=== PATIENT | female | born 1930 | race Caucasian/White ===

== ENCOUNTER 2016-08-13 12:16 | Emergency (ER) | payer MEDICARE, MEDICAID ==
[2016-08-13 12:39] VITALS: BP 144/77
--- NOTE | 2016-08-13 13:59 | UC ---
General HPI - HPI Summary HPI Summary: YESTERDAY HAD FEVER OF 101F, AND QUESINESS. NO VOMITING. NO SORE THROAT. NO BODY ACHES. NO RASHES. NO ABDOMINAL PAIN. NO CHEST PAIN. NO SHORTNESS OF BREATH OR COUGH. NO CONGESTION. FEVER RESOLVED TODAY. - History of Current Complaint Chief Complaint: UCRespiratory Stated Complaint: CHILLS, NAUSEA, FEVER Time Seen by Provider: 08/13/16 12:51 Hx Obtained From: Patient, Family/Environmental Conservation Professor Onset/Duration: Sudden Onset, Lasting Hours, Resolved Onset Severity: Moderate Current Severity: None Associated Signs & Symptoms: Positive: Fever, Nausea, Weakness. Negative: Agitation, Abdominal Pain, Back Pain, Confusion, Cough, Chest Pain, Decreased Responsiveness, Dizziness, Diarrhea, Dysuria, Decreased Oral Intake, Diaphoresis , Headache, Melena, Palpitations, Syncope, SOB, Trauma, Vomiting, Wheezing - Allergy/Home Medications Allergies/Adverse Reactions: Allergies Allergy/AdvReac Type Severity Reaction Status Date / Time Celecoxib [From Celebrex] AdvReac Nausea And Verified 05/14/16 12:35 Vomiting Morphine AdvReac Nausea And Verified 05/14/16 12:35 Vomiting Rofecoxib [From Vioxx] AdvReac Nausea And Verified 05/14/16 12:35 Vomiting PMH/Surg Hx/FS Hx/Imm Hx Previously Healthy: Yes Endocrine History Of: Reports: Thyroid Disease - Hypo Denies: Diabetes Cardiovascular History Of: Reports: Cardiac Disorders - HEART ATTACK-2002, 2008 , MITRAL VALVE REPLACED, Hypertension, Pacemaker/ICD, Myocardial Infarction, Congestive Heart Failure - 09/2007 GI/ History Of: Reports: Renal Disease - abnormal gfr Denies: Kidney Stones Neurological History Of: Denies: TIA, CVA, Seizures Psychological History Of: Reports: Depression - remote past Cancer History Of: Denies: Breast Cancer Other History Of: Anticoagulant Therapy - Surgical History Surgical History: Yes Surgery Procedure, Year, and Place: hemorrrhoidectomy, hysterectomy,cataracts, spleenectomy,mitral valve,aortic aneurysm, pacer, iliac artery aneurysm,left hip replacement - Family History Known Family History: Positive: Cardiac Disease, Hypertension Negative: Diabetes - Social History Occupation: Retired Lives: With Family Alcohol Use: None Substance Use Type: None Smoking Status (MU): Former Smoker Type: Cigarettes Amount Used/How Often: quit 2009 Length of Time of Smoking/Using Tobacco: 1PPD Have You Smoked in the Last Year: No When Did the Patient Quit Smoking/Using Tobacco: 2000 - Immunization History Most Recent Influenza Vaccination: 04/2015 Most Recent Tetanus Shot: up to date Most Recent Pneumonia Vaccination: up to date, states receives every 5 years Review of Systems Constitutional: Fever, Chills, Fatigue Skin: Negative Eyes: Negative ENT: Negative Respiratory: Negative Cardiovascular: Negative Gastrointestinal: Negative Genitourinary: Negative Motor: Negative Neurovascular: Negative Musculoskeletal: Negative Neurological: Negative Psychological: Negative All Other Systems Reviewed And Are Negative: Yes Physical Exam Triage Information Reviewed: Yes Appearance: Well-Appearing, No Pain Distress, Well-Nourished, Thin Vital Signs: Initial Vital Signs Temp 99.0 F 08/13/16 12:34 Pulse 106 08/13/16 12:34 Resp 18 08/13/16 12:34 BP 144/77 08/13/16 12:34 Pulse Ox 96 08/13/16 12:34 Vital Signs Reviewed: Yes Eye Exam: Normal ENT Exam: Normal ENT: Positive: Normal ENT inspection, Hearing grossly normal, Pharynx normal, TMs normal Dental Exam: Normal Neck exam: Normal Neck: Positive: Supple, Nontender, No Lymphadenopathy Respiratory Exam: Normal Respiratory: Positive: Chest non-tender, Lungs clear, Normal breath sounds, No respiratory distress, No accessory muscle use Cardiovascular Exam: Normal Cardiovascular: Positive: RRR, No Murmur, Pulses Normal Abdominal Exam: Normal Abdomen Description: Positive: Nontender, No Organomegaly Musculoskeletal Exam: Normal Musculoskeletal: Positive: Strength Intact, ROM Intact, No Edema Neurological Exam: Normal Psychological Exam: Normal Psychological: Positive: Normal Response To Family Skin Exam: Normal Course/Dx - Differential Dx - Multi-Symptom Differential Diagnoses: Metabolic Abnormality, Sepsis, Other - INFLUENZA Provider Diagnoses: VIRAL SYNDROME Discharge - Discharge Plan Condition: Stable Disposition: HOME Patient Education Materials: Viral Syndrome (ED) Referrals: Edilberto Ayers MD [Primary Care Provider] -
== END 2016-08-13 13:55 | disposition home or self-care (01) ==
LOC: UCEAST 12:16
DX: B34.9 Viral infection, unspecified (principal); Z95.0 Presence of cardiac pacemaker; Z96.642 Presence of left artificial hip joint; Z98.49 Cataract extraction status, unspecified eye; Z98.890 Other specified postprocedural states; Z87.891 Personal history of nicotine dependence; Z88.5 Allergy status to narcotic agent; Z88.6 Allergy status to analgesic agent
CPT/HCPCS: 87502; 99212; G0463

== ENCOUNTER 2016-08-17 09:21 | Inpatient (IN) | payer MEDICARE, MEDICAID ==
[2016-08-17] MEDS ORDERED: NS 0.9% 1000 ML* 1,600 ML IV ONE (09:45)
[2016-08-17] MEDS ORDERED: Acetaminophen TAB* 325 MG PO ONE (09:45)
[2016-08-17 10:06] LABS: Add Diff/Slide Review? Slide Review Added; Albumin 3.7 g/dL (3.2-5.2); BUN/Creatinine Ratio 29.5 (8-20); Calcium 9.1 mg/dL (8.6-10.3); Comments Flag Yes; EGFR African American 78.4 (>60); EGFR Non-African American 60.9 (>60); Globulin 3.7 g/dL (2-4); Hematocrit 44 % (35-47); Hemoglobin 14.1 g/dl (12.0-16.0); Mean Corpuscular HGB Conc 32 g/dl (31-36); Mean Corpuscular Hemoglobin 30 pg (27-31); Mean Corpuscular Volume 92 fL (80-97); Mean Platelet Volume 11 um3 (7.4-10.4); Potassium 3.5 mmol/L (3.5-5.0); Red Blood Count 4.76 10^6/ul (4.0-5.4); Red Cell Distribution Width 16 % (10.5-15); Total Bilirubin 1.2 mg/dL (0.2-1.0); Total Protein 7.4 g/dL (6.4-8.9); White Blood Count 10.9 10^3/ul (3.5-10.8)
[2016-08-17 10:19] LABS: Troponin I 0.35 ng/mL (<0.04)
[2016-08-17] MEDS ORDERED: NS 0.9% 1000 ML* 1,000 ML IV SCH ×2 (10:30→11:45)
--- NOTE | 2016-08-17 10:55 | ED ---
Napoleon Sanabria Matthew, scribed for Sara Bailey MD on 08/17/16 at 1003 . Influenza-Like Illness - HPI Summary HPI Summary: An 86 y/o female presents to the ED with fever since 4 days ago. Associated symptoms include chills, intermittent productive cough, fever as high as 101+, nausea, evaluated BP, SOB - acute on chronic, fatigue, and weakness - acute on chronic. The patient denies chest pain, vomiting, diarrhea, and hematemesis. The patient takes 6 Tylenol daily, which has not alleviated her fever. She received her flu shot this year. The symptoms improved 3 days ago, but worsened in the last two. - History of Current Complaint Chief Complaint: EDGeneral Time Seen by Provider: 08/17/16 09:43 Hx Obtained From: Patient Onset/Duration: Gradual Onset, Lasting Days, Still Present Severity: Moderate Associated Signs & Symptoms: Fever, Cough - Allergy/Home Medications Allergies/Adverse Reactions: Allergies Allergy/AdvReac Type Severity Reaction Status Date / Time Celecoxib [From Celebrex] AdvReac Nausea And Verified 05/14/16 12:35 Vomiting Morphine AdvReac Nausea And Verified 05/14/16 12:35 Vomiting Rofecoxib [From Vioxx] AdvReac Nausea And Verified 05/14/16 12:35 Vomiting PMH/Surg Hx/FS Hx/Imm Hx Endocrine/Hematology History: Reports: Hx Anticoagulant Therapy, Hx Thyroid Disease - Hypo, Hx Anemia Denies: Hx Blood Disorders, Hx Blood Transfusions, Hx Bone Marrow Disease, Hx Diabetes, Hx Systemic Lupus Erythematosus, Hx Unexplained Bleeding Cardiovascular History: Reports: Hx Aneurysm - AAA REPAIR 03/07/13, Hx Angina, Hx Congestive Heart Failure - 09/2007, Hx Coronary Artery Disease, Hx Hypercholesterolemia, Hx Hypertension, Hx Myocardial Infarction, Hx Pacemaker/ ICD, Hx Peripheral Vascular Disease, 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,AORTIC VALVE DIEASE, Other Cardiovascular Problems/Disorders - AAA, Taketsubo GI History: Denies: Other GI Disorders History: Reports: Hx Renal Disease - abnormal gfr Denies: Hx Dialysis, Hx Kidney Stones, Other Problems/Disorders Musculoskeletal History: Reports: Hx Arthritis - POLYMYALIGIA RHEUMATICA, Hx Orthopedic Injury, Other Musculoskeletal History - POLYMYALGIA RHEUMATICA Denies: Hx Osteoporosis Sensory History: Reports: Hx Contacts or Glasses Denies: Hx Hearing Problem Opthamlomology History: Reports: Hx Contacts or Glasses Neurological History: Reports: Hx Nerve Disease - peripheral neuropathy right leg only Denies: Hx Headaches, Hx Seizures, Hx Transient Ischemic Attacks (TIA) Psychiatric History: Reports: Hx Depression - remote past - Cancer History Hx Chemotherapy: No Hx Radiation Therapy: No - Surgical History Surgery Procedure, Year, and Place: hemorrrhoidectomy, hysterectomy,cataracts, spleenectomy,mitral valve,aortic aneurysm, pacer, iliac artery aneurysm,left hip replacement Hx Anesthesia Reactions: No Infectious Disease History: No Infectious Disease History: Denies: Traveled Outside the [place] in Last 30 Days - Family History Known Family History: Positive: Cardiac Disease, Hypertension Negative: Diabetes - Social History Alcohol Use: None Substance Use Type: Reports: None Smoking Status (MU): Former Smoker Type: Cigarettes Amount Used/How Often: quit 2009 Length of Time of Smoking/Using Tobacco: 1PPD Have You Smoked in the Last Year: No Review of Systems Constitutional: Other - increased BP Positive: Fever, Chills, Fatigue Eyes: Negative ENT: Negative Cardiovascular: Negative Negative: Chest Pain Positive: Shortness Of Breath - acute on chronic , Cough - productive Positive: Nausea. Negative: Abdominal Pain, Vomiting, Diarrhea Genitourinary: Negative Musculoskeletal: Negative Skin: Negative Positive: Weakness - generalized Psychological: Normal All Other Systems Reviewed And Are Negative: Yes Physical Exam Triage Information Reviewed: Yes Vital Signs On Initial Exam: Initial Vitals Temp Pulse Resp BP Pulse Ox 102.5 F 115 44 206/99 93 08/17/16 09:25 08/17/16 09:25 08/17/16 09:25 08/17/16 09:25 08/17/16 09:25 Vital Signs Reviewed: Yes Appearance: Positive: No Pain Distress, Ill-Appearing - moderate Skin: Positive: Warm, Skin Color Reflects Adequate Perfusion, Dry Eyes: Positive: EOMI, COLIN ENT: Positive: Tonsillar swelling - left Neck: Positive: Supple, Nontender Respiratory/Lung Sounds: Positive: Clear to Auscultation, Decreased Breath Sounds - at the base, Other - tachypneic. Negative: Rales, Rhonchi, Wheezes Cardiovascular: Positive: Tachycardia. Negative: Murmur, Rub Abdomen Description: Positive: Nontender, Soft. Negative: Distended, Guarding Bowel Sounds: Positive: Present Musculoskeletal: Positive: Normal, Strength/ROM Intact Neurological: Positive: Normal, Sensory/Motor Intact, Alert, Oriented to Person Place, Time, CN Intact II-III Psychiatric: Positive: Normal, Affect/Mood Appropriate Diagnostics - Vital Signs Vital Signs Temp Pulse Resp BP Pulse Ox 08/17/16 09:46 93 08/17/16 09:25 102.5 F 115 44 206/99 93 - Laboratory Lab Results: Lab Results 08/17/16 08/17/16 08/17/16 Range/Units 09:35 09:35 09:35 WBC 10.9 H (3.5-10.8) 10^3/ul RBC 4.76 (4.0-5.4) 10^6/ul Hgb 14.1 (12.0-16.0) g/dl Hct 44 (35-47) % MCV 92 (80-97) fL MCH 30 (27-31) pg MCHC 32 (31-36) g/dl RDW 16 H (10.5-15) % Plt Count 125 L (150-450) 10^3/ul MPV 11 H (7.4-10.4) um3 Neut % (Auto) 68.8 (38-83) % Lymph % (Auto) 14.6 L (25-47) % Owsley % (Auto) 15.8 H (1-9) % Eos % (Auto) 0.1 (0-6) % Baso % (Auto) 0.7 (0-2) % Absolute Neuts (auto) 7.5 (1.5-7.7) 10^3/ul Absolute Lymphs (auto) 1.6 (1.0-4.8) 10^3/ul Absolute Monos (auto) 1.7 H (0-0.8) 10^3/ul Absolute Eos (auto) 0 (0-0.6) 10^3/ul Absolute Basos (auto) 0.1 (0-0.2) 10^3/ul Absolute Nucleated RBC 0.01 10^3/ul Nucleated RBC % 0.1 INR (Anticoag Therapy) 1.57 H (0.89-1.11) APTT 33.9 (26.0-36.3) seconds Sodium 133 (133-145) mmol/L Potassium 3.5 (3.5-5.0) mmol/L Chloride 99 L (101-111) mmol/L Carbon Dioxide 25 (22-32) mmol/L Anion Gap 9 (2-11) mmol/L BUN 26 H (6-24) mg/dL Creatinine 0.88 (0.51-0.95) mg/dL Est GFR ( Amer) 78.4 (>60) Est GFR (Non-Af Amer) 60.9 (>60) BUN/Creatinine Ratio 29.5 H (8-20) Glucose 86 (70-100) mg/dL Lactic Acid (0.5-2.0) mmol/L Calcium 9.1 (8.6-10.3) mg/dL Total Bilirubin 1.20 H (0.2-1.0) mg/dL AST 18 (13-39) U/L ALT 10 (7-52) U/L Alkaline Phosphatase 45 (34-104) U/L Troponin I 0.35 H* (<0.04) ng/mL Total Protein 7.4 (6.4-8.9) g/dL Albumin 3.7 (3.2-5.2) g/dL Globulin 3.7 (2-4) g/dL Albumin/Globulin Ratio 1.0 (1-3) Influenza A (Rapid) (Negative) Influenza B (Rapid) (Negative) 08/17/16 08/17/16 Range/Units 09:35 09:59 WBC (3.5-10.8) 10^3/ul RBC (4.0-5.4) 10^6/ul Hgb (12.0-16.0) g/dl Hct (35-47) % MCV (80-97) fL MCH (27-31) pg MCHC (31-36) g/dl RDW (10.5-15) % Plt Count (150-450) 10^3/ul MPV (7.4-10.4) um3 Neut % (Auto) (38-83) % Lymph % (Auto) (25-47) % Owsley % (Auto) (1-9) % Eos % (Auto) (0-6) % Baso % (Auto) (0-2) % Absolute Neuts (auto) (1.5-7.7) 10^3/ul Absolute Lymphs (auto) (1.0-4.8) 10^3/ul Absolute Monos (auto) (0-0.8) 10^3/ul Absolute Eos (auto) (0-0.6) 10^3/ul Absolute Basos (auto) (0-0.2) 10^3/ul Absolute Nucleated RBC 10^3/ul Nucleated RBC % INR (Anticoag Therapy) (0.89-1.11) APTT (26.0-36.3) seconds Sodium (133-145) mmol/L Potassium (3.5-5.0) mmol/L Chloride (101-111) mmol/L Carbon Dioxide (22-32) mmol/L Anion Gap (2-11) mmol/L BUN (6-24) mg/dL Creatinine (0.51-0.95) mg/dL Est GFR ( Amer) (>60) Est GFR (Non-Af Amer) (>60) BUN/Creatinine Ratio (8-20) Glucose (70-100) mg/dL Lactic Acid 1.0 (0.5-2.0) mmol/L Calcium (8.6-10.3) mg/dL Total Bilirubin (0.2-1.0) mg/dL AST (13-39) U/L ALT (7-52) U/L Alkaline Phosphatase (34-104) U/L Troponin I (<0.04) ng/mL Total Protein (6.4-8.9) g/dL Albumin (3.2-5.2) g/dL Globulin (2-4) g/dL Albumin/Globulin Ratio (1-3) Influenza A (Rapid) Negative (Negative) Influenza B (Rapid) Negative (Negative) Result Diagrams: 08/17/16 09:35 08/17/16 09:35 Lab Statement: Any lab studies that have been ordered have been reviewed, and results considered in the medical decision making process. - Radiology No standard instances Xray Interpretation: Positive (See Comments) Radiology Interpretation Completed By: ED Physician - rt upper lobe infiltrate - EKG 09:41 Cardiac Rate: Tachycardia - 105 bpm EKG Rhythm: Atrial Fibrillation EKG Interpretation: LVH; Diffuse ST Changes EKG Comparison: No Significant Change - 09/13/15 Flu Symptom Course/Dx - Course Course Of Treatment: 86 yo meeting sepsis criteria by vitals, abx on board, 30 cc/kg of ns being given, hospitalist called for admission. Airway is good - Diagnoses Provider Diagnoses: Pneumonia - Physician Notifications Discussed Care Of Patient With: Dr. Kat (Hospitalist) at 10:23 -- Notified of patient's history and will admit the patient. Discharge - Discharge Plan Condition: Guarded Disposition: ADMITTED TO [facility] documentation as recorded by the Napoleon ledesma Matthew accurately reflects the service I personally performed and the decisions made by me, Sara Bailey MD.
[2016-08-17] MEDS ORDERED: cefTRIAXone VIAL(*) 1,000 MG in NS 0.9% 50 ML* 50 ML IVPB ONE (10:56)
[2016-08-17] MEDS ORDERED: Azithromycin IV(*) 500 MG in NS 0.9% 250 ML* 250 ML IVPB ONE (10:56)
[2016-08-17] MEDS ORDERED: NS 0.9% 50 ML* 50 ML ONE (10:59)
[2016-08-17] MEDS ORDERED: cefTRIAXone(*) 1 GM ADVAN/BAG ONE (11:00)
--- NOTE | 2016-08-17 11:21 | RAD ---
Indication: Flulike symptoms. History of congestive heart failure. Comparison: May 14, 2016 CT abdomen and May 06, 2016 chest radiograph. Technique: Sitting AP and lateral chest views. Report: Elevated lung volumes. Confluent airspace consolidation involving the anterior segment of the RIGHT upper lobe extending to the peripheral pleura and the minor fissure. Negative for volume loss. Small bilateral pleural effusions. Elevated lung volumes with mild prominence of the interstitial markings. Median sternotomy wires, prosthetic mitral valve, RIGHT ventricular level pacemaker lead. Unremarkable central pulmonary vasculature. Abdominal aorta stent noted. IMPRESSION: RIGHT upper lobe pneumonia. Small bilateral pleural effusions. Stigmata of chronic obstructive pulmonary disease.
[2016-08-17 11:32] LABS: Urine Bacteria 2+ (Absent); Urine Bilirubin Negative (Negative); Urine Glucose Negative (Negative); Urine Nitrite Positive (Negative)
[2016-08-17] MEDS ORDERED: Acetaminophen TAB* 325 MG PO PRN (11:40)
[2016-08-17] MEDS ORDERED: Digoxin TAB* 0.125 MG PO SCH (12:00)
[2016-08-17] MEDS: predniSONE TAB* 20 MG PO SCH (12:10)
[2016-08-17] MEDS: Diltiazem TAB* 60 MG PO SCH ×3 (12:10→23:48)
[2016-08-17] MEDS ORDERED: Morphine INJ* 2 MG/ML 1 ML CARPUJECT IV ONE (12:41)
[2016-08-17] MEDS: Ondansetron INJ* 2 MG/ML VIAL IV PRN (13:02)
--- NOTE | 2016-08-17 13:28 | PN ---
Progress Note - Progress Note Note: CRITICAL CARE MEDICINE Date: 08/17/16 Time: 1300 Patient seen and discussed with SKATING RINK ICE MAKER Agree with corporate executive findings and assessment. Presenting with sob Pt tells me she is usualy active with ADLs, ambulates, drives, etc. Started feeling ill on but then worse today. Vital signs: Reviewed. LABS: Reviewed. IMAGING: Reviewed. MEDICATIONS: Reviewed. ASSESSMENT/PLAN: Acute hypoxic resp failure sec to RUL CAP with associated sepsis syndrome sec to this. Early and already dense RUL pna which is likely still to worsen. D/w pt and her family at bedside. Being placed on HFO2 to see if she can catch up to lack of flow but V/Q mismatch may be a bit much for her and may need intubation. She would accept a short course of such but as a DNR. Would be hopefully she can turn around in a couple days with abx and appropriate fluid balance. She's a touch intravascular deplete and would rather avoid interstitial fluid overload with her airspace disease. She is perfusing and if wob can come down she may be able to walk the line with HFO2. Give morphine and see how she can respond in the next hour or so to determine intubation needs. She expressed understanding. Supportive and preventative care as ordered. Disposition: ICU, Level Code Status: Full Critical Care Time: noreen Jimenes DO
[2016-08-17 14:20] LABS: Urine Bacteria 1+ (Absent); Urine Bilirubin Negative (Negative); Urine Glucose Negative (Negative); Urine Nitrite Positive (Negative)
[2016-08-17 14:26] LABS: Troponin I 0.33 ng/mL (<0.04)
[2016-08-17 14:44] LABS: Digoxin 3.1 ng/ml (0.8-2.0)
[2016-08-17] MEDS: Acetaminophen TAB* 325 MG PO SCH ×2 (14:55→20:47)
[2016-08-17] MEDS: Heparin VIAL(*) 5000 UNITS/ML VIAL (FIVE THOUSAND) SUBCUT SCH ×2 (14:55→21:09)
[2016-08-17] MEDS: Atorvastatin* 10 MG TAB PO SCH (16:59)
[2016-08-17] MEDS: Warfarin TAB(*) 3 MG PO SCH (17:01)
--- NOTE | 2016-08-17 19:27 | ECHO ---
Patient: [facility] Rec#: [id number] : 1930 Date: 08/17/2016 Age: 86y Height: 160 cm / 63.0 in Weight: 52 kg / 114.6 lbs Sex: F BSA: 1.53 Room#: [id number] Admit Date#: 08/17/2016 Type: Inpatient Referring: Rohan Bueno NP Reading: Kobe Obando MD Shipwright Helper: Devang Santana RDCS CC: Edilberto Ayers MD Transthoracic Echocardiogram Indication: CARDIOMYOPATHY BP: 155/69 HR: 66 Rhythm: NSR Findings History: MVP,AI,CAD,AZ,apical akinesis,SVT,a,fib,PHTN Technical Comments: The study quality is fair. COMPLETED 1700 Left Ventricle: The left ventricular chamber size is normal. Mild to moderate concentric left ventricular hypertrophy is observed. Global left ventricular wall motion and contractility are within normal limits. There is normal left ventricular systolic function. The estimated ejection fraction is 55-60%. Post surgical hypokinesis of the interventricular septum is observed consistent with valve replacement. Left Atrium: The left atrium is severely dilated. Right Ventricle: The right ventricular cavity size is normal. The right ventricular global systolic function is normal. Right Atrium: The right atrium is mildly dilated. Aortic Valve: The aortic valve is trileaflet. The aortic valve leaflets are moderately thickened. There is aortic annular calcification. There is mild to moderate aortic regurgitation. There is mild aortic stenosis. The mean gradient of the aortic valve is 15 mmHg. The peak instantaneous gradient of the aortic valve is 30 mmHg. The aortic valve area, by peak velocities, is calculated at 1.4 cm2. The aortic valve area, by VTI's, is calculated at 1.2 cm2. The highest aortic valve velocity was obtained with the standard probe from the A5C view. Mitral Valve: There is mitral annular calcification. The mitral valve leaflets are mildly thickened. The mean gradient across the mitral valve is 4.88 mmHg. The peak gradient across the mitral valve is 13.8 mmHg. The bioprosthetic mitral valve appears to be functioning normally. Tricuspid Valve: The tricuspid valve appears normal in structure and function. There is mild to moderate tricuspid regurgitation. The right ventricular systolic pressure is estimated at 30 mmHg. Pulmonic Valve: The pulmonic valve structure is not well visualized. There is mild pulmonic regurgitation. Pericardium: There is no pericardial effusion. Aorta: There is mild dilatation of the ascending aorta.(4.0 cm) There is no dilatation of the aortic arch. There is no dilation of the aortic root. Pulmonary Artery: The main pulmonary artery is not well visualized. Venous: The inferior vena cava appears normal in size. There is a greater than 50% respiratory change in the inferior vena cava dimension. Conclusions Mild to moderate concentric left ventricular hypertrophy is observed. Global left ventricular wall motion and contractility are within normal limits. There is normal left ventricular systolic function. The estimated ejection fraction is 55-60%. Post surgical hypokinesis of the interventricular septum is observed consistent with valve replacement. The left atrium is severely dilated. The aortic valve leaflets are moderately thickened. There is mild to moderate aortic regurgitation. There is mild aortic stenosis. The mean gradient of the aortic valve is 15 mmHg. The bioprosthetic mitral valve appears to be functioning normally. The mitral valve leaflets are mildly thickened. There is mild to moderate tricuspid regurgitation. The right ventricular systolic pressure is estimated at 30 mmHg. There is no pericardial effusion. There is mild dilatation of the ascending aorta.(4.0 cm) Measurements Name Value Normal Range RVIDd (AP) 2D 2.15 cm (0.9 - 2.6) RVDdMajor (2D) 2.4 cm (2.2 - 4.4) RAd ISD 4CH 5.5 cm (3.4 - 4.9) RA (A4C)W 4 cm (2.9 - 4.6) IVSd (2D) 1.6 cm (0.6 - 1) LVPWd (2D) 1.1 cm (0.6 - 1) LVIDd (2D) 4.8 cm (3.6 - 5.4) LVIDs (2D) 3.5 cm - LV FS (2D) 26 % (25 - 45) Aortic Annulus 1.6 cm (1.4 - 2.6) Ao root diameter (2D) 2 cm (2.1 - 3.5) Ascending Ao 4 cm (2.1 - 3.4) Aortic arch 2.6 cm (1.8 - 3.4) LA dimension (AP) 2D 6.8 cm (2.3 - 3.8) LAd ISD 4CH 5.4 cm (2.9 - 5.3) LA ISD 4CH W 3.5 cm (2.5 - 4.5) Name Value Normal Range LA ESV SP 4CH (A/L) 60 ml - LA ESV SP 2CH (A/L) 82 ml - LA ESV BP (A/L) 77 ml - LA ESV BP (A/L) index 50.29 ml/m2 - LA ESV SP 4CH (MOD) 56 ml - LA ESV SP 2CH (MOD) 78 ml - Name Value Normal Range MV E-wave Vmax 1.57 m/sec - MV deceleration time 397 msec - MV A-wave Vmax 0.52 m/sec - MV E:A ratio 3 ratio - LV septal e' Vmax 39.25 m/sec - LV lateral e' Vmax 39.25 m/sec - LV E:e' septal ratio 0.04 ratio - LV E:e' lateral ratio 0.04 ratio - Name Value Normal Range AV Vmax 2.8 m/sec - AV VTI 50.8 cm - AV peak gradient 30 mmHg - AV mean gradient 15 mmHg - LVOT diameter 1.9 cm - LVOT Vmax 1.4 m/sec - SONIA (continuity Vmax) 1.4 cm2 - SOINA (continuity VTI) 1.2 cm2 - AR PHT 567.42 msec - AR peak gradient 69.15 mmHg - Name Value Normal Range MV Vmax 1.86 m/sec - MV VTI 53.5 cm - MV peak gradient 13.8 mmHg - MV mean gradient 4.88 mmHg - MV PHT 136.11 msec - MVA (PHT) 1.62 cm2 - MVA (continuity VTI) 1.09 cm2 - Name Value Normal Range TR Vmax 2.7 m/sec - TR peak gradient 30 mmHg - RVSP 30 mmHg - IVC diameter 1.9 cm - Name Value Normal Range PV Vmax 0.87 m/sec - PV peak gradient 3.06 mmHg -
[2016-08-17] MEDS: BRIMONIDINE RIGHT EYE SCH (20:48)
[2016-08-17] MEDS: Latanoprost 0.005%* 2.5 ml BTL RIGHT EYE SCH (20:48)
[2016-08-18] MEDS: Levothyroxine TAB* 75 MCG TAB PO SCH (05:51)
[2016-08-18] MEDS: Heparin VIAL(*) 5000 UNITS/ML VIAL (FIVE THOUSAND) SUBCUT SCH ×3 (05:51→21:05)
[2016-08-18] MEDS: Diltiazem TAB* 60 MG PO SCH ×4 (05:51→23:15)
[2016-08-18 06:05] LABS: Hematocrit 39 % (35-47); Hemoglobin 12.7 g/dl (12.0-16.0); Mean Corpuscular HGB Conc 33 g/dl (31-36); Mean Corpuscular Hemoglobin 30 pg (27-31); Mean Corpuscular Volume 92 fL (80-97); Mean Platelet Volume 10 um3 (7.4-10.4); Red Blood Count 4.23 10^6/ul (4.0-5.4); Red Cell Distribution Width 17 % (10.5-15); White Blood Count 9.7 10^3/ul (3.5-10.8)
[2016-08-18 06:06] LABS: Add Diff/Slide Review? Slide Review Added; Comments Flag Yes
[2016-08-18 06:19] LABS: BUN/Creatinine Ratio 32.9 (8-20); Calcium 8.1 mg/dL (8.6-10.3); EGFR African American 92.8 (>60); EGFR Non-African American 72.2 (>60); Potassium 4.3 mmol/L (3.5-5.0)
--- NOTE | 2016-08-18 06:47 | HP ---
HISTORY AND PHYSICAL: DATE OF ADMISSION: 08/17/16 PRIMARY CARE PROVIDER: Dr. Ayers. ATTENDING PHYSICIAN WHILE IN THE HOSPITAL: Yusuf Stone MD *(report dictated by Rohan Bueno NP). CHIEF COMPLAINT: 1. Weakness. 2. Cough. 3. Fever. HISTORY OF PRESENT ILLNESS: Mrs. Gilmore is an 86-year-old female patient who has a history of cardiomyopathy Takotsubo. She has a history of vertigo, A-Fib , PMR, hypertension, atherosclerotic disease, hyperlipidemia, history of COPD on no inhaler, hypothyroidism, thrombocytopenia, hemolytic anemia and history of CVA. She comes into the ER today stating that since she has not been feeling well. She actually went to the [facility] on . She says that she was having aches all over, feeling weak, feeling tired. She states she had a sore throat. She said she went to [facility]. She states that flu was ruled out and thought may be there was a viral illness. She was sent home. She was doing well on Wednesday, but then Wednesday and Wednesday she got progressively worse, weak. She was having rigors and chills. Wednesday she started out with a cough, sore throat. She had no recent sick contacts. She has been aching all over. She just has not been feeling well. She vomited once but she vomited with phlegm. She says that she has not had a running nose or any chest pain but she does state that she has been progressively more and more short of breath throughout the weekend particularly with exertion. There was no documented fever at home but when she got here to the ER today she had a fever of 102. She denies any abdominal pain. Denies having any joint discomfort. It is more of a generalized arthralgias and myalgias and no open areas or skin rashes. She was evaluated in the ER. There was concern that it was found that she had pneumonia appeared to be septic. Hospitalist service was asked to evaluate for admission. PAST MEDICAL HISTORY: Significant for: 1. Takotsubo cardiomyopathy, last EF from 2011 is greater than 65%. 2. Vertigo. 3. History of atrial fibrillation. 4. Hypertension. 5. Atherosclerotic disease. 6. Hyperlipidemia. 7. COPD. 8. Hypothyroidism. 9. Thrombocytopenia. 10. Hemolytic anemia. 11. CVA. PAST SURGICAL HISTORY: 1. 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 2. Pacemaker for tachybrady syndrome. 3. AAA repair. 4. Iliac aneurysm repair. 5. Splenectomy. HOME MEDICATIONS: According to the list that she gave to us include: 1. Prednisone 5 mg daily with meal. 2. Warfarin 1 mg daily. 3. Pro [place] 1000 mg one capsule daily. 4. Niacinamide 500 mg p.o. weekly. 5. Mevacor 20 mg daily. 6. Synthroid 75 mcg daily. 7. Latanoprost one drop right eye at bedtime. 8. Multivitamin one tablet p.o. t.i.d. 9. Drenamin one tablet daily. 10. Diltiazem CD 120 at night and 240 in the morning. 11. Digoxin 0.25 mg on Wednesday and Wednesday. 12. Digoxin 0.125 mg on Wednesday, Wednesday, Wednesday, , Wednesday. 13. Clarinex 5 mg daily. 14. Co-enzyme Q10 100 mg daily. 15. Vitamin D 1000 units daily. 16. Calcium and magnesium with zinc one tablet p.o. daily. 17. Brimonidine tartrate one drop to right eye b.i.d. 18. Aspirin 81 mg daily. 19. Tylenol 650 p.o. t.i.d. ALLERGIES TO MEDICATIONS: Includes CELEBREX, MORPHINE, and ROFECOXIB. FAMILY HISTORY: Mother had heart disease from rheumatic fever. She in the 40s. Father had a history of surgical complication. He from that. SOCIAL HISTORY: She is a former smoker. She quit in 2001. She does not drink alcohol. Surrogate decision maker is her daughter, Joesph. She lives alone. REVIEW OF SYSTEMS: There is documented fever here. She denied having any significant weight change. There was no double vision. There is no ear discharge. There is no rhinorrhea. There was sore throat. There is no thyroid enlargement. She denies any chest pain. There is dyspnea on exertion. There is no orthopnea, no nocturnal dyspnea. There is no abdominal pain. There was only one episode with nausea, vomiting. No dysuria, no frequency. No loss of consciousness. No pruritus and no skin ulcerations. Review of 14 systems completed, all others negative. PHYSICAL EXAMINATION GENERAL: At this time, Mrs. Gilmore is an 86-year-old female patient. She is sitting in the ER stretcher. She appears to be in mild respiratory distress. She appears well nourished, well developed. VITAL SIGNS: Last blood pressure was 150/70 with pulse of 93, temperature is 101.3, respirations are 26, O2 sat was 97%. When she came in, respirations were 40 and her blood pressure was 206/99. HEENT: Head: Atraumatic, normocephalic. Eyes: EOMs are intact. Sclerae anicteric and not pale. NECK: Supple. Throat: Oral mucosa appears to be moist. No oropharyngeal erythema. LUNGS: She had rhonchi noted on the upper lobes and crackles in the right middle lobe. No wheezes were noted. HEART: Sounds S1, S2. Irregularly irregular rate. No murmurs, rubs, or gallops. ABDOMEN: Soft, flat, nontender. Bowel sounds were present. EXTREMITIES: Pulses 2+ throughout. Able to move all 4 extremities with 5/5 strength. NEUROLOGIC: She is awake, alert, oriented x3. Tongue is midline. It Portfolio Manager are equal. No gross focal deficits. SKIN: Grossly intact. DIAGNOSTIC STUDIES/LAB DATA: Labs today revealed WBC of 10.9, RBC of 4.76, hemoglobin of 14.1, hematocrit of 44, and platelet count of 125. INR was 1.57. PTT of 32.9. Sodium 133, potassium 3.5, chloride of 99, bicarb 25, BUN 26, creatinine 0.88, glucose 86, lactic 1, calcium 9.1. Total bili 1.2, AST 18, ALT 10. Alk phos 45. Troponin 0.35. Albumin is 3.7. Urine showed trace ketones, positive nitrate, 2+ leukocyte esterase, 3+ wbc, 2+ bacteria. She had a negative flu swab. The chest x-ray was obtained today. When I reviewed, I did appreciate an infiltrate in the right upper lobe. Radiology read it as right upper lobe pneumonia, small bilateral pleural effusion, stigmata of chronic obstructive pulmonary disease. She had an EKG obtained today as well. EKG shows atrial fibrillation with a rate of 105. She has inverted T waves in I and aVL, had some subtle depression in V4, V5, and V6. She has a left anterior fascicular block. Compared to the previous EKG it is similar. No acute changes were noted. Old medical records were reviewed. ASSESSMENT AND PLAN: Mrs. Gilmore is an 86-year-old female patient coming into the ER today with complaints of chills, rigors, in addition to this, cough and shortness of breath, in evaluation found to be septic. In addition to this found to have pneumonia. She will be admitted under inpatient status for: 1. Pneumonia: At this point, the patient will be admitted to our ICU. Her acute Quick SOFA score is 1. The patient was given 1600 cc bolus here in the ER. We will start her on azithromycin and ceftriaxone. I have sent off legionella and Strep pneumoniae antigens. We will get a sputum culture. I will put her on steroid 40 mg p.o. daily because she is on chronic steroids. In addition to this, I have ordered a flutter valve and incentive spirometry. I think she will benefit from Vapotherm. I think she needs that flow because the patient does have slight increased work of breathing. I would like to get ahead of this and try to avoid mechanical ventilation. I do not think she will need that for aggressive in the early stages and we will continue to monitor closely. 2. Indeterminate troponin. It is probably demand ischemia. She has no EKG changes. No chest pain. I am going to trend these and check an echo and monitor her for the time being. I think this is probably demand related to the significant pneumonia that she has. 3. Cardiomyopathy. Last EF was 65%. We are going to get a repeat echo today. 4. Vertigo. Continue current medical regimen. 5. Atrial fibrillation. She is on Cardizem CD. I switched this to Cardizem IR with hold parameters. We will continue digoxin. I am getting a level of INR of 1.57. I am going to increase her Coumadin tonight and will follow the INR closely. 6. PMR. Again she will be on prednisone 40 daily. She takes 5 mg daily. Her blood pressure is stable right now. If she does become hypotensive, we can add hydrocortisone but I think 40 mg a day will be appropriate. 7. Hypertension. Continue meds as prescribed. 8. Atherosclerotic disease. Continue statin therapy. 9. Hyperlipidemia. Again statin therapy. 10. History of chronic obstructive pulmonary disease. She is not on any medication. She is not wheezing. I am going to order p.r.n. albuterol for her as needed. I do not think she needs standing meds at this point as she is not wheezing. 11. Hypothyroidism. Continue her Synthroid. 12. Thrombocytopenia. History of hemolytic anemia. We will follow her H and H and platelet count. 13. History of CVA. Continue with secondary prevention. 14. Deep venous thrombosis prophylaxis. Her INR is subtherapeutic for the time being. I will put her on heparin subcu until the INR raises over 2 and I will stop the heparin and we will put her on SCDs. 15. Fluids, electrolytes, and nutrition. She can have a heart healthy diet. 16. Code status. She is a full code. TIME SPENT: Time spent on the admission was 70 minutes; greater than half the time was spent [id number] with the patient obtaining my history and physical, the other half time spent going over the plan of care with the patient and implementing plan of care. I did discuss the plan of care with my attending, Dr. Stone, he is in agreement. ROHAN BUENO NP CC: Dr. Ayers* [id number]/CPS #: [id number] [place]
[2016-08-18] MEDS: Acetaminophen TAB* 325 MG PO SCH ×3 (09:23→20:31)
[2016-08-18] MEDS: predniSONE TAB* 20 MG PO SCH (09:24)
[2016-08-18] MEDS: Aspirin EC Low Dose* 81 MG TAB.EC PO SCH (09:24)
[2016-08-18] MEDS: BRIMONIDINE RIGHT EYE SCH ×3 (10:06→20:32)
[2016-08-18] MEDS: cefTRIAXone VIAL(*) 1,000 MG in NS 0.9% 50 ML* 50 ML IVPB SCH (11:18)
[2016-08-18] MEDS ORDERED: Dextrose 50% Syringe 50 ML* 25 GM/50 ML SYRINGE IV PUSH PRN (11:38)
--- NOTE | 2016-08-18 11:53 | PN ---
Progress Note - Progress Note Note: CRITICAL CARE MEDICINE Date: 08/18/16 Time: 1055 SUBJECTIVE: Patient seen and examined. Feels better. PHYSICAL EXAM: Vital Signs: Reviewed. Neurologic: stable HEENT: pupils equal. Sclera anicteric. Trachea midline. Cardiovascular: S1 S2 Respiratory: dec BS RUL, mild dryness and squawk Abdomen: Soft, nt. No r/g/r. Extremities: Warm. Access: per LABS: Reviewed. IMAGING: Reviewed. MEDICATIONS: Reviewed. ASSESSMENT: 86 F with Acute hypoxic resp failure sec to RUL CAP with associated sepsis syndrome sec to this. CAF on anticoag Vasculopath PLAN: Neurologic: stable. did well with morphine. prns Cardiovascular: Perfusing. left her a touch on the dry side but maintained. can take adequete Po. troponin up sec to demand. better now. ecg was similar to prior. dig level up, but nothing indicative on ecg. Can resume dig tomorrow at 0.125 daily and forgo the extra dosing. add norvasc today with htn and hopefully when steroids less and breathing better, bp will improve. Respiratory: now that she has rescued self with HFO2, can work on slow wean as she will not have to gain fx with aggressive pulm toliet. Still going to take a bit for lignification and mobilization. Gastrointestinal: po diet. Renal/Metabolic: stable. sun up sec to prednisone Infectious Disease: on azithro and C3. cx neg thusfar. continue Hematology: stable. inr therapeutic. mild plt consumption. Endocrine: dec prednisone and back to home dose in another day or so but can leave at 20mg first to try and avoid associated wheeze potential with her air space disease and pulm toliet needs. Glucose reactive with steroids. blunt with ssi for now. Musculoskeletal: oob. dc marti. ambulate. Psych/Social: pt expresses appreciation and understanding. Supportive and preventative care as ordered. SUP: po VTE prophylaxis: Coumadin Disposition: ICU today and potential floor tomorrow. Code Status: Full Critical Care Time: 35min [place] Jimenes DO
[2016-08-18] MEDS: Azithromycin IV(*) 500 MG in NS 0.9% 250 ML* 250 ML IVPB SCH (12:03)
[2016-08-18] MEDS: amLODIPine TAB* 5 MG PO SCH (12:03)
[2016-08-18] MEDS: Insulin LISPRO* 1 UNITS UNIT SUBCUT SCH ×3 (12:31→20:55)
[2016-08-18] MEDS: Atorvastatin* 10 MG TAB PO SCH (17:30)
[2016-08-18] MEDS: Warfarin TAB(*) 3 MG PO SCH (17:31)
[2016-08-18] MEDS: Latanoprost 0.005%* 2.5 ml BTL RIGHT EYE SCH (20:32)
[2016-08-19] MEDS ORDERED: Metoprolol Tartrate IV* 1 MG/ML 5 ML VIAL ONE (03:45)
[2016-08-19] MEDS ORDERED: hydrALAZINE IV* 20 MG/ML VIAL ONE (04:44)
[2016-08-19] MEDS ORDERED: hydrALAZINE IV* 20 MG/ML VIAL IV SLOW PU ONE (05:00)
[2016-08-19] MEDS: Heparin VIAL(*) 5000 UNITS/ML VIAL (FIVE THOUSAND) SUBCUT SCH ×3 (05:45→21:10)
[2016-08-19] MEDS: Diltiazem TAB* 60 MG PO SCH ×3 (05:45→17:25)
[2016-08-19] MEDS: Levothyroxine TAB* 75 MCG TAB PO SCH (05:45)
[2016-08-19 06:02] LABS: BUN/Creatinine Ratio 33.3 (8-20); Calcium 8.8 mg/dL (8.6-10.3); EGFR African American 94.2 (>60); EGFR Non-African American 73.3 (>60); Magnesium 2.1 mg/dL (1.9-2.7); Phosphorus 2.5 mg/dL (2.5-5.0); Potassium 4.3 mmol/L (3.5-5.0)
[2016-08-19 06:11] LABS: Comments Flag Yes; Hematocrit 40 % (35-47); Hemoglobin 12.7 g/dl (12.0-16.0); Mean Corpuscular HGB Conc 32 g/dl (31-36); Mean Corpuscular Hemoglobin 30 pg (27-31); Mean Corpuscular Volume 92 fL (80-97); Mean Platelet Volume 10 um3 (7.4-10.4); Red Blood Count 4.28 10^6/ul (4.0-5.4); Red Cell Distribution Width 17 % (10.5-15); White Blood Count 11.8 10^3/ul (3.5-10.8)
[2016-08-19] MEDS: Insulin LISPRO* 1 UNITS UNIT SUBCUT SCH ×4 (07:34→21:56)
[2016-08-19] MEDS: Aspirin EC Low Dose* 81 MG TAB.EC PO SCH (08:12)
[2016-08-19] MEDS: predniSONE TAB* 20 MG PO SCH (08:12)
[2016-08-19] MEDS: BRIMONIDINE RIGHT EYE SCH ×2 (08:12→21:56)
[2016-08-19] MEDS: amLODIPine TAB* 5 MG PO SCH (08:12)
[2016-08-19] MEDS: Acetaminophen TAB* 325 MG PO SCH ×3 (08:12→21:09)
[2016-08-19] MEDS: cefTRIAXone VIAL(*) 1,000 MG in NS 0.9% 50 ML* 50 ML IVPB SCH (11:01)
[2016-08-19] MEDS ORDERED: Digoxin TAB* 0.25 MG PO SCH (11:45)
[2016-08-19] MEDS: Azithromycin IV(*) 500 MG in NS 0.9% 250 ML* 250 ML IVPB SCH (11:58)
--- NOTE | 2016-08-19 12:41 | PN ---
Progress Note - Progress Note Note: CRITICAL CARE MEDICINE Date: 08/19/16 Time: 900 SUBJECTIVE: Patient seen and examined. Feels ok. cough. +expectorant PHYSICAL EXAM: Vital Signs: Reviewed. Neurologic: stable HEENT: pupils equal. Sclera anicteric. Trachea midline. Cardiovascular: S1 S2 Respiratory: dec BS RUL with mild wheeze and mild rhonchi but more aeration Abdomen: Soft, nt. No r/g/r. Extremities: Warm. Access: per LABS: Reviewed. IMAGING: Reviewed. MEDICATIONS: Reviewed. ASSESSMENT: 86 F with Acute hypoxic resp failure sec to RUL CAP-H paraflu with associated sepsis syndrome sec to this. CAF on anticoag Vasculopath PLAN: Neurologic: stable. doing well. Cardiovascular: Perfusing. vol status stable. BP still up a bit but better now. keep norvasc for now and can inc to 10mg for now and f/u Respiratory: Improving and can come off hfo2. continued pulm toliet efforts with mobilization and continue to get better; will take time. Gastrointestinal: po diet. Renal/Metabolic: stable. bun up sec to prednisone Infectious Disease: on azithro and C3. H flu makes sense with her infilitrate. UTI concominant. Would complete 7 days C3 and would complete the 5 days of azithro given severity and anti-inflammatory benefit. Hematology: stable. inr therapeutic. mild plt consumption. Endocrine: dec prednisone back to home dose soon but keep as she still has a wheeze for now and help her recovery state. Glucose reactive with steroids, blunted with ssi. Musculoskeletal: oob. ambulate. Psych/Social: pt expresses appreciation and understanding. Supportive and preventative care as ordered. SUP: po VTE prophylaxis: Coumadin Disposition: floor Code Status: Full Critical Care Time: 25min [place] Jimenes DO
[2016-08-19] MEDS: Atorvastatin* 10 MG TAB PO SCH (17:25)
[2016-08-19] MEDS: Warfarin TAB(*) 3 MG PO SCH (17:25)
[2016-08-19] MEDS: Latanoprost 0.005%* 2.5 ml BTL RIGHT EYE SCH (21:10)
[2016-08-20] MEDS: Diltiazem TAB* 60 MG PO SCH ×5 (00:05→23:32)
[2016-08-20] MEDS: Albuterol 2.5 MG/3 ML NEB.SOL* (0.083%) INH PRN ×2 (00:51→05:57)
[2016-08-20] MEDS ORDERED: ALPRAZolam TAB* 0.25 MG PO ONE (02:00)
[2016-08-20] MEDS: Heparin VIAL(*) 5000 UNITS/ML VIAL (FIVE THOUSAND) SUBCUT SCH ×3 (05:06→21:18)
[2016-08-20] MEDS: Levothyroxine TAB* 75 MCG TAB PO SCH (05:06)
[2016-08-20] MEDS: LORazepam TAB(*) 0.5 MG PO PRN (05:06)
[2016-08-20] MEDS ORDERED: Furosemide IV* 10 MG/ML 2 ML VIAL (20 MG) IV SLOW PU ONE (06:45)
[2016-08-20] MEDS ORDERED: Furosemide IV* 10 MG/ML 2 ML VIAL (20 MG) ONE (06:56)
[2016-08-20] MEDS ORDERED: Morphine INJ* 2 MG/ML 1 ML CARPUJECT ONE (07:52)
[2016-08-20] MEDS: Morphine INJ* 2 MG/ML 1 ML CARPUJECT IV PRN ×3 (07:53→21:15)
[2016-08-20] MEDS: Ondansetron INJ* 2 MG/ML VIAL IV PRN (07:54)
[2016-08-20] MEDS: Acetaminophen TAB* 325 MG PO SCH ×3 (07:58→21:03)
--- NOTE | 2016-08-20 08:18 | RAD ---
INDICATION: Sepsis COMPARISON: August 17, 2016 TECHNIQUE: An AP portable view obtained at 0640 hours is submitted. FINDINGS: Bones/Soft Tissues: There are no acute bony findings. There is a left-sided cardiac pacemaker. There is sternotomy with valvular replacement. Cardiomediastinal: The cardiomediastinal silhouette is normal. Lungs: Progressive lateral infiltrates with increased consolidation in the right upper lobe and worsening bibasilar infiltrates Pleura: Small bilateral pleural effusions with worsening. Other: None IMPRESSION: WORSENING BILATERAL INFILTRATES.
--- NOTE | 2016-08-20 08:18 | PN ---
Progress Note - Progress Note Note: Pt was seen after transfer to ICU for respiratory distress. Pt is currently on Vapotherm 100% Fi02, 40 L flow, 02 sats 91% , minimally increased WOB. Exam: [id number] Resp diffuse crackles b/l CV: irreg, no murmur Abd :soft, NT, bS+ Extr: no edema, pulses +2 A/P Recurrent worsening of hypoxemic respiratory failure due to pneumonia Pt received a dose of Lasix 20 mg IV prior to transfer to ICU. Currently appears euvolemic. Respiratory status stable on Vapotherm, but if she worsens she would require intubation. Case will be signed off to the settlement worker this AM
[2016-08-20] MEDS: amLODIPine TAB* 5 MG PO SCH (08:20)
[2016-08-20] MEDS: Insulin LISPRO* 1 UNITS UNIT SUBCUT SCH ×4 (08:59→21:15)
[2016-08-20] MEDS: predniSONE TAB* 20 MG PO SCH (09:37)
[2016-08-20] MEDS: Aspirin EC Low Dose* 81 MG TAB.EC PO SCH (09:37)
[2016-08-20] MEDS: BRIMONIDINE RIGHT EYE SCH ×2 (10:02→21:01)
[2016-08-20] MEDS ORDERED: Furosemide IV* 10 MG/ML VIAL (40 MG) IV SLOW PU ONE (10:30)
[2016-08-20] MEDS: cefTRIAXone VIAL(*) 1,000 MG in NS 0.9% 50 ML* 50 ML IVPB SCH (11:24)
[2016-08-20] MEDS ORDERED: amLODIPine TAB* 5 MG PO ONE (11:27)
--- NOTE | 2016-08-20 11:41 | PN ---
Progress Note - Progress Note Note: CRITICAL CARE MEDICINE Date: 08/20/16 Time: 1045 SUBJECTIVE: Patient seen and examined. Feels better with HFO2. PHYSICAL EXAM: Vital Signs: Reviewed. Neurologic: stable HEENT: pupils equal. Sclera anicteric. Trachea midline. Cardiovascular: S1 S2 Respiratory: increased rhonchi RUL with mild end exp wheeze and mild crackles in bases bl. tachypnic and purse lips and mod foreced exhalation. Abdomen: Soft, nt. Extremities: Warm. Access: per LABS: Reviewed. IMAGING: Reviewed. MEDICATIONS: Reviewed. ASSESSMENT: 86 F with Acute hypoxic resp failure sec to RUL CAP-H paraflu Sepsis syndrome on admission Acute lung injury CAF on anticoag Vasculopath Uncomplicated uti PMR PLAN: Neurologic: stable. morphine prn Cardiovascular: Perfusing. vol status a bit up from interstitial and with component of acute diastolic hf associated with htn and rapid hr with her resp distress this early am. BP better and afterload better post high flow but attempt to mobilize fluid now with further diuretic. Respiratory: HFO2 sec to v/q mistmatch sec to acute lung injury post pna and needing to mobilize fluid and re-recruit. As d/w her, utilize vapotherm and if flow state continues to improve then we'll just need time. If not able to catch up, intermittent cpap to recruit may benefit her and in the form of bipap given her desired inhalation flow needs. Gastrointestinal: po diet ok Renal/Metabolic: stable. lasix Infectious Disease: on azithro and C3 continued. Hematology: stable. inr therapeutic but needs f/u. mild plt consumption. Endocrine: dec prednisone continued at current given her lung process. Musculoskeletal: oob to chair. weak and may not be making it directly home after all this. pt when a bit better Psych/Social: pt expresses understanding. Supportive and preventative care as ordered. SUP: po VTE prophylaxis: Coumadin Disposition: ICU Code Status: Full Critical Care Time: 35min FLeonila Jimenes DO
[2016-08-20] MEDS ORDERED: Morphine INJ* 2 MG/ML 1 ML CARPUJECT IV ONE (11:49)
[2016-08-20] MEDS: Azithromycin IV(*) 500 MG in NS 0.9% 250 ML* 250 ML IVPB SCH (12:09)
[2016-08-20] MEDS ORDERED: Spiriva Inhaler DEVICE* 1 EACH DEVICE INH ONE (15:00)
[2016-08-20] MEDS: Albuterol 2.5 MG/3 ML NEB.SOL* (0.083%) INH SCH ×2 (15:08→21:14)
[2016-08-20] MEDS: Atorvastatin* 10 MG TAB PO SCH (18:06)
[2016-08-20] MEDS: Latanoprost 0.005%* 2.5 ml BTL RIGHT EYE SCH (21:04)
[2016-08-20] MEDS: Mometasone/Formoter 200/5 MDI INH SCH (21:14)
[2016-08-21] MEDS: Albuterol 2.5 MG/3 ML NEB.SOL* (0.083%) INH SCH ×4 (02:04→20:08)
[2016-08-21 04:48] LABS: Hematocrit 36 % (35-47); Hemoglobin 11.8 g/dl (12.0-16.0); Mean Corpuscular HGB Conc 33 g/dl (31-36); Mean Corpuscular Hemoglobin 30 pg (27-31); Mean Corpuscular Volume 92 fL (80-97); Red Blood Count 3.91 10^6/ul (4.0-5.4); Red Cell Distribution Width 17 % (10.5-15); White Blood Count 10.6 10^3/ul (3.5-10.8)
[2016-08-21 04:49] LABS: Comments Flag Yes
[2016-08-21 04:55] LABS: BUN/Creatinine Ratio 37.8 (8-20); Calcium 8.7 mg/dL (8.6-10.3); EGFR African American 95.7 (>60); EGFR Non-African American 74.4 (>60)
[2016-08-21] MEDS: Levothyroxine TAB* 75 MCG TAB PO SCH (05:21)
[2016-08-21] MEDS: Diltiazem TAB* 60 MG PO SCH ×3 (05:21→18:10)
[2016-08-21] MEDS: Heparin VIAL(*) 5000 UNITS/ML VIAL (FIVE THOUSAND) SUBCUT SCH (06:43)
[2016-08-21] MEDS ORDERED: Phytonadione Oral Solution* 5 MG/25 ML UDC PO ONE (07:00)
[2016-08-21] MEDS: Insulin LISPRO* 1 UNITS UNIT SUBCUT SCH ×4 (08:20→21:00)
[2016-08-21] MEDS: Mometasone/Formoter 200/5 MDI INH SCH ×2 (09:31→20:09)
[2016-08-21] MEDS: Tiotropium CAP.INH* CAP.INH/18 MCG (USE ORDER SET !) INH SCH (09:33)
[2016-08-21] MEDS: Aspirin EC Low Dose* 81 MG TAB.EC PO SCH (09:38)
[2016-08-21] MEDS: predniSONE TAB* 20 MG PO SCH (09:38)
[2016-08-21] MEDS: Acetaminophen TAB* 325 MG PO SCH ×3 (09:38→20:52)
[2016-08-21] MEDS: amLODIPine TAB* 5 MG PO SCH (09:39)
[2016-08-21] MEDS: BRIMONIDINE RIGHT EYE SCH ×2 (09:39→21:02)
[2016-08-21] MEDS ORDERED: Furosemide IV* 10 MG/ML VIAL (40 MG) IV SLOW PU ONE (10:18)
[2016-08-21] MEDS: cefTRIAXone VIAL(*) 1,000 MG in NS 0.9% 50 ML* 50 ML IVPB SCH (10:47)
[2016-08-21] MEDS ORDERED: hydrALAZINE IV* 20 MG/ML VIAL IV SLOW PU PRN (11:23)
--- NOTE | 2016-08-21 11:45 | PN ---
Progress Note - Progress Note Note: CRITICAL CARE MEDICINE Date: 08/21/16 Time: 1045 SUBJECTIVE: Patient seen and examined. States she feels a bit better. more rested on bipap overnight. PHYSICAL EXAM: Vital Signs: Reviewed. 40lpm 100% Neurologic: stable HEENT: pupils equal. Sclera anicteric. Trachea midline. Cardiovascular: S1 S2 Respiratory: decreased rhonchi RUL with no wheeze but distant air movement and dec left base. no crackles. tachypnic and purse lips still but a bit improved. conversational dyspnea Abdomen: Soft, nt. Extremities: Warm. Access: per LABS: Reviewed. IMAGING: Reviewed. MEDICATIONS: Reviewed. ASSESSMENT: 86 F with Acute hypoxic resp failure sec to RUL CAP-H paraflu Sepsis syndrome on admission Acute lung injury CAF on anticoag Iatrogenic coagulopathy Vasculopath Uncomplicated uti PMR HTN PLAN: Neurologic: stable. morphine, low dose ativan prn. Cardiovascular: Perfusing. vol status probably optimal but try another round of lasix to move lung water to our advantage all the same. BP up and can contribute to diastolic dysfuction, but hr and bp driven by resp status Respiratory: Utilize intermittent bipap today and nocturnal to allieviate work and maintain away from atelectasis. Problem is time and ability to maintain this pace. She states she is trying and tolerating. She truly does not want to be intubated, nor to I think there is any assured benefit there as she understands as well, especially knowing how that potential demoralizes her every time we discuss. HFO2 still supporting and pulm toliet and expectorate most important. Continue to walk the edge. Gastrointestinal: po diet Renal/Metabolic: stable. lasix today Infectious Disease: on azithro and C3 Hematology: stable. coumadin held. low dose vit k this am ok. Endocrine: prednisone as is Musculoskeletal: oob to chair. weak and cant do much more then that yet. Psych/Social: pt expresses understanding of current plan. did discuss with her daughter further regarding the overall picture and concerns going forward. We both understand pt wants to certainly do all she can to avoid intubation and that she may certainly fail all the same if she were intubated and trying to support best specific course for the pt. At the same time it would be difficult currently to talk her out of intubation option all together as she may misunderstand that as a sentence, eventhough she would accept it I'm sure. Explianed we will walk these fine lines as they come and cross the necessary bridges when needed. She expressed good understanding. Supportive and preventative care as ordered. SUP: po VTE prophylaxis: Coumadin tx Disposition: ICU Code Status: Full Critical Care Time: 35min [place] Jim[place] DO
[2016-08-21] MEDS: Azithromycin IV(*) 500 MG in NS 0.9% 250 ML* 250 ML IVPB SCH (12:36)
[2016-08-21] MEDS: Atorvastatin* 10 MG TAB PO SCH (18:09)
[2016-08-21] MEDS: Latanoprost 0.005%* 2.5 ml BTL RIGHT EYE SCH (21:00)
[2016-08-22] MEDS: Diltiazem TAB* 60 MG PO SCH ×5 (01:00→23:33)
[2016-08-22] MEDS: Albuterol 2.5 MG/3 ML NEB.SOL* (0.083%) INH SCH ×3 (01:33→17:59)
[2016-08-22 05:58] LABS: Hematocrit 38 % (35-47); Hemoglobin 12.2 g/dl (12.0-16.0); Mean Corpuscular HGB Conc 32 g/dl (31-36); Mean Corpuscular Hemoglobin 29 pg (27-31); Mean Corpuscular Volume 91 fL (80-97); Mean Platelet Volume 10 um3 (7.4-10.4); Red Blood Count 4.17 10^6/ul (4.0-5.4); Red Cell Distribution Width 16 % (10.5-15); White Blood Count 13.6 10^3/ul (3.5-10.8)
[2016-08-22 06:02] LABS: Comments Flag Yes
[2016-08-22 06:18] LABS: BUN/Creatinine Ratio 39.7 (8-20); Calcium 8.8 mg/dL (8.6-10.3); EGFR African American 105.5 (>60); Magnesium 1.9 mg/dL (1.9-2.7); Phosphorus 3.1 mg/dL (2.5-5.0); Potassium 4.1 mmol/L (3.5-5.0)
[2016-08-22] MEDS: Levothyroxine TAB* 75 MCG TAB PO SCH (07:26)
[2016-08-22] MEDS: Insulin LISPRO* 1 UNITS UNIT SUBCUT SCH ×4 (08:24→20:43)
[2016-08-22] MEDS: Tiotropium CAP.INH* CAP.INH/18 MCG (USE ORDER SET !) INH SCH (08:33)
[2016-08-22] MEDS: Mometasone/Formoter 200/5 MDI INH SCH ×2 (08:33→22:10)
[2016-08-22] MEDS: predniSONE TAB* 20 MG PO SCH (08:55)
[2016-08-22] MEDS: amLODIPine TAB* 5 MG PO SCH (08:55)
[2016-08-22] MEDS: Acetaminophen TAB* 325 MG PO SCH ×3 (08:55→20:41)
[2016-08-22] MEDS: Aspirin EC Low Dose* 81 MG TAB.EC PO SCH (08:55)
[2016-08-22] MEDS: BRIMONIDINE RIGHT EYE SCH ×2 (08:56→21:47)
[2016-08-22] MEDS: cefTRIAXone VIAL(*) 1,000 MG in NS 0.9% 50 ML* 50 ML IVPB SCH (10:48)
--- NOTE | 2016-08-22 10:51 | PN ---
Progress Note - Progress Note Note: CRITICAL CARE MEDICINE Date: 08/22/16 Time: 1000 SUBJECTIVE: Patient seen and examined. shashank bipap overnight. slept. feels ok. PHYSICAL EXAM: Vital Signs: Reviewed. 40lpm 100% Neurologic: stable HEENT: pupils equal. Sclera anicteric. Trachea midline. Cardiovascular: S1 S2 Respiratory: decreased rhonchi with no wheeze just distant air movement. tachypnic still, less purse lips. conversational dyspnea less Abdomen: Soft, nt. Extremities: Warm. LABS: Reviewed. IMAGING: Reviewed. MEDICATIONS: Reviewed. ASSESSMENT: 86 F with Acute hypoxic resp failure ongoing sec to RUL CAP-H paraflu and Sepsis syndrome on admission Acute lung injury CAF on anticoag Iatrogenic coagulopathy Vasculopath Uncomplicated uti PMR HTN PLAN: Neurologic: stable. morphine, low dose ativan prn. Cardiovascular: Perfusing. vol status dry but optimized. can encourage po water Respiratory: reserve bipap for rescue and use bipap nocturnally. HFO2 without wean yet. Flutter. oob. Remains on the edge but we discussed forgoing MV if it comes to it and she agrees "I'd rather be " Gastrointestinal: po diet Renal/Metabolic: stable. Infectious Disease: jean completed 5 days. keeping C3 for 7-10 days given her severity Hematology: stable. coumadin held today and likely redose tomorow. Endocrine: prednisone as is to foster recovery. Musculoskeletal: oob to chair. stay mobile Psych/Social: pt expresses understanding of current plan. DNI. Supportive and preventative care as ordered. SUP: po VTE prophylaxis: Coumadin tx f/u Disposition: ICU Code Status: Full Critical Care Time: 35min [place] Jimenes DO
[2016-08-22] MEDS: Atorvastatin* 10 MG TAB PO SCH (17:49)
[2016-08-22] MEDS: Latanoprost 0.005%* 2.5 ml BTL RIGHT EYE SCH (20:46)
[2016-08-23] MEDS: Levothyroxine TAB* 75 MCG TAB PO SCH (06:21)
[2016-08-23] MEDS: Diltiazem TAB* 60 MG PO SCH ×4 (06:21→23:57)
[2016-08-23] MEDS: Insulin LISPRO* 1 UNITS UNIT SUBCUT SCH ×4 (08:11→22:52)
[2016-08-23] MEDS: LORazepam TAB(*) 0.5 MG PO PRN ×2 (08:24→14:26)
[2016-08-23] MEDS: Acetaminophen TAB* 325 MG PO SCH ×3 (08:24→21:49)
[2016-08-23] MEDS: amLODIPine TAB* 5 MG PO SCH (08:25)
[2016-08-23] MEDS: Tiotropium CAP.INH* CAP.INH/18 MCG (USE ORDER SET !) INH SCH (08:25)
[2016-08-23] MEDS: Mometasone/Formoter 200/5 MDI INH SCH ×2 (08:25→21:32)
[2016-08-23] MEDS: predniSONE TAB* 20 MG PO SCH (08:25)
[2016-08-23] MEDS: Ondansetron INJ* 2 MG/ML VIAL IV PRN (08:26)
[2016-08-23] MEDS: Aspirin EC Low Dose* 81 MG TAB.EC PO SCH (08:26)
[2016-08-23] MEDS: BRIMONIDINE RIGHT EYE SCH ×2 (08:26→21:50)
[2016-08-23] MEDS: Albuterol 2.5 MG/3 ML NEB.SOL* (0.083%) INH PRN ×2 (08:47→12:54)
--- NOTE | 2016-08-23 10:10 | PN ---
Progress Note - Progress Note Note: CRITICAL CARE MEDICINE Date: 08/23/16 Time: 840 SUBJECTIVE: Patient seen and examined. shashank bipap overnight. no real complaints PHYSICAL EXAM: Vital Signs: Reviewed. 40lpm 100%. HR up. Neurologic: stable HEENT: pupils equal. Sclera anicteric. Trachea midline. Cardiovascular: S1 S2 Respiratory: coarse and distant Abdomen: Soft, nt. Extremities: Warm. LABS: Reviewed. IMAGING: Reviewed. MEDICATIONS: Reviewed. ASSESSMENT: 86 F with Acute hypoxic resp failure ongoing sec to RUL CAP-H paraflu and Sepsis syndrome on admission Acute lung injury CAF on anticoag Iatrogenic coagulopathy Vasculopath Uncomplicated uti PMR HTN PLAN: Neurologic: stable. encouraged morphine, low dose ativan prn. Cardiovascular: Perfusing. vol status dry and needs to remain there. po water Respiratory: reserve bipap for rescue again and utilize nocturnally. HFO2 without wean still. Flutter. oob. Need to finds a push forward but more worrisome for pulm crippling Gastrointestinal: po diet Renal/Metabolic: stable. Infectious Disease: azithro completed 5 days. C3 for 7-10 days given her severity Hematology: stable. coumadin f/u Endocrine: prednisone Musculoskeletal: oob to chair. stay mobile Psych/Social: pt expresses understanding of current plan. Supportive and preventative care as ordered. SUP: po VTE prophylaxis: Coumadin tx f/u Disposition: ICU Code Status: Full Critical Care Time: 30min FLeonila Jimenes DO
[2016-08-23] MEDS: cefTRIAXone VIAL(*) 1,000 MG in NS 0.9% 50 ML* 50 ML IVPB SCH (10:29)
[2016-08-23] MEDS: Morphine INJ* 2 MG/ML 1 ML CARPUJECT IV PRN ×4 (10:36→21:51)
[2016-08-23] MEDS ORDERED: NS 0.9% 50 ML* 50 ML ONE (12:48)
[2016-08-23] MEDS: Atorvastatin* 10 MG TAB PO SCH (18:22)
[2016-08-23] MEDS: Latanoprost 0.005%* 2.5 ml BTL RIGHT EYE SCH (21:50)
[2016-08-24] MEDS: Morphine INJ* 2 MG/ML 1 ML CARPUJECT IV PRN ×2 (02:47→07:40)
[2016-08-24 05:15] LABS: Calcium 8.8 mg/dL (8.6-10.3); EGFR African American 94.2 (>60); EGFR Non-African American 73.3 (>60); Phosphorus 3.1 mg/dL (2.5-5.0); Potassium 4.1 mmol/L (3.5-5.0)
[2016-08-24 05:16] LABS: Hematocrit 37 % (35-47); Mean Corpuscular HGB Conc 32 g/dl (31-36); Mean Corpuscular Hemoglobin 29 pg (27-31); Mean Corpuscular Volume 91 fL (80-97); Red Cell Distribution Width 17 % (10.5-15)
[2016-08-24 05:17] LABS: Comments Flag Yes
[2016-08-24] MEDS: Diltiazem TAB* 60 MG PO SCH ×3 (05:32→17:13)
[2016-08-24] MEDS: Levothyroxine TAB* 75 MCG TAB PO SCH (05:32)
[2016-08-24 05:39] LABS: Mean Platelet Volume 10 um3 (7.4-10.4)
[2016-08-24] MEDS: Insulin LISPRO* 1 UNITS UNIT SUBCUT SCH ×3 (07:13→17:42)
[2016-08-24] MEDS: predniSONE TAB* 20 MG PO SCH (07:34)
[2016-08-24] MEDS: Aspirin EC Low Dose* 81 MG TAB.EC PO SCH (07:34)
[2016-08-24] MEDS: Acetaminophen TAB* 325 MG PO SCH ×3 (07:34→20:38)
[2016-08-24] MEDS: amLODIPine TAB* 5 MG PO SCH (07:34)
[2016-08-24] MEDS: BRIMONIDINE RIGHT EYE SCH ×2 (07:44→20:37)
[2016-08-24] MEDS: Mometasone/Formoter 200/5 MDI INH SCH ×2 (08:52→20:20)
[2016-08-24] MEDS: Tiotropium CAP.INH* CAP.INH/18 MCG (USE ORDER SET !) INH SCH (08:53)
--- NOTE | 2016-08-24 09:19 | RAD ---
Indication: Sepsis. Follow-up pneumonia. Comparison: August 20, 2016 Technique: Upright AP 0830 hours Report: Worsening of alveolar consolidation at the RIGHT upper lobe, RIGHT lung base, and LEFT midlung zone compared with the August 20, 2016 exam. Small bilateral dependent pleural effusions. Negative for pneumothorax. Median sternotomy wires, prosthetic mitral valve, RIGHT ventricular level pacemaker lead. Cardiomegaly. Largely obscured central pulmonary vasculature without compelling suggestion of pulmonary edema. Abdominal aorta stent graft noted. IMPRESSION: Worsening of bilateral alveolar infiltrates.
[2016-08-24] MEDS: LORazepam TAB(*) 0.5 MG PO PRN (09:30)
[2016-08-24] MEDS: cefTRIAXone VIAL(*) 1,000 MG in NS 0.9% 50 ML* 50 ML IVPB SCH (09:57)
[2016-08-24] MEDS ORDERED: Propofol* 10 MG/ML 20 ML BTL IV PUSH ONE (10:48)
[2016-08-24] MEDS ORDERED: fentaNYL* 50 MCG/ML 5 ML VIAL (250 MCG VIAL) ONE (10:48)
[2016-08-24] MEDS ORDERED: Propofol* 100 ML ONE (10:50)
[2016-08-24] MEDS ORDERED: NS 0.9% 1000 ML* 1,000 ML IV ONE (11:20)
--- NOTE | 2016-08-24 11:37 | PN ---
Progress Note - Progress Note Note: CRITICAL CARE MEDICINE Date: 08/24/16 Time: 900 SUBJECTIVE: Patient seen and examined. bipap overnight but not able to come off to hfo2. daughter at bedside. PHYSICAL EXAM: Vital Signs: Reviewed. 80% on bipap. HR up. Neurologic: stable; hold capacitance. HEENT: pupils equal. Sclera anicteric. Trachea midline. Cardiovascular: S1 S2 Respiratory: coarse and distant Abdomen: Soft, nt. Extremities: Warm. LABS: Reviewed. IMAGING: Reviewed. CXR reviewed MEDICATIONS: Reviewed. ASSESSMENT: 86 F with Acute hypoxic resp failure ongoing sec to RUL CAP-H paraflu and Sepsis syndrome on admission Acute lung injury CAF on anticoag Iatrogenic coagulopathy Vasculopath Uncomplicated uti PMR HTN PLAN: d/w pt, and daughter at bedside. Pt still holding capacity, and explained we believed it best to move forward with intubation and MV trial to see if we can foster aveolar recruitment that has been lost during this process as she has good functionality otherwise and end organs are maintaining. If we can utilize ppv as therapy then perhaps we can still beat this. She and her daughter are in agreement to proceed. Neurologic: stable. low pdose propofol gtt with intubation Cardiovascular: Perfusing. vol status dry. May need a touch of fluid but otherwise trying to still leave dry. HR should improve post intubation. keep low dose cardizem Respiratory: intubation. aprv and see if we can recruit and foster more secretion clearance. copd adjunctives. 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 On C3. Check sputum. could consider bronch. Question if dealing with fungal component now and low threshold to add diflucan if it may improve airspace disease. Do not see this as an abx failure otherwise. Hematology: stable. INR stable and coumdin held still Endocrine: give pulse of solumedrol. Musculoskeletal: stay mobile Psych/Social: pt and daughter expressed understanding of current plan. Supportive and preventative care as ordered. SUP: po VTE prophylaxis: Coumadin tx f/u Disposition: ICU Code Status: DNR, trial intubation Critical Care Time: 40min FLeonila Jimenes DO
[2016-08-24] MEDS: Propofol* 100 ML IV SCH ×2 (12:02→17:46)
[2016-08-24] MEDS: methylPREDNISolone SOD 40 MG* 1 ML VIAL IV SCH ×2 (12:06→20:38)
[2016-08-24] MEDS: Chlorhexidine MOUTHWASH 0.12%* 15 ML UDC TOPICAL SCH ×3 (12:06→20:38)
[2016-08-24] MEDS ORDERED: fentaNYL* 50 MCG/ML 2 ML VIAL (100 MCG VIAL) ONE (12:17)
--- NOTE | 2016-08-24 12:34 | RAD ---
INDICATION: Status post intubation COMPARISON: Most recent comparison chest x-rays dated August 24, 2016 acquired at 0828 hours TECHNIQUE: Single AP portable view of the chest was obtained at 1120 hours. FINDINGS: Image quality is compromised due to the relative inferiority of a portable chest x-ray. There has been interval placement of an NG tracheal tube with the tip located proximally 4 cm above the casandra just below the level of the clavicular heads. The gastric tube is seen below the level of the diaphragm overlying the gastric air bubble. Patchy densities are seen obscuring the bilateral lung bases and overlying the bilateral upper lobes. There is blunting of the bilateral costophrenic angles, more severe on the right than the left. IMPRESSION: 1. Interval placement of endotracheal tube in appropriate position. 2. Persistent multifocal densities and likely pleural effusions.
[2016-08-24] MEDS ORDERED: fentaNYL* 50 MCG/ML 2 ML VIAL (100 MCG VIAL) IV SLOW PU PRN (12:35)
--- NOTE | 2016-08-24 12:48 | PN ---
Progress Note - Progress Note Note: CRITICAL CARE MEDICINE PROCEDURE NOTE DATE: 08/24/16 TIME: 1045 SERVICE: Critical Care Medicine LOCATION OF PROCEDURE: ICU PROCEDURE: Endotracheal intubation PROCEDURALIST: Dr. Jimenes Consent obtain: Yes Time out held: Not indicated INDICATION: Acute respiratory failure. PROCEDURE: Oxygenation maintained and vitals monitored. Patient in supine position. Pre-medication with fentanyl 150mcg / propofol 80mg total. Glidescope #3 inserted with Grade 1 view obtained. 7.5 endotracheal tube inserted to 21cm lip. Good chest rise with breath sounds appreciated in bilaterally lung javed. EtCO2 + color change. Portable chest x-ray with ett in position Patient otherwise tolerated well. Daughter present throughout. [place] Jimenes, DO
[2016-08-24] MEDS: Atorvastatin* 10 MG TAB PO SCH (17:13)
[2016-08-24] MEDS: Latanoprost 0.005%* 2.5 ml BTL RIGHT EYE SCH (20:37)
[2016-08-25] MEDS: Chlorhexidine MOUTHWASH 0.12%* 15 ML UDC TOPICAL SCH ×6 (01:09→20:08)
[2016-08-25] MEDS: Insulin LISPRO* 1 UNITS UNIT SUBCUT SCH ×4 (01:09→17:35)
[2016-08-25] MEDS: Diltiazem TAB* 60 MG PO SCH ×4 (01:09→17:21)
[2016-08-25] MEDS: methylPREDNISolone SOD 40 MG* 1 ML VIAL IV SCH ×3 (04:11→20:08)
[2016-08-25] MEDS: Propofol* 100 ML IV SCH ×3 (04:33→18:55)
[2016-08-25] MEDS: Levothyroxine TAB* 75 MCG TAB PO SCH (05:44)
[2016-08-25 06:09] LABS: Hematocrit 40 % (35-47); Hemoglobin 13.2 g/dl (12.0-16.0); Mean Corpuscular HGB Conc 33 g/dl (31-36); Mean Corpuscular Hemoglobin 30 pg (27-31); Mean Corpuscular Volume 91 fL (80-97); Mean Platelet Volume 10 um3 (7.4-10.4); Red Blood Count 4.44 10^6/ul (4.0-5.4); Red Cell Distribution Width 17 % (10.5-15); White Blood Count 13.4 10^3/ul (3.5-10.8)
[2016-08-25 06:11] LABS: Comments Flag Yes
[2016-08-25 06:27] LABS: BUN/Creatinine Ratio 49.1 (8-20); Calcium 8.9 mg/dL (8.6-10.3); EGFR African American 63.2 (>60); EGFR Non-African American 49.2 (>60); Magnesium 2.4 mg/dL (1.9-2.7); Phosphorus 4.4 mg/dL (2.5-5.0); Potassium 4.9 mmol/L (3.5-5.0)
[2016-08-25] MEDS: amLODIPine TAB* 5 MG PO SCH (07:57)
[2016-08-25] MEDS: Aspirin EC Low Dose* 81 MG TAB.EC PO SCH (07:57)
[2016-08-25] MEDS: Acetaminophen TAB* 325 MG PO SCH ×3 (07:58→21:07)
[2016-08-25] MEDS: BRIMONIDINE RIGHT EYE SCH ×2 (08:05→21:13)
[2016-08-25] MEDS: Mometasone/Formoter 200/5 MDI INH SCH ×2 (08:19→20:21)
[2016-08-25] MEDS: Tiotropium CAP.INH* CAP.INH/18 MCG (USE ORDER SET !) INH SCH (08:19)
--- NOTE | 2016-08-25 11:09 | PN ---
Progress Note - Progress Note Note: CRITICAL CARE MEDICINE Date: 08/24/16 Time: 945 SUBJECTIVE: Patient seen and examined. PHYSICAL EXAM: Vital Signs: Reviewed. 35% on vent. HR up. Neurologic: stable; rass -1 HEENT: pupils equal. Sclera anicteric. Trachea midline. Cardiovascular: S1 S2, irr Respiratory: coarse and distant; forced exhalation against aprv Abdomen: Soft, nt. Extremities: Warm. LABS: Reviewed. IMAGING: Reviewed. MEDICATIONS: Reviewed. ASSESSMENT: 86 F with Acute hypoxic resp failure ongoing sec to RUL CAP-H paraflu and Sepsis syndrome on admission Acute lung injury CAF on anticoag Iatrogenic coagulopathy Vasculopath Uncomplicated uti PMR HTN PLAN: Neurologic: stable. propofol gtt Cardiovascular: Perfusing. vol status still dry side and maintain there. rate control. Respiratory: trial cpap today as she seems to have recruited well but needs to move secretions now. Would look towards liberate next 24-48hrs. Gastrointestinal: tf. Renal/Metabolic: stable; bun up with her being dry and post increased steroids. Infectious Disease: C3 can complete after day 10 total tomorrow, as now new infective burden. Hematology: stable. INR stable and coumdin held still Endocrine: pulse of solumedrol. Musculoskeletal: progressive mobility Psych/Social: will update daughter Supportive and preventative care as ordered. SUP: po VTE prophylaxis: Coumadin tx f/u Disposition: ICU Code Status: DNR, trial intubation current Critical Care Time: 35min F. Olvin Jimenes DO
[2016-08-25] MEDS: cefTRIAXone VIAL(*) 1,000 MG in NS 0.9% 50 ML* 50 ML IVPB SCH (11:11)
[2016-08-25] MEDS ORDERED: Insulin GLARGINE(*) 1 UNITS UNIT SUBCUT ONE (12:00)
[2016-08-25] MEDS: Morphine INJ* 2 MG/ML 1 ML CARPUJECT IV PRN ×2 (13:23→21:13)
[2016-08-25] MEDS: Atorvastatin* 10 MG TAB PO SCH (17:21)
[2016-08-25] MEDS: Latanoprost 0.005%* 2.5 ml BTL RIGHT EYE SCH (21:13)
[2016-08-26] MEDS: Chlorhexidine MOUTHWASH 0.12%* 15 ML UDC TOPICAL SCH ×3 (00:07→07:45)
[2016-08-26] MEDS: Diltiazem TAB* 60 MG PO SCH ×4 (00:07→18:05)
[2016-08-26] MEDS: Insulin LISPRO* 1 UNITS UNIT SUBCUT SCH ×5 (00:08→19:31)
[2016-08-26] MEDS: Propofol* 100 ML IV SCH ×2 (02:27→08:44)
[2016-08-26] MEDS: Morphine INJ* 2 MG/ML 1 ML CARPUJECT IV PRN ×2 (03:50→19:32)
[2016-08-26] MEDS: methylPREDNISolone SOD 40 MG* 1 ML VIAL IV SCH ×2 (03:50→11:46)
[2016-08-26] MEDS: Levothyroxine TAB* 75 MCG TAB PO SCH (06:03)
[2016-08-26 06:54] LABS: BUN/Creatinine Ratio 63.3 (8-20); Calcium 8.3 mg/dL (8.6-10.3); EGFR African American 76.3 (>60); EGFR Non-African American 59.4 (>60); Magnesium 2.4 mg/dL (1.9-2.7); Potassium 4.8 mmol/L (3.5-5.0)
[2016-08-26 07:43] LABS: Hematocrit 36 % (35-47); Hemoglobin 11.5 g/dl (12.0-16.0); Mean Corpuscular HGB Conc 32 g/dl (31-36); Mean Corpuscular Hemoglobin 29 pg (27-31); Mean Corpuscular Volume 91 fL (80-97); Red Blood Count 3.94 10^6/ul (4.0-5.4); Red Cell Distribution Width 17 % (10.5-15)
[2016-08-26] MEDS: Aspirin EC Low Dose* 81 MG TAB.EC PO SCH (07:45)
[2016-08-26] MEDS: Acetaminophen TAB* 325 MG PO SCH ×3 (07:45→19:31)
[2016-08-26] MEDS: amLODIPine TAB* 5 MG PO SCH (07:45)
[2016-08-26] MEDS: BRIMONIDINE RIGHT EYE SCH ×2 (07:45→19:34)
[2016-08-26 08:03] LABS: Comments Flag Yes
[2016-08-26 08:36] LABS: Mean Platelet Volume 10 um3 (7.4-10.4)
[2016-08-26] MEDS: Tiotropium CAP.INH* CAP.INH/18 MCG (USE ORDER SET !) INH SCH (08:37)
[2016-08-26] MEDS: Mometasone/Formoter 200/5 MDI INH SCH ×2 (08:37→19:34)
[2016-08-26] MEDS ORDERED: Furosemide IV* 10 MG/ML VIAL (40 MG) IV SLOW PU ONE (09:50)
--- NOTE | 2016-08-26 10:04 | RAD ---
Indication: Shortness of breath, follow-up pneumonia. Single frontal view of the chest performed at 0930 hours was reviewed. Comparison is made with previous exam dated August 24, 2016. No mediastinal shift is noted. Heart is normal size and configuration. Interstitial edema appears to be improved. Right upper lobe infiltrate is also improved. ET tube in appropriate position. Patient status post chest performed. IMPRESSION: RIGHT UPPER LOBE INFILTRATE. INTERSTITIAL EDEMA ALL APPEARS TO BE IMPROVED SINCE AUGUST 24, 2016.
[2016-08-26] MEDS: cefTRIAXone VIAL(*) 1,000 MG in NS 0.9% 50 ML* 50 ML IVPB SCH (10:24)
--- NOTE | 2016-08-26 11:00 | PN ---
Progress Note - Progress Note Note: CRITICAL CARE MEDICINE Date: 08/24/16 Time: 1025 SUBJECTIVE: Patient seen and examined. PHYSICAL EXAM: Vital Signs: Reviewed. 40% on vent. HR down. comfortable. VS good Neurologic: stable; follows commands. HEENT: pupils equal. Sclera anicteric. Trachea midline. Cardiovascular: S1 S2, irr Respiratory: coarse but clear. with cpap / able to achieve volume >1L. Abdomen: Soft, nt. Extremities: Warm. LABS: Reviewed. IMAGING: Reviewed. MEDICATIONS: Reviewed. ASSESSMENT: 86 F with Acute hypoxic resp failure ongoing sec to RUL CAP-H paraflu Intubated 08/24 - extubated 08/26 Sepsis syndrome on admission Acute lung injury CAF on anticoag Afib Iatrogenic coagulopathy Vasculopath Uncomplicated uti PMR HTN PLAN: Neurologic: stable. hold sedation. prn morphine. Cardiovascular: Perfusing. vol status still dry side and one last dose lasix to keep it that way. Respiratory: trial cpap today; doing well. will liberate today as to not debilitate further. CXR much better from micro/macro atelectasis. Gastrointestinal: tf held. resume po post liberation. Renal/Metabolic: stable; bun up with her being dry and steroids. allow po intake and coming off pulse of steroids back to taper. Infectious Disease: C3 completed today Hematology: stable. INR stable Endocrine: prednisone taper. Musculoskeletal: progressive mobility Psych/Social: family updated at bedside. pt agree with liberation today. Supportive and preventative care as ordered. SUP: po VTE prophylaxis: Coumadin tx f/u Disposition: ICU Code Status: DNR, trial intubation concluding today Critical Care Time: 35min FLeonila Jimenes DO
[2016-08-26] MEDS: Atorvastatin* 10 MG TAB PO SCH (18:05)
[2016-08-26] MEDS: Latanoprost 0.005%* 2.5 ml BTL RIGHT EYE SCH (19:34)
[2016-08-27] MEDS: Diltiazem TAB* 60 MG PO SCH ×4 (00:10→17:37)
[2016-08-27] MEDS: Levothyroxine TAB* 75 MCG TAB PO SCH (06:27)
[2016-08-27 06:35] LABS: Hematocrit 37 % (35-47); Hemoglobin 12.2 g/dl (12.0-16.0); Mean Corpuscular HGB Conc 33 g/dl (31-36); Mean Corpuscular Hemoglobin 30 pg (27-31); Mean Corpuscular Volume 90 fL (80-97); Mean Platelet Volume 10 um3 (7.4-10.4); Red Blood Count 4.13 10^6/ul (4.0-5.4); Red Cell Distribution Width 17 % (10.5-15); White Blood Count 22.8 10^3/ul (3.5-10.8)
[2016-08-27 06:54] LABS: BUN/Creatinine Ratio 66.2 (8-20); Calcium 8.3 mg/dL (8.6-10.3); EGFR African American 100.4 (>60); EGFR Non-African American 78.1 (>60); Magnesium 2.3 mg/dL (1.9-2.7); Phosphorus 2.9 mg/dL (2.5-5.0); Potassium 4.3 mmol/L (3.5-5.0)
[2016-08-27] MEDS: Tiotropium CAP.INH* CAP.INH/18 MCG (USE ORDER SET !) INH SCH (08:08)
[2016-08-27] MEDS: Mometasone/Formoter 200/5 MDI INH SCH ×2 (08:08→20:21)
[2016-08-27] MEDS: amLODIPine TAB* 5 MG PO SCH (08:37)
[2016-08-27] MEDS: Acetaminophen TAB* 325 MG PO SCH ×3 (08:37→20:37)
[2016-08-27] MEDS: Insulin LISPRO* 1 UNITS UNIT SUBCUT SCH ×4 (08:37→20:37)
[2016-08-27] MEDS: Aspirin EC Low Dose* 81 MG TAB.EC PO SCH (08:38)
[2016-08-27] MEDS: predniSONE TAB* 20 MG PO SCH (08:38)
[2016-08-27] MEDS: BRIMONIDINE RIGHT EYE SCH ×2 (08:38→20:37)
[2016-08-27] MEDS ORDERED: Insulin GLARGINE(*) 1 UNITS UNIT SUBCUT ONE (10:30)
--- NOTE | 2016-08-27 11:19 | PN ---
Progress Note - Progress Note Note: CRITICAL CARE MEDICINE Date: 08/27/16 Time: 1000 SUBJECTIVE: Patient seen and examined. Feels better. PHYSICAL EXAM: Vital Signs: Reviewed. HFO2 at 25L and 60%. Hr stable. Neurologic: stable; communicating. HEENT: pupils equal. Sclera anicteric. Trachea midline. Cardiovascular: S1 S2, irr Respiratory: coarse but clear. good phases and inspiration depth Abdomen: Soft, nt. Extremities: Warm. LABS: Reviewed. IMAGING: Reviewed. MEDICATIONS: Reviewed. ASSESSMENT: 86 F with Acute hypoxic resp failure ongoing sec to RUL CAP-H paraflu Intubated 08/24 - extubated 08/26 Sepsis syndrome on admission Acute lung injury CAF on anticoag Afib Iatrogenic coagulopathy Vasculopath Uncomplicated uti PMR HTN PLAN: Doing great. Feels good. Can wean off HFO2 today. IS. COPd adjunctives. PO diet. rate control afib. OOB. PT/OT. Dc kidd. f/u INR in am. Supportive and preventative care as ordered. SUP: po VTE prophylaxis: Coumadin tx f/u Disposition: ICU Code Status: DNR/DNI Critical Care Time: 25min FLeonila Jimenes DO
[2016-08-27] MEDS: Albuterol 2.5 MG/3 ML NEB.SOL* (0.083%) INH PRN (17:05)
[2016-08-27] MEDS: Atorvastatin* 10 MG TAB PO SCH (17:37)
[2016-08-27] MEDS: Morphine INJ* 2 MG/ML 1 ML CARPUJECT IV PRN (17:38)
[2016-08-27] MEDS: Latanoprost 0.005%* 2.5 ml BTL RIGHT EYE SCH (20:37)
[2016-08-28] MEDS: Diltiazem TAB* 60 MG PO SCH ×5 (00:05→22:57)
[2016-08-28] MEDS: Morphine INJ* 2 MG/ML 1 ML CARPUJECT IV PRN ×7 (00:07→23:57)
[2016-08-28] MEDS ORDERED: Metoprolol Tartrate IV* 1 MG/ML 5 ML VIAL ONE (03:06)
[2016-08-28] MEDS ORDERED: Metoprolol Tartrate IV* 1 MG/ML 5 ML VIAL IV ONE ×2 (04:00→05:00)
[2016-08-28] MEDS ORDERED: PROCHLORPERAZINE INJ 5 MG/ML 2 ML VIAL ONE (04:29)
[2016-08-28] MEDS ORDERED: PROCHLORPERAZINE INJ 5 MG/ML 2 ML VIAL IV PRN (04:48)
[2016-08-28 06:06] LABS: Hematocrit 37 % (35-47); Hemoglobin 12.1 g/dl (12.0-16.0); Mean Corpuscular HGB Conc 33 g/dl (31-36); Mean Corpuscular Hemoglobin 30 pg (27-31); Mean Corpuscular Volume 90 fL (80-97); Mean Platelet Volume 10 um3 (7.4-10.4); Red Blood Count 4.11 10^6/ul (4.0-5.4); Red Cell Distribution Width 16 % (10.5-15); White Blood Count 23.4 10^3/ul (3.5-10.8)
[2016-08-28 06:07] LABS: Add Diff/Slide Review? Slide Review Added; Comments Flag Yes
[2016-08-28] MEDS: Levothyroxine TAB* 75 MCG TAB PO SCH (06:13)
[2016-08-28 06:26] LABS: Calcium 8.3 mg/dL (8.6-10.3); EGFR African American 103.7 (>60); EGFR Non-African American 80.7 (>60); Magnesium 2.2 mg/dL (1.9-2.7); Phosphorus 2.3 mg/dL (2.5-5.0); Potassium 4.3 mmol/L (3.5-5.0)
[2016-08-28] MEDS: Senna TAB PO SCH ×2 (06:46→22:57)
[2016-08-28] MEDS: Docusate CAP* 100 MG PO SCH ×2 (06:46→22:57)
[2016-08-28 06:47] LABS: Immature Granulocytes 8 % (0-9); Neutrophil % 72 % (38-83)
[2016-08-28 06:48] LABS: RBC Morphology Normal (Normal)
[2016-08-28 06:49] LABS: Toxic Granulation 1+
[2016-08-28] MEDS: Mometasone/Formoter 200/5 MDI INH SCH ×2 (08:11→20:47)
[2016-08-28] MEDS: Tiotropium CAP.INH* CAP.INH/18 MCG (USE ORDER SET !) INH SCH (08:11)
[2016-08-28] MEDS: Insulin LISPRO* 1 UNITS UNIT SUBCUT SCH ×4 (08:17→22:57)
[2016-08-28] MEDS: amLODIPine TAB* 5 MG PO SCH (10:48)
[2016-08-28] MEDS: predniSONE TAB* 20 MG PO SCH (10:48)
[2016-08-28] MEDS: Aspirin EC Low Dose* 81 MG TAB.EC PO SCH (10:48)
[2016-08-28] MEDS: BRIMONIDINE RIGHT EYE SCH ×2 (10:49→22:46)
[2016-08-28] MEDS: Acetaminophen TAB* 325 MG PO SCH ×3 (10:49→22:57)
[2016-08-28] MEDS ORDERED: Levofloxacin 750 MG IVPREMIX(* 750 MG/150 ML BAG IVPB ONE (11:00)
[2016-08-28] MEDS ORDERED: Furosemide IV* 10 MG/ML VIAL (40 MG) IV SLOW PU ONE (11:17)
--- NOTE | 2016-08-28 11:51 | PN ---
Progress Note - Progress Note Note: CRITICAL CARE MEDICINE Date: 08/28/16 Time: 930 SUBJECTIVE: Patient seen and examined. Rough night. More labored this am. PHYSICAL EXAM: Vital Signs: Reviewed. HFO2 at 40L. Hr 110s Neurologic: communicating. HEENT: pupils equal. Sclera anicteric. Trachea midline. Cardiovascular: S1 S2, irr M still Respiratory: increased rales bl and very decreased on Left Abdomen: Soft, nt. Extremities: Warm. Left forearm edema; look post infiltrative. not cellulitic. LABS: Reviewed. IMAGING: Reviewed. MEDICATIONS: Reviewed. ASSESSMENT: 86 F with Acute hypoxic resp failure ongoing sec to RUL CAP-H paraflu Intubated 08/24 - extubated 08/26 Sepsis syndrome on admission Acute lung injury CAF on anticoag Afib Underlying AI/ Iatrogenic coagulopathy Vasculopath Uncomplicated uti PMR HTN PLAN: Was doing well yesterday. I think she falter more with rapid shallow breathing as fluid encroached at her bases and lack of reserve to expectorate from R base leading to further basilar atelectasis. Exacerbating HR and afib with her underlying valvular disease and component then of acute diastolic heart failure. Place on bipap now. Morphine, ativan if needed and see if we can allow her some recruitment time on ppv this am to re-rescue. Give dose lasix to maintain dry as able. wbc has risen with immatures. no new infective signs but certainly at risk for health care pathogens. Would utilize Levaquin empirically now given her severity. Condition worrisome. f/u closely today. Hold lantus today. on prednisone still. Supportive and preventative care as ordered. SUP: po VTE prophylaxis: Coumadin tx resume. Disposition: ICU Code Status: DNR/DNI Critical Care Time: 28min [place] Jimenes DO
[2016-08-28] MEDS ORDERED: LORazepam INJ* 2 MG/ML 1 ML VIAL IV PUSH ONE (11:56)
--- NOTE | 2016-08-28 12:55 | RAD ---
INDICATION: Sepsis COMPARISON: Chest x-ray dated August 26, 2016 TECHNIQUE: Single AP portable view of the chest was obtained. FINDINGS: Image quality is compromised due to the relative inferiority of a portable chest x-ray. Unchanged in the previous chest x-ray there is a left upper chest single lead cardiac pacemaker, sternotomy wires and a prostatic heart valve. The endotracheal tube is been removed since the previous chest x-ray. There is mild cardiomegaly and calcification of the arch of the aorta. There is persistent density overlying the inferior lateral margin of the right upper lobe. There is worsening density overlying the right lung base obscuring the right hemidiaphragm. To a lesser extent similar findings are seen in the left lung base also worse compared to the previous chest x-ray. Visualized bones are normal for the patient's age. IMPRESSION: Worsening densities at the right greater than left lung bases could represent worsening pleural effusions and/or consolidation.
[2016-08-28] MEDS ORDERED: Digoxin IV* 0.5 MG/2 ML AMP (0.25 MG/ML) IV SLOW PU ONE (14:20)
[2016-08-28] MEDS ORDERED: Warfarin TAB(*) 3 MG PO ONE (17:00)
[2016-08-28] MEDS: Atorvastatin* 10 MG TAB PO SCH (17:50)
[2016-08-28] MEDS: Latanoprost 0.005%* 2.5 ml BTL RIGHT EYE SCH (22:46)
[2016-08-29 04:25] LABS: Albumin 2.5 g/dL (3.2-5.2); BUN/Creatinine Ratio 52.2 (8-20); Calcium 8.1 mg/dL (8.6-10.3); EGFR African American 107.3 (>60); EGFR Non-African American 83.5 (>60); Globulin 2.7 g/dL (2-4); Magnesium 2.1 mg/dL (1.9-2.7); Phosphorus 2.2 mg/dL (2.5-5.0); Total Bilirubin 0.8 mg/dL (0.2-1.0); Total Protein 5.2 g/dL (6.4-8.9)
[2016-08-29 04:44] LABS: Hematocrit 37 % (35-47); Hemoglobin 12.2 g/dl (12.0-16.0); Mean Corpuscular HGB Conc 33 g/dl (31-36); Mean Corpuscular Hemoglobin 30 pg (27-31); Mean Corpuscular Volume 91 fL (80-97); Mean Platelet Volume 11 um3 (7.4-10.4); Red Cell Distribution Width 16 % (10.5-15)
[2016-08-29 04:45] LABS: Add Diff/Slide Review? Slide Review Added; Comments Flag Yes
[2016-08-29] MEDS: Levothyroxine TAB* 75 MCG TAB PO SCH (05:44)
[2016-08-29] MEDS: Diltiazem TAB* 60 MG PO SCH ×4 (05:44→23:20)
[2016-08-29] MEDS: Acetaminophen TAB* 325 MG PO SCH ×3 (08:04→20:38)
[2016-08-29] MEDS: Tiotropium CAP.INH* CAP.INH/18 MCG (USE ORDER SET !) INH SCH (08:04)
[2016-08-29] MEDS: amLODIPine TAB* 5 MG PO SCH (08:04)
[2016-08-29] MEDS: Aspirin EC Low Dose* 81 MG TAB.EC PO SCH (08:04)
[2016-08-29] MEDS: predniSONE TAB* 20 MG PO SCH (08:04)
[2016-08-29] MEDS: BRIMONIDINE RIGHT EYE SCH ×2 (08:04→20:38)
[2016-08-29] MEDS: Mometasone/Formoter 200/5 MDI INH SCH ×2 (08:05→20:31)
[2016-08-29] MEDS: Docusate CAP* 100 MG PO SCH ×2 (08:06→20:24)
[2016-08-29] MEDS: Senna TAB PO SCH ×2 (08:06→20:24)
[2016-08-29] MEDS: Insulin LISPRO* 1 UNITS UNIT SUBCUT SCH ×4 (08:06→20:39)
[2016-08-29] MEDS: Morphine INJ* 2 MG/ML 1 ML CARPUJECT IV PRN (08:57)
--- NOTE | 2016-08-29 11:28 | PN ---
Progress Note - Progress Note Note: CRITICAL CARE MEDICINE Date: 08/29/16 Time: 830 SUBJECTIVE: Patient seen and examined. PHYSICAL EXAM: Vital Signs: Reviewed. HFO2 at 30-40L. Hr 100s Neurologic: communicating. hold capacitance HEENT: pupils equal. Sclera anicteric. Trachea midline. Cardiovascular: S1 S2, irr M still Respiratory: bl rales and dec with low volumes Abdomen: Soft, nt. Extremities: Warm. Left forearm edema better LABS: Reviewed. IMAGING: Reviewed. MEDICATIONS: Reviewed. ASSESSMENT: 86 F with Acute hypoxic resp failure ongoing sec to RUL CAP-H paraflu Component of ARDS Intubated 08/24 - extubated 08/26 Sepsis syndrome on admission CAF on anticoag Afib Underlying AI/ Iatrogenic coagulopathy Vasculopath Uncomplicated uti PMR HTN PLAN: Still stuggling. Decline bipap last night. Utilized morphine with some relief. Satish discussion this am. Explained her failing lung state but not overt dying process evident. She is supported but still questionable of ability for meaningful lung recovery versus pulm cripple. Can remain on vapotherm. Can request bipap but we are no longer going to continue routine use. Explained the difficulties in overcoming her pulmonary obstacles and how much of this has to be on her own with our support. Daughter at bedside encouraging but also understands the mortality potential. Allow pt to decide her care. Supportive and preventative care as ordered. More time. SUP: po VTE prophylaxis: Coumadin tx Disposition: ICU Code Status: DNR/DNI Critical Care Time: 27min [place] Jimenes DO
[2016-08-29] MEDS ORDERED: Warfarin TAB(*) 3 MG PO ONE (17:00)
[2016-08-29] MEDS: Atorvastatin* 10 MG TAB PO SCH (17:19)
[2016-08-29] MEDS: Latanoprost 0.005%* 2.5 ml BTL RIGHT EYE SCH (20:38)
[2016-08-30 05:59] LABS: Hematocrit 39 % (35-47); Hemoglobin 12.6 g/dl (12.0-16.0); Mean Corpuscular HGB Conc 32 g/dl (31-36); Mean Corpuscular Hemoglobin 29 pg (27-31); Mean Corpuscular Volume 90 fL (80-97); Red Blood Count 4.33 10^6/ul (4.0-5.4); Red Cell Distribution Width 17 % (10.5-15); White Blood Count 15.2 10^3/ul (3.5-10.8)
[2016-08-30 06:00] LABS: Comments Flag Yes
[2016-08-30] MEDS: Diltiazem TAB* 60 MG PO SCH ×3 (06:01→18:06)
[2016-08-30] MEDS: Levothyroxine TAB* 75 MCG TAB PO SCH (06:01)
[2016-08-30 06:04] LABS: BUN/Creatinine Ratio 49.1 (8-20); Calcium 8.5 mg/dL (8.6-10.3); EGFR African American 134.8 (>60); EGFR Non-African American 104.8 (>60); Magnesium 2.2 mg/dL (1.9-2.7); Phosphorus 1.8 mg/dL (2.5-5.0); Potassium 3.8 mmol/L (3.5-5.0)
[2016-08-30 06:28] LABS: Mean Platelet Volume 10 um3 (7.4-10.4)
[2016-08-30] MEDS: Insulin LISPRO* 1 UNITS UNIT SUBCUT SCH ×4 (07:27→21:33)
[2016-08-30] MEDS: Acetaminophen TAB* 325 MG PO SCH ×3 (08:21→20:19)
[2016-08-30] MEDS: Mometasone/Formoter 200/5 MDI INH SCH (08:22)
[2016-08-30] MEDS: Aspirin EC Low Dose* 81 MG TAB.EC PO SCH (08:22)
[2016-08-30] MEDS: amLODIPine TAB* 5 MG PO SCH (08:22)
[2016-08-30] MEDS: Tiotropium CAP.INH* CAP.INH/18 MCG (USE ORDER SET !) INH SCH (08:22)
[2016-08-30] MEDS: predniSONE TAB* 20 MG PO SCH (08:22)
[2016-08-30] MEDS: BRIMONIDINE RIGHT EYE SCH ×2 (08:22→20:23)
[2016-08-30] MEDS: Docusate CAP* 100 MG PO SCH ×2 (08:23→20:26)
[2016-08-30] MEDS: Senna TAB PO SCH ×2 (08:23→20:26)
[2016-08-30] MEDS ORDERED: Haloperidol LIQ* 10 MG/5 ML UDC PO PRN (10:41)
[2016-08-30] MEDS ORDERED: Potassium Phosphate IV* 15 MMOLE in NS 0.9% 250 ML* 250 ML IVPB ONE (10:42)
[2016-08-30] MEDS: ALPRAZolam TAB* 0.25 MG PO PRN ×2 (11:18→20:18)
[2016-08-30] MEDS: Levofloxacin 750 MG IVPREMIX(* 750 MG/150 ML BAG IVPB SCH (11:18)
--- NOTE | 2016-08-30 11:27 | PN ---
Progress Note - Progress Note Note: CRITICAL CARE MEDICINE Date: 08/30/16 Time: 900 SUBJECTIVE: Patient seen and examined. PHYSICAL EXAM: Vital Signs: Reviewed. HFO2 at 40L. Hr 100s Neurologic: communicating. hold capacitance HEENT: pupils equal. Sclera anicteric. Trachea midline. Cardiovascular: S1 S2, irr M still Respiratory: bl rales and dec with low volumes still Abdomen: Soft, nt. Extremities: Warm. Left forearm edema back up again; no pain, no masses LABS: Reviewed. IMAGING: Reviewed. MEDICATIONS: Reviewed. ASSESSMENT: 86 F with Acute hypoxic resp failure ongoing sec to RUL CAP-H paraflu Component of ARDS Intubated 08/24 - extubated 08/26 Sepsis syndrome on admission CAF on anticoag Afib Underlying AI/ Iatrogenic coagulopathy Vasculopath Uncomplicated uti PMR HTN PLAN: Did ok yesterday but stating she couln't sleep last night. Asking for something other then morphine. Can have other agents available for her comfort. Remains on vapotherm at 40lpm again today. If she is unable to gain any reserve she cannot overcome this. Trying to support her in time to allow her body to choose a direction and she is just lingering. She is against re-intubation as she also understands this will not fix her. She is against SNF as well. Would certainly error on the side of her being comfortable to see if she can thrive at all versus remain peaceful. Declining bipap and would no longer offer. Supportive and preventative care as ordered. More time. SUP: po VTE prophylaxis: Coumadin tx Disposition: ICU Code Status: DNR/DNI Critical Care Time: 25min FLeonila Jimenes DO
[2016-08-30] MEDS: Atorvastatin* 10 MG TAB PO SCH (18:06)
[2016-08-30] MEDS: Morphine INJ* 2 MG/ML 1 ML CARPUJECT IV PRN (18:49)
[2016-08-30] MEDS: Potassium & Sodium Phos 250MG* = 1 PACKET PO SCH (20:19)
[2016-08-30] MEDS: Latanoprost 0.005%* 2.5 ml BTL RIGHT EYE SCH (20:23)
[2016-08-31] MEDS: Mometasone/Formoter 200/5 MDI INH SCH ×3 (00:11→19:51)
[2016-08-31] MEDS: Diltiazem TAB* 60 MG PO SCH ×4 (00:13→17:32)
[2016-08-31] MEDS: Levothyroxine TAB* 75 MCG TAB PO SCH (06:08)
[2016-08-31] MEDS: Insulin LISPRO* 1 UNITS UNIT SUBCUT SCH ×4 (07:48→20:36)
[2016-08-31] MEDS: Docusate CAP* 100 MG PO SCH ×2 (08:31→20:32)
[2016-08-31] MEDS: Senna TAB PO SCH ×2 (08:31→20:32)
[2016-08-31] MEDS: Tiotropium CAP.INH* CAP.INH/18 MCG (USE ORDER SET !) INH SCH (08:35)
[2016-08-31] MEDS: Acetaminophen TAB* 325 MG PO SCH ×3 (08:44→20:31)
[2016-08-31] MEDS: amLODIPine TAB* 5 MG PO SCH (08:44)
[2016-08-31] MEDS: Aspirin EC Low Dose* 81 MG TAB.EC PO SCH (08:44)
[2016-08-31] MEDS: predniSONE TAB* 20 MG PO SCH (08:44)
[2016-08-31] MEDS: BRIMONIDINE RIGHT EYE SCH ×2 (08:44→20:31)
[2016-08-31] MEDS: Potassium & Sodium Phos 250MG* = 1 PACKET PO SCH ×2 (08:44→20:33)
[2016-08-31] MEDS: Cetirizine* 10 MG TAB PO SCH (11:32)
[2016-08-31] MEDS: Levofloxacin 750 MG IVPREMIX(* 750 MG/150 ML BAG IVPB SCH (11:33)
[2016-08-31] MEDS: Lactobacillus Acidophilu (GG)* 1 CAP CAP PO SCH ×2 (13:14→20:33)
[2016-08-31] MEDS: Levofloxacin TAB* 750 MG PO SCH (13:14)
[2016-08-31] MEDS: Atorvastatin* 10 MG TAB PO SCH (17:32)
--- NOTE | 2016-08-31 17:39 | PN ---
Critical Care Services: Up in chair today and tolerating it. No new complaints. Vital Signs: Temp Pulse Resp BP SpO2 FiO2 99.4 F 87 28 166/68 97 100 NOTE: Patient on high-flow nasal O2. Physical Exam: Gen:Alert, oriented Lungs:clear (!) Extremities:No cyanosis. 1+edema Fluid Balance (Past 24 Hours): 08/31/16 06:59 Intake Total 1350 Output Total 810 Balance 540 Weight 128 lb Intake: IV Fluids 80 NS (0.9%) 80 IVPB NS (0.9%) Oral 1270 Output: Urine 810 Other: Estimated Void Medium Date of Last Bowel t Movement # Bowel Movements 1 Estimated Stool Amount Large # Voids 1 Labs: Laboratory Results - last 24 hr 08/30/16 08/31/16 08/31/16 20:35 07:28 11:24 POC Glucose (mg/dL) 181 H 119 H 181 H 08/31/16 16:41 POC Glucose (mg/dL) 210 H Studies: None today Nutrition: oral diet Impression: Improving, but slowly. Plan: Wean high-flow nasal O2 as tolerated. Start physical Rx.
[2016-08-31] MEDS: Latanoprost 0.005%* 2.5 ml BTL RIGHT EYE SCH (20:33)
[2016-08-31] MEDS: Morphine INJ* 2 MG/ML 1 ML CARPUJECT IV PRN (21:04)
[2016-09-01] MEDS: Diltiazem TAB* 60 MG PO SCH ×4 (00:02→17:54)
[2016-09-01] MEDS: Levothyroxine TAB* 75 MCG TAB PO SCH (05:31)
[2016-09-01 05:43] LABS: Hematocrit 36 % (35-47); Hemoglobin 11.8 g/dl (12.0-16.0); Mean Corpuscular HGB Conc 33 g/dl (31-36); Mean Corpuscular Hemoglobin 30 pg (27-31); Mean Corpuscular Volume 90 fL (80-97); Mean Platelet Volume 10 um3 (7.4-10.4); Red Blood Count 3.99 10^6/ul (4.0-5.4); Red Cell Distribution Width 16 % (10.5-15); White Blood Count 8.4 10^3/ul (3.5-10.8)
[2016-09-01 05:47] LABS: Comments Flag Yes
[2016-09-01 06:05] LABS: EGFR African American 109.2 (>60); EGFR Non-African American 84.9 (>60); Potassium 3.9 mmol/L (3.5-5.0)
[2016-09-01] MEDS: Insulin LISPRO* 1 UNITS UNIT SUBCUT SCH ×4 (08:33→20:55)
[2016-09-01] MEDS: BRIMONIDINE RIGHT EYE SCH ×2 (08:35→20:56)
[2016-09-01] MEDS: Mometasone/Formoter 200/5 MDI INH SCH ×2 (08:35→19:40)
[2016-09-01] MEDS: Tiotropium CAP.INH* CAP.INH/18 MCG (USE ORDER SET !) INH SCH (09:30)
[2016-09-01] MEDS: Acetaminophen TAB* 325 MG PO SCH ×3 (09:31→20:56)
[2016-09-01] MEDS: predniSONE TAB* 20 MG PO SCH (09:31)
[2016-09-01] MEDS: amLODIPine TAB* 5 MG PO SCH (09:32)
[2016-09-01] MEDS: Levofloxacin TAB* 750 MG PO SCH (09:32)
[2016-09-01] MEDS: Cetirizine* 10 MG TAB PO SCH (09:32)
[2016-09-01] MEDS: Lactobacillus Acidophilu (GG)* 1 CAP CAP PO SCH ×2 (09:32→20:55)
[2016-09-01] MEDS: Potassium & Sodium Phos 250MG* = 1 PACKET PO SCH ×2 (09:32→20:56)
[2016-09-01] MEDS: Aspirin EC Low Dose* 81 MG TAB.EC PO SCH (09:32)
[2016-09-01] MEDS: Senna TAB PO SCH (09:33)
[2016-09-01] MEDS: Docusate CAP* 100 MG PO SCH (09:33)
--- NOTE | 2016-09-01 14:26 | PN ---
Critical Care Services: Continues to do well, and is now off Vapotherm and on Salter system with nasal O2 at 12 L/min. Is up in bed and breathing comfortably. Vital Signs: Temp Pulse Resp BP SpO2 FiO2 98.1 F 94 24 134/53 99 100 Physical Exam: Gen:Alert, oriented Lungs:no crackles or wheezes Cardiac: Irreg rhythm Abdomen: Not distended Extremities:Warm. No cyanosis or edema. Fluid Balance (Past 24 Hours): 09/01/16 06:59 Intake Total 1440 Output Total 400 Balance +1040 Weight 134 lb Intake: IV Fluids 100 NS (0.9%) 100 Oral 1340 Output: Urine 400 Other: Estimated Void Medium Date of Last Bowel Movement # Bowel Movements 1 Estimated Stool Amount Medium # Voids 2 Labs: 09/01/16 05:30 WBC 8.4 Hgb 11.8 Hct 36 Plt Count 214 Sodium 133 Potassium 3.9 Chloride 100 Carbon Dioxide 27 BUN 31 Creatinine 0.66 Glucose 119 Calcium 8.0 L Studies: None today Nutrition: Oral diet Impression: Continues to improve from a respiratory standpoint. No signs of active infection at present. Plan: If patient tolerates the decrease in inhaled O2, can transfer out of the ICU. Will d/c antibiotics (levofloxacin). Patients family aware of current situation and management plan.
[2016-09-01] MEDS: Atorvastatin* 10 MG TAB PO SCH (17:54)
[2016-09-01] MEDS: Latanoprost 0.005%* 2.5 ml BTL RIGHT EYE SCH (20:57)
[2016-09-01] MEDS: Morphine INJ* 2 MG/ML 1 ML CARPUJECT IV PRN (21:04)
[2016-09-02] MEDS: Diltiazem TAB* 60 MG PO SCH ×4 (00:03→18:09)
[2016-09-02] MEDS: Levothyroxine TAB* 75 MCG TAB PO SCH (06:01)
[2016-09-02] MEDS: Insulin LISPRO* 1 UNITS UNIT SUBCUT SCH ×4 (07:42→21:53)
--- NOTE | 2016-09-02 08:04 | RAD ---
INDICATION: Pneumonia. COMPARISON: Comparison is made with a prior chest x-ray study from August 28, 2016. TECHNIQUE: A portable view of the chest was obtained. FINDINGS: The patient is status post sternotomy and mitral valve repair. The heart is moderately enlarged and unchanged. There is a small right pleural effusion and a small to moderate size left pleural effusion which are unchanged. There is a focal infiltrate present in the right upper lobe and at the left lung base and diffuse prominence of interstitial markings. The infiltrates have progressed slightly from the prior study. IMPRESSION: BILATERAL PLEURAL EFFUSIONS AND INFILTRATES MOST CONSISTENT WITH PNEUMONIA WITH POSSIBLE SUPERIMPOSED PULMONARY EDEMA DEMONSTRATING INTERVAL PROGRESSION.
[2016-09-02] MEDS: BRIMONIDINE RIGHT EYE SCH ×2 (09:02→20:59)
[2016-09-02] MEDS: Cetirizine* 10 MG TAB PO SCH (09:02)
[2016-09-02] MEDS: amLODIPine TAB* 5 MG PO SCH (09:03)
[2016-09-02] MEDS: predniSONE TAB* 20 MG PO SCH (09:03)
[2016-09-02] MEDS: Lactobacillus Acidophilu (GG)* 1 CAP CAP PO SCH ×2 (09:03→20:58)
[2016-09-02] MEDS: Aspirin EC Low Dose* 81 MG TAB.EC PO SCH (09:03)
[2016-09-02] MEDS: Potassium & Sodium Phos 250MG* = 1 PACKET PO SCH ×2 (09:03→20:59)
[2016-09-02] MEDS: Acetaminophen TAB* 325 MG PO SCH ×3 (09:03→21:00)
[2016-09-02] MEDS: Mometasone/Formoter 200/5 MDI INH SCH ×2 (10:37→21:41)
[2016-09-02] MEDS: Tiotropium CAP.INH* CAP.INH/18 MCG (USE ORDER SET !) INH SCH (10:37)
--- NOTE | 2016-09-02 14:20 | PN ---
Critical Care Services: Continues to do well with reduced O2 requirement. Now on nasal O2 at 6 L/min and has SpO2s in low 90s. Vital Signs: Temp Pulse Resp BP SpO2 FiO2 99.2 F 57 29 144/53 94 100 Physical Exam: Gen:Alert, oriented. Lungs:No wheezes or crackles Cardiac: Irreg rhythm Extremities:No cyanosis. 1+ edema UE>LE Fluid Balance (Past 24 Hours): 09/02/16 06:59 Intake Total 1360 Output Total 800 Balance +560 Weight Intake: IV Fluids NS (0.9%) Oral 1360 Output: Urine 800 Other: Estimated Void Date of Last Bowel Movement # Bowel Movements Estimated Stool Amount Small # Voids Labs: 09/02/16 09/02/16 09/02/16 06:04 07:38 11:42 INR (Anticoag Therapy) 3.53 POC Glucose (mg/dL) 93 129 Studies: CXR: Patchy infiltrates both lungs Nutrition: Oral diet Impression: Slow but steady improvement in respiratory status. No longer needs high-flow nasal O2 (Vapotherm). Plan: Transfer out of ICU for continued physical therapy. (Patient will probably need a few weeks in a rehab facility prior to discharge home.) Will continue to hold coumadin because of elevated INR.
[2016-09-02] MEDS: Atorvastatin* 10 MG TAB PO SCH (18:09)
[2016-09-02] MEDS: Latanoprost 0.005%* 2.5 ml BTL RIGHT EYE SCH (20:58)
[2016-09-03] MEDS: Morphine ORAL.SOLN 10 mg* 2 MG/ML UDC 5 ml PO PRN (00:03)
[2016-09-03] MEDS: Diltiazem TAB* 60 MG PO SCH ×4 (00:04→17:53)
[2016-09-03 05:24] LABS: BUN/Creatinine Ratio 53.1 (8-20); Calcium 8.2 mg/dL (8.6-10.3); EGFR African American 113.2 (>60); Potassium 4.1 mmol/L (3.5-5.0)
[2016-09-03] MEDS: Levothyroxine TAB* 75 MCG TAB PO SCH (06:06)
[2016-09-03] MEDS: Mometasone/Formoter 200/5 MDI INH SCH ×2 (09:00→20:11)
[2016-09-03] MEDS: Tiotropium CAP.INH* CAP.INH/18 MCG (USE ORDER SET !) INH SCH (09:00)
[2016-09-03] MEDS: Insulin LISPRO* 1 UNITS UNIT SUBCUT SCH ×4 (09:01→21:45)
[2016-09-03] MEDS: Aspirin EC Low Dose* 81 MG TAB.EC PO SCH (10:01)
[2016-09-03] MEDS: amLODIPine TAB* 5 MG PO SCH (10:01)
[2016-09-03] MEDS: Cetirizine* 10 MG TAB PO SCH (10:01)
[2016-09-03] MEDS: predniSONE TAB* 10 MG PO SCH (10:01)
[2016-09-03] MEDS: Lactobacillus Acidophilu (GG)* 1 CAP CAP PO SCH ×2 (10:01→21:55)
[2016-09-03] MEDS: Potassium & Sodium Phos 250MG* = 1 PACKET PO SCH ×2 (10:01→21:52)
[2016-09-03] MEDS: Acetaminophen TAB* 325 MG PO SCH ×3 (10:01→21:57)
[2016-09-03] MEDS: BRIMONIDINE RIGHT EYE SCH ×2 (10:01→21:55)
--- NOTE | 2016-09-03 12:29 | PN ---
Subjective Date of Service: 09/03/16 Interval History: pt feel better. ambulated to bathroom. Determined to go home at some point Objective Active Medications: Acetaminophen (Tylenol Tab*) 650 mg PO Q4H PRN PRN Reason: FEVER/PAIN Acetaminophen (Tylenol Tab*) 650 mg PO TID [facility] Last Admin: 09/03/16 10:01 Dose: 650 mg Albuterol (Ventolin 2.5 Mg/3 Ml Neb.Edwina*) 2.5 mg INH Q2H PRN PRN Reason: SOB/WHEEZING Last Admin: 08/27/16 17:05 Dose: 2.5 mg Alprazolam (Xanax Tab*) 0.25 mg PO Q8H PRN PRN Reason: ANXIETY Last Admin: 08/30/16 20:18 Dose: 0.25 mg Amlodipine Besylate (Norvasc Tab*) 10 mg PO DAILY [facility] Last Admin: 09/03/16 10:01 Dose: 10 mg Aspirin (Aspirin Ec Low Dose*) 81 mg PO QAM [facility] Last Admin: 09/03/16 10:01 Dose: 81 mg Atorvastatin Calcium (Lipitor*) 5 mg PO QPM [facility] Last Admin: 09/02/16 18:09 Dose: 5 mg Brimonidine Tartrate (Alphagan P 0.15%(Nf)) 1 drop RIGHT EYE BID [facility] Last Admin: 09/03/16 10:01 Dose: 1 drop Cetirizine HCl (Zyrtec*) 10 mg PO DAILY [facility] Last Admin: 09/03/16 10:01 Dose: 10 mg Dextrose (D50w Syringe 50 Ml*) 12.5 gm IV PUSH .FOR FS < 60 - SS PRN PRN Reason: FS < 60 Digoxin (Lanoxin Tab*) 0.125 mg PO 1700 [facility] Diltiazem HCl (Cardizem Tab*) 60 mg PO Q6HR [facility] Stop: 09/03/16 23:59 Last Admin: 09/03/16 06:06 Dose: 60 mg Diltiazem HCl (Cardizem Cd Cap*) 240 mg PO QAM [facility] Haloperidol (Haldol Liq*) 2.5 mg PO Q4H PRN PRN Reason: AGITATION Hydralazine HCl (Apresoline Iv*) 10 mg IV SLOW PU Q6H PRN PRN Reason: SYSTOLIC BP >180 Last Admin: 08/24/16 08:04 Dose: 10 mg Insulin Human Lispro (Humalog*) 0 units SUBCUT ACHS [facility] PRN Reason: Protocol Last Admin: 09/03/16 09:01 Dose: Not Given Lactobacillus Rhamnosus (Culturelle*) 1 cap PO BID [facility] Last Admin: 09/03/16 10:01 Dose: 1 cap Latanoprost (Xalatan 0.005%*) 1 drop RIGHT EYE BEDTIME [facility] Last Admin: 09/02/16 20:58 Dose: 1 drop Levothyroxine Sodium (Synthroid Tab*) 75 mcg PO 0600 [facility] Last Admin: 09/03/16 06:06 Dose: 75 mcg Mometasone Furoate/Formoterol Fumar (Dulera 200/5 Mdi*) 2 puff INH BID [facility] Last Admin: 09/03/16 09:00 Dose: 2 puff Morphine Sulfate (Morphine Inj (Syringe)*) 2 mg IV Q2H PRN PRN Reason: PAIN Last Admin: 09/01/16 21:04 Dose: 2 mg Morphine Sulfate (Morphine Oral.Soln 10 Mg*) 1.25 mg PO Q2H PRN PRN Reason: SHORTNESS OF BREATH Last Admin: 09/03/16 00:03 Dose: 1.25 mg Ondansetron HCl (Zofran Inj*) 4 mg IV Q6H PRN PRN Reason: NAUSEA Last Admin: 08/23/16 08:26 Dose: 4 mg Pharmacy Profile Note (Coumadin Daily Reminder*) 0 note FOLLOW UP 1700 [facility] Last Admin: 09/02/16 16:09 Dose: Not Given Potassium Phos/Sodium Phos (Neutra Phos 250 Mg Gorge*) 250 mg PO BID [facility] Last Admin: 09/03/16 10:01 Dose: 250 mg Prednisone (Deltasone Tab*) 10 mg PO DAILY [facility] Last Admin: 09/03/16 10:01 Dose: 10 mg Prochlorperazine Edisylate (Compazine Inj*) 10 mg IV Q6H PRN PRN Reason: NAUSEA Tiotropium [place] (Spiriva Cap.Inh*) 1 cap INH DAILY [facility] Last Admin: 09/03/16 09:00 Dose: 1 cap Vital Signs 09/02/16 09/02/16 09/02/16 13:00 13:47 14:00 Temperature Pulse Rate 109 106 90 Respiratory 26 30 32 Rate Blood Pressure 150/57 166/74 144/59 (mmHg) O2 Sat by Pulse 95 95 95 Oximetry 09/02/16 09/02/16 09/02/16 15:00 15:51 16:00 Temperature 98.8 F Pulse Rate 86 81 Respiratory 23 31 Rate Blood Pressure 136/48 147/46 (mmHg) O2 Sat by Pulse 93 95 Oximetry 09/02/16 09/02/16 09/02/16 16:20 17:00 18:10 Temperature Pulse Rate 94 Respiratory 24 29 Rate Blood Pressure 147/64 (mmHg) O2 Sat by Pulse 93 92 Oximetry 09/02/16 09/02/16 09/02/16 19:33 20:00 20:09 Temperature 99.4 F 97.8 F Pulse Rate 126 88 110 Respiratory 26 24 20 Rate Blood Pressure 136/80 148/64 (mmHg) O2 Sat by Pulse 100 85 95 Oximetry 09/02/16 09/03/16 09/03/16 23:33 00:00 00:03 Temperature 98.7 F Pulse Rate 104 Respiratory 16 22 Rate Blood Pressure 151/55 (mmHg) O2 Sat by Pulse 90 92 Oximetry 09/03/16 09/03/16 09/03/16 02:03 03:45 07:24 Temperature 98.0 F 97.8 F Pulse Rate 93 94 Respiratory 21 16 24 Rate Blood Pressure 152/60 150/60 (mmHg) O2 Sat by Pulse 89 88 Oximetry 09/03/16 09/03/16 09/03/16 08:00 09:35 11:47 Temperature 97.8 F Pulse Rate 81 138 Respiratory 22 22 22 Rate Blood Pressure 127/47 (mmHg) O2 Sat by Pulse 95 86 Oximetry Oxygen Devices in Use Now: Nasal Cannula - at 8L Appearance: 86 yo F in nAD, aAOx3 Eyes: No Scleral Icterus, PERRLA Ears/Nose/Mouth/Throat: NL Teeth, Lips, Gums, Mucous Membranes Moist Neck: NL Appearance and Movements; NL JVP, Trachea Midline Respiratory: Symmetrical Chest Expansion and Respiratory Effort, - - crackles at b/l bases Cardiovascular: - - irregular Abdominal: NL Sounds; No Tenderness; No Distention, No Hepatosplenomegaly Lymphatic: No Cervical Adenopathy Extremities: No Clubbing, Cyanosis, - - diffuse mild edema in all extremitites, most pronounced in L arm Skin: No Nodules or Sclerosis Neurological: Alert and Oriented x 3, NL Muscle Strength and Tone Result Diagrams: 09/01/16 05:30 09/03/16 04:32 Additional Lab and Data: Lab Results 08/17/16 08/17/16 08/17/16 Range/Units 09:35 09:35 09:35 WBC 10.9 H (3.5-10.8) 10^3/ul RBC 4.76 (4.0-5.4) 10^6/ul Hgb 14.1 (12.0-16.0) g/dl Hct 44 (35-47) % MCV 92 (80-97) fL MCH 30 (27-31) pg MCHC 32 (31-36) g/dl RDW 16 H (10.5-15) % Plt Count 125 L (150-450) 10^3/ul MPV 11 H (7.4-10.4) um3 Neut % (Auto) 68.8 (38-83) % Lymph % (Auto) 14.6 L (25-47) % Frontier % (Auto) 15.8 H (1-9) % Eos % (Auto) 0.1 (0-6) % Baso % (Auto) 0.7 (0-2) % Absolute Neuts (auto) 7.5 (1.5-7.7) 10^3/ul Absolute Lymphs (auto) 1.6 (1.0-4.8) 10^3/ul Absolute Monos (auto) 1.7 H (0-0.8) 10^3/ul Absolute Eos (auto) 0 (0-0.6) 10^3/ul Absolute Basos (auto) 0.1 (0-0.2) 10^3/ul Absolute Nucleated RBC 0.01 10^3/ul Nucleated RBC % 0.1 INR (Anticoag Therapy) 1.57 H (0.89-1.11) APTT 33.9 (26.0-36.3) seconds Sodium 133 (133-145) mmol/L Potassium 3.5 (3.5-5.0) mmol/L Chloride 99 L (101-111) mmol/L Carbon Dioxide 25 (22-32) mmol/L Anion Gap 9 (2-11) mmol/L BUN 26 H (6-24) mg/dL Creatinine 0.88 (0.51-0.95) mg/dL Est GFR ( Amer) 78.4 (>60) Est GFR (Non-Af Amer) 60.9 (>60) BUN/Creatinine Ratio 29.5 H (8-20) Glucose 86 (70-100) mg/dL Lactic Acid (0.5-2.0) mmol/L Calcium 9.1 (8.6-10.3) mg/dL Total Bilirubin 1.20 H (0.2-1.0) mg/dL AST 18 (13-39) U/L ALT 10 (7-52) U/L Alkaline Phosphatase 45 (34-104) U/L Troponin I 0.35 H* (<0.04) ng/mL Total Protein 7.4 (6.4-8.9) g/dL Albumin 3.7 (3.2-5.2) g/dL Globulin 3.7 (2-4) g/dL Albumin/Globulin Ratio 1.0 (1-3) Influenza A (Rapid) (Negative) Influenza B (Rapid) (Negative) 08/17/16 08/17/16 Range/Units 09:35 09:59 WBC (3.5-10.8) 10^3/ul RBC (4.0-5.4) 10^6/ul Hgb (12.0-16.0) g/dl Hct (35-47) % MCV (80-97) fL MCH (27-31) pg MCHC (31-36) g/dl RDW (10.5-15) % Plt Count (150-450) 10^3/ul MPV (7.4-10.4) um3 Neut % (Auto) (38-83) % Lymph % (Auto) (25-47) % Frontier % (Auto) (1-9) % Eos % (Auto) (0-6) % Baso % (Auto) (0-2) % Absolute Neuts (auto) (1.5-7.7) 10^3/ul Absolute Lymphs (auto) (1.0-4.8) 10^3/ul Absolute Monos (auto) (0-0.8) 10^3/ul Absolute Eos (auto) (0-0.6) 10^3/ul Absolute Basos (auto) (0-0.2) 10^3/ul Absolute Nucleated RBC 10^3/ul Nucleated RBC % INR (Anticoag Therapy) (0.89-1.11) APTT (26.0-36.3) seconds Sodium (133-145) mmol/L Potassium (3.5-5.0) mmol/L Chloride (101-111) mmol/L Carbon Dioxide (22-32) mmol/L Anion Gap (2-11) mmol/L BUN (6-24) mg/dL Creatinine (0.51-0.95) mg/dL Est GFR ( Amer) (>60) Est GFR (Non-Af Amer) (>60) BUN/Creatinine Ratio (8-20) Glucose (70-100) mg/dL Lactic Acid 1.0 (0.5-2.0) mmol/L Calcium (8.6-10.3) mg/dL Total Bilirubin (0.2-1.0) mg/dL AST (13-39) U/L ALT (7-52) U/L Alkaline Phosphatase (34-104) U/L Troponin I (<0.04) ng/mL Total Protein (6.4-8.9) g/dL Albumin (3.2-5.2) g/dL Globulin (2-4) g/dL Albumin/Globulin Ratio (1-3) Influenza A (Rapid) Negative (Negative) Influenza B (Rapid) Negative (Negative) Microbiology and Other Data: Microbiology 08/24/16 11:45 Gram Stain - Final Sputum Sputum Culture - Final Normal [place] 08/17/16 11:10 Aerobic Blood Culture - Final Blood Venous No Growth Day 5 Anaerobic Blood Culture - Final No Growth Day 5 Blood Culture - Final 08/17/16 11:10 Urine Culture - Final Urine Escherichia Coli 08/17/16 14:00 Nasal Screen MRSA (PCR)([facility]) - Final Nasal Mrsa Negative 08/17/16 13:45 Legionella Urinary Antigen - Final Urine Negative Legionella Streptococcus pneumoniae Ag Screen - Final Negative S. pneumo Antigen Assess/Plan/Problems-Billing Assessment: 86 yo F with h/o A. fib(on coumadin), bioprosthetic mitral valve, CVA, PMR(on Prednisone), COPD, HTN, pacer(for tachy kayleigh syndrome), AAA and iliac artery aneurysm repair, splenectomy who was admitted to ICU with sepsis syndrome due to CAP (H. parainfluanzae positive cx), component of ARDS, intubated 08/24/16, extubated 08/26/16, transferred out of ICU on 09/02/16. Also had an uncomplicated UTI tx when in ICU. - Patient Problems (1) CAP (community acquired pneumonia) Comment: with severe sepsis at admission. Also in acute hypoxemic resiratory failure due to above. Now on 8 L 02 Nc, doing better. completed antibiotics when in ICU. (2) Atrial fibrillation Comment: Controlled on short acting Cardizem will swithc to at home AM dose of CD tomorrow. She was also on Cardizem CD 120 mg at bedtime that will not be restarted yet. Will also restart Digoxin at a lower dose of 125 mcg. (3) Polymyalgia rheumatica Comment: cont Prednisone at 10 mg daily. Was on 5 mg at home (4) Hypertension Comment: Cont Cardizem, Norvasc, controlled (5) COPD (chronic obstructive pulmonary disease) Comment: currently not in exacerbation, cont inhalers, nebs (6) DVT prophylaxis Comment: coumadin-restarted today Status and Disposition: inpatient. Plan for PT/OT eval to STR or PMRU. High 02 requirement still
[2016-09-03] MEDS ORDERED: Magnesium Sulfate 1 GM IV* 1 GM/100 ML BAG IV ONE (13:49)
[2016-09-03] MEDS: Atorvastatin* 10 MG TAB PO SCH (17:50)
[2016-09-03] MEDS: Digoxin TAB* 0.125 MG PO SCH (17:51)
[2016-09-03] MEDS: Warfarin TAB(*) 1 MG PO SCH (17:53)
[2016-09-03] MEDS: Latanoprost 0.005%* 2.5 ml BTL RIGHT EYE SCH (21:55)
[2016-09-04] MEDS: Levothyroxine TAB* 75 MCG TAB PO SCH (05:33)
[2016-09-04] MEDS: Insulin LISPRO* 1 UNITS UNIT SUBCUT SCH ×4 (07:33→21:44)
[2016-09-04] MEDS: Morphine ORAL.SOLN 10 mg* 2 MG/ML UDC 5 ml PO PRN ×2 (08:33→21:45)
[2016-09-04] MEDS: Mometasone/Formoter 200/5 MDI INH SCH ×2 (08:40→19:59)
[2016-09-04] MEDS: Tiotropium CAP.INH* CAP.INH/18 MCG (USE ORDER SET !) INH SCH (08:40)
[2016-09-04] MEDS: Acetaminophen TAB* 325 MG PO SCH ×3 (09:52→21:43)
[2016-09-04] MEDS: amLODIPine TAB* 5 MG PO SCH (09:52)
[2016-09-04] MEDS: Lactobacillus Acidophilu (GG)* 1 CAP CAP PO SCH ×2 (09:53→21:43)
[2016-09-04] MEDS: Potassium & Sodium Phos 250MG* = 1 PACKET PO SCH ×2 (09:53→21:38)
[2016-09-04] MEDS: Aspirin EC Low Dose* 81 MG TAB.EC PO SCH (09:53)
[2016-09-04] MEDS: BRIMONIDINE RIGHT EYE SCH ×2 (09:53→21:46)
[2016-09-04] MEDS: Diltiazem CD CAP* 240 MG PO SCH (09:53)
[2016-09-04] MEDS: predniSONE TAB* 10 MG PO SCH (09:53)
[2016-09-04] MEDS: Cetirizine* 10 MG TAB PO SCH (09:54)
[2016-09-04] MEDS ORDERED: Digoxin IV* 0.5 MG/2 ML AMP (0.25 MG/ML) IV SLOW PU ONE (11:56)
--- NOTE | 2016-09-04 12:10 | PN ---
Subjective Date of Service: 09/04/16 Interval History: Patient seen this morning. States she felt very SOB this morning and was anxious , but much improved now. Feels she has significant nasal congestion. No fever or chills. Family History: Unchanged from Admission Social History: Unchanged from Admission Past Medical History: Unchanged from Admission Objective Active Medications: Acetaminophen (Tylenol Tab*) 650 mg PO Q4H PRN Acetaminophen (Tylenol Tab*) 650 mg PO TID [facility] Albuterol (Ventolin 2.5 Mg/3 Ml Neb.Edwina*) 2.5 mg INH Q2H PRN Alprazolam (Xanax Tab*) 0.25 mg PO Q8H PRN Amlodipine Besylate (Norvasc Tab*) 10 mg PO DAILY [facility] Aspirin (Aspirin Ec Low Dose*) 81 mg PO QAM [facility] Atorvastatin Calcium (Lipitor*) 5 mg PO QPM [facility] Brimonidine Tartrate (Alphagan P 0.15%(Nf)) 1 drop RIGHT EYE BID [facility] Cetirizine HCl (Zyrtec*) 10 mg PO DAILY [facility] Dextrose (D50w Syringe 50 Ml*) 12.5 gm IV PUSH .FOR FS < 60 - SS PRN Digoxin (Lanoxin Tab*) 0.125 mg PO 1700 [facility] Digoxin (Digoxin Iv*) 0.125 mg IV SLOW PU ONCE ONE Diltiazem HCl (Cardizem Cd Cap*) 240 mg PO QAM [facility] Diltiazem HCl (Cardizem Cd Cap*) 120 mg PO QPM [facility] Haloperidol (Haldol Liq*) 2.5 mg PO Q4H PRN Hydralazine HCl (Apresoline Iv*) 10 mg IV SLOW PU Q6H PRN Insulin Human Lispro (Humalog*) 0 units SUBCUT ACHS [facility] Lactobacillus Rhamnosus (Culturelle*) 1 cap PO BID [facility] Latanoprost (Xalatan 0.005%*) 1 drop RIGHT EYE BEDTIME [facility] Levothyroxine Sodium (Synthroid Tab*) 75 mcg PO 0600 [facility] Mometasone Furoate/Formoterol Fumar (Dulera 200/5 Mdi*) 2 puff INH BID [facility] Morphine Sulfate (Morphine Oral.Soln 10 Mg*) 1.25 mg PO Q2H PRN Ondansetron HCl (Zofran Inj*) 4 mg IV Q6H PRN Pharmacy Profile Note (Coumadin Daily Reminder*) 0 note FOLLOW UP 1700 [facility] Potassium Phos/Sodium Phos (Neutra Phos 250 Mg Gorge*) 250 mg PO BID [facility] Prednisone (Deltasone Tab*) 10 mg PO DAILY [facility] Prochlorperazine Edisylate (Compazine Inj*) 10 mg IV Q6H PRN Tiotropium [place] (Spiriva Cap.Inh*) 1 cap INH DAILY [facility] Warfarin Sodium (Coumadin Tab(*)) 1 mg PO DAILY@1700 [facility] Vital Signs 09/03/16 09/03/16 09/03/16 15:30 17:38 17:51 Temperature 97.5 F Pulse Rate 94 88 96 Respiratory Rate Blood Pressure 136/43 (mmHg) O2 Sat by Pulse 88 91 Oximetry 09/04/16 09/04/16 09/04/16 03:04 07:33 07:38 Temperature 98.6 F 98.2 F Pulse Rate 109 107 Respiratory 19 20 20 Rate Blood Pressure 140/84 142/50 (mmHg) O2 Sat by Pulse 94 96 Oximetry 09/04/16 09/04/16 09/04/16 08:28 08:33 08:43 Temperature 98.1 F Pulse Rate 116 112 Respiratory 32 30 30 Rate Blood Pressure 142/59 (mmHg) O2 Sat by Pulse 89 97 Oximetry Oxygen Devices in Use Now: Nasal Cannula - 5L Appearance: Elderly, F, laying in chair in NAD Eyes: No Scleral Icterus Ears/Nose/Mouth/Throat: Mucous Membranes Moist, - - Dried blood in B/L nares Neck: NL Appearance and Movements; NL JVP Respiratory: Symmetrical Chest Expansion and Respiratory Effort, - - tachypnea, RUL ronchi, decreased sounds in B/L bases Cardiovascular: - - IRIR, tachycardic Abdominal: NL Sounds; No Tenderness; No Distention Lymphatic: No Cervical Adenopathy Extremities: - - LUE edema Skin: No Rash or Ulcers Neurological: Alert and Oriented x 3 Result Diagrams: 09/01/16 05:30 09/03/16 04:32 Assess/Plan/Problems-Billing Assessment: 86 yo F with h/o A. fib(on coumadin), bioprosthetic mitral valve, CVA, PMR(on Prednisone), COPD, HTN, pacer(for tachy kayleigh syndrome), AAA and iliac artery aneurysm repair, splenectomy who was admitted to ICU with sepsis syndrome due to CAP (H. parainfluanzae positive cx), component of ARDS, intubated 08/24/16, extubated 08/26/16, transferred out of ICU on 09/02/16. Also had an uncomplicated UTI tx when in ICU. - Patient Problems (1) CAP (community acquired pneumonia) Current Visit: Yes Comment: with severe sepsis at admission. Also in acute hypoxemic resiratory failure due to above. Slowly weaning oxygen completed antibiotics when in ICU. (2) Atrial fibrillation Current Visit: No Comment: HR uncontrolled this morning. Restart evening dose of Cardizem. Will give additional Digoxin 125 mcg x 1 (missed day of increased dose) and continue oral dose at 125 mcg daily for now. Continue coumadin, dosing as per pharmacy (3) COPD (chronic obstructive pulmonary disease) Current Visit: Yes Comment: currently not in exacerbation, cont inhalers, nebs (4) Polymyalgia rheumatica Current Visit: Yes Comment: cont Prednisone at 10 mg daily. Was on 5 mg at home (5) Hypertension Current Visit: No Comment: Cont Cardizem, Norvasc, controlled (6) DVT prophylaxis Current Visit: No Comment: coumadin Status and Disposition: inpatient. IRMA or PMRU. High 02 requirement still
[2016-09-04] MEDS ORDERED: Loperamide CAP* 2 MG PO PRN (12:38)
[2016-09-04] MEDS: Oxymetazoline 0.05% NASAL SPR* 15 ML BTL BOTH NARES SCH ×2 (13:02→21:40)
[2016-09-04] MEDS: Digoxin TAB* 0.125 MG PO SCH (17:11)
[2016-09-04] MEDS: Warfarin TAB(*) 1 MG PO SCH (17:11)
[2016-09-04] MEDS: Diltiazem CD CAP* 120 MG PO SCH (17:57)
[2016-09-04] MEDS: Atorvastatin* 10 MG TAB PO SCH (17:57)
[2016-09-04] MEDS: Latanoprost 0.005%* 2.5 ml BTL RIGHT EYE SCH (21:42)
[2016-09-05] MEDS: Levothyroxine TAB* 75 MCG TAB PO SCH (05:13)
[2016-09-05 05:31] LABS: BUN/Creatinine Ratio 40.7 (8-20); Calcium 7.8 mg/dL (8.6-10.3); EGFR African American 124.3 (>60); EGFR Non-African American 96.6 (>60)
[2016-09-05] MEDS: Mometasone/Formoter 200/5 MDI INH SCH ×2 (08:06→20:21)
[2016-09-05] MEDS: Tiotropium CAP.INH* CAP.INH/18 MCG (USE ORDER SET !) INH SCH (08:06)
[2016-09-05] MEDS: Insulin LISPRO* 1 UNITS UNIT SUBCUT SCH ×4 (09:46→21:33)
[2016-09-05] MEDS: Morphine ORAL.SOLN 10 mg* 2 MG/ML UDC 5 ml PO PRN ×2 (10:37→21:49)
[2016-09-05] MEDS: ALPRAZolam TAB* 0.25 MG PO PRN (10:45)
[2016-09-05] MEDS: Cetirizine* 10 MG TAB PO SCH (10:46)
[2016-09-05] MEDS: Aspirin EC Low Dose* 81 MG TAB.EC PO SCH (10:46)
[2016-09-05] MEDS: Lactobacillus Acidophilu (GG)* 1 CAP CAP PO SCH ×2 (10:46→21:47)
[2016-09-05] MEDS: predniSONE TAB* 10 MG PO SCH (10:46)
[2016-09-05] MEDS: Diltiazem CD CAP* 240 MG PO SCH (10:46)
[2016-09-05] MEDS: amLODIPine TAB* 5 MG PO SCH (10:46)
[2016-09-05] MEDS: Acetaminophen TAB* 325 MG PO SCH ×3 (10:46→21:47)
[2016-09-05] MEDS: Oxymetazoline 0.05% NASAL SPR* 15 ML BTL BOTH NARES SCH ×2 (10:47→21:47)
[2016-09-05] MEDS: BRIMONIDINE RIGHT EYE SCH ×2 (10:47→21:50)
[2016-09-05] MEDS: Potassium & Sodium Phos 250MG* = 1 PACKET PO SCH ×2 (10:47→21:45)
--- NOTE | 2016-09-05 11:07 | RAD ---
HISTORY: Tachypnea, hypoxia COMPARISONS: September 02, 2016 VIEWS:1: Single frontal portable view of the chest at 10:45 AM FINDINGS: LINES AND TUBES: A left-sided pacemaker is noted CARDIOMEDIASTINAL SILHOUETTE: The cardiomediastinal silhouette is normal for portable technique. A prosthetic heart valve is noted PLEURA: There is blunting of left costophrenic angle LUNG PARENCHYMA: There is persistent patchy alveolar opacification of the right upper lung and left midlung and left lower lung ABDOMEN: The upper abdomen is clear. There is no subphrenic gas. BONES AND SOFT TISSUES: The patient is status post median sternotomy. IMPRESSION: 1. PERSISTENT BILATERAL MULTIFOCAL CONSOLIDATION. 2. SMALL LEFT PLEURAL EFFUSION
[2016-09-05 12:40] LABS: Add Diff/Slide Review? Slide Review Added; Comments Flag Yes; Hematocrit 35 % (35-47); Hemoglobin 11.4 g/dl (12.0-16.0); Mean Corpuscular HGB Conc 33 g/dl (31-36); Mean Corpuscular Hemoglobin 30 pg (27-31); Mean Corpuscular Volume 90 fL (80-97); Mean Platelet Volume 9 um3 (7.4-10.4); Red Blood Count 3.88 10^6/ul (4.0-5.4); Red Cell Distribution Width 17 % (10.5-15); White Blood Count 8.2 10^3/ul (3.5-10.8)
[2016-09-05 12:59] LABS: Eosinophils % 2 % (0-6); Immature Granulocytes 7 % (0-9); Neutrophil % 81 % (38-83); Reactive Lymph % 1 % (0-6)
[2016-09-05 13:02] LABS: Polychromasia 1+
--- NOTE | 2016-09-05 13:03 | PN ---
Subjective Date of Service: 09/05/16 Interval History: Patient seen this morning. Had episode of tachypnea and SOB, also reportedly was very anxious. RR in 30s-40s, O2 sat was stable. Improved with morphine and xanax. Patient reportedly was shivering and was found to have low grade temp of 100.3. On re-evaluation patient felt much improved, thought she was back to her baseline breathing (which as per patient and daughter is purse-lipped and rapid) . She said she was anxious about getting her medications late and was not sure who her nurse was. On discussion with daughter patient is very reluctant to ask for help and instead just gets herself more worked up. Had a very long discussion with patient, her daughter and friend. Patient would like to continue to strive to get better with goal of getting back home after rehab. I made it very clear the patient has had substantial injury to the lungs with this bout of pneumonia and subsequent mechanical ventilation. We reviewed a MOLST during which the patient confirmed DNR/DNI and also that she would not want to be placed back on BiPAP. Family History: Unchanged from Admission Social History: Unchanged from Admission Past Medical History: Unchanged from Admission Objective Active Medications: Acetaminophen (Tylenol Tab*) 650 mg PO Q4H PRN Acetaminophen (Tylenol Tab*) 650 mg PO TID [facility] Albuterol (Ventolin 2.5 Mg/3 Ml Neb.Edwina*) 2.5 mg INH Q2H PRN Alprazolam (Xanax Tab*) 0.25 mg PO Q8H PRN Alprazolam (Xanax Tab*) 0.25 mg PO TID [facility] Amlodipine Besylate (Norvasc Tab*) 10 mg PO DAILY [facility] Aspirin (Aspirin Ec Low Dose*) 81 mg PO QAM [facility] Atorvastatin Calcium (Lipitor*) 5 mg PO QPM [facility] Brimonidine Tartrate (Alphagan P 0.15%(Nf)) 1 drop RIGHT EYE BID [facility] Cetirizine HCl (Zyrtec*) 10 mg PO DAILY [facility] Dextrose (D50w Syringe 50 Ml*) 12.5 gm IV PUSH .FOR FS < 60 - SS PRN Digoxin (Lanoxin Tab*) 0.125 mg PO 1700 [facility] Diltiazem HCl (Cardizem Cd Cap*) 240 mg PO QAM [facility] Diltiazem HCl (Cardizem Cd Cap*) 120 mg PO QPM [facility] Haloperidol (Haldol Liq*) 2.5 mg PO Q4H PRN Hydralazine HCl (Apresoline Iv*) 10 mg IV SLOW PU Q6H PRN Insulin Human Lispro (Humalog*) 0 units SUBCUT ACHS [facility] Lactobacillus Rhamnosus (Culturelle*) 1 cap PO BID [facility] Latanoprost (Xalatan 0.005%*) 1 drop RIGHT EYE BEDTIME [facility] Levothyroxine Sodium (Synthroid Tab*) 75 mcg PO 0600 [facility] Loperamide HCl (Imodium Cap*) 2 mg PO .SEE DIRECTIONS PRN Mometasone Furoate/Formoterol Fumar (Dulera 200/5 Mdi*) 2 puff INH BID [facility] Morphine Sulfate (Morphine Oral.Soln 10 Mg*) 1.25 mg PO Q2H PRN Ondansetron HCl (Zofran Inj*) 4 mg IV Q6H PRN Oxymetazoline HCl (Afrin 0.05% Nasal [place]*) 2 spray BOTH NARES BID [facility] Pharmacy Profile Note (Coumadin Daily Reminder*) 0 note FOLLOW UP 1700 [facility] Potassium Phos/Sodium Phos (Neutra Phos 250 Mg Gorge*) 250 mg PO BID [facility] Prednisone (Deltasone Tab*) 10 mg PO DAILY [facility] Prochlorperazine Edisylate (Compazine Inj*) 10 mg IV Q6H PRN Tiotropium [place] (Spiriva Cap.Inh*) 1 cap INH DAILY [facility] Warfarin Sodium (Coumadin Tab(*)) 1 mg PO DAILY@1700 [facility] Vital Signs 09/04/16 09/04/16 09/04/16 13:00 16:15 17:11 Temperature 98.2 F Pulse Rate 109 79 95 Respiratory 16 Rate Blood Pressure 138/46 (mmHg) O2 Sat by Pulse 89 Oximetry 09/04/16 09/04/16 09/04/16 21:45 23:40 23:42 Temperature 99.3 F Pulse Rate 77 45 Respiratory 24 16 Rate Blood Pressure 132/32 142/46 (mmHg) O2 Sat by Pulse 94 93 Oximetry 09/05/16 09/05/16 10:37 10:45 Temperature Pulse Rate Respiratory 42 30 Rate Blood Pressure (mmHg) O2 Sat by Pulse Oximetry Oxygen Devices in Use Now: Nasal Cannula - 6L Appearance: Elderly, F, laying in bed in mild-moderate respiratory distress Eyes: No Scleral Icterus Ears/Nose/Mouth/Throat: - - Dry MM Neck: NL Appearance and Movements; NL JVP Respiratory: - - Tachypnea, good air movement in upper lung javed, no wheezing , some bronchial BS in RML, some rales in B/L bases Cardiovascular: - - IRIR, mild tachycardia Abdominal: NL Sounds; No Tenderness; No Distention Lymphatic: No Cervical Adenopathy Extremities: - - B/L UE edema, L>R, minimal LE edema Neurological: Alert and Oriented x 3 Result Diagrams: 09/05/16 12:21 09/05/16 05:04 Assess/Plan/Problems-Billing Assessment: 86 yo F with h/o A. fib(on coumadin), bioprosthetic mitral valve, CVA, PMR(on Prednisone), COPD, HTN, pacer(for tachy kayleigh syndrome), AAA and iliac artery aneurysm repair, splenectomy who was admitted to ICU with sepsis syndrome due to CAP (H. parainfluanzae positive cx), component of ARDS, intubated 08/24/16, extubated 08/26/16, transferred out of ICU on 09/02/16. Also had an uncomplicated UTI tx when in ICU. - Patient Problems (1) CAP (community acquired pneumonia) Current Visit: Yes Comment: with severe sepsis at admission. Also in acute hypoxemic resiratory failure due to above. Repeat CXR 09/05 shows no new infiltrates Slowly weaning oxygen completed antibiotics when in ICU (2) Fever Current Visit: Yes Comment: Low grade fever this AM. CBC with no leukocytosis. CXR unchanged. Procalcitonin pending. Hold on further ABx at this time. (3) Atrial fibrillation Current Visit: No Comment: Continue home Cardizem BID and daily Digoxin Continue coumadin, dosing as per pharmacy (4) COPD (chronic obstructive pulmonary disease) Current Visit: Yes Comment: Cont inhalers, nebs (5) Polymyalgia rheumatica Current Visit: Yes Comment: cont Prednisone at 10 mg daily. Was on 5 mg at home (6) Hypertension Current Visit: No Comment: Cont Cardizem, Norvasc, controlled (7) Anxiety Current Visit: Yes Comment: Will change prn xanax to standing to see if we can avoid this episodes. (8) Edema of left forearm Current Visit: Yes Comment: Will get LUE US (9) DVT prophylaxis Current Visit: No Comment: coumadin Status and Disposition: inpatient. IRMA. High 02 requirement still
[2016-09-05] MEDS: ALPRAZolam TAB* 0.25 MG PO SCH ×2 (15:24→21:48)
[2016-09-05] MEDS ORDERED: Furosemide IV* 10 MG/ML VIAL (40 MG) IV ONE (17:02)
[2016-09-05] MEDS: Warfarin TAB(*) 1 MG PO SCH (17:53)
[2016-09-05] MEDS: Digoxin TAB* 0.125 MG PO SCH (17:53)
[2016-09-05] MEDS: Diltiazem CD CAP* 120 MG PO SCH (17:54)
[2016-09-05] MEDS: Atorvastatin* 10 MG TAB PO SCH (17:54)
--- NOTE | 2016-09-05 19:52 | RAD ---
HISTORY: Left upper extremity swelling COMPARISONS: None relevant TECHNIQUE: Multiple transverse and longitudinal ultrasound images were obtained of the left upper extremity from the level of the internal jugular vein inferiorly through to the infra-cubital veins using grayscale, color Doppler, and spectral Doppler imaging with and without compression and with augmentation. Comparison images were obtained of the contralateral internal jugular vein and subclavian vein. FINDINGS: VEINS: The venous system of the left upper extremity is compressible throughout its course, with normal flow on color Doppler imaging and normal response to augmentation on spectral Doppler imaging. SOFT TISSUES: Unremarkable. OTHER FINDINGS: None. IMPRESSION: NO LEFT UPPER EXTREMITY DEEP VEIN THROMBOSIS
[2016-09-05] MEDS: Latanoprost 0.005%* 2.5 ml BTL RIGHT EYE SCH (21:45)
[2016-09-06] MEDS: Levothyroxine TAB* 75 MCG TAB PO SCH (05:38)
[2016-09-06 06:17] LABS: Hematocrit 36 % (35-47); Hemoglobin 11.6 g/dl (12.0-16.0); Mean Corpuscular HGB Conc 33 g/dl (31-36); Mean Corpuscular Hemoglobin 30 pg (27-31); Mean Corpuscular Volume 91 fL (80-97); Mean Platelet Volume 9 um3 (7.4-10.4); Red Blood Count 3.95 10^6/ul (4.0-5.4); Red Cell Distribution Width 17 % (10.5-15); White Blood Count 6.9 10^3/ul (3.5-10.8)
[2016-09-06 06:22] LABS: Add Diff/Slide Review? Slide Review Added; Comments Flag Yes
[2016-09-06 06:34] LABS: BUN/Creatinine Ratio 42.6 (8-20); Calcium 7.9 mg/dL (8.6-10.3); EGFR African American 119.6 (>60); Magnesium 1.9 mg/dL (1.9-2.7)
[2016-09-06] MEDS: Insulin LISPRO* 1 UNITS UNIT SUBCUT SCH ×4 (07:37→22:54)
[2016-09-06] MEDS: Mometasone/Formoter 200/5 MDI INH SCH ×2 (08:23→22:51)
[2016-09-06] MEDS: Tiotropium CAP.INH* CAP.INH/18 MCG (USE ORDER SET !) INH SCH (08:25)
[2016-09-06] MEDS: Oxymetazoline 0.05% NASAL SPR* 15 ML BTL BOTH NARES SCH ×2 (09:27→22:56)
[2016-09-06] MEDS: Potassium & Sodium Phos 250MG* = 1 PACKET PO SCH ×2 (09:27→22:57)
[2016-09-06] MEDS: BRIMONIDINE RIGHT EYE SCH ×2 (09:27→23:00)
[2016-09-06] MEDS: ALPRAZolam TAB* 0.25 MG PO SCH ×3 (09:28→22:58)
[2016-09-06] MEDS: Lactobacillus Acidophilu (GG)* 1 CAP CAP PO SCH ×2 (09:28→22:58)
[2016-09-06] MEDS: Aspirin EC Low Dose* 81 MG TAB.EC PO SCH (09:28)
[2016-09-06] MEDS: Diltiazem CD CAP* 240 MG PO SCH (09:28)
[2016-09-06] MEDS: amLODIPine TAB* 5 MG PO SCH (09:28)
[2016-09-06] MEDS: Acetaminophen TAB* 325 MG PO SCH ×3 (09:28→22:58)
[2016-09-06] MEDS: Cetirizine* 10 MG TAB PO SCH (09:29)
[2016-09-06] MEDS: predniSONE TAB* 10 MG PO SCH (09:29)
[2016-09-06] MEDS ORDERED: Furosemide IV* 10 MG/ML VIAL (40 MG) IV ONE (11:55)
--- NOTE | 2016-09-06 12:22 | PN ---
Subjective Date of Service: 09/06/16 Interval History: Patient seen this morning. Says she is feeling much improved today. Slept well, breathing is easier and ate breakfast this morning. Was up in the chair for a number of hours. Family History: Unchanged from Admission Social History: Unchanged from Admission Past Medical History: Unchanged from Admission Objective Active Medications: Acetaminophen (Tylenol Tab*) 650 mg PO Q4H PRN Acetaminophen (Tylenol Tab*) 650 mg PO TID МАРИЯ Albuterol (Ventolin 2.5 Mg/3 Ml Neb.Edwina*) 2.5 mg INH Q2H PRN Alprazolam (Xanax Tab*) 0.25 mg PO Q8H PRN Alprazolam (Xanax Tab*) 0.25 mg PO TID МАРИЯ Amlodipine Besylate (Norvasc Tab*) 10 mg PO DAILY МАРИЯ Aspirin (Aspirin Ec Low Dose*) 81 mg PO QAM МАРИЯ Atorvastatin Calcium (Lipitor*) 5 mg PO QPM [facility] Brimonidine Tartrate (Alphagan P 0.15%(Nf)) 1 drop RIGHT EYE BID МАРИЯ Cetirizine HCl (Zyrtec*) 10 mg PO DAILY [facility] Dextrose (D50w Syringe 50 Ml*) 12.5 gm IV PUSH .FOR FS < 60 - SS PRN Digoxin (Lanoxin Tab*) 0.125 mg PO 1700 МАРИЯ Diltiazem HCl (Cardizem Cd Cap*) 240 mg PO QAM МАРИЯ Diltiazem HCl (Cardizem Cd Cap*) 120 mg PO QPM МАРИЯ Haloperidol (Haldol Liq*) 2.5 mg PO Q4H PRN Hydralazine HCl (Apresoline Iv*) 10 mg IV SLOW PU Q6H PRN Insulin Human Lispro (Humalog*) 0 units SUBCUT ACHS МАРИЯ Lactobacillus Rhamnosus (Culturelle*) 1 cap PO BID МАРИЯ Latanoprost (Xalatan 0.005%*) 1 drop RIGHT EYE BEDTIME МАРИЯ Levothyroxine Sodium (Synthroid Tab*) 75 mcg PO 0600 МАРЯИ Loperamide HCl (Imodium Cap*) 2 mg PO .SEE DIRECTIONS PRN Mometasone Furoate/Formoterol Fumar (Dulera 200/5 Mdi*) 2 puff INH BID МАРИЯ Morphine Sulfate (Morphine Oral.Soln 10 Mg*) 1.25 mg PO Q2H PRN Ondansetron HCl (Zofran Inj*) 4 mg IV Q6H PRN Oxymetazoline HCl (Afrin 0.05% Nasal [place]*) 2 spray BOTH NARES BID [facility] Pharmacy Profile Note (Coumadin Daily Reminder*) 0 note FOLLOW UP 1700 [facility] Potassium Phos/Sodium Phos (Neutra Phos 250 Mg Gorge*) 250 mg PO BID [facility] Prednisone (Deltasone Tab*) 10 mg PO DAILY [facility] Prochlorperazine Edisylate (Compazine Inj*) 10 mg IV Q6H PRN Tiotropium [place] (Spiriva Cap.Inh*) 1 cap INH DAILY [facility] Warfarin Sodium (Coumadin Tab(*)) 1 mg PO DAILY@1700 [facility] Vital Signs 09/05/16 09/05/16 09/05/16 12:37 15:24 16:19 Temperature 98.2 F Pulse Rate 99 Respiratory 28 32 28 Rate Blood Pressure (mmHg) O2 Sat by Pulse 91 Oximetry 09/05/16 09/05/16 09/05/16 16:20 17:24 17:53 Temperature Pulse Rate 76 Respiratory 36 Rate Blood Pressure 168/62 (mmHg) O2 Sat by Pulse Oximetry 09/05/16 09/05/16 09/05/16 18:05 20:00 20:21 Temperature Pulse Rate 82 Respiratory 36 24 14 Rate Blood Pressure (mmHg) O2 Sat by Pulse 93 Oximetry 09/05/16 09/05/16 09/05/16 20:35 20:39 21:48 Temperature 98.0 F Pulse Rate 98 Respiratory 20 24 Rate Blood Pressure 170/52 (mmHg) O2 Sat by Pulse 96 Oximetry 09/05/16 09/05/16 09/05/16 21:49 23:37 23:48 Temperature 97.6 F Pulse Rate 70 Respiratory 24 16 22 Rate Blood Pressure 126/41 (mmHg) O2 Sat by Pulse 97 Oximetry 09/05/16 09/06/16 09/06/16 23:49 03:52 07:41 Temperature 97.4 F 98.5 F Pulse Rate 69 77 Respiratory 22 16 20 Rate Blood Pressure 145/47 134/44 (mmHg) O2 Sat by Pulse 94 93 Oximetry 09/06/16 09/06/16 09/06/16 08:00 08:27 08:28 Temperature Pulse Rate 64 Respiratory 18 22 Rate Blood Pressure (mmHg) O2 Sat by Pulse 94 94 Oximetry 09/06/16 09/06/16 09/06/16 09:28 11:28 11:30 Temperature 99.2 F Pulse Rate 95 Respiratory 18 16 24 Rate Blood Pressure 133/49 (mmHg) O2 Sat by Pulse 93 Oximetry Oxygen Devices in Use Now: Nasal Cannula - 6L Appearance: Elderly, F, laying in bed in NAD Eyes: No Scleral Icterus Ears/Nose/Mouth/Throat: Mucous Membranes Moist Neck: NL Appearance and Movements; NL JVP Respiratory: Symmetrical Chest Expansion and Respiratory Effort, - - rales in B/ L bases, L>R, otherwise clear Cardiovascular: NL Sounds; No Murmurs; No JVD, RRR Abdominal: NL Sounds; No Tenderness; No Distention Lymphatic: No Cervical Adenopathy Extremities: - - LUE edema improving, no LE edema Skin: No Rash or Ulcers Neurological: Alert and Oriented x 3 Result Diagrams: 09/06/16 05:46 09/06/16 05:46 Additional Lab and Data: Lab Results 08/17/16 08/17/16 08/17/16 Range/Units 09:35 09:35 09:35 WBC 10.9 H (3.5-10.8) 10^3/ul RBC 4.76 (4.0-5.4) 10^6/ul Hgb 14.1 (12.0-16.0) g/dl Hct 44 (35-47) % MCV 92 (80-97) fL MCH 30 (27-31) pg MCHC 32 (31-36) g/dl RDW 16 H (10.5-15) % Plt Count 125 L (150-450) 10^3/ul MPV 11 H (7.4-10.4) um3 Neut % (Auto) 68.8 (38-83) % Lymph % (Auto) 14.6 L (25-47) % Craven % (Auto) 15.8 H (1-9) % Eos % (Auto) 0.1 (0-6) % Baso % (Auto) 0.7 (0-2) % Absolute Neuts (auto) 7.5 (1.5-7.7) 10^3/ul Absolute Lymphs (auto) 1.6 (1.0-4.8) 10^3/ul Absolute Monos (auto) 1.7 H (0-0.8) 10^3/ul Absolute Eos (auto) 0 (0-0.6) 10^3/ul Absolute Basos (auto) 0.1 (0-0.2) 10^3/ul Absolute Nucleated RBC 0.01 10^3/ul Nucleated RBC % 0.1 INR (Anticoag Therapy) 1.57 H (0.89-1.11) APTT 33.9 (26.0-36.3) seconds Sodium 133 (133-145) mmol/L Potassium 3.5 (3.5-5.0) mmol/L Chloride 99 L (101-111) mmol/L Carbon Dioxide 25 (22-32) mmol/L Anion Gap 9 (2-11) mmol/L BUN 26 H (6-24) mg/dL Creatinine 0.88 (0.51-0.95) mg/dL Est GFR ( Amer) 78.4 (>60) Est GFR (Non-Af Amer) 60.9 (>60) BUN/Creatinine Ratio 29.5 H (8-20) Glucose 86 (70-100) mg/dL Lactic Acid (0.5-2.0) mmol/L Calcium 9.1 (8.6-10.3) mg/dL Total Bilirubin 1.20 H (0.2-1.0) mg/dL AST 18 (13-39) U/L ALT 10 (7-52) U/L Alkaline Phosphatase 45 (34-104) U/L Troponin I 0.35 H* (<0.04) ng/mL Total Protein 7.4 (6.4-8.9) g/dL Albumin 3.7 (3.2-5.2) g/dL Globulin 3.7 (2-4) g/dL Albumin/Globulin Ratio 1.0 (1-3) Influenza A (Rapid) (Negative) Influenza B (Rapid) (Negative) 08/17/16 08/17/16 Range/Units 09:35 09:59 WBC (3.5-10.8) 10^3/ul RBC (4.0-5.4) 10^6/ul Hgb (12.0-16.0) g/dl Hct (35-47) % MCV (80-97) fL MCH (27-31) pg MCHC (31-36) g/dl RDW (10.5-15) % Plt Count (150-450) 10^3/ul MPV (7.4-10.4) um3 Neut % (Auto) (38-83) % Lymph % (Auto) (25-47) % Craven % (Auto) (1-9) % Eos % (Auto) (0-6) % Baso % (Auto) (0-2) % Absolute Neuts (auto) (1.5-7.7) 10^3/ul Absolute Lymphs (auto) (1.0-4.8) 10^3/ul Absolute Monos (auto) (0-0.8) 10^3/ul Absolute Eos (auto) (0-0.6) 10^3/ul Absolute Basos (auto) (0-0.2) 10^3/ul Absolute Nucleated RBC 10^3/ul Nucleated RBC % INR (Anticoag Therapy) (0.89-1.11) APTT (26.0-36.3) seconds Sodium (133-145) mmol/L Potassium (3.5-5.0) mmol/L Chloride (101-111) mmol/L Carbon Dioxide (22-32) mmol/L Anion Gap (2-11) mmol/L BUN (6-24) mg/dL Creatinine (0.51-0.95) mg/dL Est GFR ( Amer) (>60) Est GFR (Non-Af Amer) (>60) BUN/Creatinine Ratio (8-20) Glucose (70-100) mg/dL Lactic Acid 1.0 (0.5-2.0) mmol/L Calcium (8.6-10.3) mg/dL Total Bilirubin (0.2-1.0) mg/dL AST (13-39) U/L ALT (7-52) U/L Alkaline Phosphatase (34-104) U/L Troponin I (<0.04) ng/mL Total Protein (6.4-8.9) g/dL Albumin (3.2-5.2) g/dL Globulin (2-4) g/dL Albumin/Globulin Ratio (1-3) Influenza A (Rapid) Negative (Negative) Influenza B (Rapid) Negative (Negative) Microbiology and Other Data: Microbiology 08/24/16 11:45 Gram Stain - Final Sputum Sputum Culture - Final Normal [place] 08/17/16 11:10 Aerobic Blood Culture - Final Blood Venous No Growth Day 5 Anaerobic Blood Culture - Final No Growth Day 5 Blood Culture - Final 08/17/16 11:10 Urine Culture - Final Urine Escherichia Coli 08/17/16 14:00 Nasal Screen MRSA (PCR)([facility]) - Final Nasal Mrsa Negative 08/17/16 13:45 Legionella Urinary Antigen - Final Urine Negative Legionella Streptococcus pneumoniae Ag Screen - Final Negative S. pneumo Antigen Assess/Plan/Problems-Billing Assessment: 86 yo F with h/o A. fib(on coumadin), bioprosthetic mitral valve, CVA, PMR(on Prednisone), COPD, HTN, pacer(for tachy kayleigh syndrome), AAA and iliac artery aneurysm repair, splenectomy who was admitted to ICU with sepsis syndrome due to CAP (H. parainfluanzae positive cx), component of ARDS, intubated 08/24/16, extubated 08/26/16, transferred out of ICU on 09/02/16. Also had an uncomplicated UTI tx when in ICU. - Patient Problems (1) CAP (community acquired pneumonia) Current Visit: Yes Comment: with severe sepsis at admission. Also in acute hypoxemic resiratory failure due to above and possibly some fluid overload Slowly weaning oxygen, repsonded well to Lasix, will redose 40 mg IV again today completed antibiotics when in ICU (2) Fever Current Visit: Yes Comment: No recurrence. Procalcitonin negative, continue to monitor. (3) Atrial fibrillation Current Visit: No Comment: Continue home Cardizem BID and daily Digoxin Continue coumadin, dosing as per pharmacy (4) COPD (chronic obstructive pulmonary disease) Current Visit: Yes Comment: Cont inhalers, nebs (5) Polymyalgia rheumatica Current Visit: Yes Comment: cont Prednisone at 10 mg daily. Was on 5 mg at home (6) Hypertension Current Visit: No Comment: Cont Cardizem, Norvasc, controlled (7) Anxiety Current Visit: Yes Comment: Continue standing and prn xanax (8) Edema of left forearm Current Visit: Yes Comment: US negative for DVT (9) DVT prophylaxis Current Visit: No Comment: coumadin Status and Disposition: inpatient. IRAM. High 02 requirement still
[2016-09-06] MEDS: Warfarin TAB(*) 1 MG PO SCH (17:45)
[2016-09-06] MEDS: Diltiazem CD CAP* 120 MG PO SCH (17:45)
[2016-09-06] MEDS: Atorvastatin* 10 MG TAB PO SCH (17:46)
[2016-09-06] MEDS: Digoxin TAB* 0.125 MG PO SCH (17:46)
[2016-09-06] MEDS: Latanoprost 0.005%* 2.5 ml BTL RIGHT EYE SCH (22:54)
[2016-09-06] MEDS: Morphine ORAL.SOLN 10 mg* 2 MG/ML UDC 5 ml PO PRN (22:59)
[2016-09-07 05:40] LABS: BUN/Creatinine Ratio 40.5 (8-20); Calcium 8.2 mg/dL (8.6-10.3); EGFR African American 95.7 (>60); EGFR Non-African American 74.4 (>60); Potassium 3.8 mmol/L (3.5-5.0)
[2016-09-07] MEDS: Levothyroxine TAB* 75 MCG TAB PO SCH (05:40)
[2016-09-07] MEDS: Insulin LISPRO* 1 UNITS UNIT SUBCUT SCH ×4 (09:27→22:40)
[2016-09-07] MEDS: Tiotropium CAP.INH* CAP.INH/18 MCG (USE ORDER SET !) INH SCH (09:48)
[2016-09-07] MEDS: Cetirizine* 10 MG TAB PO SCH (09:49)
[2016-09-07] MEDS: Furosemide TAB* 20 MG PO SCH (09:49)
[2016-09-07] MEDS: Mometasone/Formoter 200/5 MDI INH SCH ×2 (09:49→21:00)
[2016-09-07] MEDS: Acetaminophen TAB* 325 MG PO SCH ×3 (09:49→22:35)
[2016-09-07] MEDS: predniSONE TAB* 10 MG PO SCH (09:50)
[2016-09-07] MEDS: amLODIPine TAB* 5 MG PO SCH (09:50)
[2016-09-07] MEDS: Potassium & Sodium Phos 250MG* = 1 PACKET PO SCH ×2 (09:50→22:34)
[2016-09-07] MEDS: Aspirin EC Low Dose* 81 MG TAB.EC PO SCH (09:50)
[2016-09-07] MEDS: Lactobacillus Acidophilu (GG)* 1 CAP CAP PO SCH ×2 (09:50→22:35)
[2016-09-07] MEDS: Diltiazem CD CAP* 240 MG PO SCH (09:50)
[2016-09-07] MEDS: ALPRAZolam TAB* 0.25 MG PO SCH ×2 (09:50→22:35)
[2016-09-07] MEDS: Oxymetazoline 0.05% NASAL SPR* 15 ML BTL BOTH NARES SCH (09:53)
[2016-09-07] MEDS: BRIMONIDINE RIGHT EYE SCH ×2 (09:53→22:46)
--- NOTE | 2016-09-07 11:35 | PN ---
Subjective Date of Service: 09/07/16 Interval History: Patient seen this morning with daughter present. Says she is doing well, no chest pain, palpitations. Breathing is at baseline. Daughter pleased with progress she has been making. Worked with PT this morning, fatigued easily. Family History: Unchanged from Admission Social History: Unchanged from Admission Past Medical History: Unchanged from Admission Objective Active Medications: Acetaminophen (Tylenol Tab*) 650 mg PO Q4H PRN Acetaminophen (Tylenol Tab*) 650 mg PO TID МАРИЯ Albuterol (Ventolin 2.5 Mg/3 Ml Neb.Edwina*) 2.5 mg INH Q2H PRN Alprazolam (Xanax Tab*) 0.25 mg PO Q8H PRN Alprazolam (Xanax Tab*) 0.25 mg PO BID МАРИЯ Amlodipine Besylate (Norvasc Tab*) 10 mg PO DAILY МАРИЯ Aspirin (Aspirin Ec Low Dose*) 81 mg PO QAM МАРИЯ Atorvastatin Calcium (Lipitor*) 5 mg PO QPM МАРИЯ Cetirizine HCl (Zyrtec*) 10 mg PO DAILY МАРИЯ Dextrose (D50w Syringe 50 Ml*) 12.5 gm IV PUSH .FOR FS < 60 - SS PRN Digoxin (Lanoxin Tab*) 0.125 mg PO 1700 МАРИЯ Diltiazem HCl (Cardizem Cd Cap*) 240 mg PO QAM МАРИЯ Diltiazem HCl (Cardizem Cd Cap*) 120 mg PO QPM МАРИЯ Furosemide (Lasix Tab*) 20 mg PO DAILY МАРИЯ Haloperidol (Haldol Liq*) 2.5 mg PO Q4H PRN Hydralazine HCl (Apresoline Iv*) 10 mg IV SLOW PU Q6H PRN Insulin Human Lispro (Humalog*) 0 units SUBCUT ACHS МАРИЯ Lactobacillus Rhamnosus (Culturelle*) 1 cap PO BID МАРИЯ Latanoprost (Xalatan 0.005%*) 1 drop RIGHT EYE BEDTIME МАРИЯ Levothyroxine Sodium (Synthroid Tab*) 75 mcg PO 0600 МАРИЯ Loperamide HCl (Imodium Cap*) 2 mg PO .SEE DIRECTIONS PRN Mometasone Furoate/Formoterol Fumar (Dulera 200/5 Mdi*) 2 puff INH BID МАРИЯ Morphine Sulfate (Morphine Oral.Soln 10 Mg*) 1.25 mg PO Q2H PRN Ondansetron HCl (Zofran Inj*) 4 mg IV Q6H PRN Oxymetazoline HCl (Afrin 0.05% Nasal [place]*) 2 spray BOTH NARES BID [facility] Pharmacy Profile Note (Coumadin Daily Reminder*) 0 note FOLLOW UP 1700 [facility] Potassium Phos/Sodium Phos (Neutra Phos 250 Mg Gorge*) 250 mg PO BID [facility] Prednisone (Deltasone Tab*) 10 mg PO DAILY [facility] Prochlorperazine Edisylate (Compazine Inj*) 10 mg IV Q6H PRN Tiotropium [place] (Spiriva Cap.Inh*) 1 cap INH DAILY [facility] Warfarin Sodium (Coumadin Tab(*)) 1 mg PO DAILY@1700 [facility] Vital Signs 09/06/16 09/06/16 09/06/16 14:27 15:56 16:27 Temperature 97.8 F Pulse Rate 102 Respiratory 32 38 28 Rate Blood Pressure 140/41 (mmHg) O2 Sat by Pulse 91 Oximetry 09/06/16 09/06/16 09/06/16 17:46 19:42 20:00 Temperature 97.8 F Pulse Rate 90 88 Respiratory 36 36 Rate Blood Pressure 146/49 (mmHg) O2 Sat by Pulse 92 Oximetry 09/06/16 09/06/16 09/06/16 22:54 22:58 22:59 Temperature Pulse Rate Respiratory 36 36 Rate Blood Pressure (mmHg) O2 Sat by Pulse 88 Oximetry 09/06/16 09/07/16 09/07/16 23:23 00:58 00:59 Temperature 97.7 F Pulse Rate 96 Respiratory 19 28 28 Rate Blood Pressure 148/37 (mmHg) O2 Sat by Pulse 92 Oximetry 09/07/16 09/07/16 09/07/16 03:50 05:26 07:35 Temperature 98.5 F 97.7 F Pulse Rate 81 74 74 Respiratory 18 14 16 Rate Blood Pressure 147/41 160/40 (mmHg) O2 Sat by Pulse 94 88 95 Oximetry 09/07/16 09/07/16 09/07/16 08:00 09:50 09:51 Temperature Pulse Rate 71 Respiratory 32 30 22 Rate Blood Pressure (mmHg) O2 Sat by Pulse 97 Oximetry Oxygen Devices in Use Now: Nasal Cannula - 6L Appearance: Elderly, F, laying in chair in NAD Eyes: No Scleral Icterus Ears/Nose/Mouth/Throat: Mucous Membranes Moist Neck: NL Appearance and Movements; NL JVP Respiratory: Symmetrical Chest Expansion and Respiratory Effort, - - Rales in B/ L bases Cardiovascular: RRR, - - ELIAS Abdominal: NL Sounds; No Tenderness; No Distention Lymphatic: No Cervical Adenopathy Extremities: - - LUE edema, no LE edema Skin: No Rash or Ulcers Neurological: Alert and Oriented x 3 Result Diagrams: 09/06/16 05:46 09/07/16 04:58 Assess/Plan/Problems-Billing Assessment: 86 yo F with h/o A. fib(on coumadin), bioprosthetic mitral valve, CVA, PMR(on Prednisone), COPD, HTN, pacer(for tachy kayleigh syndrome), AAA and iliac artery aneurysm repair, splenectomy who was admitted to ICU with sepsis syndrome due to CAP (H. parainfluanzae positive cx), component of ARDS, intubated 08/24/16, extubated 08/26/16, transferred out of ICU on 09/02/16. Also had an uncomplicated UTI tx when in ICU. - Patient Problems (1) CAP (community acquired pneumonia) Current Visit: Yes Comment: with severe sepsis at admission. Also in acute hypoxemic resiratory failure due to above and possibly some fluid overload Slowly weaning oxygen, repsonded well to Lasix, will start 20 mg PO daily completed antibiotics when in ICU (2) Atrial fibrillation Current Visit: No Comment: Continue home Cardizem BID and daily Digoxin Continue coumadin, dosing as per pharmacy (3) COPD (chronic obstructive pulmonary disease) Current Visit: Yes Comment: Cont inhalers, nebs (4) Polymyalgia rheumatica Current Visit: Yes Comment: cont Prednisone at 10 mg daily. Was on 5 mg at home (5) Hypertension Current Visit: No Comment: Cont Cardizem, Norvasc, controlled (6) Anxiety Current Visit: Yes Comment: Continue standing xanax, will decrease to BID. Continue prn xanax (7) Edema of left forearm Current Visit: Yes Comment: US negative for DVT (8) DVT prophylaxis Current Visit: No Comment: coumadin Status and Disposition: Potential d/c to rehab in next 1-2 days
[2016-09-07] MEDS: Digoxin TAB* 0.125 MG PO SCH (17:32)
[2016-09-07] MEDS: Warfarin TAB(*) 1 MG PO SCH (17:34)
[2016-09-07] MEDS: Diltiazem CD CAP* 120 MG PO SCH (17:34)
[2016-09-07] MEDS: Atorvastatin* 10 MG TAB PO SCH (17:35)
[2016-09-07] MEDS: Latanoprost 0.005%* 2.5 ml BTL RIGHT EYE SCH (22:42)
[2016-09-07] MEDS: Morphine ORAL.SOLN 10 mg* 2 MG/ML UDC 5 ml PO PRN (23:23)
[2016-09-08] MEDS: Levothyroxine TAB* 75 MCG TAB PO SCH (05:11)
[2016-09-08 05:17] LABS: BUN/Creatinine Ratio 41.3 (8-20); Calcium 8.2 mg/dL (8.6-10.3); EGFR African American 94.2 (>60); EGFR Non-African American 73.3 (>60); Potassium 3.8 mmol/L (3.5-5.0)
[2016-09-08] MEDS: Insulin LISPRO* 1 UNITS UNIT SUBCUT SCH ×4 (07:41→23:01)
[2016-09-08] MEDS: Acetaminophen TAB* 325 MG PO SCH ×3 (08:54→22:57)
[2016-09-08] MEDS: Aspirin EC Low Dose* 81 MG TAB.EC PO SCH (08:54)
[2016-09-08] MEDS: predniSONE TAB* 10 MG PO SCH (09:00)
[2016-09-08] MEDS: Diltiazem CD CAP* 240 MG PO SCH (09:00)
[2016-09-08] MEDS: amLODIPine TAB* 5 MG PO SCH (09:01)
[2016-09-08] MEDS: Furosemide TAB* 20 MG PO SCH (09:01)
[2016-09-08] MEDS: ALPRAZolam TAB* 0.25 MG PO SCH (09:02)
[2016-09-08] MEDS: Cetirizine* 10 MG TAB PO SCH (09:02)
[2016-09-08] MEDS: Lactobacillus Acidophilu (GG)* 1 CAP CAP PO SCH ×2 (09:02→23:05)
[2016-09-08] MEDS: Tiotropium CAP.INH* CAP.INH/18 MCG (USE ORDER SET !) INH SCH (09:09)
[2016-09-08] MEDS: Mometasone/Formoter 200/5 MDI INH SCH ×2 (09:10→20:50)
[2016-09-08] MEDS: Potassium & Sodium Phos 250MG* = 1 PACKET PO SCH ×2 (09:12→22:58)
[2016-09-08] MEDS: BRIMONIDINE RIGHT EYE SCH ×2 (09:15→23:06)
--- NOTE | 2016-09-08 10:06 | PN ---
Subjective Date of Service: 09/08/16 Interval History: Patient seen this morning. Just worked with PT so was a little more SOB. Says her mouth has been dry. Breathing prior to PT has been stable. Has felt cold/ shivering this morning. Not fever. Family History: Unchanged from Admission Social History: Unchanged from Admission Past Medical History: Unchanged from Admission Objective Active Medications: Acetaminophen (Tylenol Tab*) 650 mg PO Q4H PRN Acetaminophen (Tylenol Tab*) 650 mg PO TID МАРИЯ Albuterol (Ventolin 2.5 Mg/3 Ml Neb.Edwina*) 2.5 mg INH Q2H PRN Alprazolam (Xanax Tab*) 0.25 mg PO Q8H PRN Amlodipine Besylate (Norvasc Tab*) 10 mg PO DAILY МАРИЯ Aspirin (Aspirin Ec Low Dose*) 81 mg PO QAM МАРИЯ Atorvastatin Calcium (Lipitor*) 5 mg PO QPM МАРИЯ Brimonidine Tartrate (Alphagan P 0.15%(Nf)) 1 drop RIGHT EYE BID МАРИЯ Cetirizine HCl (Zyrtec*) 10 mg PO DAILY МАРИЯ Dextrose (D50w Syringe 50 Ml*) 12.5 gm IV PUSH .FOR FS < 60 - SS PRN Digoxin (Lanoxin Tab*) 0.125 mg PO 1700 МАРИЯ Diltiazem HCl (Cardizem Cd Cap*) 240 mg PO QAM МАРИЯ Diltiazem HCl (Cardizem Cd Cap*) 120 mg PO QPM МАРИЯ Furosemide (Lasix Tab*) 20 mg PO DAILY МАРИЯ Haloperidol (Haldol Liq*) 2.5 mg PO Q4H PRN Hydralazine HCl (Apresoline Iv*) 10 mg IV SLOW PU Q6H PRN Insulin Human Lispro (Humalog*) 0 units SUBCUT ACHS МАРИЯ Lactobacillus Rhamnosus (Culturelle*) 1 cap PO BID МАРИЯ Latanoprost (Xalatan 0.005%*) 1 drop RIGHT EYE BEDTIME МАРИЯ Levothyroxine Sodium (Synthroid Tab*) 75 mcg PO 0600 МАРИЯ Loperamide HCl (Imodium Cap*) 2 mg PO .SEE DIRECTIONS PRN Mometasone Furoate/Formoterol Fumar (Dulera 200/5 Mdi*) 2 puff INH BID МАРИЯ Morphine Sulfate (Morphine Oral.Soln 10 Mg*) 1.25 mg PO Q2H PRN Ondansetron HCl (Zofran Inj*) 4 mg IV Q6H PRN Pharmacy Profile Note (Coumadin Daily Reminder*) 0 note FOLLOW UP 1700 [facility] Potassium Phos/Sodium Phos (Neutra Phos 250 Mg [place]orge*) 250 mg PO BID [facility] Prednisone (Deltasone Tab*) 10 mg PO DAILY [facility] Prochlorperazine Edisylate (Compazine Inj*) 10 mg IV Q6H PRN Tiotropium [place] (Spiriva Cap.Inh*) 1 cap INH DAILY [facility] Warfarin Sodium (Coumadin Tab(*)) 1 mg PO DAILY@1700 [facility] Vital Signs 09/07/16 09/07/16 09/07/16 11:21 11:47 15:25 Temperature 98.6 F 98.2 F Pulse Rate 77 82 Respiratory 22 32 28 Rate Blood Pressure 146/40 148/52 (mmHg) O2 Sat by Pulse 96 90 Oximetry 09/07/16 09/07/16 09/08/16 22:35 23:23 00:00 Temperature 97.5 F Pulse Rate 70 Respiratory 16 25 18 Rate Blood Pressure 153/53 (mmHg) O2 Sat by Pulse 88 Oximetry 09/08/16 09/08/16 09/08/16 07:22 07:43 09:02 Temperature 97.6 F Pulse Rate 78 Respiratory 20 22 22 Rate Blood Pressure 149/46 (mmHg) O2 Sat by Pulse 89 Oximetry Oxygen Devices in Use Now: Nasal Cannula - 4.5L Appearance: Elderly, F, sitting in chair in mild respiratory distress Eyes: No Scleral Icterus Ears/Nose/Mouth/Throat: - - Dry MM Neck: NL Appearance and Movements; NL JVP Respiratory: Symmetrical Chest Expansion and Respiratory Effort, - - Rales in B/ L bases, otherwise clear Cardiovascular: NL Sounds; No Murmurs; No JVD, RRR Abdominal: NL Sounds; No Tenderness; No Distention Lymphatic: No Cervical Adenopathy Extremities: - - LUE edema, no LE edema Skin: No Rash or Ulcers Neurological: Alert and Oriented x 3 Result Diagrams: 09/06/16 05:46 09/08/16 04:30 Assess/Plan/Problems-Billing Assessment: 86 yo F with h/o A. fib(on coumadin), bioprosthetic mitral valve, CVA, PMR(on Prednisone), COPD, HTN, pacer(for tachy kayleigh syndrome), AAA and iliac artery aneurysm repair, splenectomy who was admitted to ICU with sepsis syndrome due to CAP (H. parainfluanzae positive cx), component of ARDS, intubated 08/24/16, extubated 08/26/16, transferred out of ICU on 09/02/16. Also had an uncomplicated UTI tx when in ICU. - Patient Problems (1) CAP (community acquired pneumonia) Current Visit: Yes Comment: with severe sepsis at admission. Also in acute hypoxemic resiratory failure due to above and possibly some fluid overload Continue Lasix 20 mg PO daily Slowly weaning oxygen completed antibiotics when in ICU (2) Atrial fibrillation Current Visit: No Comment: Continue home Cardizem BID and daily Digoxin Continue coumadin, dosing as per pharmacy (3) COPD (chronic obstructive pulmonary disease) Current Visit: Yes Comment: Cont inhalers, nebs (4) Polymyalgia rheumatica Current Visit: Yes Comment: cont Prednisone at 10 mg daily. Was on 5 mg at home (5) Hypertension Current Visit: No Comment: Cont Cardizem, Norvasc, controlled (6) Anxiety Current Visit: Yes Comment: Will stop standing xanax as daughter feels it may be making her a bit more confused, also may be contributing to xerostomia. Continue prn xanax (7) Edema of left forearm Current Visit: Yes Comment: US negative for DVT (8) DVT prophylaxis Current Visit: No Comment: coumadin Status and Disposition: Potential d/c to rehab in next 1-2 days
[2016-09-08] MEDS: Digoxin TAB* 0.125 MG PO SCH (17:46)
[2016-09-08] MEDS: Warfarin TAB(*) 1 MG PO SCH (17:49)
[2016-09-08] MEDS: Diltiazem CD CAP* 120 MG PO SCH (17:49)
[2016-09-08] MEDS: Atorvastatin* 10 MG TAB PO SCH (17:49)
[2016-09-08] MEDS: Morphine ORAL.SOLN 10 mg* 2 MG/ML UDC 5 ml PO PRN (23:00)
[2016-09-08] MEDS: Latanoprost 0.005%* 2.5 ml BTL RIGHT EYE SCH (23:03)
--- NOTE | 2016-09-09 04:10 | DS ---
DISCHARGE SUMMARY: DATE OF ADMISSION: 08/17/16 DATE OF DISCHARGE: 09/09/16 PCP: Dr. Ayers. STUDIES DURING HOSPITALIZATION: Chest x-ray, impression: Right upper lobe pneumonia, small bilateral pleural effusion, stigmata of chronic obstructive pulmonary disease. Transthoracic echocardiogram, conclusion, mild to moderate concentric LVH, global left ventricular wall motion contractility within normal limits, normal left ventricular systolic function, estimated ejection fraction of 55% to 60%. Postsurgical hypokinesis of the interventricular septum is observed consistent with valve replacement. The left atrium is severely dilated. Aortic valve leaflets are moderately thickened. There is mild to moderate aortic regurgitation. There is mild aortic stenosis. The mean gradient of the aortic valve is 15 mmHg. Bioprosthetic mitral valve appears to be functioning normally. The mitral valve leaflets are mildly thickened. There is mild to moderate tricuspid regurgitation. The right ventricular systolic pressure is estimated at 30 mmHg. There is no pericardial effusion. There is mild dilatation of the ascending aorta. Left upper extremity Doppler, impression: No left upper extremity DVT. DISCHARGE MEDICATION REGIMEN: 1. Tylenol 650 mg by mouth 3 times daily. 2. Albuterol 2.5 mg inhaled every 2 hours as needed for shortness of breath or wheezing. 3. Xanax 0.25 mg by mouth every 8 hours as needed for anxiety. 4. Norvasc 10 mg by mouth daily. 5. Aspirin 81 mg by mouth daily. 6. Atorvastatin 5 mg by mouth nightly. 7. Brimonidine tartrate 1 drop in right eye 2 times daily. 8. Cetirizine 10 mg by mouth daily. 9. Digoxin 0.125 mg by mouth nightly. 10. Diltiazem 240 mg by mouth daily. 11. Diltiazem 120 mg by mouth nightly. 12. Lasix 20 mg by mouth daily. 13. Lactobacillus 1 capsule by mouth 2 times daily. 14. Latanoprost 1 drop in the right eye at bedtime. 15. Synthroid 75 mcg by mouth daily. 16. Dulera 200/5 MDI 2 puffs inhaled 2 times daily. 17. Prednisone 10 mg by mouth daily. 18. Neutra Phos 250 mg by mouth 2 times daily. 19. Spiriva 1 capsule inhaled daily. 20. Warfarin 1 mg by mouth daily. 21. Vitamin D 1000 units by mouth nightly. 22. Pro [place] 1000 one capsule by mouth nightly. 23. Enzymatic multivitamin one tablet by mouth 3 times daily. 24. Drenamin 1 tablet by mouth daily. 25. Niacinamide 500 mg by mouth weekly. 26. Coenzyme Q 100 mg by mouth daily. 27. Calcium, magnesium, and zinc 1 tablet by mouth nightly. PRINCIPAL DISCHARGE DIAGNOSES: 1. Acute hypoxic respiratory failure. 2. Acute respiratory distress syndrome, sepsis secondary to community acquired pneumonia with H parainfluenzae, required intubation. 3. Uncomplicated urinary tract infection. SECONDARY DIAGNOSES: 1. History of atrial fibrillation, on Coumadin. 2. Bioprosthetic mitral valve. 3. Cerebrovascular accident. 4. Polymyalgia rheumatica, on prednisone. 5. Chronic obstructive pulmonary disease. 6. Hypertension. 7. Splenectomy. HPI AND HOSPITAL SUMMARY: Please see the full history and physical by Rohan Bueno NP, for full details. Briefly, Mrs. Gilmore is an 86-year-old female with a past medical history as above, who presented to the hospital with rigor, chills, cough, sore throat. The patient was noted to have evidence of pneumonia on imaging. She was admitted to the ICU, was initially on Vapotherm. Breathing progressively worsened and the patient subsequently needed to be placed on BiPAP and then intubated. She was cared for in the ICU by Dr. Jimenes and Dr. Wilkins from 08/17/16 until 09/02/16. The patient was transferred to the regular floor. She was noted to be slightly fluid overloaded when she got to the floor. She was started on IV Lasix with good response. She completed her full course of antibiotics in the ICU, which included coverage for both, respiratory and urinary pathogen. As noted above, she grew Haemophilus parainfluenzae in the sputum culture. She also grew E. coli in the urine. The patient's heart rate was slightly uncontrolled on the floor. She was given an extra dose of digoxin and restarted on her home diltiazem with good response. She still required a significant amount of oxygen after being extubated and by the day of discharge, she was decreased down to 4 to 4.5 L. At baseline, the patient is pursed lip breather and tachypneic. This has been ongoing much longer than this hospitalization alone since her cardiac surgery. She had been receiving intermittent morphine for dyspnea while in the hospital. This was stopped at patient/family request but can be considered again at rehab if needed. The patient's stamina is poor and she is unable to work much with physical therapy before getting quickly short of breath. She will benefit from subacute rehab. She will be transferred to [facility] to continue rehab. TIME SPENT: Total time spent on this discharge 45 minutes. This is the summary of the hospitalization. Please see the full medical records for further details. CC: Dr. Ayers* [id number]/CPS #: [id number] [place]
[2016-09-09] MEDS: Levothyroxine TAB* 75 MCG TAB PO SCH (05:38)
[2016-09-09] MEDS: Insulin LISPRO* 1 UNITS UNIT SUBCUT SCH (07:39)
[2016-09-09] MEDS: amLODIPine TAB* 5 MG PO SCH (08:41)
[2016-09-09] MEDS: Potassium & Sodium Phos 250MG* = 1 PACKET PO SCH (08:41)
[2016-09-09] MEDS: Aspirin EC Low Dose* 81 MG TAB.EC PO SCH (08:41)
[2016-09-09] MEDS: Furosemide TAB* 20 MG PO SCH (08:42)
[2016-09-09] MEDS: Acetaminophen TAB* 325 MG PO SCH (08:42)
[2016-09-09] MEDS: Diltiazem CD CAP* 240 MG PO SCH (08:42)
[2016-09-09] MEDS: predniSONE TAB* 10 MG PO SCH (08:42)
[2016-09-09] MEDS: Cetirizine* 10 MG TAB PO SCH (08:43)
[2016-09-09 08:44] VITALS: BP 145/53
[2016-09-09] MEDS: BRIMONIDINE RIGHT EYE SCH (08:48)
[2016-09-09] MEDS: Lactobacillus Acidophilu (GG)* 1 CAP CAP PO SCH (08:48)
== END 2016-09-09 09:45 | DRG 871 ==
LOC: ED 09:21 → MEDTELE 10:21 → ICU 12:19 → MED 08-19 14:49 → ICU 08-20 07:46 → MEDTELE 09-02 17:48
PROVIDERS: ADMIT Hospitalist; ATTEND Hospitalist
PROC: 5A09557 Assistance with Respiratory Ventilation, Greater than 96 Consecutive Hours, Continuous Positive Airway Pressure (ICD-10-PCS; 2016-08-20)
PROC: 0BH17EZ Insertion of Endotracheal Airway into Trachea, Via Natural or Artificial Opening (ICD-10-PCS; principal; 2016-08-24)
PROC: 5A1945Z Respiratory Ventilation, 24-96 Consecutive Hours (ICD-10-PCS; 2016-08-24)
DX: A41.9 Sepsis, unspecified organism (principal); J18.1 Lobar pneumonia, unspecified organism; J96.01 Acute respiratory failure with hypoxia; J15.6 Pneumonia due to other Gram-negative bacteria; J44.0 Chronic obstructive pulmonary disease with (acute) lower respiratory infection; I11.0 Hypertensive heart disease with heart failure; D68.9 Coagulation defect, unspecified; I50.9 Heart failure, unspecified; E87.70 Fluid overload, unspecified; I51.81 Takotsubo syndrome; N39.0 Urinary tract infection, site not specified; J80 Acute respiratory distress syndrome; D69.6 Thrombocytopenia, unspecified; E03.9 Hypothyroidism, unspecified; I25.10 Atherosclerotic heart disease of native coronary artery without angina pectoris; E78.00 Pure hypercholesterolemia, unspecified; I73.9 Peripheral vascular disease, unspecified; M19.90 Unspecified osteoarthritis, unspecified site; M35.3 Polymyalgia rheumatica; G62.9 Polyneuropathy, unspecified; F32.9 Major depressive disorder, single episode, unspecified; Z96.642 Presence of left artificial hip joint; E78.5 Hyperlipidemia, unspecified; R79.89 Other specified abnormal findings of blood chemistry; R42 Dizziness and giddiness; D64.9 Anemia, unspecified; B96.20 Unspecified Escherichia coli [E. coli] as the cause of diseases classified elsewhere; I48.2 Chronic atrial fibrillation; T45.515A Adverse effect of anticoagulants, initial encounter; Z66 Do not resuscitate; R65.20 Severe sepsis without septic shock; F41.9 Anxiety disorder, unspecified; R60.0 Localized edema; I08.2 Rheumatic disorders of both aortic and tricuspid valves; I77.819 Aortic ectasia, unspecified site; Z88.6 Allergy status to analgesic agent; Z88.5 Allergy status to narcotic agent; I25.2 Old myocardial infarction; Z90.710 Acquired absence of both cervix and uterus; Z98.49 Cataract extraction status, unspecified eye; Z95.0 Presence of cardiac pacemaker; Z82.49 Family history of ischemic heart disease and other diseases of the circulatory system; Z87.891 Personal history of nicotine dependence; Z86.73 Personal history of transient ischemic attack (TIA), and cerebral infarction without residual deficits; Z79.82 Long term (current) use of aspirin; Z79.52 Long term (current) use of systemic steroids; Z79.01 Long term (current) use of anticoagulants; Z95.2 Presence of prosthetic heart valve; Z90.81 Acquired absence of spleen
CPT/HCPCS: 36415; 71010; 71020; 80048; 80053; 80162; 81003; 81015; 82947; 83605; 83735; 83880; 84100; 84145; 84484; 85025; 85027; 85610; 85730; 87040; 87070; 87077; 87086; 87186; 87205; 87502; 87641; 87899; 93005; 93306; 94002; 94003; 94640; 94660; 94760; 99285; A9270-GY; J0360; J0456; J0696; J0780; J1160; J1644; J1940; J2060; J2270; J2405; J2704; J2920; J3010; J3475; J3490; J7512

== ENCOUNTER 2016-09-16 05:54 | Inpatient (IN) | payer MEDICARE, MEDICAID ==
[2016-09-16] MEDS ORDERED: NS 0.9% 1000 ML* 2,000 ML IV ONE (06:17)
[2016-09-16] MEDS ORDERED: Acetaminophen TAB* 325 MG PO ONE (06:17)
[2016-09-16] MEDS ORDERED: Morphine INJ* 4 MG/ML 1 ML CARPUJECT IV ONE (06:26)
[2016-09-16] MEDS ORDERED: Acetaminophen SUPP* 650 MG SUPP PR ONE (06:26)
[2016-09-16] MEDS ORDERED: Ondansetron INJ* 2 MG/ML VIAL IV ONE (06:26)
--- NOTE | 2016-09-16 06:34 | ED ---
Thompson Sanabria Erika, scribed for Trino Snider MD on 09/16/16 at 0619 . GI/ HPI - HPI Summary HPI Summary: Patient is an 86-year-old female presenting to the ED with a CC of constipation. Patient was recently admitted to the hospital for 23 days and was discharged on 09/09/2016. Patient reports that she has only had a very small bowel movement since being discharged, and feels very constipated. She states she has not had a normal BM in at least 7 days, without improvement from medication. Pt also notes nausea but no vomiting. She reports she has had problems with constipation 1x in the past. Per EMS, pt's abdomen was distended with guarding, HR in the 130s, temperature 102, and O2 sat between low 80s-low 90s. Pt lives at [facility]. Pt has a pacemaker. - History of Current Complaint Time Seen by Provider: 09/16/16 06:04 Stated Complaint: SOB//ABD PAIN Hx Obtained From: Patient, EMS Onset/Duration: Started Weeks Ago - about 1 week, Atraumatic, Still Present Timing: Constant Severity: Moderate Associated Signs and Symptoms: Positive: Nausea, Constipation, Fever. Negative : Vomiting Alleviating Factor(s): Nothing - Additional Pertinent History Primary Care Physician: [id number] - Allergy/Home Medications Allergies/Adverse Reactions: Allergies Allergy/AdvReac Type Severity Reaction Status Date / Time Amlodipine Allergy Constipatio Verified 09/16/16 09:59 n Celecoxib [From Celebrex] AdvReac Nausea And Verified 05/14/16 12:35 Vomiting Rofecoxib [From Vioxx] AdvReac Nausea And Verified 05/14/16 12:35 Vomiting Home Medications: Home Medications Atorvastatin* [Lipitor*] 5 mg PO BEDTIME 09/16/16 [History Confirmed 09/16/16] Ciprofloxacin [Cipro] 500 mg PO BID 09/16/16 [History Confirmed 09/16/16] Furosemide TAB* 40 mg PO QAM 09/16/16 [History Confirmed 09/16/16] Furosemide TAB* [Lasix TAB*] 20 mg PO QPM 09/16/16 [History Confirmed 09/16/16] Multivitamin Adults 1 tab PO TID 09/16/16 [History Confirmed 09/16/16] Sennosides-Docusate Sodium [Senokot S] 2 tab PO BID 09/16/16 [History Confirmed 09/16/16] predniSONE TAB* [Deltasone TAB*] 8 mg PO DAILY WITH MEAL 09/16/16 [History Confirmed 09/16/16] PMH/Surg Hx/FS Hx/Imm Hx Endocrine/Hematology History: Reports: Hx Anticoagulant Therapy, Hx Blood Transfusions - multiple, Hx Thyroid Disease - hypothroid, Hx Anemia Denies: Hx Blood Disorders, Hx Bone Marrow Disease, Hx Diabetes, Hx Systemic Lupus Erythematosus, Hx Unexplained Bleeding Cardiovascular History: Reports: Hx Aneurysm - AAA REPAIR 03/07/13, Hx Congestive Heart Failure - 09/2007, Hx Coronary Artery Disease, Hx Hypercholesterolemia, Hx Hypertension, Hx Myocardial Infarction, Hx Pacemaker/ ICD, Hx Peripheral Vascular Disease, 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,AORTIC VALVE DIEASE, Other Cardiovascular Problems/Disorders - AORTIC VALVE DISEASE/AAA/ISCHEMIC [id number] Denies: Hx Angina Respiratory History: Reports: Hx Chronic Obstructive Pulmonary Disease (COPD), Hx Pneumonia - post op, Hx Pulmonary Embolism GI History: Reports: Hx Gall Bladder Disease Denies: Other GI Disorders History: Reports: Hx Renal Disease - abnormal gfr Denies: Hx Dialysis, Hx Kidney Stones, Other Problems/Disorders Musculoskeletal History: Reports: Hx Arthritis - POLYMYALIGIA RHEUMATICA, Hx Orthopedic Injury - left hip replacement, Other Musculoskeletal History - POLYMYALGIA RHEUMATICA, osteopenia Denies: Hx Osteoporosis Sensory History: Reports: Hx Contacts or Glasses, Hx Glaucoma - right eye Denies: Hx Hearing Problem Opthamlomology History: Reports: Hx Contacts or Glasses, Hx Glaucoma - right eye Neurological History: Reports: Hx Nerve Disease - peripheral neuropathy right leg only Denies: Hx Headaches, Hx Seizures, Hx Transient Ischemic Attacks (TIA) Psychiatric History: Reports: Hx Depression - remote past - Cancer History Hx Chemotherapy: No Hx Radiation Therapy: No - Surgical History Surgery Procedure, Year, and Place: hemorrrhoidectomy, hysterectomy,cataracts, spleenectomy,mitral valve,aortic aneurysm, pacer, iliac artery aneurysm,left hip replacement Hx Anesthesia Reactions: No - Family History Known Family History: Positive: Cardiac Disease, Hypertension Negative: Diabetes - Social History Alcohol Use: None Substance Use Type: Reports: None Hx Tobacco Use: Yes Smoking Status (MU): Former Smoker Type: Cigarettes Amount Used/How Often: quit 2009 Length of Time of Smoking/Using Tobacco: 1PPD Have You Smoked in the Last Year: No Review of Systems Positive: Fever Gastrointestinal: Other - constipated Positive: Nausea. Negative: Vomiting All Other Systems Reviewed And Are Negative: Yes Physical Exam Triage Information Reviewed: Yes Vital Signs On Initial Exam: Temp Pulse Resp BP Pulse Ox 102 F 112 24 134/78 95 09/16/16 06:07 09/16/16 06:07 09/16/16 06:07 09/16/16 06:07 09/16/16 06:07 Vital Signs Reviewed: Yes Appearance: Positive: Ill-Appearing, Pain Distress - mild discomfort, Thin Skin: Positive: Warm, Dry Eyes: Positive: COLIN ENT: Positive: Hearing grossly normal Neck: Positive: Supple Respiratory/Lung Sounds: Positive: Decreased Breath Sounds Cardiovascular: Positive: Tachycardia Abdomen Description: Positive: Soft, Distended, Other: - mild diffuse tenderness Bowel Sounds: Positive: Hypoactive Musculoskeletal: Positive: Strength/ROM Intact Neurological: Positive: Sensory/Motor Intact Diagnostics - Vital Signs Vital Signs Temp Pulse Resp BP Pulse Ox 09/16/16 06:07 102 F 112 24 134/78 95 - Laboratory Result Diagrams: 09/16/16 06:15 09/16/16 08:22 Lab Statement: Any lab studies that have been ordered have been reviewed, and results considered in the medical decision making process. Re-Evaluation - Re-Evaluation First Eval Re-Evaluation Time: 06:53 Comment: Pt's daughter now present. Discussed history and likely plan of care with daughter. Daughter states pt has been having BMs. GIGU Course/Dx - Course Assessment/Plan: An 86 y/o F presents to the ED with a CC of constipation. Pt reports no normal BM in 7+ days. Pt was recently discharged from a 23 day admission in the hospital. Dr. Michael aware of patient. Disposition pending labs, CXR, Abd XR at this time. Pt signed out to Dr. Bueno. - Diagnoses Provider Diagnoses: Healthcare-associated pneumonia, Fever, CHF exacerbation - Physician Notifications Instructed by Provider To: Admit As Inpatient Discharge - Discharge Plan Condition: Fair Disposition: ADMITTED TO [facility] Discharge Disposition Comment: Signed out to Dr. Bueno pending labs, imaging The documentation as recorded by the Thompson ledesma Erika accurately reflects the service I personally performed and the decisions made by , Trino Snider MD.
[2016-09-16] MEDS ORDERED: Ciprofloxacin 400MG IVPREMIX(* 400 MG/200 ML BAG IVPB ONE (07:30)
[2016-09-16] MEDS ORDERED: Cefepime(*) 2 GM in NS 0.9% 50 ML* 50 ML IVPB ONE (07:30)
[2016-09-16 07:39] LABS: Hematocrit 40 % (35-47); Hemoglobin 12.7 g/dl (12.0-16.0); Mean Corpuscular HGB Conc 32 g/dl (31-36); Mean Corpuscular Hemoglobin 29 pg (27-31); Mean Corpuscular Volume 91 fL (80-97); Mean Platelet Volume 10 um3 (7.4-10.4); Red Blood Count 4.37 10^6/ul (4.0-5.4); Red Cell Distribution Width 18 % (10.5-15); White Blood Count 12.2 10^3/ul (3.5-10.8)
[2016-09-16 07:41] LABS: Add Diff/Slide Review? Slide Review Added; Comments Flag Yes
[2016-09-16 07:49] LABS: ALT 39 U/L (7-52); Albumin 3.1 g/dL (3.2-5.2); Alkaline Phosphatase 64 U/L (34-104); BUN/Creatinine Ratio 30.6 (8-20); Blood Urea Nitrogen 22 mg/dL (6-24); CO2 Carbon Dioxide 29 mmol/L (22-32); Calcium 8.6 mg/dL (8.6-10.3); Chloride 98 mmol/L (101-111); EGFR African American 98.8 (>60); EGFR Non-African American 76.8 (>60); Glucose 93 mg/dL (70-100); Sodium 135 mmol/L (133-145); Total Protein 6.1 g/dL (6.4-8.9)
[2016-09-16 08:01] LABS: Troponin I 0.05 ng/mL (<0.04)
--- NOTE | 2016-09-16 08:37 | RAD ---
INDICATION: ] Right upper quadrant pain COMPARISON: CT April 26, 2015 TECHNIQUE: Longitudinal and transverse scans of the right upper quadrant were obtained. Doppler interrogation of the hepatic and portal venous system was performed. FINDINGS: Liver: The liver is normal in size and echogenicity. There are left and right hepatic lobe cyst as also documented on earlier CT imaging. The left hepatic cyst measures 1.8 cm and the right 3.5 cm. The liver measures 17 cm in cephalocaudal dimension. Vessels: There is normal hepatic and portal venous flow. Bile ducts: There is no evidence of intrahepatic or extrahepatic ductal dilatation. The common duct measures 0.3 cm. Gallbladder: There are multiple gallstones. This representing known finding. The gallbladder wall shows no significant thickening. There is no pericholecystic fluid.. Pancreas: The visualized pancreas appears normal Right kidney: The right kidney measures 12.0 x 6.1 x 7.0 cm. There is fullness of the central collecting system and there are renal cysts with a dominant mid upper pole cyst measuring 4.7 cm in the lower pole cyst measuring 2.1 cm. IVC and aorta: The aorta and superior vena cava appear normal. Fluid: There is no ascites. Other: None. IMPRESSION: 1. Hepatic and renal cysts. This has been documented on earlier CT imaging. 2. Cholelithiasis. This represents a known finding. 3. Mild fullness right renal collecting system but no donny hydronephrosis.
--- NOTE | 2016-09-16 08:39 | RAD ---
INDICATION: Pain and swelling. COMPARISON: None TECHNIQUE: Duplex interrogation of the Lowerextremity was performed. FINDINGS: Deep veins: The common femoral, great saphenous, profunda femoris, proximal, mid, and distal deep femoral, popliteal, posterior tibial, and peroneal veins are patent. There is normal compressibility, augmentation, and phasic flow. Superficial veins: There are no findings of superficial thrombophlebitis. Popliteal fossa: There is a popliteal cyst measuring 2.9 x 1.3 x 2.0 cm. Soft tissues: Left calf edema. IMPRESSION: LEFT CALF EDEMA AND POPLITEAL CYST. NO EVIDENCE OF DEEP VENOUS THROMBOSIS
--- NOTE | 2016-09-16 08:40 | RAD ---
INDICATION: Fever. COMPARISON: Comparison is made with a prior chest x-ray study from September 05, 2016. TECHNIQUE: Dual-energy PA and lateral views of the chest were obtained. FINDINGS: The patient is status post sternotomy and cardiac valve surgery. There is a transvenous pacemaker present. The heart is mildly enlarged and unchanged. There is diffuse prominence of the interstitial markings. There is a focal infiltrate present in the right upper lobe which is unchanged. There are small bilateral pleural effusions. The left pleural effusion has decreased from the prior exam. IMPRESSION: 1. RIGHT UPPER LOBE INFILTRATE, UNCHANGED, RECOMMEND FOLLOW-UP CHEST X-RAYS TO RESOLUTION. 2. FINDINGS MOST CONSISTENT WITH SUPERIMPOSED CONGESTIVE HEART FAILURE.
--- NOTE | 2016-09-16 08:43 | RAD ---
INDICATION: Abdominal pain COMPARISON: [facility] June 06, 2016 TECHNIQUE: Erect and supine views of the abdomen are submitted. FINDINGS: Bones: There are no acute bony findings. There are degenerative changes. There is left hip arthroplasty. Soft tissues: Soft tissues are unchanged. There is an aortobiiliac endovascular stent graft. Bowel gas pattern: Moderate retained stool. No obstructive findings Calcifications: There are no abnormal calcifications. Other: None IMPRESSION: NO ACUTE DIAGNOSTIC FINDINGS.
[2016-09-16] MEDS ORDERED: Nitroglycerin 0.4 MG/HR PATCH* (10 MG) TRANSDERM ONE (08:45)
[2016-09-16 09:25] LABS: Urine Bacteria 1+ (Absent); Urine Bilirubin Negative (Negative); Urine Glucose Negative (Negative); Urine Nitrite Positive (Negative)
[2016-09-16] MEDS ORDERED: Acetaminophen TAB* 325 MG PO PRN (09:51)
[2016-09-16] MEDS ORDERED: Albuterol 2.5 MG/3 ML NEB.SOL* (0.083%) INH PRN (09:51)
[2016-09-16] MEDS ORDERED: Al Hydrox/Mg Hydrox/Simet LIQ* 30 ML UDC PO PRN (09:51)
[2016-09-16] MEDS ORDERED: Morphine INJ* 2 MG/ML 1 ML CARPUJECT IV PRN (09:51)
[2016-09-16] MEDS ORDERED: Magnesium CITRATE* 300 ML BTL PO ONE (09:56)
[2016-09-16] MEDS ORDERED: ALPRAZolam TAB* 0.25 MG PO PRN (09:59)
[2016-09-16] MEDS ORDERED: NS 0.9% 1000 ML* 1,000 ML IV SCH (10:00)
[2016-09-16] MEDS ORDERED: Vancomycin(*) 1,000 MG in NS 0.9% 250 ML* 250 ML IVPB ONE (10:30)
[2016-09-16] MEDS ORDERED: Vancomycin per Pharmacy* NOTE FOLLOW UP PRN (10:46)
[2016-09-16 10:47] LABS: Digoxin 0.6 ng/ml (0.8-2.0)
[2016-09-16] MEDS: Cefepime(*) 1 GM in NS 0.9% 50 ML* 50 ML IVPB SCH ×2 (10:48→21:30)
[2016-09-16] MEDS ORDERED: Spiriva Inhaler DEVICE* 1 EACH DEVICE INH ONE (11:00)
[2016-09-16] MEDS ORDERED: Polyethylene Glycol 3350* 17 GM PACKET PO PRN (11:50)
[2016-09-16] MEDS: Diltiazem CD CAP* 240 MG PO SCH (12:14)
[2016-09-16] MEDS: Senna TAB PO SCH ×2 (12:14→20:19)
[2016-09-16] MEDS: Hydrocortisone INJ* 100 MG VIAL IV SCH ×2 (12:14→17:25)
[2016-09-16] MEDS ORDERED: Sodium Phosphate ADULT ENEMA* 118 ml bottle PR ONE (13:26)
[2016-09-16] MEDS ORDERED: Potassium Chloride LIQUID* 20 MEQ PACKET PO ONE (14:00)
--- NOTE | 2016-09-16 14:52 | RAD ---
Indication: Left upper extremity edema. Duplex Doppler sonography of the deep venous system of the left upper extremity. Bilaterally the internal jugular veins demonstrates normal phasic flow. Subclavian veins bilaterally demonstrates satisfactory augmentation and normal phasic flow. The left upper axillary vein, brachial vein, basilic vein, cephalic vein, radial vein and ulnar vein are patent and compressible. IMPRESSION: No evidence of venous thrombosis of the left extremity is noted.
[2016-09-16] MEDS: Digoxin TAB* 0.125 MG PO SCH (17:25)
[2016-09-16] MEDS: Cholecalciferol TAB* 1000 UNITS PO SCH (17:25)
[2016-09-16] MEDS: Acetaminophen TAB* 325 MG PO SCH (17:25)
[2016-09-16] MEDS: Warfarin TAB(*) 1 MG PO SCH (17:26)
[2016-09-16] MEDS: Atorvastatin* 10 MG TAB PO SCH (20:17)
[2016-09-16] MEDS: Diltiazem CD CAP* 120 MG PO SCH (20:18)
[2016-09-16] MEDS: Brimonidine P 0.15%(NF) OPH SOL 5 ML BTL RIGHT EYE SCH (20:18)
[2016-09-16] MEDS: Docusate CAP* 100 MG PO SCH (20:19)
[2016-09-16] MEDS: Lactobacillus Acidophilu (GG)* 1 CAP CAP PO SCH (20:20)
--- NOTE | 2016-09-16 20:26 | HP ---
HISTORY AND PHYSICAL: DATE OF ADMISSION: 09/16/16 PRIMARY CARE PROVIDER: Dr. Ayers. CHIEF COMPLAINT: Respiratory distress, fever and constipation as well as abdominal pain. HISTORY OF PRESENT ILLNESS: Rina Gilmore is an 86-year-old female who was discharged from our facility on 09/07/16 after she was treated in the intensive care unit with intubation for acute respiratory failure and sepsis secondary to community acquired pneumonia, positive for haemophilus parainfluenzae. Once again she required intubation, was extubated, weaned down to oxygen at 3 L and transferred to [facility]. The patient also has history of diastolic congestive heart failure. At [facility], the patient was doing well, during rehabilitation. Her oxygen continued to be required at 3 L, although as per patient's daughter, she "did not drop below 90" when ambulating. The patient has history of dyspnea on exertion at her baseline due to chronic diastolic CHF. The patient also had been constipated. Dr. Jeronimo at [facility] was increasing the patient's Lasix but there were times that she would urinate a large amount one day but then not urinate a lot for another couple of days. Acute change occurred on the night of 09/07/16 when the patient got in acute respiratory distress with fever of 102 degrees and complained of abdominal pain. When she presented to the ED, she was severely hypoxemic, and currently her oxygenation is 90% on 8 L oxygen delivered via mask. She also was noted to have urinary retention after she could not urinate, Walker catheter was inserted and yielded at least 700 mL of slightly cloudy straw colored urine. At that point, her abdominal pain resolved. She did have a very tiny bowel movement which was brown with scant hematochezia while in the emergency department. Once again her temperature was 102 degrees. She denied any complaints of chest pain but she was tachypneic and dyspneic. It appears that currently she is in CHF, most likely exacerbated by urinary retention which was most likely a consequence of constipation. At this point, I do not have a source of her fever but she continues to have an infiltrate on her chest x-ray from prior pneumonia and possibility of continuation of this problem has to be considered. At this point, she is going to be treated for healthcare associated pneumonia. PAST MEDICAL HISTORY: Includes: 1. Haemophilus parainfluenza pneumonia with acute respiratory failure requiring intubation. The patient was discharged oxygen dependent to rehabilitation at [facility] on 09/09/16. 2. Takotsubo cardiomyopathy with EF documented on 08/17/16 at 55% to 60%. 3. Vertigo. 4. History of atrial fibrillation with EF documented at 08/17/16 at 50% to 60%. 5. Hypertension. 6. History of COPD. 7. Hyperlipidemia. 8. Hypothyroidism. 9. History of thrombocytopenia. 10. History of hemolytic anemia. 11. History of CVA. 12. History of status post mitral valve replacement, porcine. 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 14. 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 15. Status post splenectomy. 16. History of polymyalgia rheumatica, on chronic prednisone. MEDICATIONS: At [facility] include: 1. Senna 2 tablets b.i.d. 2. Cardizem CD 120 mg b.i.d. 3. Digoxin 0.125 mg daily. 4. Alprazolam 0.25 mg every 8 hours p.r.n. 5. Niacinamide 500 mg weekly. 6. Multivitamin 1 tablet 3 times a day. 7. Albuterol nebulizer every 2 hours p.r.n. 8. Acetaminophen 650 mg t.i.d. p.r.n. 9. Neutra-Phos 250 mg b.i.d. 10. Lactobacillus 1 capsule b.i.d. 11. Ciprofloxacin 500 mg b.i.d. 12. Brimonidine 1 drop to right eye b.i.d. 13. Coumadin 1 mg daily. 14. Vitamin D3 at 1000 units daily. 15. [place]-3 fatty acids 1 capsule daily. 16. Levothyroxine 75 mcg daily. 17. Prednisone 80 mg daily. 18. Amlodipine 10 mg daily. 19. Xalatan 0.005% 1 drop right eye at bedtime. 20. Furosemide 40 mg in a.m. and 20 mg in p.m. 21. Coenzyme Q10 at 100 mg daily. 22. Cetirizine 10 mg daily. 23. Magnesium, zinc and calcium supplement 1 tablet daily. 24. Lipitor 5 mg at bedtime. 25. Aspirin 81 mg daily. ALLERGIES: Include CELEBREX, MORPHINE and ROFECOXIB. The patient's daughter also requested to put MATTHEW on allergy list. The patient was [place] with [place]ASC in [place] [facility] and the patient's daughter states that it causes the patient to have severe constipation. FAMILY HISTORY: Mother had heart disease from rheumatic fever. She in her 40s. Father had history of being from a surgical complication. SOCIAL HISTORY: The patient quit smoking in 2001. She is going to be staying at [facility] after her long hospitalization at [facility] from 08/17/26 to 09/09/16. Her decision maker is her daughter, Joesph. The patient is DNR. REVIEW OF SYSTEMS: Please see history of present illness. All the remaining 14 systems were reviewed with the patient and the patient's daughter, which are otherwise negative. PHYSICAL EXAMINATION GENERAL: The patient is a pleasant 86-year-old female who is tachypneic and with mildly increased respiratory work of breathing. The patient is in no acute distress. She is alert and oriented x3. VITAL SIGNS: Blood pressure 134/78, heart rate of 112 and irregularly regular, respiratory rate 24, oxygen saturation 90% on 8 L of oxygen nasal cannula, temperature of 102. HEENT: Head is atraumatic and normocephalic. Eyes: Pupils are equal and reactive to light and accommodation. Oropharynx clear. Mucosa moist. NECK: Supple. Positive for JVD. No bruits bilaterally. RESPIRATORY: Rales at bilateral bases and bilateral mid lung wheezes. CARDIOVASCULAR: Irregularly irregular rhythm, no murmur. ABDOMEN: Examined when catheter was placed and the patient had her bladder decompressed. It is soft, minimally tender in the right lower quadrant with no rebound, no guarding. Bowel sounds present in all 4 quadrants. EXTREMITIES: There is +1 pitting pedal edema. Pulses are +2 bilaterally. No clubbing or cyanosis. NEUROLOGIC: Speech is clear. Cranial nerves II through XII are grossly intact. Motor strength is 5/5 bilaterally. SKIN: No rashes or abrasions noted. LABORATORY DATA: Showed white blood cell count of 12.2, hemoglobin of 12.7, hematocrit of 40 and platelets of 142. INR therapeutic at 2.89. Sodium 135, potassium 3.4, chloride 98, carbon dioxide 29, BUN 22, creatinine 0.72. Liver function tests were unremarkable. Troponin of 0.05. Lactic acid is 2.1. Beta natriuretic peptide was 649 which is consistent with prior. Urinalysis positive for nitrite and +1 bacteria. Influenza A and B tests were negative. Venous Doppler study obtained due to left calf edema noted left calf edema and popliteal cyst but no evidence of DVT. Ultrasound of the abdomen obtained in the ED. Impression: "Hepatic and renal cysts. This had been documented on earlier CT imaging. Cholelithiasis. This represents a known finding. Mild fullness in the right renal collecting system but no donny hydronephrosis." Chest x-ray. Impression: "Right upper infiltrate, unchanged. Recommend followup chest x-rays to resolution. Findings most consistent with superimposed congestive heart failure." Abdominal x-ray. Impression: "No acute diagnostic findings." EKG is pending at the time of dictation. ASSESSMENT AND PLAN: Acute respiratory distress in the patient who now has fever of 102 degrees, history of recent pneumonia and congestive heart failure on the x- ray as well as continuation of infiltrate on the x-ray. At this point , other differential includes either a combination of congestive heart failure and pneumonia or congestive heart failure only. At this point, I do not have any other source of infection and I am going to treat the patient for healthcare associated pneumonia with cefepime and vancomycin. In regards to the patient's congestive heart failure, that was most likely exacerbated by urinary retention. At this point, her bladder is decompressed. She also has slightly elevated lactic acid . Due to that, I will actually place her on gentle intravenous hydration, follow up her lactic acid and not re start her Lasix until tomorrow. For her acute respiratory failure, she requires Vapotherm. She is going to be placed in the ICU due to that. In regards to her elevated troponin which is 0.05, it is most likely due to demand ischemia. We will follow up with the remaining troponins. From my looking at the rhythm strip, there are no acute ischemic changes. The patient is in atrial fibrillation with frequent PVCs. An EKG is pending at the time of dictation. For atrial fibrillation, currently in mild tachycardia due to respiratory compromise. I will continue the patient's digoxin at 0.125 mg daily. Digoxin level is pending at the time of dictation. Her Cardizem is going to be reinstituted as she used to take at home prior to her recent hospital stay and that is twice a day, 240 mg in the morning and 120 mg at night that is Cardizem CD. In regards to the patient's history of being on chronic steroids due to polymyalgia rheumatica, due to respiratory distress, I will place her on stress dose steroids . Once again, the patient's fever is most likely due to healthcare associated pneumonia. I do not have at this point any other source of infection. The urine does not appear to be conclusive of urinary tract infection, although she does have trace bacteria. Nevertheless, cefepime and vancomycin should cover an infection. Her flu test was negative. In regards to the patient's congestive heart failure, once again it was likely exacerbated by urinary retention. Once again, her furosemide is going to be held till tomorrow due to infection. Due to the patient's constipation, NORVASC is going to be held and placed in allergy list as requested by the patient's daughter. I will also place the patient on multiple laxatives. For urinary retention, for the time being is going to be treated with Walker catheter decompression. Once the patient's constipation resolves, the Walker most likely can be discontinued. The patient is deconditioned. She is somewhat disillusioned about her progress at [facility] with this current setback. We had a long discussion with the patient's daughter and the patient. They would like to consider palliative care management in regards of goal of care. I will ask Dr. Victor to see the patient in consultation. Please also note that the patient had a small amount of hematochezia today when she had a small bowel movement. I suspect that this is most likely due to constipation and maybe internal hemorrhoids. Her hemoglobin and hematocrit had been stable. I will check the levels in the morning. Her code status is do not resuscitate and do not intubate and that was confirmed with her daughter and patient herself. TIME SPENT: Approximately 75 minutes were spent on admission of this ICU patient, more than half that time was spent [id number] with the patient during the interview and physical exam. CC: Dr. Ayers; Dr. Jeronimo* [id number]/[facility] #: [id number] MTDD
[2016-09-16] MEDS: Latanoprost 0.005%* 2.5 ml BTL RIGHT EYE SCH (20:27)
[2016-09-16] MEDS ORDERED: Mometasone/Formoter 200/5 MDI INH SCH (21:00)
--- NOTE | 2016-09-16 21:16 | CONS ---
PALLIATIVE CARE CONSULTATION REPORT: DATE OF CONSULT: 09/16/16 PRIMARY CARE PHYSICIAN: Edilberto Ayers MD REQUESTING PHYSICIAN FOR CONSULTATION: Susan Hernandez MD HOSPITAL COURSE: This is an 86-year-old female with a past medical history of Takotsubo cardiomyopathy, atrial fibrillation, atherosclerotic disease, bioprosthetic mitral valve who presented to the emergency room this morning from [facility] for abdominal discomfort and shortness of breath. The daughter, Joesph, who is the healthcare proxy, is at the bedside who provides most of the history. The patient was admitted from August 17 to September 09 for prolonged hospital course for pneumonia, was intubated at that time. Prior to that admission, she was living alone and independent in most of her ADLs. She did have aides come in to help with shopping and meal planning. At rehab, the daughter states she had been doing really well. She went from barely standing in the hospital to ambulating with a walker and physical therapy. She was not needing her oxygen and they felt that she may have been weaned off to room air continuously, but had not yet been evaluated until today when she developed this abdominal pain. She has been constipated for the past 7 or 8 days which has resulted in some respiratory distress which prompted her admission to the ICU here, placed on Vapotherm. The patient states that she has had a good appetite. She has been improving in her physical activity. She denies any shortness of breath at this time and no pain , otherwise remaining review of systems is negative. PAST MEDICAL HISTORY: Takotsubo cardiomyopathy, ejection fraction of echo from August of 2016 is 55% to 60%, history of vertigo, history of AFib, history of hypertension, history of atherosclerotic disease, hyperlipidemia, COPD, hypothyroidism, history of thrombocytopenia, history of hemolytic anemia, history of stroke. PAST SURGICAL HISTORY: Mitral valve replacement, bioprosthetic pacemaker for tachy- kayleigh syndrome, AAA repair, iliac aneurysm repair, history of splenectomy. INPATIENT MEDICATIONS: Include: 1. Xanax 0.25 mg every 8 hours as needed for anxiety. 2. Tylenol 650 mg every 4 hours as needed for fever or pain. 3. Maalox 30 mL every 6 hours as needed. 4. Albuterol 2.5 mg every 4 hours as needed. 5. Aspiring 81 mg daily. 6. Atorvastatin 5 mg daily at bedtime. 7. Brimonidine 1 drop right eye b.i.d. 8. Cholecalciferol 1000 units p.o. in the evening. 9. Digoxin 0.125 mg daily. 10. Diltiazem 120 mg at bedtime and 240 mg in the morning. 11. Colace 100 mg p.o. b.i.d. 12. Lasix 40 mg daily. 13. Hydrocortisone 50 mg IV q. 8 hours. 14. Lactobacillus acidophilus 1 cap p.o. b.i.d. 15. Cefepime 1 g q.12 hours. 16. Mometasone/formoterol 2 puffs inhaled b.i.d. 17. Morphine 2 mg every 4 hours as needed for pain. 18. Normal saline at 75 cc an hour. 19. Senna 1 tab p.o. b.i.d. 20. Tiotropium inhaled daily. 21. Vancomycin 750 mg q.12. 22. Warfarin 1 tab daily. ALLERGIES: AMLODIPINE, CELEBREX and ROFECOXIB. SOCIAL HISTORY: Former smoker, quit in 2001. No alcohol use. Her surrogate decision maker is her daughter, Jeosph. She has recently been at [facility] since her admission at discharge on 09/09/16. Her MOLST form is a DNR/DNI. FAMILY HISTORY: Mother had heart disease, rheumatic fever, in her 40s. Father had a history of surgical complication, from that. REVIEW OF SYSTEMS: As mentioned in the HPI. PHYSICAL EXAMINATION: Vital Signs: Temp, T-max 102, pulse rate 104, respiratory rate 21, oxygen saturation 92% on 40 L of Vapotherm at 50% of FiO2, blood pressure 141/76. General: Frail elderly female with mild respiratory distress. Pursed lip breathing. Per daughter, this is her baseline. She always does pursed lip breathing. Her daughter is at the bedside. HEENT: Neck is supple. No lymphadenopathy. Oropharynx, mucous membranes is moist. Pupils are equal and reactive, anicteric. Head is normocephalic. Cardiac: Irregularly irregular rapid rhythm. Respiratory: Diminished breath sounds. No wheezes, rhonchi or rales. Abdomen: Soft, mildly distended. No tenderness. Extremities: +1 pretibial edema. +1 DPs. Neurologic: Alert and oriented x3. No focal neurological deficits. LABORATORY DATA: White count 12.2, hemoglobin 12.7, hematocrit 40, platelets 142, INR 2.89. Sodium 135, potassium 3.4, chloride 98, bicarb 29, BUN 22, creatinine 0.72, lactic acid 2.1. Troponin is 0.05, BNP is 649. Urine positive nitrites. Digoxin level 0.6. Flu negative. Chest x-ray shows right upper lobe infiltrates, unchanged. Findings most consistent with superimposed congestive heart failure. ASSESSMENT: This is an 86-year-old female with past medical history of diastolic heart failure, atrial fibrillation, bioprosthetic mitral valve who presents to the emergency room from [facility] with abdominal discomfort and respiratory distress, found to be in rapid atrial fibrillation with question of superimposed congestive heart failure. Based on these findings , the patient is not an eligible candidate for hospice and may be worthwhile repeating an echocardiogram to see if anything has progressed although it does seem that the patient has improved with her mobility and her respiratory status since being at rehab on the . She does have a fever. There is concern for possible infiltrate, although it does not seem evident on her chest x-ray on admission. The daughter really feels that the [facility] was not managing her cardiac medications appropriately and not monitoring her well enough. I did discuss with Dr. Jiménez to do a consultation per the family's request. The family also does not want [facility]. Once the patient's respiratory status improves, she is a candidate for a physical therapy evaluation and likely should go back to rehab at an alternative location. I also discussed the patient is an appropriate candidate for the PATH referral program for outpatient palliative care followup. Thank you for this consultation. TIME SPENT: Greater than 90 minutes were spent doing the consultation, more than half the time was in direct patient contact. CC: Edilberto Ayers MD * [id number]/[facility] #: [id number] [place]
--- NOTE | 2016-09-16 22:48 | CONS ---
CC: Dr. Isidro Cordova; Dr. Edilberto Ayers; Hospitalist Service CONSULTATION REPORT: DATE OF CONSULT: 09/16/16 REASON FOR CONSULT: Atrial fibrillation, rapid ventricular rate, and congestive heart failure. The patient's chief complaint is shortness of breath. HISTORY OF PRESENT ILLNESS: The patient is an 86-year-old woman followed by my partner, Dr. Bladimir Cordova, with a history of valvular heart disease, mitral valve replacement, and aortic stenosis as well as chronic atrial fibrillation and diastolic heart failure. The patient was admitted to [facility] in July of this year with a right upper lobe pn eumonia (rigor, chills, cough, and sore throat), pleural effusions. During the admission, she requi red intubation, recovered, and then was sent to rehab. She was in [facility] and according to her daughter, was showing progressive improvement with physical therapy and doing pretty well until ear lier this week. Several days ago, the patient started to develop some abdominal distention and swelling in the left arm (worsened, was swollen during [facility] admission) and lower extremities bilaterally left greater than right. The daughter reports she was given intravenous Lasix and initially had some response, but o nly for 1 day. She was also constipated and yesterday received several medications for constipation without significant results and this morning, the patient awoke at 4 in the morning, extremely wind ed and febrile and came to the emergency room. In the emergency room, the patient was febrile at 102 degrees. She is in chronic AFib and her rates were fast. Her chest x-ray showed some mild congestive heart failure. She has been given oxygen, and she states that she really is only feeling better because of the oxygen and does not otherwise a ppreciate many changes yet. PAST MEDICAL HISTORY: 1. Mitral valve insufficiency, status post mitral valve replacement, 10/03/08, [facility] (# 25 porcine Romero II). 2. She has chronic atrial fibrillation, chronic difficulty controlling rates. Beta blockers in the past were felt to lead to constipation and most recently, she has been on oral diltiazem. 3. Tachy-kayleigh syndrome with pacemaker implantation, 2013. 4. Coronary artery disease. 5. History of [place] post hip surgery, cardiac catheterization 2005 showed 30% to 40% occlusion in the proximal LAD, circumflex was dominant with luminal irregularities. The right coronary artery was non dominant and free of disease. 6. Diastolic congestive heart failure, recurrent. 7. Aortic valve stenosis, moderate, on recent echo's. 8. History of Takotsubo syndrome, 2009, ejection fraction at that time 25% to 30% with apical ballo oning. 9. Polymyalgia rheumatica, on chronic steroids. 10. Thrombocytopenia. 11. Vertigo. 12. Hypertension. 13. Dyslipidemia. 14. Hypothyroid disease. 15. Peripheral vascular disease, status post abdominal aortic aneurysm repair. 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 17. History of splenectomy. 18. Questionable reactive airway disease. 19. COPD. CURRENT INPATIENT MEDICATIONS: Include: 1. Tylenol p.r.n. 2. Maalox p.r.n. 3. Albuterol inhaler. 4. Xanax p.r.n. 5. Aspirin 81 mg a day. 6. Lipitor 5 mg q.h.s. 7. Alphagan ophthalmic drops. 8. Cefepime. 9. Vitamin D. 10. Digoxin 0.125 mg a day. 11. Diltiazem CD 120 mg q.h.s. and 240 mg p.o. q.a.m. 12. Colace 100 mg b.i.d. 13. Lasix 40 mg a day. 14. Solu-Cortef 50 mg IV q.8 hours. 15. Lactobacillus. 16. Xalatan ophthalmic drops. 17. Dulera inhaler. 18. Morphine p.r.n. pain. 19. Vancomycin. 20. Coumadin. 21. PEG (MiraLAX). 22. Senna. 23. Normal saline drip. 24. Spiriva. ALLERGIES: Include CELECOXIB, ROFECOXIB, and MORPHINE. Intolerant to Norvasc in the past (constipa tion) and beta blockers due to constipation. SOCIAL HISTORY: The patient has a supportive daughter, Bebe, who is present during the exam and live s in the area. 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 She smoked until 1999, a pack a day fo r 40 years. No history of alcohol use or abuse. REVIEW OF SYSTEMS: See history of present illness, but is pertinent for her week- long history of c onstipation. Recent swelling and edema, was negative for any awareness of change in her prednisone dose or salt intake. No recent travel. It was significant that according to the daughter her left upper extremity was first swollen when in the intensive care unit here on her last admission and nev er completely recovered. The patient's appetite has been good. She denies dysuria. PHYSICAL EXAM: The patient is 5 feet 3 inches, weighs 127 pounds with a BMI of 22. She was lying in bed at 90 degrees and appeared very tachypneic, chronically and acutely ill. She was in atrial fib rillation with a ventricular rate in the 115 to 120s. Blood pressure 139/83, respiratory rate is 27 , temperature on arrival 102, and oxygen saturation with a nasal cannula was 92% to 93%. HEENT: Pu pils were equal and round. Mucous membranes somewhat dry. Neck: Using accessory muscles. I do not appreciate lymphadenopathy or thyromegaly. Breath sounds were diminished. She had crackles predomi nantly in the right base, some in the left, but she had good air movement and no wheezing. Coronary : S1, S2. Irregularly irregular. Quite tachycardic with S3 gallop. I did not appreciate murmurs i n the setting of her tachypnea and noise in the room. Pacemaker scars and old incisional scars are well healed. Abdomen: Somewhat full appearing, but soft and nontender. Proper exam not done as sh e was at 90 degrees and lower extremities showed trace edema, left somewhat greater than right. Lef t upper extremity is markedly swollen below the blood pressure cuff and the lateral portion of the a ntecubital area. No erythema and not significantly tender. DIAGNOSTIC STUDIES/LAB DATA: The patient's ECG done today shows atrial fibrillation with a ventricu lar rate of 109 beats a minute with a left anterior fascicular block, poor R-wave progression, and l eft ventricular hypertrophy by voltage criteria with repolarization abnormalities, not significantly changed from multiple baselines. The patient's chest x-ray confirmed that her ventricular lead placement is good. She has mild cephal ization consistent with congestive heart failure. Abdominal x-ray was unremarkable. Abdominal ultrasound showed gallbladder stones seen in the past a nd mild fullness in the right renal collecting system, but no donny hydronephrosis. She had hepatic and renal cysts that have been seen previously. Venous Doppler of the lower extremities was negative for DVTs. Her echocardiogram done 08/17/16 at [facility] showed [id number] left ventricular hypertrophy with an ejection fraction of 55% to 60%, mild aortic valve stenosis with a mean gradient of 15 mmHg, an aortic valve area maida culated at 1.2 sq. cm by VTI. She had severe left atrial enlargement. She had a bioprosthetic mitr al valve with normal function, [id number]-rlcwrtot tricuspid insufficiency, and PA pressure estimated a t 30 mmHg. Labs showed white count of 12.12, hemoglobin 12.7, platelets 142. INR 2.89. Sodium 135, potassium 3 .4, chloride 98, bicarb 29, BUN 22, creatinine 0.72, lactic acid 2.1. ALT of 39. Troponin #1 0.05, troponin #2 0.09. BNP of 649. Total protein 6.1, albumin 3.1. Urinalysis: Nitrite positive, esterase negative, 1+ bacteria, positive squamous epithelial cells. Digoxin level 0.6. Serology for influenza is negative. Chemical nuclear stress test done 05/08/16 at [facility] showed a moderate-sized fixed de fect in the lateral wall. Partially reversible photopenia in the inferior wall with an ejection fra ction of 80%, intermediate risk. SUMMARY: Rina Gilmore is an 86-year-old woman with a bioprosthetic mitral valve, [id number] aortic valve stenosis, chronic atrial fibrillation, a history of diastolic congestive heart failure , and according to Dr. Cordova's notes, she is at risk for dynamic left ventricular outflow tract obs truction. She has tachy-kayleigh syndrome with a pacer. Currently, the patient is admitted with fevers, tachycardic response of her atrial fibrillation, con gestive heart failure, very short of breath and tachypneic, and constipated. There is apparently bl adder obstruction as she had 600 cc out with Walker, possibly related to constipation. She is approx imately 1 month out recovering from a severe pneumonia for which she was intubated and the patient h as mild bump in troponins with known CAD. The patient appears to have SIRS and I would aggressively look for a potential infectious source as it is being done. It is possible that constipation is impacting significantly and contributing to the above findings a s she is chronically ill and fragile and this is being addressed with medications as above. In terms of her congestive heart failure, it very likely remains diastolic secondary to valvular hea rt disease and chronic AFib with rapid ventricular rate. My first inclination was to stop the diltiazem because of the constipation and convert to beta block ers, but on reviewing her old charts, she has had constipation on metoprolol as well. Short term, w emma will continue her on diltiazem, replete her with potassium, but fdc, she may benefit from AV radha ablation in order to get her completely off rate-lowering agents. The trade off for this wou ld be pacemaker dependence. In the interim, options would include a combination of beta rainer and calcium channel blockers. We will try to titrate her medications to optimize rate control and ashwini ting her underlying acute medical issues that should also help stabilize her rate. I agree that she is going to need diuretics even in the setting of possible SIRS, she is on chronic steroids with approximate stress doses. I would try to get her BUN and creatinine to normal and I w ould try to establish what her baseline weight is and get her back to it. The elevated troponin could be from her underlying coronary disease and stress. They could also repr esent a progression in her cantwell coronary disease, but I doubt this presentation is just from larisa moran In terms of medical management, optimize rate control, continue aspirin and statins. Further recomm endations with respect to cardiac catheterization can be made in the future when she is stabilized, Dr. Cordova had discussed the possibility of TAVR in this patient, so it may make sense for her to un dergo cardiac catheterization to establish the status of her underlying known coronary disease and e valuate her valves via cardiac catheterization as well. The patient's nutritional status is likely impacting on her overall health and should be addressed. The patient states she has had an appetite. The left upper extremity swelling, I had the blood pressure cuff moved, this has been going on for a pproximately a month. Consideration even with her chronic anticoagulation looking for DVT in this a rm especially this being the site of her pacer should be considered. [id number]/[facility] #: [id number]
[2016-09-16] MEDS: Vancomycin(*) 750 MG in NS 0.9% 250 ML* 250 ML IVPB SCH (23:17)
[2016-09-17] MEDS: Hydrocortisone INJ* 100 MG VIAL IV SCH ×3 (01:22→17:10)
[2016-09-17 06:24] LABS: Hematocrit 34 % (35-47); Hemoglobin 11.1 g/dl (12.0-16.0); Mean Corpuscular HGB Conc 33 g/dl (31-36); Mean Corpuscular Hemoglobin 29 pg (27-31); Mean Corpuscular Volume 90 fL (80-97); Mean Platelet Volume 10 um3 (7.4-10.4); Red Blood Count 3.79 10^6/ul (4.0-5.4); Red Cell Distribution Width 18 % (10.5-15); White Blood Count 6.9 10^3/ul (3.5-10.8)
[2016-09-17 06:27] LABS: Comments Flag Yes
[2016-09-17 06:33] LABS: BUN/Creatinine Ratio 38.6 (8-20); EGFR African American 129.3 (>60); EGFR Non-African American 100.6 (>60)
[2016-09-17] MEDS ORDERED: Tiotropium CAP.INH* CAP.INH/18 MCG (USE ORDER SET !) INH SCH (09:00)
--- NOTE | 2016-09-17 09:55 | PN ---
Subjective Date of Service: 09/17/16 Interval History: Patient seen this morning. Says she feels "like a million bucks". Says everything is feeling better including her breathing, swelling. Has had minimal cough. Only had small BM. Family History: Unchanged from Admission Social History: Unchanged from Admission Past Medical History: Unchanged from Admission Objective Active Medications: Acetaminophen (Tylenol Tab*) 650 mg PO AC МАРИЯ Al Hydrox/Mg Hydrox/Simethicone (Maalox Plus*) 30 ml PO Q6H PRN Aspirin (Aspirin Ec Low Dose*) 81 mg PO QAM МАРИЯ Atorvastatin Calcium (Lipitor*) 5 mg PO BEDTIME МАРИЯ Brimonidine Tartrate (Alphagan P 0.15%(Nf)) 1 drop RIGHT EYE BID МАРИЯ Cholecalciferol (Vitamin D Tab*) 1,000 units PO QPM МАРИЯ Digoxin (Lanoxin Tab*) 0.125 mg PO 1700 М[facility] Diltiazem HCl (Cardizem Cd Cap*) 120 mg PO BEDTIME МАРИЯ Diltiazem HCl (Cardizem Cd Cap*) 240 mg PO DAILY МАРИЯ Docusate Sodium (Colace Cap*) 100 mg PO BID МАРИЯ Furosemide (Lasix Tab*) 40 mg PO DAILY МАРИЯ Hydrocortisone Sodium Succinate (Solu-Cortef*) 50 mg IV Q8H МАРИЯ Cefepime HCl 1 gm/ Sodium (Chloride) 50 mls @ 100 mls/hr IVPB Q12H МАРИЯ Vancomycin HCl 750 mg/ Sodium (Chloride) 250 mls @ 166.667 mls/hr IVPB Q12H МАРИЯ Lactobacillus Rhamnosus (Culturelle*) 1 cap PO BID МАРИЯ Latanoprost (Xalatan 0.005%*) 1 drop RIGHT EYE BEDTIME [facility] Pharmacy Consult (Vancomycin Per Pharmacy*) 1 note FOLLOW UP . PRN Pharmacy Profile Note (Coumadin Daily Reminder*) 1 note FOLLOW UP 1700 [facility] Pharmacy Profile Note (Vancomycin Trough Check) 1 note FOLLOW UP 1000 ONE Polyethylene Glycol/Electrolytes (Miralax*) 17 gm PO DAILY PRN Senna (Senokot Tab*) 1 tab PO BID МАРИЯ Warfarin Sodium (Coumadin Tab(*)) 1 mg PO DAILY@1700 [facility] Vital Signs 09/16/16 09/16/16 09/16/16 10:00 10:25 10:30 Temperature 99.9 F Pulse Rate 153 99 Respiratory Rate Blood Pressure 118/93 146/51 (mmHg) O2 Sat by Pulse 90 92 Oximetry 09/16/16 09/16/16 09/16/16 11:30 11:45 12:00 Temperature 99.0 F Pulse Rate 98 145 104 Respiratory 29 21 27 Rate Blood Pressure 146/72 127/63 139/83 (mmHg) O2 Sat by Pulse 92 89 94 Oximetry 09/17/16 09/17/16 09/17/16 07:00 07:33 08:00 Temperature 98.4 F Pulse Rate 75 79 Respiratory 24 27 Rate Blood Pressure 153/76 129/75 (mmHg) O2 Sat by Pulse 96 94 Oximetry Oxygen Devices in Use Now: High Flow Nasal Cannula - Vapotherm 40L/50% Appearance: Elderly, F, laying in bed in NAD Eyes: No Scleral Icterus Ears/Nose/Mouth/Throat: Mucous Membranes Moist Neck: NL Appearance and Movements; NL JVP Respiratory: Symmetrical Chest Expansion and Respiratory Effort, - - Trace rales in bases, some mild scattered ronchi, good air movement Cardiovascular: - - IRIR, normal rate Abdominal: NL Sounds; No Tenderness; No Distention Lymphatic: No Cervical Adenopathy Extremities: - - Trace LE edema Skin: No Rash or Ulcers Neurological: Alert and Oriented x 3 Lines/Tubes/Other Access: Clean, Dry and Intact Walker Result Diagrams: 09/17/16 05:40 09/17/16 05:40 Assess/Plan/Problems-Billing Assessment: Fever, acute hypoxic respiratory failure, uncontrolled Aflutter in an 86 yo F with hx of HTN, chronic diastolic CHF, tachy-kayleigh syndrome s/p PPM, bioprosthetic MVR, hypothyroidism, PMR on chronic prednisone - Patient Problems (1) Acute respiratory failure with hypoxia Current Visit: Yes Comment: Underlying etiology unclear. I'm not convinced this is a bacterial infection with minimal leukocytosis and no left shift. CXR looks mostly unchaged. For now will continue coverage with Vanc/Cefepime and follow culture data. Continue stress dose steroids for now. No further fevers. Fever may have triggered rapid HR which led to cardiac decompensation as patient has little reserve. Wean vapotherm as able. (2) Fever Current Visit: No Comment: No recurrence. Check procalcitonin. Minimal leukocytosis resolved. (3) Atrial fibrillation Current Visit: No Comment: Appreciate Cardiology assistance, may benefit from ablation further down the line, however for now will continue home Cardizem BID and daily Digoxin Continue coumadin (4) Constipation Current Visit: Yes Comment: Will start more aggressive bowel regimen until patient has good sized BM (5) Polymyalgia rheumatica Current Visit: No Comment: On stress dose steroids (6) Chronic diastolic (congestive) heart failure Current Visit: Yes Comment: Continue home Lasix in addition to above cardiac medications. Stopped IVF. (7) DVT prophylaxis Current Visit: No Comment: coumadin Status and Disposition: Inpatient for hypoxic respiratory failure
[2016-09-17] MEDS ORDERED: Magnesium Hydroxide LIQ* 30 ML UDC PO ONE (09:59)
[2016-09-17] MEDS: Lactobacillus Acidophilu (GG)* 1 CAP CAP PO SCH ×2 (10:01→20:42)
[2016-09-17] MEDS: Aspirin EC Low Dose* 81 MG TAB.EC PO SCH (10:01)
[2016-09-17] MEDS: Senna TAB PO SCH ×2 (10:01→20:42)
[2016-09-17] MEDS: Furosemide TAB* 40 MG PO SCH (10:01)
[2016-09-17] MEDS: Docusate CAP* 100 MG PO SCH ×2 (10:01→20:42)
[2016-09-17] MEDS: Diltiazem CD CAP* 240 MG PO SCH (10:02)
[2016-09-17] MEDS: Brimonidine P 0.15%(NF) OPH SOL 5 ML BTL RIGHT EYE SCH ×2 (10:05→20:43)
[2016-09-17] MEDS: Cefepime(*) 1 GM in NS 0.9% 50 ML* 50 ML IVPB SCH ×2 (10:06→21:24)
[2016-09-17] MEDS: Acetaminophen TAB* 325 MG PO SCH ×3 (10:18→17:11)
[2016-09-17] MEDS: Levothyroxine TAB* 75 MCG TAB PO SCH (11:10)
[2016-09-17] MEDS: Vancomycin(*) 750 MG in NS 0.9% 250 ML* 250 ML IVPB SCH ×2 (12:43→22:03)
[2016-09-17] MEDS: Digoxin TAB* 0.125 MG PO SCH (17:10)
[2016-09-17] MEDS: Warfarin TAB(*) 1 MG PO SCH (17:11)
[2016-09-17] MEDS: Cholecalciferol TAB* 1000 UNITS PO SCH (17:11)
[2016-09-17] MEDS: Diltiazem CD CAP* 120 MG PO SCH (20:42)
[2016-09-17] MEDS: Atorvastatin* 10 MG TAB PO SCH (20:42)
[2016-09-17] MEDS: Latanoprost 0.005%* 2.5 ml BTL RIGHT EYE SCH (20:43)
[2016-09-17] MEDS ORDERED: Magnesium CITRATE* 300 ML BTL PO ONE (21:00)
[2016-09-18] MEDS: Hydrocortisone INJ* 100 MG VIAL IV SCH (02:41)
[2016-09-18] MEDS: Levothyroxine TAB* 75 MCG TAB PO SCH (05:58)
[2016-09-18] MEDS: Brimonidine P 0.15%(NF) OPH SOL 5 ML BTL RIGHT EYE SCH ×2 (07:24→21:13)
[2016-09-18] MEDS: Docusate CAP* 100 MG PO SCH ×2 (07:25→21:20)
[2016-09-18] MEDS: Furosemide TAB* 40 MG PO SCH (07:25)
[2016-09-18] MEDS: Lactobacillus Acidophilu (GG)* 1 CAP CAP PO SCH ×2 (07:25→21:13)
[2016-09-18] MEDS: Aspirin EC Low Dose* 81 MG TAB.EC PO SCH (07:25)
[2016-09-18] MEDS: Diltiazem CD CAP* 240 MG PO SCH (07:25)
[2016-09-18] MEDS: Senna TAB PO SCH ×2 (07:25→21:20)
[2016-09-18] MEDS: Acetaminophen TAB* 325 MG PO SCH ×3 (07:25→15:49)
--- NOTE | 2016-09-18 09:02 | PN ---
Subjective Date of Service: 09/18/16 Interval History: Patient seen this morning. Still no substantial BM despite enema and Mg Citrate in addition to other medications. Feels bloated. Breathing is OK but impaired a bit by her abdominal discomfort. No cough, fever, chills. Family History: Unchanged from Admission Social History: Unchanged from Admission Past Medical History: Unchanged from Admission Objective Active Medications: Acetaminophen (Tylenol Tab*) 650 mg PO AC МАРИЯ Al Hydrox/Mg Hydrox/Simethicone (Maalox Plus*) 30 ml PO Q6H PRN Aspirin (Aspirin Ec Low Dose*) 81 mg PO QAM МАРИЯ Atorvastatin Calcium (Lipitor*) 5 mg PO BEDTIME МАРИЯ Brimonidine Tartrate (Alphagan P 0.15%(Nf)) 1 drop RIGHT EYE BID МАРИЯ Cholecalciferol (Vitamin D Tab*) 1,000 units PO QPM МАРИЯ Digoxin (Lanoxin Tab*) 0.125 mg PO 1700 [facility] Diltiazem HCl (Cardizem Cd Cap*) 120 mg PO BEDTIME МАРИЯ Diltiazem HCl (Cardizem Cd Cap*) 240 mg PO DAILY МАРИЯ Docusate Sodium (Colace Cap*) 100 mg PO BID МАРИЯ Furosemide (Lasix Tab*) 40 mg PO DAILY МАРИЯ Hydrocortisone Sodium Succinate (Solu-Cortef*) 50 mg IV Q8H МАРИЯ Cefepime HCl 1 gm/ Sodium (Chloride) 50 mls @ 100 mls/hr IVPB Q12H МАРИЯ Vancomycin HCl 750 mg/ Sodium (Chloride) 250 mls @ 166.667 mls/hr IVPB Q12H МАРИЯ Lactobacillus Rhamnosus (Culturelle*) 1 cap PO BID МАРИЯ Lactulose (Lactulose*) 30 ml PO QID МАРИЯ Latanoprost (Xalatan 0.005%*) 1 drop RIGHT EYE BEDTIME МАРИЯ Levothyroxine Sodium (Synthroid Tab*) 75 mcg PO 0600 [facility] Pharmacy Consult (Vancomycin Per Pharmacy*) 1 note FOLLOW UP . PRN Pharmacy Profile Note (Coumadin Daily Reminder*) 1 note FOLLOW UP 1700 [facility] Pharmacy Profile Note (Vancomycin Trough Check) 1 note FOLLOW UP 1000 ONE Polyethylene Glycol/Electrolytes (Miralax*) 17 gm PO DAILY PRN Senna (Senokot Tab*) 1 tab PO BID МАРИЯ Warfarin Sodium (Coumadin Tab(*)) 1 mg PO DAILY@1700 [facility] Vital Signs 09/17/16 09/17/16 09/17/16 09:00 10:00 11:00 Temperature Pulse Rate 82 72 73 Respiratory 18 28 27 Rate Blood Pressure 147/96 145/60 154/76 (mmHg) O2 Sat by Pulse 96 98 98 Oximetry 09/18/16 09/18/16 09/18/16 03:00 04:00 05:00 Temperature 99.2 F Pulse Rate 63 64 63 Respiratory 22 23 26 Rate Blood Pressure 145/43 130/45 142/49 (mmHg) O2 Sat by Pulse 93 92 93 Oximetry 09/18/16 09/18/16 09/18/16 06:00 07:00 07:14 Temperature Pulse Rate 69 83 83 Respiratory 30 28 29 Rate Blood Pressure 140/95 159/139 160/31 (mmHg) O2 Sat by Pulse 90 88 91 Oximetry Oxygen Devices in Use Now: Nasal Cannula - 5-6L Appearance: Elderly, F, laying in bed in NAD Eyes: No Scleral Icterus Ears/Nose/Mouth/Throat: Mucous Membranes Moist Neck: NL Appearance and Movements; NL JVP Respiratory: Symmetrical Chest Expansion and Respiratory Effort, - - mild tachypnea, rales in B/L lower lung javed Cardiovascular: - - IRIR, normal rate Abdominal: NL Sounds; No Tenderness; No Distention Lymphatic: No Cervical Adenopathy Extremities: - - No LE edema Skin: No Rash or Ulcers Neurological: Alert and Oriented x 3 Lines/Tubes/Other Access: Clean, Dry and Intact Walker Result Diagrams: 09/17/16 05:40 09/17/16 05:40 Assess/Plan/Problems-Billing Assessment: Fever, acute hypoxic respiratory failure, uncontrolled Aflutter in an 86 yo F with hx of HTN, chronic diastolic CHF, tachy-kayleigh syndrome s/p PPM, bioprosthetic MVR, hypothyroidism, PMR on chronic prednisone - Patient Problems (1) Acute respiratory failure with hypoxia Current Visit: Yes Comment: CXR looks mostly unchaged. Change from stress dose back to oral steroids at Prednisone 20 mg daily. No further fevers. Fever may have triggered rapid HR which led to cardiac decompensation as patient has little reserve. Weaning O2, now on 5L (2) Fever Current Visit: No Comment: Procalcitonin negative. UCx growing S epidermidis, likely colonization. Will hold on ABx and see if she has any recurrence of her fever. (3) Atrial fibrillation Current Visit: No Comment: Appreciate Cardiology assistance, may benefit from ablation further down the line, however for now will continue home Cardizem BID and daily Digoxin Continue coumadin (4) Constipation Current Visit: Yes Comment: Continue increasing bowel regimen. (5) Polymyalgia rheumatica Current Visit: No Comment: Prednisone 20 mg daily (6) Chronic diastolic (congestive) heart failure Current Visit: Yes Comment: Continue home Lasix in addition to above cardiac medications. Stopped IVF. (7) DVT prophylaxis Current Visit: No Comment: coumadin Status and Disposition: Inpatient for hypoxic respiratory failure
[2016-09-18] MEDS ORDERED: Magnesium CITRATE* 300 ML BTL PO ONE (09:04)
[2016-09-18] MEDS ORDERED: Vancomycin Trough Check NOTE FOLLOW UP ONE (10:00)
[2016-09-18] MEDS: predniSONE TAB* 20 MG PO SCH (10:03)
--- NOTE | 2016-09-18 14:59 | RAD ---
INDICATION: Evaluate for obstruction COMPARISON: Abdomen September 16, 2016 TECHNIQUE: A single view of the abdomen is submitted. FINDINGS: Bones: There are no acute bony findings. Soft tissues: There is an endovascular stent graft. There is left hip arthroplasty.. Bowel gas pattern: There is mild gaseous distention with retained stool predominantly in the left colon and rectum Calcifications: There are no abnormal calcifications. Other: Left basilar abnormalities with left upper lobe infiltrate. Sternotomy with valvular replacement. Cardiac pacemaker IMPRESSION: NONSPECIFIC BOWEL GAS PATTERN. SUGGEST A FOLLOW-UP ABDOMINAL SERIES INDICATED
[2016-09-18] MEDS ORDERED: Bisacodyl SUPP* 10 MG SUPP PR ONE (15:14)
[2016-09-18] MEDS ORDERED: Bisacodyl EC TAB* 5 MG PO ONE (15:14)
[2016-09-18] MEDS ORDERED: PEG 3000 GI LAVAGE* 1 GALLON PO ONE (15:14)
--- NOTE | 2016-09-18 15:16 | PN ---
Hospitalist Progress Note Patient still with no significant BM despite escalating bowel regimen. Attempted manual disimpaction but could not feel any stool in the rectal vault. AXR shows some mild colonic distension with stool in the L colon and rectum. Will give oral and rectal dulcolax and 4L Go-Lytely.
[2016-09-18] MEDS: Digoxin TAB* 0.125 MG PO SCH (17:18)
[2016-09-18] MEDS: Cholecalciferol TAB* 1000 UNITS PO SCH (17:18)
[2016-09-18] MEDS: Warfarin TAB(*) 1 MG PO SCH (17:21)
[2016-09-18] MEDS: Diltiazem CD CAP* 120 MG PO SCH (21:13)
[2016-09-18] MEDS: Latanoprost 0.005%* 2.5 ml BTL RIGHT EYE SCH (21:13)
[2016-09-18] MEDS: Atorvastatin* 10 MG TAB PO SCH (21:13)
[2016-09-19] MEDS: Levothyroxine TAB* 75 MCG TAB PO SCH (05:19)
[2016-09-19] MEDS: predniSONE TAB* 20 MG PO SCH (07:21)
[2016-09-19] MEDS: Aspirin EC Low Dose* 81 MG TAB.EC PO SCH (07:21)
[2016-09-19] MEDS: Acetaminophen TAB* 325 MG PO SCH ×3 (07:21→16:01)
[2016-09-19] MEDS: Lactobacillus Acidophilu (GG)* 1 CAP CAP PO SCH ×2 (07:21→21:58)
[2016-09-19] MEDS: Furosemide TAB* 40 MG PO SCH (08:52)
[2016-09-19] MEDS: Diltiazem CD CAP* 240 MG PO SCH (08:52)
[2016-09-19] MEDS: Brimonidine P 0.15%(NF) OPH SOL 5 ML BTL RIGHT EYE SCH ×2 (08:53→21:58)
[2016-09-19] MEDS: Senna TAB PO SCH ×2 (08:53→22:01)
[2016-09-19] MEDS: Docusate CAP* 100 MG PO SCH ×2 (08:53→22:01)
--- NOTE | 2016-09-19 15:31 | PN ---
Subjective Date of Service: 09/19/16 Interval History: Seen and examined with daughter and daughter's partner present Feels improved today. Feels stronger Denies SOB. Does endorse SOB on presentation which has improved Notes increased swelling of LUE. Feels thirsty Family History: Unchanged from Admission Social History: Unchanged from Admission Past Medical History: Unchanged from Admission Objective Active Medications: Acetaminophen (Tylenol Tab*) 650 mg PO AC [facility] Last Admin: 09/19/16 11:09 Dose: 650 mg Al Hydrox/Mg Hydrox/Simethicone (Maalox Plus*) 30 ml PO Q6H PRN PRN Reason: INDIGESTION Aspirin (Aspirin Ec Low Dose*) 81 mg PO QAM [facility] Last Admin: 09/19/16 07:21 Dose: 81 mg Atorvastatin Calcium (Lipitor*) 5 mg PO BEDTIME [facility] Last Admin: 09/18/16 21:13 Dose: 5 mg Brimonidine Tartrate (Alphagan P 0.15%(Nf)) 1 drop RIGHT EYE BID [facility] Last Admin: 09/19/16 08:53 Dose: 1 drop Cholecalciferol (Vitamin D Tab*) 1,000 units PO QPM [facility] Last Admin: 09/18/16 17:18 Dose: 1,000 units Digoxin (Lanoxin Tab*) 0.125 mg PO 1700 [facility] Last Admin: 09/18/16 17:18 Dose: 0.125 mg Diltiazem HCl (Cardizem Cd Cap*) 120 mg PO BEDTIME [facility] Last Admin: 09/18/16 21:13 Dose: 120 mg Diltiazem HCl (Cardizem Cd Cap*) 240 mg PO DAILY [facility] Last Admin: 09/19/16 08:52 Dose: 240 mg Docusate Sodium (Colace Cap*) 100 mg PO BID [facility] Last Admin: 09/19/16 08:53 Dose: Not Given Furosemide (Lasix Iv*) 40 mg IV Q24H [facility] Lactobacillus Rhamnosus (Culturelle*) 1 cap PO BID [facility] Last Admin: 09/19/16 07:21 Dose: 1 cap Lactulose (Lactulose*) 30 ml PO QID [facility] Last Admin: 09/19/16 11:09 Dose: Not Given Latanoprost (Xalatan 0.005%*) 1 drop RIGHT EYE BEDTIME [facility] Last Admin: 09/18/16 21:13 Dose: 1 drop Levothyroxine Sodium (Synthroid Tab*) 75 mcg PO 0600 [facility] Last Admin: 09/19/16 05:19 Dose: 75 mcg Pharmacy Profile Note (Coumadin Daily Reminder*) 1 note FOLLOW UP 1700 [facility] Last Admin: 09/18/16 17:20 Dose: 1 note Polyethylene Glycol/Electrolytes (Miralax*) 17 gm PO DAILY PRN PRN Reason: CONSTIPATION Last Admin: 09/16/16 12:45 Dose: 17 gm Prednisone (Deltasone Tab*) 20 mg PO DAILY [facility] Last Admin: 09/19/16 07:21 Dose: 20 mg Senna (Senokot Tab*) 1 tab PO BID [facility] Last Admin: 09/19/16 08:53 Dose: Not Given Warfarin Sodium (Coumadin Tab(*)) 1 mg PO DAILY@1700 [facility] PRN Reason: Protocol Last Admin: 09/18/16 17:21 Dose: 1 mg Vital Signs 09/18/16 09/18/16 09/18/16 15:30 17:18 19:52 Temperature 97.5 F 98.5 F Pulse Rate 105 79 84 Respiratory 28 16 Rate Blood Pressure 146/54 149/41 (mmHg) O2 Sat by Pulse 92 91 Oximetry 09/18/16 09/18/16 09/19/16 20:00 23:20 03:20 Temperature 97.7 F 97.7 F Pulse Rate 71 61 Respiratory 20 16 20 Rate Blood Pressure 144/59 143/51 (mmHg) O2 Sat by Pulse 91 93 91 Oximetry 09/19/16 09/19/16 09/19/16 07:24 08:00 11:08 Temperature 98.0 F 97.5 F Pulse Rate 79 71 Respiratory 20 20 24 Rate Blood Pressure 148/51 138/48 (mmHg) O2 Sat by Pulse 92 92 100 Oximetry Oxygen Devices in Use Now: Nasal Cannula - 5L 94% Appearance: sitting in chair, NAD Eyes: No Scleral Icterus, PERRLA Ears/Nose/Mouth/Throat: Clear Oropharnyx, Mucous Membranes Moist Neck: NL Appearance and Movements; NL JVP, Trachea Midline Respiratory: Symmetrical Chest Expansion and Respiratory Effort, - - rales b/l bases up 1/2 to apex Cardiovascular: - - IRIR, 2/6 holosystolic murmur Abdominal: NL Sounds; No Tenderness; No Distention, No Hepatosplenomegaly Extremities: - - no LE edema, LUE 2+ pitting edema Skin: No Rash or Ulcers Neurological: Alert and Oriented x 3 Result Diagrams: 09/17/16 05:40 09/17/16 05:40 Assess/Plan/Problems-Billing Assessment: 86 yo F with hx of HTN, chronic diastolic CHF, tachy-kayleigh syndrome s/p PPM, bioprosthetic MVR, hypothyroidism, PMR on chronic prednisone and recent stay in ICU for H. flu requiring intubation returning with fever, acute hypoxic respiratory failure, uncontrolled Aflutter, urinary retention and constipation - Patient Problems (1) Acute respiratory failure with hypoxia Comment: Suspect decompensated heart failure in setting of afib RVR Potentially PNA contributing Prednisone decreased from stress to 20 mg daily. Weaning O2, now on 5L Lasix 40IV today and trend I/O. Weight is UP since admission (2) Chronic diastolic (congestive) heart failure Comment: Increase lasix from PO to IV 09/19/16 daily weights strict I/O (3) Atrial fibrillation Comment: Appreciate Cardiology assistance - may benefit from ablation further down the line, however for now will continue home Cardizem BID and daily Digoxin Continue coumadin Check dig level in AM. Low on admission. Family reports previously on higher dose (4) Constipation Comment: +BM on 09/19/16 (5) Fever Comment: Procalcitonin negative. UCx growing S epidermidis, likely colonization. Stopped ABx and see if she has any recurrence of her fever. (6) Polymyalgia rheumatica Comment: Prednisone 20 mg daily (7) Urinary retention Comment: Suspect constipation contributed Consider removal tomorrow after eval of UOP (8) DVT prophylaxis Comment: coumadin INR tomorrow Status and Disposition: Inpatient for hypoxic respiratory failure
[2016-09-19] MEDS ORDERED: Furosemide IV* 10 MG/ML VIAL (40 MG) IV SCH (16:00)
[2016-09-19] MEDS: Digoxin TAB* 0.125 MG PO SCH (16:01)
[2016-09-19] MEDS: Cholecalciferol TAB* 1000 UNITS PO SCH (17:06)
[2016-09-19] MEDS: Warfarin TAB(*) 1 MG PO SCH (17:06)
[2016-09-19] MEDS: Diltiazem CD CAP* 120 MG PO SCH (21:58)
[2016-09-19] MEDS: Atorvastatin* 10 MG TAB PO SCH (21:58)
[2016-09-19] MEDS: Latanoprost 0.005%* 2.5 ml BTL RIGHT EYE SCH (21:58)
[2016-09-20] MEDS: Levothyroxine TAB* 75 MCG TAB PO SCH (05:49)
[2016-09-20 06:31] LABS: Hematocrit 34 % (35-47); Hemoglobin 10.9 g/dl (12.0-16.0); Mean Corpuscular HGB Conc 33 g/dl (31-36); Mean Corpuscular Hemoglobin 29 pg (27-31); Mean Corpuscular Volume 90 fL (80-97); Mean Platelet Volume 9 um3 (7.4-10.4); Red Blood Count 3.72 10^6/ul (4.0-5.4); Red Cell Distribution Width 18 % (10.5-15); White Blood Count 6.5 10^3/ul (3.5-10.8)
[2016-09-20 06:39] LABS: Comments Flag Yes
[2016-09-20 06:40] LABS: Add Diff/Slide Review? Slide Review Added
[2016-09-20 06:45] LABS: BUN/Creatinine Ratio 28.8 (8-20); Calcium 7.9 mg/dL (8.6-10.3); EGFR African American 124.3 (>60); EGFR Non-African American 96.6 (>60); Potassium 3.5 mmol/L (3.5-5.0)
[2016-09-20 06:47] LABS: Digoxin 0.8 ng/ml (0.8-2.0)
[2016-09-20] MEDS ORDERED: Furosemide IV* 10 MG/ML VIAL (40 MG) IV ONE (08:11)
[2016-09-20] MEDS ORDERED: Potassium Chlor TAB* 20 MEQ TAB.ER PO ONE (08:12)
[2016-09-20] MEDS: Senna TAB PO SCH ×2 (08:30→20:05)
[2016-09-20] MEDS: predniSONE TAB* 20 MG PO SCH (08:38)
[2016-09-20] MEDS: Acetaminophen TAB* 325 MG PO SCH ×3 (08:38→16:38)
[2016-09-20] MEDS: Docusate CAP* 100 MG PO SCH ×2 (08:38→20:04)
[2016-09-20] MEDS: Lactobacillus Acidophilu (GG)* 1 CAP CAP PO SCH ×2 (08:38→20:04)
[2016-09-20] MEDS: Brimonidine P 0.15%(NF) OPH SOL 5 ML BTL RIGHT EYE SCH ×2 (08:39→20:05)
[2016-09-20] MEDS: Diltiazem CD CAP* 240 MG PO SCH (08:39)
[2016-09-20] MEDS: Aspirin EC Low Dose* 81 MG TAB.EC PO SCH (09:12)
--- NOTE | 2016-09-20 15:48 | PN ---
Subjective Date of Service: 09/20/16 Interval History: Feels stronger Denies SOB Anxious to be discharged Family History: Unchanged from Admission Social History: Unchanged from Admission Past Medical History: Unchanged from Admission Objective Active Medications: Acetaminophen (Tylenol Tab*) 650 mg PO AC [facility] Last Admin: 09/20/16 11:51 Dose: 650 mg Al Hydrox/Mg Hydrox/Simethicone (Maalox Plus*) 30 ml PO Q6H PRN PRN Reason: INDIGESTION Aspirin (Aspirin Ec Low Dose*) 81 mg PO QAM [facility] Last Admin: 09/20/16 09:12 Dose: 81 mg Atorvastatin Calcium (Lipitor*) 5 mg PO BEDTIME [facility] Last Admin: 09/19/16 21:58 Dose: 5 mg Brimonidine Tartrate (Alphagan P 0.15%(Nf)) 1 drop RIGHT EYE BID [facility] Last Admin: 09/20/16 08:39 Dose: 1 drop Cholecalciferol (Vitamin D Tab*) 1,000 units PO QPM [facility] Last Admin: 09/19/16 17:06 Dose: 1,000 units Digoxin (Lanoxin Tab*) 0.125 mg PO 1700 [facility] Last Admin: 09/19/16 16:01 Dose: 0.125 mg Diltiazem HCl (Cardizem Cd Cap*) 120 mg PO BEDTIME [facility] Last Admin: 09/19/16 21:58 Dose: 120 mg Diltiazem HCl (Cardizem Cd Cap*) 240 mg PO DAILY [facility] Last Admin: 09/20/16 08:39 Dose: 240 mg Docusate Sodium (Colace Cap*) 100 mg PO BID [facility] Last Admin: 09/20/16 08:38 Dose: 100 mg Lactobacillus Rhamnosus (Culturelle*) 1 cap PO BID [facility] Last Admin: 09/20/16 08:38 Dose: 1 cap Lactulose (Lactulose*) 30 ml PO QID [facility] Last Admin: 09/20/16 11:29 Dose: Not Given Latanoprost (Xalatan 0.005%*) 1 drop RIGHT EYE BEDTIME [facility] Last Admin: 09/19/16 21:58 Dose: 1 drop Levothyroxine Sodium (Synthroid Tab*) 75 mcg PO 0600 [facility] Last Admin: 09/20/16 05:49 Dose: 75 mcg Pharmacy Profile Note (Coumadin Daily Reminder*) 1 note FOLLOW UP 1700 [facility] Last Admin: 09/19/16 16:08 Dose: 1 note Polyethylene Glycol/Electrolytes (Miralax*) 17 gm PO DAILY PRN PRN Reason: CONSTIPATION Last Admin: 09/16/16 12:45 Dose: 17 gm Prednisone (Deltasone Tab*) 20 mg PO DAILY [facility] Last Admin: 09/20/16 08:38 Dose: 20 mg Senna (Senokot Tab*) 1 tab PO BID [facility] Last Admin: 09/20/16 08:30 Dose: Not Given Vital Signs 09/19/16 09/19/16 09/19/16 15:55 16:01 19:36 Temperature 97.3 F 98.7 F Pulse Rate 76 80 82 Respiratory 16 20 Rate Blood Pressure 149/58 152/37 (mmHg) O2 Sat by Pulse 98 98 Oximetry 09/19/16 09/20/16 09/20/16 20:00 00:14 04:08 Temperature 99.0 F 98.8 F Pulse Rate 67 66 Respiratory 18 19 16 Rate Blood Pressure 145/45 149/40 (mmHg) O2 Sat by Pulse 98 95 93 Oximetry 09/20/16 09/20/16 09/20/16 04:42 06:45 08:06 Temperature 97.7 F Pulse Rate 82 Respiratory 24 24 Rate Blood Pressure 152/61 (mmHg) O2 Sat by Pulse 97 98 Oximetry 09/20/16 11:28 Temperature 98.3 F Pulse Rate 75 Respiratory 20 Rate Blood Pressure 129/49 (mmHg) O2 Sat by Pulse 98 Oximetry Oxygen Devices in Use Now: Nasal Cannula - titrated to 2L - 97% Appearance: sitting in chair, NAD Eyes: No Scleral Icterus, PERRLA Ears/Nose/Mouth/Throat: Clear Oropharnyx, Mucous Membranes Moist Neck: NL Appearance and Movements; NL JVP, Trachea Midline Respiratory: Symmetrical Chest Expansion and Respiratory Effort, - - rales right base Cardiovascular: RRR Abdominal: NL Sounds; No Tenderness; No Distention, No Hepatosplenomegaly Lymphatic: No Cervical Adenopathy Extremities: - - 1+ le edema Skin: No Rash or Ulcers Neurological: Alert and Oriented x 3 Lines/Tubes/Other Access: Clean, Dry and Intact Kidd Result Diagrams: 09/20/16 06:05 09/20/16 06:05 Assess/Plan/Problems-Billing Assessment: 86 yo F with hx of HTN, chronic diastolic CHF, tachy-kayleigh syndrome s/p PPM, bioprosthetic MVR, hypothyroidism, PMR on chronic prednisone and recent stay in ICU for H. flu requiring intubation returning with fever, acute hypoxic respiratory failure, uncontrolled Aflutter, urinary retention and constipation - Patient Problems (1) Acute respiratory failure with hypoxia Comment: Suspect decompensated heart failure in setting of afib RVR Potentially PNA contributing Prednisone decreased from stress to 20 mg daily. Weaning O2, now on 2L Lasix 60IV today trend I/O. (2) Chronic diastolic (congestive) heart failure Comment: Increase lasix from PO to IV 09/19/16 daily weights strict I/O (3) Atrial fibrillation Comment: Appreciate Cardiology assistance - may benefit from ablation further down the line, however for now will continue home Cardizem BID and daily Digoxin hold coumadin with supratherapeutic INR Digoxin lvl wnl (4) Constipation Comment: +BM on 09/19/16 (5) Fever Comment: Procalcitonin negative. UCx growing S epidermidis, likely colonization. Stopped ABx and see if she has any recurrence of her fever. (6) Polymyalgia rheumatica Comment: Prednisone 20 mg daily (7) Urinary retention Comment: Suspect constipation contributed continue kidd for UOP monitoring (8) DVT prophylaxis Comment: coumadin INR tomorrow Status and Disposition: Inpatient for hypoxic respiratory failure
[2016-09-20] MEDS: Digoxin TAB* 0.125 MG PO SCH (16:38)
[2016-09-20] MEDS: Cholecalciferol TAB* 1000 UNITS PO SCH (16:39)
[2016-09-20] MEDS: Diltiazem CD CAP* 120 MG PO SCH (20:04)
[2016-09-20] MEDS: Atorvastatin* 10 MG TAB PO SCH (20:04)
[2016-09-20] MEDS: Latanoprost 0.005%* 2.5 ml BTL RIGHT EYE SCH (20:05)
[2016-09-21 06:11] LABS: Hematocrit 35 % (35-47); Hemoglobin 11.3 g/dl (12.0-16.0); Mean Corpuscular HGB Conc 32 g/dl (31-36); Mean Corpuscular Hemoglobin 29 pg (27-31); Mean Corpuscular Volume 90 fL (80-97); Mean Platelet Volume 10 um3 (7.4-10.4); Red Blood Count 3.89 10^6/ul (4.0-5.4); Red Cell Distribution Width 18 % (10.5-15)
[2016-09-21 06:13] LABS: Comments Flag Yes
[2016-09-21] MEDS: Levothyroxine TAB* 75 MCG TAB PO SCH (06:16)
[2016-09-21 06:17] LABS: Add Diff/Slide Review? Slide Review Added
[2016-09-21 06:30] LABS: BUN/Creatinine Ratio 39.3 (8-20); Calcium 8.3 mg/dL (8.6-10.3); EGFR African American 119.6 (>60); Potassium 3.8 mmol/L (3.5-5.0)
[2016-09-21 06:47] LABS: Burr Cells 1+; Macrocytosis 1+; Microcytosis 1+; Spherocytes 1+; Target Cells 1+
[2016-09-21 06:48] LABS: Platelet Morphology Large; Toxic Granulation 1+
[2016-09-21] MEDS: Acetaminophen TAB* 325 MG PO SCH ×3 (08:44→16:59)
[2016-09-21] MEDS: Brimonidine P 0.15%(NF) OPH SOL 5 ML BTL RIGHT EYE SCH ×2 (08:44→21:03)
[2016-09-21] MEDS: Aspirin EC Low Dose* 81 MG TAB.EC PO SCH (08:45)
[2016-09-21] MEDS: Lactobacillus Acidophilu (GG)* 1 CAP CAP PO SCH ×2 (08:45→21:02)
[2016-09-21] MEDS: Diltiazem CD CAP* 240 MG PO SCH (08:45)
[2016-09-21] MEDS: predniSONE TAB* 20 MG PO SCH (08:45)
[2016-09-21] MEDS: Docusate CAP* 100 MG PO SCH ×2 (08:52→21:02)
[2016-09-21] MEDS: Senna TAB PO SCH ×2 (08:52→21:02)
[2016-09-21] MEDS: Nitrofurantoin Macrocrystals* 100 MG CAP PO SCH ×2 (09:35→21:03)
[2016-09-21] MEDS ORDERED: Furosemide IV* 10 MG/ML 2 ML VIAL (20 MG) IV SLOW PU ONE (12:24)
--- NOTE | 2016-09-21 16:12 | PN ---
Subjective Date of Service: 09/21/16 Interval History: Seen with daughter at bedside Breathing and energy improved Walking improved Kidd out Titrated off of oxygen Family History: Unchanged from Admission Social History: Unchanged from Admission Past Medical History: Unchanged from Admission Objective Active Medications: Acetaminophen (Tylenol Tab*) 650 mg PO AC [facility] Last Admin: 09/21/16 13:04 Dose: 650 mg Al Hydrox/Mg Hydrox/Simethicone (Maalox Plus*) 30 ml PO Q6H PRN PRN Reason: INDIGESTION Aspirin (Aspirin Ec Low Dose*) 81 mg PO QAM [facility] Last Admin: 09/21/16 08:45 Dose: 81 mg Atorvastatin Calcium (Lipitor*) 5 mg PO BEDTIME [facility] Last Admin: 09/20/16 20:04 Dose: 5 mg Brimonidine Tartrate (Alphagan P 0.15%(Nf)) 1 drop RIGHT EYE BID [facility] Last Admin: 09/21/16 08:44 Dose: 1 drop Cholecalciferol (Vitamin D Tab*) 1,000 units PO QPM [facility] Last Admin: 09/20/16 16:39 Dose: 1,000 units Digoxin (Lanoxin Tab*) 0.125 mg PO 1700 [facility] Last Admin: 09/20/16 16:38 Dose: 0.125 mg Diltiazem HCl (Cardizem Cd Cap*) 120 mg PO BEDTIME [facility] Last Admin: 09/20/16 20:04 Dose: 120 mg Diltiazem HCl (Cardizem Cd Cap*) 240 mg PO DAILY [facility] Last Admin: 09/21/16 08:45 Dose: 240 mg Docusate Sodium (Colace Cap*) 100 mg PO BID [facility] Last Admin: 09/21/16 08:52 Dose: 100 mg Lactobacillus Rhamnosus (Culturelle*) 1 cap PO BID [facility] Last Admin: 09/21/16 08:45 Dose: 1 cap Lactulose (Lactulose*) 30 ml PO QID [facility] Last Admin: 09/21/16 13:04 Dose: 30 ml Latanoprost (Xalatan 0.005%*) 1 drop RIGHT EYE BEDTIME [facility] Last Admin: 09/20/16 20:05 Dose: 1 drop Levothyroxine Sodium (Synthroid Tab*) 75 mcg PO 0600 [facility] Last Admin: 09/21/16 06:16 Dose: 75 mcg Nitrofurantoin Macrocrystals (Macrodantin*) 100 mg PO BID [facility] Last Admin: 09/21/16 09:35 Dose: 100 mg Pharmacy Profile Note (Coumadin Daily Reminder*) 1 note FOLLOW UP 1700 [facility] Last Admin: 09/20/16 16:39 Dose: 1 note Polyethylene Glycol/Electrolytes (Miralax*) 17 gm PO DAILY PRN PRN Reason: CONSTIPATION Last Admin: 09/16/16 12:45 Dose: 17 gm Prednisone (Deltasone Tab*) 20 mg PO DAILY [facility] Last Admin: 09/21/16 08:45 Dose: 20 mg Senna (Senokot Tab*) 1 tab PO BID [facility] Last Admin: 09/21/16 08:52 Dose: 1 tab Vital Signs 09/20/16 09/20/16 09/20/16 16:29 16:38 19:51 Temperature 97.8 F 97.8 F Pulse Rate 69 64 74 Respiratory 28 26 Rate Blood Pressure 145/55 147/61 (mmHg) O2 Sat by Pulse 97 97 Oximetry 09/20/16 09/20/16 09/21/16 20:00 23:32 03:28 Temperature 97.8 F 97.7 F Pulse Rate 71 73 Respiratory 28 16 16 Rate Blood Pressure 150/51 142/94 (mmHg) O2 Sat by Pulse 97 94 90 Oximetry 09/21/16 09/21/16 08:00 11:26 Temperature 99.1 F Pulse Rate 62 Respiratory 38 16 Rate Blood Pressure 148/52 (mmHg) O2 Sat by Pulse 96 Oximetry Oxygen Devices in Use Now: None - 97% Appearance: sitting in chair, NAD Eyes: No Scleral Icterus, PERRLA Ears/Nose/Mouth/Throat: Clear Oropharnyx, Mucous Membranes Moist Neck: NL Appearance and Movements; NL JVP, Trachea Midline Respiratory: Symmetrical Chest Expansion and Respiratory Effort, Clear to Auscultation Cardiovascular: RRR Abdominal: NL Sounds; No Tenderness; No Distention, No Hepatosplenomegaly Lymphatic: No Cervical Adenopathy Extremities: - - 1+ LE edema Skin: No Rash or Ulcers Neurological: Alert and Oriented x 3 Result Diagrams: 09/21/16 05:28 09/21/16 05:28 Assess/Plan/Problems-Billing Assessment: 86 yo F with hx of HTN, chronic diastolic CHF, tachy-kayleigh syndrome s/p PPM, bioprosthetic MVR, hypothyroidism, PMR on chronic prednisone and recent stay in ICU for H. flu requiring intubation returning with fever, acute hypoxic respiratory failure, uncontrolled Aflutter, urinary retention and constipation - Patient Problems (1) Acute respiratory failure with hypoxia Comment: Suspect decompensated heart failure in setting of afib RVR Prednisone to 10 mg tomorrow (home 8mg) On room air Lasix 20IV today trend I/O. (2) Chronic diastolic (congestive) heart failure Comment: Increase lasix from PO to IV 09/19/16 daily weights strict I/O (3) Atrial fibrillation Comment: Appreciate Cardiology assistance - may benefit from ablation further down the line, however for now will continue home Cardizem BID and daily Digoxin hold coumadin with supratherapeutic INR Digoxin lvl wnl (4) Constipation Comment: +BM on 09/19/16 anupam miralax today (5) Fever Comment: Procalcitonin negative. UCx growing S epidermidis, likely colonization. Stopped ABx and see if she has any recurrence of her fever. (6) Polymyalgia rheumatica Comment: Prednisone 10 mg daily (7) Urinary retention Comment: Suspect constipation contributed kidd out 09/21 - trial void OK (8) DVT prophylaxis Comment: coumadin on hold INR tomorrow Status and Disposition: Inpatient for hypoxic respiratory failure
[2016-09-21] MEDS: Cholecalciferol TAB* 1000 UNITS PO SCH (16:57)
[2016-09-21] MEDS: Digoxin TAB* 0.125 MG PO SCH (16:57)
[2016-09-21] MEDS: Latanoprost 0.005%* 2.5 ml BTL RIGHT EYE SCH (21:00)
[2016-09-21] MEDS: Diltiazem CD CAP* 120 MG PO SCH (21:01)
[2016-09-21] MEDS: Atorvastatin* 10 MG TAB PO SCH (21:02)
[2016-09-22 05:45] LABS: BUN/Creatinine Ratio 36.1 (8-20); Calcium 8.7 mg/dL (8.6-10.3); EGFR African American 119.6 (>60); Potassium 3.7 mmol/L (3.5-5.0)
[2016-09-22] MEDS: Levothyroxine TAB* 75 MCG TAB PO SCH ×2 (06:16→06:29)
[2016-09-22] MEDS: Acetaminophen TAB* 325 MG PO SCH ×3 (06:29→16:48)
[2016-09-22] MEDS: Lactobacillus Acidophilu (GG)* 1 CAP CAP PO SCH ×2 (08:23→20:44)
[2016-09-22] MEDS: Aspirin EC Low Dose* 81 MG TAB.EC PO SCH (08:23)
[2016-09-22] MEDS: Diltiazem CD CAP* 240 MG PO SCH (08:23)
[2016-09-22] MEDS: Nitrofurantoin Macrocrystals* 100 MG CAP PO SCH (08:23)
[2016-09-22] MEDS: predniSONE TAB* 10 MG PO SCH (08:23)
[2016-09-22] MEDS: Docusate CAP* 100 MG PO SCH ×2 (08:24→20:44)
[2016-09-22] MEDS: Polyethylene Glycol 3350* 17 GM PACKET PO SCH (08:24)
[2016-09-22] MEDS: Brimonidine P 0.15%(NF) OPH SOL 5 ML BTL RIGHT EYE SCH ×2 (08:24→20:45)
[2016-09-22] MEDS: Senna TAB PO SCH ×2 (08:24→20:44)
--- NOTE | 2016-09-22 11:38 | RAD ---
HISTORY: New infiltrate COMPARISONS: September 16, 2016 VIEWS:1: Single frontal portable view of the chest at 10:10 AM FINDINGS: LINES AND TUBES: A left-sided pacemaker is noted CARDIOMEDIASTINAL SILHOUETTE: The cardiomediastinal silhouette is normal for portable technique. A prosthetic heart valve is noted PLEURA: There is blunting of left costophrenic angle LUNG PARENCHYMA: There is persistent confluent alveolar opacification of the right upper lung. There is developing confluent alveolar opacification of the left lower lung ABDOMEN: The upper abdomen is clear. There is no subphrenic gas. BONES AND SOFT TISSUES: The patient is status post median sternotomy. IMPRESSION: 1. PERSISTENT RIGHT UPPER LUNG CONSOLIDATION. 2. DEVELOPING LEFT LOWER LUNG CONSOLIDATION. 3. RECOMMEND FOLLOW-UP UNTIL RESOLUTION TO EXCLUDE UNDERLYING PULMONARY PARENCHYMAL PATHOLOGY.
[2016-09-22] MEDS ORDERED: ALPRAZolam TAB* 0.25 MG PO ONE ×2 (12:10→12:15)
[2016-09-22] MEDS ORDERED: ALPRAZolam TAB* 0.25 MG ONE (12:19)
--- NOTE | 2016-09-22 15:17 | PN ---
Subjective Date of Service: 09/22/16 Interval History: Episode of SOB, desaturation to 80s, choking early in the morning Above associated with fever to 100.6 This AM feels anxious, more fatigued, SOB No N/V or evidence of aspiration event Family History: Unchanged from Admission Social History: Unchanged from Admission Past Medical History: Unchanged from Admission Objective Active Medications: Acetaminophen (Tylenol Tab*) 650 mg PO AC [facility] Last Admin: 09/22/16 12:23 Dose: 650 mg Al Hydrox/Mg Hydrox/Simethicone (Maalox Plus*) 30 ml PO Q6H PRN PRN Reason: INDIGESTION Aspirin (Aspirin Ec Low Dose*) 81 mg PO QAM [facility] Last Admin: 09/22/16 08:23 Dose: 81 mg Atorvastatin Calcium (Lipitor*) 5 mg PO BEDTIME [facility] Last Admin: 09/21/16 21:02 Dose: 5 mg Brimonidine Tartrate (Alphagan P 0.15%(Nf)) 1 drop RIGHT EYE BID [facility] Last Admin: 09/22/16 08:24 Dose: 1 drop Cholecalciferol (Vitamin D Tab*) 1,000 units PO QPM [facility] Last Admin: 09/21/16 16:57 Dose: 1,000 units Digoxin (Lanoxin Tab*) 0.125 mg PO 1700 [facility] Last Admin: 09/21/16 16:57 Dose: 0.125 mg Diltiazem HCl (Cardizem Cd Cap*) 120 mg PO BEDTIME [facility] Last Admin: 09/21/16 21:01 Dose: 120 mg Diltiazem HCl (Cardizem Cd Cap*) 240 mg PO DAILY [facility] Last Admin: 09/22/16 08:23 Dose: 240 mg Docusate Sodium (Colace Cap*) 100 mg PO BID [facility] Last Admin: 09/22/16 08:24 Dose: Not Given Lactobacillus Rhamnosus (Culturelle*) 1 cap PO BID [facility] Last Admin: 09/22/16 08:23 Dose: 1 cap Lactulose (Lactulose*) 30 ml PO QID [facility] Last Admin: 09/22/16 12:31 Dose: Not Given Latanoprost (Xalatan 0.005%*) 1 drop RIGHT EYE BEDTIME [facility] Last Admin: 09/21/16 21:00 Dose: 1 drop Levofloxacin (Levaquin Tab*) 750 mg PO Q24H [facility] Levothyroxine Sodium (Synthroid Tab*) 75 mcg PO 0600 [facility] Last Admin: 09/22/16 06:29 Dose: 75 mcg Pharmacy Profile Note (Coumadin Daily Reminder*) 1 note FOLLOW UP 1700 [facility] Last Admin: 09/21/16 16:59 Dose: 1 note Polyethylene Glycol/Electrolytes (Miralax*) 17 gm PO DAILY [facility] Last Admin: 09/22/16 08:24 Dose: Not Given Prednisone (Deltasone Tab*) 10 mg PO DAILY WITH MEAL [facility] Last Admin: 09/22/16 08:23 Dose: 10 mg Senna (Senokot Tab*) 1 tab PO BID [facility] Last Admin: 09/22/16 08:24 Dose: Not Given Warfarin Sodium (Coumadin Tab(*)) 0.5 mg PO DAILY@1700 [facility] PRN Reason: Protocol Vital Signs 09/21/16 09/21/16 09/21/16 16:57 19:30 20:00 Temperature 98.1 F Pulse Rate 72 68 Respiratory 22 22 Rate Blood Pressure 148/46 (mmHg) O2 Sat by Pulse 96 Oximetry 09/21/16 09/22/16 09/22/16 23:54 04:15 05:28 Temperature 97.5 F 99.8 F Pulse Rate 67 69 Respiratory 16 16 Rate Blood Pressure 149/54 147/56 (mmHg) O2 Sat by Pulse 92 95 91 Oximetry 09/22/16 09/22/16 09/22/16 06:15 07:24 08:00 Temperature 100.6 F 99.2 F Pulse Rate 114 103 Respiratory 40 32 39 Rate Blood Pressure 159/94 148/45 (mmHg) O2 Sat by Pulse 92 94 92 Oximetry 09/22/16 09/22/16 08:08 11:30 Temperature 99.0 F 97.9 F Pulse Rate 96 108 Respiratory 39 20 Rate Blood Pressure 147/51 (mmHg) O2 Sat by Pulse 91 93 Oximetry Oxygen Devices in Use Now: None - titrated of O2, 92% on RA Eyes: No Scleral Icterus, PERRLA Ears/Nose/Mouth/Throat: Clear Oropharnyx, Mucous Membranes Moist Neck: NL Appearance and Movements; NL JVP, Trachea Midline Respiratory: Symmetrical Chest Expansion and Respiratory Effort, - - rales left base up 1/2 Cardiovascular: - - IRIR Abdominal: NL Sounds; No Tenderness; No Distention, No Hepatosplenomegaly Lymphatic: No Cervical Adenopathy Extremities: - - 1+ le edema Neurological: Alert and Oriented x 3 Result Diagrams: 09/21/16 05:28 09/22/16 04:57 Assess/Plan/Problems-Billing Assessment: 86 yo F with hx of HTN, chronic diastolic CHF, tachy-kayleigh syndrome s/p PPM, bioprosthetic MVR, hypothyroidism, PMR on chronic prednisone and recent stay in ICU for H. paraflu requiring intubation returning with fever, acute hypoxic respiratory failure, uncontrolled Aflutter, urinary retention and constipation - Patient Problems (1) Acute respiratory failure with hypoxia Comment: Improved with treatment of decompensated heart failure in setting of afib RVR However, today with low grade fever and CXR c/w persistent left and rightsided PNA I am questioning if she had complete resolution of previous PNA. The infiltrates on CXR can clearly be seen on prior CXRs but seemed to improve ( actual vs image acquisistion?) I am starting her on levaquin 750mg PO to continue treatment for a PNA with hopes that she can complete course at [facility] and receive PT concurrently Prednisone to 10 mg (home 8mg) On room air lasix 20mg PO trend I/O. (2) Chronic diastolic (congestive) heart failure Comment: Increase lasix from PO to IV 09/19/16 daily weights strict I/O lasix 20mg PO 09/22/16 (3) Atrial fibrillation Comment: Appreciate Cardiology assistance - may benefit from ablation further down the line, however for now will continue home Cardizem BID and daily Digoxin restart coumadin at lower dose (0.5mg) while on fluorquinolone and with prior supratherapeutic values Digoxin lvl wnl (4) Constipation Comment: +BM on 09/19/16 anupam miralax (5) Fever Comment: Procalcitonin negative. UCx growing S epidermidis, likely colonization. Treatment as above (6) Polymyalgia rheumatica Comment: Prednisone 10 mg daily (7) Urinary retention Comment: Suspect constipation contributed kidd out 09/21 - trial void OK (8) DVT prophylaxis Comment: coumadin 0.5 09/22/16 INR tomorrow Status and Disposition: Has bed at [facility]. If stable can be discharged on levaquin if deemed necessary
[2016-09-22] MEDS ORDERED: Levofloxacin TAB* 750 MG PO SCH (16:00)
[2016-09-22] MEDS: Cholecalciferol TAB* 1000 UNITS PO SCH (16:48)
[2016-09-22] MEDS: Furosemide TAB* 20 MG PO SCH (16:49)
[2016-09-22] MEDS: Digoxin TAB* 0.125 MG PO SCH (16:49)
[2016-09-22] MEDS ORDERED: Warfarin TAB(*) 1 MG PO SCH (17:00)
[2016-09-22] MEDS: Atorvastatin* 10 MG TAB PO SCH (20:43)
[2016-09-22] MEDS: Latanoprost 0.005%* 2.5 ml BTL RIGHT EYE SCH (20:45)
[2016-09-22] MEDS: Diltiazem CD CAP* 120 MG PO SCH (20:45)
[2016-09-23] MEDS: Levothyroxine TAB* 75 MCG TAB PO SCH (05:38)
[2016-09-23 06:01] LABS: Hematocrit 35 % (35-47); Hemoglobin 11.5 g/dl (12.0-16.0); Mean Corpuscular HGB Conc 33 g/dl (31-36); Mean Corpuscular Hemoglobin 29 pg (27-31); Mean Corpuscular Volume 90 fL (80-97); Mean Platelet Volume 9 um3 (7.4-10.4); Red Blood Count 3.91 10^6/ul (4.0-5.4); Red Cell Distribution Width 18 % (10.5-15); White Blood Count 9.4 10^3/ul (3.5-10.8)
[2016-09-23 06:18] LABS: BUN/Creatinine Ratio 33.3 (8-20); Calcium 8.6 mg/dL (8.6-10.3); EGFR Non-African American 114.3 (>60); Potassium 3.4 mmol/L (3.5-5.0)
[2016-09-23 07:57] VITALS: BP 158/50
[2016-09-23] MEDS: Acetaminophen TAB* 325 MG PO SCH ×2 (09:43→11:08)
[2016-09-23] MEDS: Aspirin EC Low Dose* 81 MG TAB.EC PO SCH (09:44)
[2016-09-23] MEDS: Furosemide TAB* 20 MG PO SCH (09:44)
[2016-09-23] MEDS: Lactobacillus Acidophilu (GG)* 1 CAP CAP PO SCH (09:45)
[2016-09-23] MEDS: predniSONE TAB* 10 MG PO SCH (09:45)
[2016-09-23] MEDS: Diltiazem CD CAP* 240 MG PO SCH (09:46)
[2016-09-23] MEDS: Brimonidine P 0.15%(NF) OPH SOL 5 ML BTL RIGHT EYE SCH (09:47)
[2016-09-23] MEDS: Docusate CAP* 100 MG PO SCH (09:49)
[2016-09-23] MEDS: Polyethylene Glycol 3350* 17 GM PACKET PO SCH (09:50)
[2016-09-23] MEDS: Senna TAB PO SCH (09:50)
--- NOTE | 2016-09-23 10:24 | DCNOTE ---
Patient seen this morning. Says she feels good. No complaints this morning. Says she had a "terrible" day yesterday but now does not feel SOB, fever/ chills. Ready for discharge. On exam, IRIR, ELIAS, normal rate, mild rales in L base, otherwise clear, no LE edema Will discharge to [facility] with PO ABx to complete course and continue PO Lasix.
--- NOTE | 2016-09-23 11:12 | DS ---
CC: Dr. Ayers DATE OF ADMISSION: 09/16/2016. DATE OF DISCHARGE: 09/23/2016. PRIMARY CARE PHYSICIAN: Dr. Ayers. PRINCIPAL DISCHARGE DIAGNOSES: Acute hypoxic respiratory failure, atrial fibrillation with RVR, acu te on chronic diastolic CHF exacerbation, pneumonia, constipation. SECONDARY DIAGNOSES: Recent H-flu pneumonia, vertigo, hypertension, COPD, hyperlipidemia, hypothyro idism, history of CVA, pacemaker placement for tachybrady syndrome. STUDIES DONE DURING HOSPITALIZATION: 1. Chest x-ray: Impression: Right upper lobe infiltrate, unchanged. Recommend follow-up chest x- rays to resolution. Findings most consistent with superimposed congestive heart failure. 2. Abdominal x-ray: Impression: No acute diagnostic findings. 3. Ultrasound of the abdomen: Impression: Hepatic and renal cyst. This has been documented on [facility] CT imaging. Cholelithiasis. Mild fullness of the right renal collecting system, but no donny hydronephrosis. 4. Left lower extremity Doppler: Impression: Left calf edema. Popliteal cyst. No evidence of DVT . 5. Left upper extremity Doppler: Impression: No evidence of venous thrombosis of the left extremi ty. 6. Abdomen/KUB: Impression: Nonspecific bowel gas pattern. Suggest a follow-up abdominal exam. 7. Chest x-ray: Impression: Persistent right upper lung consolidation developing left lower lung consolidation. Recommend follow-up until resolution. DISCHARGE MEDICATION REGIMEN: 1. Diltiazem 240 mg by mouth in the morning, 120 mg by mouth at bedtime. 2. Levaquin 750 mg by mouth daily. 3. MiraLax 17 gm by mouth daily as needed for constipation. 4. Warfarin 0.5 mg by mouth daily. 5. Prednisone 10 mg by mouth daily. 6. Aspirin 81 mg by mouth daily. 7. Atorvastatin 5 mg by mouth at bedtime. 8. Calcium, magnesium and zinc one tablet by mouth nightly. 9. Cetirizine 10 mg by mouth daily. 10. Co-Enzyme Q 100 mg by mouth nightly. 11. Lasix 40 mg by mouth daily. 12. Latanoprost one drop in right eye at bedtime. 13. Levothyroxine 75 mcg by mouth daily. 14. Pro [place] one capsule by mouth nightly. 15. Vitamin D3 1000 units by mouth nightly. 16. Brimonidine Tartrate one drop in the right eye two times daily. 17. Lactobacillus one capsule by mouth two times daily. 18. Potassium and Sodium Phos 250 mg by mouth 2 times daily. 19. Tylenol 650 mg by mouth 3 times daily as needed for pain. 20. Multivitamin one tablet by mouth 3 times daily. 21. Niacinamide 500 mg by mouth weekly. 22. Digoxin 0.125 mg by mouth nightly. 23. Sennosides Docusate two tablets by mouth 2 times daily. HISTORY OF PRESENT ILLNESS AND HOSPITAL SUMMARY: Please see the full history and physical by Dr. Henry Hernandez for full details. Briefly, Ms. Gilmore is an 86-year- old female with a past medical hi story as above who presented to the hospital with fever, tachycardia and hypoxemia. She was initial ly started on broad spectrum antibiotics due to concern for possible infection; however, her chest x -ray looked mostly unchanged. The patient did have some urinary retention on admission which was fe lt to be due to her significant constipation she had in the days leading up to this hospitalization. A Walker was placed and her urine subsequently grew some staph epidermitis, but this was felt to be contaminate. Antibiotics were continued for two days and then held. The patient continued to have improvement in her respiratory status with rate control and subsequent diuresis. She was evaluated by Cardiology and it was felt that she should continue her medications at this time. Discussions with her daughter and Cardiology show that the family feels that she is having significa nt adverse effects to a number of medications, including Amlodipine which she was on and which was d iscontinued here in the hospital. In the future, she could be considered for possible ablation of h er A-fib so she could be off of medications; however, this can be decided further down the line. Over the following days, the patient had continued constipation and subsequently required GoLYTELY i n order to have a bowel movement. After this, the patient's abdominal symptoms improved. The Walker catheter was also able to be removed and she was able to urinate on her own. She continued to be d iuresed over the following days and her oxygen was weaned off. The day prior to discharge, she had a low grade fever and some chills. A chest x-ray showed possible progression of her previous consol idation, so the patient was started on oral Levaquin. She will continue this as an outpatient for a five day course. Her INR was supratherapeutic in the hospital as the patient's Coumadin was held f or a few days and then restarted a smaller of 0.5 mg by mouth nightly. This will need to be followe d as an outpatient. Total time spent on this discharge was 45 minutes. This is a summary of the hospitalization, please see the full medical record for further details. [id number]/[facility] #: [id number]
--- NOTE | 2016-12-04 10:31 | ED ---
tomas Sanabria Timothy, scribed for Rodolfo Bueno MD on 09/16/16 at 0731 . Progress - Progress Note Progress Note: Rina Gilmore is an 86 yo female presenting to [facility] with constant 10/10 abd pain and abd distension. She states she has not had a BM in a week. Evaluated Pt and spoke with daughter at 0709, Pt was tachycardic. She is much more comfortable sitting up. Physical Exam: Constitutional: Well-developed, Well-nourished, Alert. (-) Distressed Skin: Warm, Dry HENT: Normocephalic; Atraumatic Eyes: Conjunctiva normal Neck: Musculoskeletal ROM normal neck. (-) JVD, (-) Stridor, (-) Tracheal deviation Cardio: Rhythm regular, rate normal, Heart sounds normal; Intact distal pulses; The pedal pulses are 2+ and symmetric. Radial pulses are 2+ and symmetric. (-) Murmur Pulmonary/Chest wall: Effort normal. (-) Respiratory distress, (-) Wheezes, (-) Rales Abd: Soft, Tenderness in RLQ, (-) Distension, (-) Guarding, (-) Rebound Musculoskeletal: Edematous LLE Lymph: (-) Cervical adenopathy Neuro: Alert, Oriented x3 Psych: Mood and affect Normal Abd XR: There is a large amount of stool in the descending colon. Abd ultrasound: IMPRESSION: 1. Hepatic and renal cysts. This has been documented on earlier CT imaging. 2. Cholelithiasis. This represents a known finding. 3. Mild fullness right renal collecting system but no donny hydronephrosis. Venous Doppler LLE: IMPRESSION: LEFT CALF EDEMA AND POPLITEAL CYST. NO EVIDENCE OF DEEP VENOUS THROMBOSIS - EKG/XRAY/CT XRAY: chest - Right upper lobe pneumonia Xray Comments: ABD and Chest X-Rays read by emergency physician Re-Evaluation - Re-Evaluation First Eval Re-Evaluation Time: 06:53 Comment: Pt's daughter now present. Discussed history and likely plan of care with daughter. Daughter states pt has been having BMs. Course/Dx - Course Course Of Treatment: Rina Gilmore is an 86 yo female presenting to [facility] with abd pain and no BM in the past week. After clinical examination, an US of her gall bladder was ordered, as well as LLE venous doppler to rule out DVT. Her abd XR showed large amounts of stool in the descending colon. Her CXR indicated right upper lobe pneumonia. Her - Diagnoses Provider Diagnoses: Healthcare-associated pneumonia, Fever, CHF exacerbation - Provider Notifications Discussed Care Of Patient With: 0847 - Dr. Hernandez (hospitalist) - discussed Pt condition, agrees to admit Pt. Instructed by Provider To: Admit As Inpatient The documentation as recorded by the tomas ledesma Timothy accurately reflects the service I personally performed and the decisions made by me, Rodolfo Bueno MD.
== END 2016-09-23 11:18 | DRG 189 ==
LOC: ED 05:54 → ICU 09:14 → MEDTELE 09-18 11:18
PROVIDERS: ADMIT Internal Medicine; ATTEND Hospitalist
PROC: 0T9B70Z Drainage of Bladder with Drainage Device, Via Natural or Artificial Opening (ICD-10-PCS; principal; 2016-09-16)
DX: J96.01 Acute respiratory failure with hypoxia (principal); J18.9 Pneumonia, unspecified organism; I50.33 Acute on chronic diastolic (congestive) heart failure; I11.0 Hypertensive heart disease with heart failure; I48.92 Unspecified atrial flutter; J44.0 Chronic obstructive pulmonary disease with (acute) lower respiratory infection; K76.89 Other specified diseases of liver; I51.81 Takotsubo syndrome; I48.2 Chronic atrial fibrillation; Z99.81 Dependence on supplemental oxygen; E78.5 Hyperlipidemia, unspecified; E03.9 Hypothyroidism, unspecified; M35.3 Polymyalgia rheumatica; Z66 Do not resuscitate; K59.00 Constipation, unspecified; R33.9 Retention of urine, unspecified; I25.10 Atherosclerotic heart disease of native coronary artery without angina pectoris; E78.00 Pure hypercholesterolemia, unspecified; M85.80 Other specified disorders of bone density and structure, unspecified site; Z96.642 Presence of left artificial hip joint; H40.9 Unspecified glaucoma; F32.9 Major depressive disorder, single episode, unspecified; G62.9 Polyneuropathy, unspecified; M19.90 Unspecified osteoarthritis, unspecified site; I73.9 Peripheral vascular disease, unspecified; I35.0 Nonrheumatic aortic (valve) stenosis; N28.1 Cyst of kidney, acquired; K80.20 Calculus of gallbladder without cholecystitis without obstruction; M71.22 Synovial cyst of popliteal space [Baker], left knee; R79.1 Abnormal coagulation profile; T45.515A Adverse effect of anticoagulants, initial encounter; Z86.73 Personal history of transient ischemic attack (TIA), and cerebral infarction without residual deficits; Z95.0 Presence of cardiac pacemaker; Z90.81 Acquired absence of spleen; Z88.5 Allergy status to narcotic agent; Z88.8 Allergy status to other drugs, medicaments and biological substances; Z82.49 Family history of ischemic heart disease and other diseases of the circulatory system; Z87.891 Personal history of nicotine dependence; I25.2 Old myocardial infarction; Z87.01 Personal history of pneumonia (recurrent); Z98.49 Cataract extraction status, unspecified eye; Z90.710 Acquired absence of both cervix and uterus; Z79.01 Long term (current) use of anticoagulants; Z79.52 Long term (current) use of systemic steroids; Z79.82 Long term (current) use of aspirin; Z95.2 Presence of prosthetic heart valve
CPT/HCPCS: 36415; 71010; 71020; 74000; 74020; 76705; 80048; 80053; 80162; 80202; 81003; 81015; 83605; 83880; 84145; 84484; 85025; 85027; 85610; 85730; 87040; 87077; 87086; 87186; 87502; 93005; 94760; A9270-GY; J0692; J0744; J1720; J1940; J2270; J2405; J3370; J7512

== ENCOUNTER 2017-01-31 10:04 | Emergency (ER) | payer MEDICARE, MEDICAID ==
[2017-01-31] MEDS ORDERED: NS 0.9% 1000 ML* 1,000 ML IV ONE (10:24)
--- NOTE | 2017-01-31 11:03 | RAD ---
Indication: Fever. Comparison is made with previous exam dated September 22, 2016. 2 views of the chest including dual energy PA views are reviewed. No mediastinal shift is noted. Heart is of normal size and configuration. 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 Pacemaker leads are in place. Right lung field appears hyperinflated. IMPRESSION: Left suprahilar mass which was not present on prior exam. CT is suggested for further evaluation.
[2017-01-31 12:11] LABS: Add Diff/Slide Review? Slide Review Added; Comments Flag Yes; Hematocrit 43 % (35-47); Hemoglobin 13.6 g/dl (12.0-16.0); Mean Corpuscular HGB Conc 32 g/dl (31-36); Mean Corpuscular Hemoglobin 26 pg (27-31); Mean Corpuscular Volume 83 fL (80-97); Red Blood Count 5.16 10^6/ul (4.0-5.4); Red Cell Distribution Width 18 % (10.5-15); White Blood Count 10.5 10^3/ul (3.5-10.8)
[2017-01-31 12:23] LABS: Albumin 3.6 g/dL (3.2-5.2); BUN/Creatinine Ratio 23.6 (8-20); C Reactive Protein 102.47 mg/L (< 5.00); Calcium 9.7 mg/dL (8.6-10.3); EGFR African American 77.3 (>60); EGFR Non-African American 60.1 (>60); Globulin 3.7 g/dL (2-4); Potassium 4.2 mmol/L (3.5-5.0); Total Bilirubin 0.8 mg/dL (0.2-1.0); Total Protein 7.3 g/dL (6.4-8.9)
[2017-01-31 12:29] LABS: Troponin I 0.19 ng/mL (<0.04)
[2017-01-31 12:46] LABS: Urine Bacteria Absent (Absent); Urine Bilirubin Negative (Negative); Urine Glucose Negative (Negative); Urine Nitrite Negative (Negative)
[2017-01-31 13:46] LABS: Erythrocyte Sed Rate 39 mm/Hr (0-40)
[2017-01-31 16:11] VITALS: BP 138/73
[2017-01-31] MEDS ORDERED: Acetaminophen TAB* 325 MG PO PRN (16:46)
[2017-01-31] MEDS ORDERED: Warfarin TAB(*) 1 MG PO SCH (17:00)
--- NOTE | 2017-01-31 17:39 | ED ---
Katy Sanabria Thomas, scribed for Nash Castellanos MD on 01/31/17 at 1027 . HPI Febrile Illness - HPI Summary HPI Summary: The pt is an 86 y/o F presenting to the ED accompanied by her daughter c/o fever (Tmax 101.9) that began two days ago. Pt additionally c/o feelings of hotness, weakness, diaphoresis, night sweats, and decreased appetite secondary to illness. Pt denies any pain, dysuria, hematuria, cough, N/V, and abd pain. PMHx: many UTIs, RI, A-Fib, CVA. She was put on a muscle relaxer two weeks ago but ceased taking it 4 days ago. - History of Current Complaint Chief Complaint: EDGeneral Time Seen by Provider: 01/31/17 10:21 Hx Obtained From: Patient Onset/Duration: Started Days Ago - 2 days, Still Present Timing: Constant Pain Intensity: 0 Pain Scale Used: 0-10 Numeric Associated Signs and Symptoms: Diaphoresis, Night Sweats, Other: - POS: decreased appetite, feelings of hotness. Patient denies any pain, dysuria, hematuria, cough, N/V, and abd pain - Additional Pertinent History Primary Care Physician: [id number] - Allergy/Home Medications Allergies/Adverse Reactions: Allergies Allergy/AdvReac Type Severity Reaction Status Date / Time Amlodipine AdvReac Constipatio Verified 01/31/17 14:16 n Celecoxib [From Celebrex] AdvReac Nausea And Verified 01/31/17 14:16 Vomiting Rofecoxib [From Vioxx] AdvReac Nausea And Verified 01/31/17 14:16 Vomiting PMH/Surg Hx/FS Hx/Imm Hx Previously Healthy: No Endocrine/Hematology History: Reports: Hx Anticoagulant Therapy, Hx Blood Transfusions - multiple, Hx Thyroid Disease - hypothroid, Hx Anemia Denies: Hx Blood Disorders, Hx Bone Marrow Disease, Hx Diabetes, Hx Systemic Lupus Erythematosus, Hx Unexplained Bleeding Cardiovascular History: Reports: Hx Aneurysm - AAA REPAIR 03/07/13, Hx Congestive Heart Failure - 09/2007, Hx Coronary Artery Disease, Hx Hypercholesterolemia, Hx Hypertension, Hx Myocardial Infarction, Hx Pacemaker/ ICD, Hx Peripheral Vascular Disease, 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,AORTIC VALVE DIEASE, Other Cardiovascular Problems/Disorders - AORTIC VALVE DISEASE/AAA/ISCHEMIC [id number] Denies: Hx Angina Respiratory History: Reports: Hx Chronic Obstructive Pulmonary Disease (COPD), Hx Pneumonia - post op, Hx Pulmonary Embolism GI History: Reports: Hx Gall Bladder Disease Denies: Other GI Disorders History: Reports: Hx Renal Disease - abnormal gfr Denies: Hx Dialysis, Hx Kidney Stones, Other Problems/Disorders Musculoskeletal History: Reports: Hx Arthritis - POLYMYALIGIA RHEUMATICA, Hx Orthopedic Injury - left hip replacement, Other Musculoskeletal History - POLYMYALGIA RHEUMATICA, osteopenia Denies: Hx Back Problems, Hx Osteoporosis Sensory History: Reports: Hx Contacts or Glasses, Hx Glaucoma - right eye Denies: Hx Hearing Problem Opthamlomology History: Reports: Hx Contacts or Glasses, Hx Glaucoma - right eye Neurological History: Reports: Hx Nerve Disease - peripheral neuropathy right leg only Denies: Hx Dementia, Hx Headaches, Hx Seizures, Hx Transient Ischemic Attacks (TIA), Other Neuro Impairments/Disorders Psychiatric History: Reports: Hx Depression - remote past - Cancer History Hx Chemotherapy: No Hx Radiation Therapy: No - Surgical History Surgery Procedure, Year, and Place: hemorrrhoidectomy, hysterectomy,cataracts, spleenectomy,mitral valve,aortic aneurysm, pacer, iliac artery aneurysm,left hip replacement Hx Anesthesia Reactions: No Infectious Disease History: No Infectious Disease History: Denies: Traveled Outside the [place] in Last 30 Days - Family History Known Family History: Positive: Cardiac Disease, Hypertension Negative: Diabetes - Social History Alcohol Use: None Substance Use Type: Reports: None Hx Tobacco Use: Yes Smoking Status (MU): Former Smoker Type: Cigarettes Amount Used/How Often: quit 2009 Length of Time of Smoking/Using Tobacco: 1PPD Have You Smoked in the Last Year: No Review of Systems Positive: Fever, Skin Diaphoresis, Other - POS: feelings of hotness, night sweats, decreased appetite secondary to illness Eyes: Negative ENT: Negative Cardiovascular: Negative Respiratory: Negative Negative: Cough Gastrointestinal: Negative Negative: Abdominal Pain, Vomiting Genitourinary: Negative Negative: dysuria, hematuria Musculoskeletal: Negative Negative: Other - NEG: any pain Skin: Negative Positive: Weakness Psychological: Normal All Other Systems Reviewed And Are Negative: Yes Physical Exam - Summary Physical Exam Summary: VITAL SIGNS: Reviewed. GENERAL: Patient is a well-developed and nourished female who is lying comfortable in the stretcher. Patient is febrile. Patient is not in any acute respiratory distress. HEAD AND FACE: No signs of trauma. ~No ecchymosis, hematomas or skull depressions. No sinus tenderness. EYES: PERRLA, EOMI x 2, No injected conjunctiva, no nystagmus. EARS: Hearing grossly intact. Ear canals and tympanic membranes are within normal limits. MOUTH: Oropharynx within normal limits. NECK: Supple, trachea is midline, no adenopathy, no JVD, no carotid bruit, no c- spine tenderness, neck with full ROM. CHEST: Symmetric, no tenderness at palpation LUNGS: Clear to auscultation bilaterally. No wheezing or crackles. CVS: Patient is tachycardic. Regular rhythm. S1 and S2 present, no murmurs or gallops appreciated. ABDOMEN: Soft, non-tender. No signs of distention. No rebound no guarding, and no masses palpated. Bowel sounds are normal. EXTREMITIES: FROM in all major joints, no edema, no cyanosis or clubbing. NEURO: Alert and oriented x 3. No acute neurological deficits. Speech is normal and follows commands. SKIN: Dry and warm Triage Information Reviewed: Yes Vital Signs On Initial Exam: Initial Vitals Temp Pulse Resp BP Pulse Ox 99.1 F 99 19 158/81 94 01/31/17 10:05 01/31/17 10:05 01/31/17 10:05 01/31/17 10:05 01/31/17 10:05 Vital Signs Reviewed: Yes Diagnostics - Vital Signs Vital Signs Temp Pulse Resp BP Pulse Ox 01/31/17 10:05 99.1 F 99 19 158/81 94 - Laboratory Lab Results: Lab Results 01/31/17 01/31/17 01/31/17 Range/Units 12:00 12:00 12:00 WBC 10.5 (3.5-10.8) 10^3/ul RBC 5.16 (4.0-5.4) 10^6/ul Hgb 13.6 (12.0-16.0) g/dl Hct 43 (35-47) % MCV 83 (80-97) fL MCH 26 L (27-31) pg MCHC 32 (31-36) g/dl RDW 18 H (10.5-15) % Plt Count 164 (150-450) 10^3/ul Neut % (Auto) 66.2 (38-83) % Lymph % (Auto) 17.1 L (25-47) % [place] % (Auto) 15.0 H (1-9) % Eos % (Auto) 0.8 (0-6) % Baso % (Auto) 0.9 (0-2) % Absolute Neuts (auto) 6.9 (1.5-7.7) 10^3/ul Absolute Lymphs (auto) 1.8 (1.0-4.8) 10^3/ul Absolute Monos (auto) 1.6 H (0-0.8) 10^3/ul Absolute Eos (auto) 0.1 (0-0.6) 10^3/ul Absolute Basos (auto) 0.1 (0-0.2) 10^3/ul Absolute Nucleated RBC 0.06 10^3/ul Nucleated RBC % 0.6 ESR 39 (0-40) mm/Hr INR (Anticoag Therapy) 1.74 H (0.89-1.11) APTT 34.0 (26.0-36.3) seconds Fibrinogen 555 H (110.8-404.3) mg/dL Sodium (133-145) mmol/L Potassium (3.5-5.0) mmol/L Chloride (101-111) mmol/L Carbon Dioxide (22-32) mmol/L Anion Gap (2-11) mmol/L BUN (6-24) mg/dL Creatinine (0.51-0.95) mg/dL Est GFR ( Amer) (>60) Est GFR (Non-Af Amer) (>60) BUN/Creatinine Ratio (8-20) Glucose (70-100) mg/dL Lactic Acid (0.5-2.0) mmol/L Calcium (8.6-10.3) mg/dL Total Bilirubin (0.2-1.0) mg/dL AST (13-39) U/L ALT (7-52) U/L Alkaline Phosphatase (34-104) U/L Total Creatine Kinase (10-223) U/L Troponin I (<0.04) ng/mL C-Reactive Protein (< 5.00) mg/L B-Natriuretic Peptide ( - 100) pg/mL Total Protein (6.4-8.9) g/dL Albumin (3.2-5.2) g/dL Globulin (2-4) g/dL Albumin/Globulin Ratio (1-3) Urine Color Julia Urine Appearance Cloudy Urine pH 6.0 (5-9) Ur Specific [place] 1.013 (1.010-1.030) Urine Protein 1+(30 mg/dl) H (Negative) Urine Ketones Negative (Negative) Urine Blood Negative (Negative) Urine Nitrate Negative (Negative) Urine Bilirubin Negative (Negative) Urine Urobilinogen Negative (Negative) Ur Leukocyte Esterase 3+ H (Negative) Urine WBC (Auto) 3+(>20/hpf) H (Absent) Urine RBC (Auto) Absent (Absent) Ur Squamous Epith Cells Present H (Absent) Urine Bacteria Absent (Absent) Hyaline Casts Present H (Absent) Urine Glucose Negative (Negative) Influenza A (Rapid) (Negative) Influenza B (Rapid) (Negative) 01/31/17 01/31/17 01/31/17 Range/Units 12:00 12:00 12:00 WBC (3.5-10.8) 10^3/ul RBC (4.0-5.4) 10^6/ul Hgb (12.0-16.0) g/dl Hct (35-47) % MCV (80-97) fL MCH (27-31) pg MCHC (31-36) g/dl RDW (10.5-15) % Plt Count (150-450) 10^3/ul Neut % (Auto) (38-83) % Lymph % (Auto) (25-47) % [place] % (Auto) (1-9) % Eos % (Auto) (0-6) % Baso % (Auto) (0-2) % Absolute Neuts (auto) (1.5-7.7) 10^3/ul Absolute Lymphs (auto) (1.0-4.8) 10^3/ul Absolute Monos (auto) (0-0.8) 10^3/ul Absolute Eos (auto) (0-0.6) 10^3/ul Absolute Basos (auto) (0-0.2) 10^3/ul Absolute Nucleated RBC 10^3/ul Nucleated RBC % ESR (0-40) mm/Hr INR (Anticoag Therapy) (0.89-1.11) APTT (26.0-36.3) seconds Fibrinogen (110.8-404.3) mg/dL Sodium 133 (133-145) mmol/L Potassium 4.2 (3.5-5.0) mmol/L Chloride 100 L (101-111) mmol/L Carbon Dioxide 25 (22-32) mmol/L Anion Gap 8 (2-11) mmol/L BUN 21 (6-24) mg/dL Creatinine 0.89 (0.51-0.95) mg/dL Est GFR ( Amer) 77.3 (>60) Est GFR (Non-Af Amer) 60.1 (>60) BUN/Creatinine Ratio 23.6 H (8-20) Glucose 96 (70-100) mg/dL Lactic Acid 0.8 (0.5-2.0) mmol/L Calcium 9.7 (8.6-10.3) mg/dL Total Bilirubin 0.80 (0.2-1.0) mg/dL AST 18 (13-39) U/L ALT 14 (7-52) U/L Alkaline Phosphatase 51 (34-104) U/L Total Creatine Kinase 14 (10-223) U/L Troponin I 0.19 H* (<0.04) ng/mL C-Reactive Protein 102.47 H (< 5.00) mg/L B-Natriuretic Peptide 960 H ( - 100) pg/mL Total Protein 7.3 (6.4-8.9) g/dL Albumin 3.6 (3.2-5.2) g/dL Globulin 3.7 (2-4) g/dL Albumin/Globulin Ratio 1.0 (1-3) Urine Color Urine Appearance Urine pH (5-9) Ur Specific [place] (1.010-1.030) Urine Protein (Negative) Urine Ketones (Negative) Urine Blood (Negative) Urine Nitrate (Negative) Urine Bilirubin (Negative) Urine Urobilinogen (Negative) Ur Leukocyte Esterase (Negative) Urine WBC (Auto) (Absent) Urine RBC (Auto) (Absent) Ur Squamous Epith Cells (Absent) Urine Bacteria (Absent) Hyaline Casts (Absent) Urine Glucose (Negative) Influenza A (Rapid) (Negative) Influenza B (Rapid) (Negative) 01/31/17 01/31/17 Range/Units 12:37 15:08 WBC (3.5-10.8) 10^3/ul RBC (4.0-5.4) 10^6/ul Hgb (12.0-16.0) g/dl Hct (35-47) % MCV (80-97) fL MCH (27-31) pg MCHC (31-36) g/dl RDW (10.5-15) % Plt Count (150-450) 10^3/ul Neut % (Auto) (38-83) % Lymph % (Auto) (25-47) % [place] % (Auto) (1-9) % Eos % (Auto) (0-6) % Baso % (Auto) (0-2) % Absolute Neuts (auto) (1.5-7.7) 10^3/ul Absolute Lymphs (auto) (1.0-4.8) 10^3/ul Absolute Monos (auto) (0-0.8) 10^3/ul Absolute Eos (auto) (0-0.6) 10^3/ul Absolute Basos (auto) (0-0.2) 10^3/ul Absolute Nucleated RBC 10^3/ul Nucleated RBC % ESR (0-40) mm/Hr INR (Anticoag Therapy) (0.89-1.11) APTT (26.0-36.3) seconds Fibrinogen (110.8-404.3) mg/dL Sodium (133-145) mmol/L Potassium (3.5-5.0) mmol/L Chloride (101-111) mmol/L Carbon Dioxide (22-32) mmol/L Anion Gap (2-11) mmol/L BUN (6-24) mg/dL Creatinine (0.51-0.95) mg/dL Est GFR ( Amer) (>60) Est GFR (Non-Af Amer) (>60) BUN/Creatinine Ratio (8-20) Glucose (70-100) mg/dL Lactic Acid (0.5-2.0) mmol/L Calcium (8.6-10.3) mg/dL Total Bilirubin (0.2-1.0) mg/dL AST (13-39) U/L ALT (7-52) U/L Alkaline Phosphatase (34-104) U/L Total Creatine Kinase (10-223) U/L Troponin I 0.25 H* (<0.04) ng/mL C-Reactive Protein (< 5.00) mg/L B-Natriuretic Peptide ( - 100) pg/mL Total Protein (6.4-8.9) g/dL Albumin (3.2-5.2) g/dL Globulin (2-4) g/dL Albumin/Globulin Ratio (1-3) Urine Color Urine Appearance Urine pH (5-9) Ur Specific [place] (1.010-1.030) Urine Protein (Negative) Urine Ketones (Negative) Urine Blood (Negative) Urine Nitrate (Negative) Urine Bilirubin (Negative) Urine Urobilinogen (Negative) Ur Leukocyte Esterase (Negative) Urine WBC (Auto) (Absent) Urine RBC (Auto) (Absent) Ur Squamous Epith Cells (Absent) Urine Bacteria (Absent) Hyaline Casts (Absent) Urine Glucose (Negative) Influenza A (Rapid) Negative (Negative) Influenza B (Rapid) Negative (Negative) Result Diagrams: 01/31/17 12:00 01/31/17 12:00 Lab Statement: Any lab studies that have been ordered have been reviewed, and results considered in the medical decision making process. - Radiology CXR Xray Interpretation: Positive (See Comments) - Left suprahilar mass which was not present on prior exam. CT is suggested for further evaluation. Radiology Interpretation Completed By: Radiologist - EKG 15:04 Cardiac Rate: NL - 61 BPM EKG Rhythm: Atrial Fibrillation EKG Interpretation: St depressions and T-wave inverisons on V2 and V3, different from 09/16/16 Course/Dx - Course Assessment/Plan: The pt is an 86 y/o F presenting to the ED accompanied by her daughter c/o fever (Tmax 101.9) that began two days ago. She is accompanied by her daughter. Pt additionally c/o feelings of hotness, weakness, diaphoresis, night sweats, and decreased appetite secondary to illness. Pt denies any pain, dysuria, hematuria, cough, N/V, and abd pain. PMHx: many UTIs, RI, A-Fib, CVA. Test results are: Troponin 0.19, MCH 26, RDW 18, Lymph% 17.1, Cochran% 15.0, Absolute monos 1.6, INR 1.74, fibrinogen 555, Chloride 100, BUN/creatinine 23.6 , CRP 102.47, BNP 960, Urine protein 1+, Ur leukocyte esterase 3+, urine WBC 3+ , urine squamous cells present. I believe we are dealing with CHF exacerbation and also an increased troponin, for which the patient was given aspirin. The CXR is negative for acute pathology. Therefore, we need to rule out ACS and treat a CHF exacerbation. I discussed the case with Dr. Oliva, who will [place] the [place] [facility] [place] The patient is hemodynamically stable and alert and oriented x3. Hospitalist Karen Duran SVP saw and examined the patient. After her assessment and discussion with the patient and her daughter they agreed not admit the patient and get a second troponin and then they will decide if patient will stay for admission. Second troponin is 0.25 which is elevated. Ms. Washington discussed the findings with the patient and her daughter and decide to leave AMA. She was informed about the the lung mass. However she decided to leave AMA. I extensively discussed with the patient the benefits and risk of leaving AMA. I also discussed the alternatives to leaving AMA, however, the patient still insist to leave the hospital AMA.. The primary nurse and the charge nurse also strongly recommended that the patient should not leave AMA. Patient understands the risk of leaving AMA, which includes but is not restricted to . Patient is Alert and oriented times three and patient verbalizes understanding. Patient has full capacity and is cognitively intact. Patient signed the AMA form. Patient was also advised to return to ED if he changes his mind or if the symptoms worsen or other symptoms appear. Patient understands and agrees. - Febrile Illness Differential Diagnoses: Other: - CHF, Pneumonia, Bronchitis, ACS, - Diagnoses Provider Diagnoses: Elevated troponin, CHF exacerbation - Provider Notifications Discussed Care Of Patient With: Karson Oliva Time Discussed With Above Provider: 14:20 Instructed by Provider To: Other - Discussed patient care. Dr. Oliva, hospitalist, will admit the patient. Discharge - Discharge Plan Condition: Fair Disposition: ADMITTED TO [facility] Referrals: Edilberto Ayers MD [Primary Care Provider] - The documentation as recorded by the Katy ledesma Thomas accurately reflects the service I personally performed and the decisions made by me, Nash Castellanos MD.
[2017-01-31] MEDS ORDERED: Digoxin TAB* 0.125 MG PO SCH (18:00)
[2017-01-31] MEDS ORDERED: Coenzyme Q10 (NF) ** ENTER STREGNTH IN LABEL DIRECTIONS PO SCH (18:00)
[2017-01-31] MEDS ORDERED: Atorvastatin* 10 MG TAB PO SCH (21:00)
[2017-01-31] MEDS ORDERED: Senna TAB PO SCH (21:00)
[2017-01-31] MEDS ORDERED: Brimonidine P 0.15%(NF) OPH SOL 5 ML BTL RIGHT EYE SCH (21:00)
[2017-01-31] MEDS ORDERED: Diltiazem CD CAP* 120 MG PO SCH (21:00)
[2017-01-31] MEDS ORDERED: Docusate CAP* 100 MG PO SCH (21:00)
[2017-01-31] MEDS ORDERED: Latanoprost 0.005%* 2.5 ml BTL RIGHT EYE SCH (21:00)
--- NOTE | 2017-02-01 01:51 | CONS ---
CC: Dr. Ayers; Dr. Cordova * CONSULTATION REPORT: DATE OF CONSULT: 01/31/17 PROVIDER: Kaitlin Brito NP ATTENDING PHYSICIAN: Dr. Stone (report dictated by Kaitlin Brito NP) REFERRING PHYSICIAN: Dr. Castellanos, Emergency Department. PRIMARY CARE PROVIDER: Dr. Ayers. SURG NURSE: Dr. Cordova. CONSULTATION REASON: Elevated troponin. HISTORY OF PRESENT ILLNESS: Ms. Gilmore is an 86-year-old female with a past medical history of atrial fibrillation, chronic diastolic congestive heart failure, history of constipation, vertigo, hypertension, COPD, hyperlipidemia, hypothyroidism, history of CVA status post pacemaker, who presents to the emergency department today with complaint of fever and weakness found to have an elevated troponin. Ms. Gilmore is accompanied to the emergency department by her daughter. It is reported approximately one month ago, she injured her back and has been treated by her primary for back spasms. She reports she has had pretty significant back pain for approximately a month. She underwent a chest x -ray, which she was told was negative for any acute illness or injury. She was started on tramadol and then more recently started on Flexeril. The patient reports that she started the Flexeril last week and this resolved her back pain , which she reports is currently resolved; however, per the daughter she was very fatigued and almost lethargic and this was discontinued approximately four days ago. However, over the course of the past several weeks, the patient has had decreased oral intake, reporting a decrease in appetite. She has not had any fevers, chills, or other illnesses up until two nights ago when she reported to her daughter that she felt feverish and woke up with "the sweats." Then today, it was noted that the patient had a temperature of 102, and then she was brought to the emergency department for further evaluation. In the emergency department, the patient was noted to have no leukocytosis. Troponin of 0.19, CRP of 102.47, and possible abnormal urinalysis; however, it is negative for nitrites and bacteria. Per the daughter, she has a frequent history of urinary tract infections. 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 CT was suggested for further evaluation." Per the patient, she does not want followup of this lung mass. I was asked to evaluate the patient for admission for elevated troponin. Per the primary emergency room nurse, the patient reported she wants "no treatment" and would be admitted for IV fluids only. The patient received a liter of normal saline in the emergency department and on my evaluation she was found to be alert, oriented x3, sitting up eating food in which she reports for the first time she feels much better. She states that she would prefer not to be hospitalized at all and we discussed if her wishes were for comfort care, and the patient states that actually she does not want aggressive management; however, she would want treatment if she were having a heart attack or had a severe illness. I discussed my concern with the patient and the daughter of her elevated troponins and the plan was to recheck her troponin and an EKG and if it was elevated, the patient would be admitted for rule out acute coronary syndrome. The patient's troponin was rechecked and it was elevated now to 0.25. The patient is now refusing admission, stating she will "take her chances going home." The patient has no cardiac symptoms. She denies shortness of breath or chest pain; however, she is known to be slightly dyspneic, but per the daughter and the patient, this is her baseline. She is insisting to leave against medical advice. I then reviewed the patient's EKG. There were no acute changes in comparing to prior EKGs; however, she is noted to be mostly ventricular paced. At this time, it was reviewed with the patient and the daughter the risks of leaving against medical advice, which were severe illness, , severe disability, and the patient and daughter state understanding and have signed themselves out against medical advice. It was strongly suggested to follow up with Dr. Cordova and Dr. Ayers. It is possible the patient has a urinary tract infection even though no leukocytosis is noted. Looking back at her prior trend, she typically does not mount a white count during some of her acute illnesses. Her urinalysis is abnormal, but she has no noted urinary symptoms; however, she does have a CRP of 102.47. It is possible this is a UTI. It was discussed with the patient and the daughter who will follow up with her primary care. The urine was sent for culture. The patient's vital signs have been stable throughout her evaluation in the emergency department. Temperature was 98.2 and 99.1. No noted signs of sepsis. PAST MEDICAL HISTORY: As stated above. CURRENT MEDICATIONS: 1. Diltiazem 240 mg p.o. daily in the morning, 120 mg p.o. at bedtime. 2. MiraLAX 17 g p.o. daily, p.r.n. 3. Coumadin 0.5 mg p.o. daily. 4. Prednisone 10 mg p.o. daily. 5. Aspirin 81 mg p.o. daily. 6. Atorvastatin 5 mg p.o. daily. 7. Calcium with magnesium and zinc one tablet by mouth nightly. 8. Cetirizine 10 mg p.o. daily. 9. Co-Enzyme Q 100 mg p.o. daily. 10. Lasix 20 mg p.o. Wednesday through Wednesday. 11. Latanoprost one drop in right eye at bedtime. 12. Synthroid 75 mcg p.o. daily. 14. Pro [place] one capsule p.o. daily. 15. Vitamin D3 1000 units p.o. daily. 16. Lactobacillus one capsule p.o. daily. 17. Brimonidine tartrate one drop in the right eye two times daily. 18. Potassium. 19. Tylenol 650 mg p.o. t.i.d. as needed for pain. 20. Digoxin 0.125 mg p.o. nightly. 21. Senna two tablets p.o. daily. 22. Multivitamin one tab p.o. daily. ALLERGIES: AMLODIPINE, ROFECOXIB, CELECOXIB. CODE STATUS: DNR. REVIEW OF SYSTEMS: A 14-point review of systems was performed. All the pertinent positives and negatives are mentioned in the history of present illness. Otherwise are negative. PHYSICAL EXAMINATION: General Appearance: Elderly female, alert and oriented x3 in no acute distress, sitting up in the emergency department. Fair to good historian. HEENT: Head is normocephalic, atraumatic. Pupils are equal, reactive to light. Oropharynx is clear. Moist mucous membranes. Neck: Supple. No JVD noted. Cardiac: S1, S2. Regular rate and rhythm. A 2/6 murmur noted, heard best at the left upper sternal border, irregularly irregular. No lower extremity edema noted. Lungs: Clear to auscultation bilaterally. Good aeration throughout. Abdomen: Soft, nontender, and nondistended. Normal bowel sounds x4. No CVA tenderness. Extremities: Without clubbing, cyanosis or edema. Skin: Warm, pink, dry. No rash or lesions were noted. Neuro: Cranial nerves II through XII were intact. No noted motor or sensory deficits noted. RECOMMENDATION: Recommendation was for admission for concern for her troponin trending up. As stated above, the patient is currently signing out against medical advice. TIME SPENT: Approximately 60 minutes was spent on this consult. KAITLIN BRITO, JENNIFER [id number]/[facility] #: [id number] [place]
[2017-02-01] MEDS ORDERED: predniSONE TAB* 10 MG PO SCH (08:30)
[2017-02-01] MEDS ORDERED: Levothyroxine TAB* 75 MCG TAB PO SCH (09:00)
[2017-02-01] MEDS ORDERED: Aspirin EC Low Dose* 81 MG TAB.EC PO SCH (09:00)
[2017-02-01] MEDS ORDERED: Diltiazem CD CAP* 240 MG PO SCH (09:00)
--- NOTE | 2017-02-02 09:22 | ED ---
Progress - Progress Note Progress Note: Pt's urine cx reveals >100,000 e. coli. No meds at d/c as pt left AMA. Will wait for sens and contact pt w/ results as well as med recommendations. Discussed w/ Dr. Castellanos who saw pt - she has chronic illness of heart and lung and decided day of appt not to stay for aggressive intervention as she follows with outpt specialists. Okay to rx anbx for UTI and will have her f/u w/ PCP but return to ED if sx are same or worse. Course/Dx - Diagnoses Provider Diagnoses: Elevated troponin, CHF exacerbation - Provider Notifications Time Discussed With Above Provider: 14:20 Instructed by Provider To: Other - Discussed patient care. Dr. Oliav, hospitalist, will admit the patient.
== END 2017-01-31 18:30 | disposition left against medical advice (07) ==
LOC: ED 10:04
DX: I50.9 Heart failure, unspecified (principal); R79.89 Other specified abnormal findings of blood chemistry; R50.9 Fever, unspecified; Z87.891 Personal history of nicotine dependence; R53.1 Weakness; Z53.21 Procedure and treatment not carried out due to patient leaving prior to being seen by health care provider
CPT/HCPCS: 36415; 71020; 80053; 81003; 81015; 82550; 83605; 83880; 84484; 85025; 85384; 85610; 85652; 85730; 86140; 87040; 87077; 87086; 87186; 87502; 93005; 99283

== ENCOUNTER 2017-04-14 08:40 | Inpatient (IN) | payer MEDICARE, MEDICAID ==
[2017-04-14 09:22] LABS: Hematocrit 35 % (35-47); Hemoglobin 11.1 g/dl (12.0-16.0); Mean Corpuscular HGB Conc 32 g/dl (31-36); Mean Corpuscular Hemoglobin 26 pg (27-31); Mean Corpuscular Volume 82 fL (80-97); Red Blood Count 4.23 10^6/ul (4.0-5.4); Red Cell Distribution Width 23 % (10.5-15); White Blood Count 8.7 10^3/ul (3.5-10.8)
[2017-04-14 09:23] LABS: Add Diff/Slide Review? Slide Review Added; Comments Flag Yes
[2017-04-14 09:38] LABS: Albumin 3.5 g/dL (3.2-5.2); BUN/Creatinine Ratio 25.8 (8-20); Calcium 9.4 mg/dL (8.6-10.3); EGFR African American 77.2 (>60); Potassium 3.9 mmol/L (3.5-5.0); Total Bilirubin 0.5 mg/dL (0.2-1.0); Total Protein 7.5 g/dL (6.4-8.9)
--- NOTE | 2017-04-14 09:41 | RAD ---
HISTORY: Fall, head trauma COMPARISONS: September 12, 2015 TECHNIQUE: Multiple contiguous axial CT scans were obtained of the head without intravenous contrast. FINDINGS: HEMORRHAGE/INFARCT: There is no hemorrhage or acute infarct. MASSES/SHIFT: There is no mass or shift. EXTRA-AXIAL SPACES: There are no extra-axial fluid collections. SULCI AND VENTRICLES: There is diffuse and proportional enlargement of the sulci and ventricles. CEREBRUM: There is hypoattenuation of the periventricular and subcortical white matter. BRAINSTEM: There are no focal parenchymal abnormalities. CEREBELLUM: There are no focal parenchymal abnormalities. VESSELS: There is calcification of the cavernous segments of the internal carotid arteries bilaterally and of the distal vertebral arteries bilaterally. PARANASAL SINUSES: The paranasal sinuses are clear. ORBITS: Senile calcifications are noted. BONES AND SOFT TISSUE: There is soft tissue swelling of the right parieto-occipital scalp. There is no depressed or displaced skull fracture OTHER: None IMPRESSION: NO ACUTE INTRACRANIAL PATHOLOGY. DIFFUSE INVOLUTIONAL CHANGE WITH CHRONIC SMALL VESSEL ISCHEMIC CHANGES.
--- NOTE | 2017-04-14 09:45 | RAD ---
HISTORY: Fall, head trauma COMPARISONS: None TECHNIQUE: Multiple contiguous axial CT scans were obtained of the cervical spine without intravenous contrast, with coronal and sagittal multiplanar reformations. FINDINGS: BRAIN: The visualized brain is unremarkable CENTRAL CANAL: Evaluation of the central canal is limited on CT technique; however, there is no obvious canalicular mass or epidural hemorrhage. ALIGNMENT: The alignment is normal, without subluxation or dislocation. VERTEBRAL BODIES: There is diffuse osteopenia. Is multilevel anterolateral marginal osteophyte formation. There is no displaced fracture. JOINTS: There is osteoarthritis of the atlantoaxial articulation and of the uncovertebral and facet joints. MUSCULATURE: Unremarkable INTERVERTEBRAL DISCS: There is diffuse loss of intervertebral disc height. AXIAL IMAGES: C2-C3: There is bilateral facet hypertrophy. There is no significant osseous neural foraminal area or central canal stenosis. C3-C4: There is bilateral uncovertebral and facet hypertrophy. There is moderate bilateral neural foraminal narrowing. There is no osseous central canal stenosis. C4-C5: There is bilateral uncovertebral and facet hypertrophy. There is moderate bilateral neural foraminal narrowing. There is no osseous central canal stenosis. C5-C6: There is bilateral uncovertebral and facet hypertrophy. There is moderate to severe bilateral neural foraminal narrowing. There is mild narrowing of the central canal. C6-C7: There is bilateral uncovertebral and facet hypertrophy. There is moderate bilateral neural foraminal narrowing. There is no significant osseous central canal stenosis. C7-T1: There is bilateral facet hypertrophy. There is no osseous neural foraminal narrowing or central canal stenosis. SOFT TISSUES: There are prevertebral fat surface preserved. There is atherosclerosis of the thoracic aorta, with a small, 0.5 cm in depth with saccular aneurysm of the aortic arch best seen on coronal image 37. The aorta is tortuous. There is a small left pleural effusion. There is atherosclerotic calcification of the carotid arteries and vertebral arteries. OTHER: None. IMPRESSION: 1. OSTEOPENIA. 2. DEGENERATIVE DISC DISEASE AND OSTEOARTHRITIS. 3. NO ACUTE OSSEOUS INJURY TO THE CERVICAL SPINE. 4. 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 5. SMALL LEFT PLEURAL EFFUSION.
--- NOTE | 2017-04-14 09:48 | RAD ---
HISTORY: Fall, back pain COMPARISONS: May 14, 2016 TECHNIQUE: Multiple contiguous axial CT scans were obtained of the lumbar spine without intravenous contrast, with coronal and sagittal multiplanar reformations. FINDINGS: SPINAL CANAL: Evaluation of the central canal is limited on CT technique; however, there is no obvious canalicular mass or epidural hemorrhage. ALIGNMENT: The alignment is normal. VERTEBRAL BODIES: There is diffuse osteopenia. There is mild anterolateral marginal osteophyte formation. Vertebral bodies are preserved in height. There is no displaced fracture. JOINTS: There is facet hypertrophy change most pronounced along the lower lumbar spine MUSCULATURE: Unremarkable INTERVERTEBRAL DISCS: There is diffuse loss of intervertebral disc height throughout the spine. AXIAL IMAGES: T12-L1: There is no osseous neural foraminal narrowing or central canal stenosis. L1-L2: There is no osseous neural foraminal narrowing or central canal stenosis. L2-L3: There is mild disc bulge at bilateral facet hypertrophy. There is no significant osseous neural foraminal area or central canal stenosis. L3-L4: There is broad-based disc bulge at bilateral facet hypertrophy. There is mild bilateral neural foraminal narrowing. There is mild narrowing of the central canal. L4-L5: There is broad-based disc bulge with ligamentous and facet hypertrophy. There is mild bilateral neural foraminal narrowing. There is moderate narrowing of the central canal. L5-S1: There is a broad-based disc bulge at bilateral facet hypertrophy. There is marginal osteophyte formation at the neural foramina bilaterally. There is moderate to severe bilateral neural foraminal narrowing. There is no significant central canal stenosis. SOFT TISSUES: Renal cysts are noted. The patient is status post aortic stent graft. There is cholelithiasis. OTHER: None IMPRESSION: 1. OSTEOPENIA. 2. DEGENERATIVE DISC DISEASE AND OSTEOARTHRITIS. 3. NO ACUTE OSSEOUS INJURY LUMBAR SPINE
[2017-04-14 10:24] LABS: Hypochromasia 1+; Schistocytes 1+
[2017-04-14 10:26] LABS: Mean Platelet Volume 10 um3 (7.4-10.4)
[2017-04-14] MEDS ORDERED: HYDROcodone/ACETAMIN 5-325 MG* 1 TAB PO ONE (10:30)
[2017-04-14] MEDS ORDERED: Morphine INJ* 2 MG/ML 1 ML CARPUJECT IV ONE (12:27)
[2017-04-14] MEDS ORDERED: Ondansetron INJ* 2 MG/ML VIAL IV ONE (12:39)
[2017-04-14] MEDS ORDERED: Ondansetron INJ* 2 MG/ML VIAL IV PRN (12:40)
[2017-04-14] MEDS ORDERED: oxyCODONE TAB* 5 MG TAB PO PRN (12:41)
[2017-04-14 14:24] LABS: Add Path Review? YES
[2017-04-14] MEDS: Acetaminophen TAB* 325 MG PO SCH ×2 (16:53→21:28)
[2017-04-14] MEDS ORDERED: Diltiazem TAB* 60 MG PO ONE (17:31)
[2017-04-14] MEDS ORDERED: Furosemide TAB* 20 MG PO ONE (17:31)
[2017-04-14] MEDS: Furosemide TAB* 40 MG PO SCH (17:57)
[2017-04-14] MEDS: Atorvastatin* 10 MG TAB PO SCH (18:09)
[2017-04-14] MEDS: Cholecalciferol TAB* 1000 UNITS PO SCH (18:09)
--- NOTE | 2017-04-14 18:20 | ED ---
Katy Sanabria Thomas, scribed for Nash Castellanos MD on 04/14/17 at 0941 . Head Injury - HPI Summary HPI Summary: The pt is an 87 y/o F presenting to the ED s/p a fall backwards in which her posterior head struck the ground this morning. She woke up with dizziness and urinary urgency, and she fell on her way walking to the bathroom. There is a bump on the back of her head. Pt additionally c/o an abrasion to her right arm. She is unable to verify her last tetanus vaccine. Pt denies LOC, syncope, near- syncope, or any pain. She is on Coumadin for her A-Fib. - History Of Current Complaint Chief Complaint: EDHeadInjury Stated Complaint: WEAKNESS, DIZZINESS Time Seen by Provider: 04/14/17 08:55 Hx Obtained From: Patient Mechanism Of Injury: Fall From A Standing Position - backwards Onset/Duration: Still Present Pain Intensity: 0 Pain Scale Used: 0-10 Numeric Location of Head Injury: Occipital Aggravating Factor(s): Other: - Nothing Alleviating Factor(s): Other: - Nothing Associated Signs And Symptoms: Other: - Abrasion to her right arm; NEGATIVE: LOC , syncope, near-syncope, or any pain Anticoagulant Therapy: Coumadin - for her A-Fib - Allergies/Home Medications Allergies/Adverse Reactions: Allergies Allergy/AdvReac Type Severity Reaction Status Date / Time Amlodipine AdvReac Constipatio Verified 01/31/17 14:16 n Celecoxib [From Celebrex] AdvReac Nausea And Verified 01/31/17 14:16 Vomiting Rofecoxib [From Vioxx] AdvReac Nausea And Verified 01/31/17 14:16 Vomiting Home Medications: Home Medications Desloratidine (NF) [Clarinex (NF)] 5 mg PO DAILY 04/14/17 [History Confirmed ] Diltiazem CD CAP* [Cardizem CD CAP*] 240 mg PO QAM 04/14/17 [History Confirmed 04/14/17] Diltiazem HCl Coated Beads [Cartia Xt] 120 mg PO BEDTIME 04/14/17 [History Confirmed 04/14/17] Docusate CAP* [Colace Cap*] 100 mg PO BID 04/14/17 [History Confirmed 04/14/17] Drenamin 1 cap PO DAILY 04/14/17 [History Confirmed 04/14/17] Multivitamins/Minerals TAB* [Theragran/minerals TAB*] 1 tab PO QAM 04/14/17 [ History Confirmed 04/14/17] Potassium Chlor TAB* [Klor Con ER TAB*] 20 meq PO DAILY 04/14/17 [History Confirmed 04/14/17] Warfarin TAB(*) [Coumadin TAB(*)] 1 mg PO BEDTIME 04/14/17 [History Confirmed ] predniSONE TAB* [Deltasone TAB*] 5 mg PO QAM 04/14/17 [History Confirmed ] PMH/Surg Hx/FS Hx/Imm Hx Previously Healthy: No Endocrine/Hematology History: Reports: Hx Anticoagulant Therapy, Hx Blood Transfusions - multiple, Hx Thyroid Disease - hypothroid, Hx Anemia Denies: Hx Blood Disorders, Hx Bone Marrow Disease, Hx Diabetes, Hx Systemic Lupus Erythematosus, Hx Unexplained Bleeding Cardiovascular History: Reports: Hx Aneurysm - AAA REPAIR 03/07/13, Hx Congestive Heart Failure - 09/2007, Hx Coronary Artery Disease, Hx Hypercholesterolemia, Hx Hypertension, Hx Myocardial Infarction, Hx Pacemaker/ ICD, Hx Peripheral Vascular Disease, 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,AORTIC VALVE DIEASE, Other Cardiovascular Problems/Disorders - AORTIC VALVE DISEASE/AAA/ISCHEMIC [id number] Denies: Hx Angina Respiratory History: Reports: Hx Chronic Obstructive Pulmonary Disease (COPD), Hx Pneumonia - post op, Hx Pulmonary Embolism, Other Respiratory Problems/ Disorders - HX OF PNEUMONIA, MOST RECENT CASE PUT HER IN ICU ON A VENT. GI History: Reports: Hx Gall Bladder Disease Denies: Other GI Disorders History: Reports: Hx Renal Disease - abnormal gfr Denies: Hx Dialysis, Hx Kidney Stones, Other Problems/Disorders Musculoskeletal History: Reports: Hx Arthritis - POLYMYALIGIA RHEUMATICA, Hx Orthopedic Injury - left hip replacement, Other Musculoskeletal History - POLYMYALGIA RHEUMATICA, osteopenia Denies: Hx Back Problems, Hx Osteoporosis Sensory History: Reports: Hx Contacts or Glasses, Hx Glaucoma - right eye Denies: Hx Hearing Problem Opthamlomology History: Reports: Hx Contacts or Glasses, Hx Glaucoma - right eye Neurological History: Reports: Hx Nerve Disease - peripheral neuropathy right leg only Denies: Hx Dementia, Hx Headaches, Hx Seizures, Hx Transient Ischemic Attacks (TIA), Other Neuro Impairments/Disorders Psychiatric History: Reports: Hx Depression - remote past - Cancer History Hx Chemotherapy: No Hx Radiation Therapy: No - Surgical History Surgery Procedure, Year, and Place: hemorrrhoidectomy, hysterectomy,cataracts, spleenectomy,mitral valve,aortic aneurysm, pacer, iliac artery aneurysm,left hip replacement Hx Anesthesia Reactions: No Infectious Disease History: No Infectious Disease History: Denies: Traveled Outside the [place] in Last 30 Days - Family History Known Family History: Positive: Cardiac Disease, Hypertension Negative: Diabetes - Social History Alcohol Use: None Substance Use Type: Reports: None Hx Tobacco Use: Yes Smoking Status (MU): Former Smoker Type: Cigarettes Amount Used/How Often: quit 2009 Length of Time of Smoking/Using Tobacco: 1PPD Have You Smoked in the Last Year: No Review of Systems Positive: urgency Positive: Other - Head injuy s/p fall backwards Positive: Other - Abrasion to her right arm Neurological: Other - DizzinessNEGATIVE: LOC, syncope, near-syncope All Other Systems Reviewed And Are Negative: Yes Physical Exam - Summary Physical Exam Summary: GENERAL NORMAL EXAM: VITAL SIGNS: Reviewed. GENERAL: Patient is a well-developed and nourished female who is lying comfortable in the stretcher. ~Patient is not in any acute respiratory distress. HEAD AND FACE: No ecchymosis, hematomas or skull depressions. No sinus tenderness. There is slight swelling on her occipital head EYES: PERRLA, EOMI x 2, No injected conjunctiva, no nystagmus. EARS: Hearing grossly intact. Ear canals and tympanic membranes are within normal limits. MOUTH: Oropharynx within normal limits. NECK: Supple, trachea is midline, no adenopathy, no JVD, no carotid bruit, no c- spine tenderness, neck with full ROM. CHEST: Symmetric, no tenderness at palpation LUNGS: Clear to auscultation bilaterally. No wheezing or crackles. CVS: Regular rate and rhythm, S1 and S2 present, no murmurs or gallops appreciated. ABDOMEN: Soft, non-tender. No signs of distention. No rebound no guarding, and no masses palpated. Bowel sounds are normal. EXTREMITIES: FROM in all major joints, no edema, no cyanosis or clubbing. NEURO: Alert and oriented x 3. No acute neurological deficits. Speech is normal and follows commands. SKIN: Dry and warm. There is an abrasion on her right forearm. Triage Information Reviewed: Yes Vital Signs On Initial Exam: Initial Vitals Temp Pulse Resp BP Pulse Ox 99.3 F 92 16 179/89 98 04/14/17 08:44 04/14/17 08:44 04/14/17 08:44 04/14/17 08:44 04/14/17 08:44 Vital Signs Reviewed: Yes - Cato Coma Scale Coma Scale Total: 15 Diagnostics - Vital Signs Vital Signs Temp Pulse Resp BP Pulse Ox 04/14/17 08:44 99.3 F 92 16 179/89 98 - Laboratory Lab Results: Lab Results 04/14/17 04/14/17 Range/Units 09:05 09:05 WBC 8.7 (3.5-10.8) 10^3/ul RBC 4.23 (4.0-5.4) 10^6/ul Hgb 11.1 L (12.0-16.0) g/dl Hct 35 (35-47) % MCV 82 (80-97) fL MCH 26 L (27-31) pg MCHC 32 (31-36) g/dl RDW 23 H (10.5-15) % Plt Count Pending Neut % (Auto) 51.9 (38-83) % Lymph % (Auto) 35.6 (25-47) % Rolette % (Auto) 10.6 H (1-9) % Eos % (Auto) 0.8 (0-6) % Baso % (Auto) 1.1 (0-2) % Absolute Neuts (auto) 4.5 (1.5-7.7) 10^3/ul Absolute Lymphs (auto) 3.1 (1.0-4.8) 10^3/ul Absolute Monos (auto) 0.9 H (0-0.8) 10^3/ul Absolute Eos (auto) 0.1 (0-0.6) 10^3/ul Absolute Basos (auto) 0.1 (0-0.2) 10^3/ul Absolute Nucleated RBC 0.04 10^3/ul Nucleated RBC % 0.5 INR (Anticoag Therapy) 2.08 H (0.89-1.11) Result Diagrams: 04/14/17 09:05 04/14/17 09:05 Lab Statement: Any lab studies that have been ordered have been reviewed, and results considered in the medical decision making process. - CT CT Brain CT Interpretation: No Acute Changes - NO ACUTE INTRACRANIAL PATHOLOGY. DIFFUSE INVOLUTIONAL CHANGE WITH CHRONIC SMALL VESSEL ISCHEMIC CHANGES. ED Physician has read this report and agrees. CT Interpretation Completed By: Radiologist CT C-Spine CT Interpretation: No Acute Changes - 1. OSTEOPENIA. 2. DEGENERATIVE DISC DISEASE AND OSTEOARTHRITIS. 3. NO ACUTE OSSEOUS INJURY TO THE CERVICAL SPINE. 4. 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 5. SMALL LEFT PLEURAL EFFUSION. ED Physician has read this report and agrees. CT Interpretation Completed By: Radiologist CT L-Spine CT Interpretation: No Acute Changes - 1. OSTEOPENIA. 2. DEGENERATIVE DISC DISEASE AND OSTEOARTHRITIS. 3. NO ACUTE OSSEOUS INJURY LUMBAR SPINE. ED Physician has read this report and agrees. CT Interpretation Completed By: Radiologist Head Injury Course/Dx Assessment/Plan: The pt is an 87 y/o F presenting to the ED s/p a fall backwards in which her posterior head struck the ground this morning. She woke up with dizziness and urinary urgency, and she fell on her way walking to the bathroom. There is a bump on the back of her head. Pt additionally c/o an abrasion to her right arm. She is unable to verify her last tetanus vaccine. Pt denies LOC, syncope, near-syncope, or any pain. She is on Coumadin for her A- Fib. Test results without significant abnormalities. CT Brain shows NO ACUTE INTRACRANIAL PATHOLOGY. DIFFUSE INVOLUTIONAL CHANGE WITH CHRONIC SMALL VESSEL ISCHEMIC CHANGES. CT C-Spine 1. OSTEOPENIA. 2. DEGENERATIVE DISC DISEASE AND OSTEOARTHRITIS. 3. NO ACUTE OSSEOUS INJURY TO THE CERVICAL SPINE. 4. 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 5. SMALL LEFT PLEURAL EFFUSION. CT L-Spine 1. OSTEOPENIA. 2. DEGENERATIVE DISC DISEASE AND OSTEOARTHRITIS. 3. NO ACUTE OSSEOUS INJURY LUMBAR SPINE. ED Physician has read this report and agrees. In the ED course, the patient was given Percocet and morphine for the pain. The patient was having still having back pain. She is unable to ambulate and lives alone. Therefore, I discussed the case with Dr. Braswell, who accepts the patient for admission. - Diagnoses Differential Diagnosis/HQI/PQRI: Cervical Sprain, Contusion, Hematoma, Intracranial Bleed, Skull Fracture Provider Diagnoses: Low back pain, Unable to ambulate - Physician Notifications Discussed Care Of Patient With: Chavo Braswell Time Discussed With Above Provider: 12:32 Instructed by Provider To: Other - I consulted with Dr. Braswell, hospitalist, who admits the patient to [facility] [place]. Discharge - Discharge Plan Condition: Fair Disposition: ADMITTED TO [facility] Discharge Disposition Comment: By Dr. Braswell The documentation as recorded by the Katy ledesma Thomas accurately reflects the service I personally performed and the decisions made by , Nash Castellanos MD.
[2017-04-14] MEDS ORDERED: Docusate CAP* 100 MG PO SCH (21:00)
[2017-04-14] MEDS ORDERED: Senna/Docusate (NF) TAB PO SCH (21:00)
--- NOTE | 2017-04-14 21:09 | HP ---
HISTORY AND PHYSICAL: ADDENDUM: Rina Gilmore is an 87-year-old female with history of chronic atrial fibrillation, on a nticoagulation with Coumadin, as well as vertigo, who today felt dizzy and fell. She could not get up. She is going to be placed on overnight observation with neuro checks and physical therapy evalu ation in the morning. For further details of the patient's presentation, please see history and phy sical dictated by SERGIO Hamilton, on 04/14/17, with which I agree. [id number]/[facility] #: [id number]
[2017-04-14] MEDS: Latanoprost 0.005%* 2.5 ml BTL RIGHT EYE SCH (21:28)
[2017-04-14] MEDS: Diltiazem CD CAP* 120 MG PO SCH (21:29)
[2017-04-14] MEDS: Senna TAB PO SCH (21:29)
[2017-04-14] MEDS: Docusate CAP* 100 MG PO SCH (21:29)
[2017-04-14] MEDS: Brimonidine P 0.15%(NF) OPH SOL 5 ML BTL RIGHT EYE SCH (21:30)
[2017-04-14] MEDS: Warfarin TAB(*) 1 MG PO SCH (21:30)
[2017-04-14 21:56] LABS: Urine Bacteria Absent (Absent); Urine Bilirubin Negative (Negative); Urine Glucose Negative (Negative); Urine Nitrite Negative (Negative)
--- NOTE | 2017-04-15 00:17 | HP ---
CC: Dr. Edilberto Ayers; Dr. Susan Hernandez* ADMISSION HISTORY AND PHYSICAL: DATE OF ADMISSION: 04/14/2017. PRIMARY CARE PHYSICIAN: Dr. Edilberto Ayers. MY ATTENDING WHILE IN THE HOSPITAL: Dr. Susan Hernandez* (dictated by SERGIO Wright). CHIEF COMPLAINT: Dizziness x1 week and a fall. HISTORY OF PRESENT ILLNESS: The patient is an 87-year-old male with past medical history that is complicated including Takotsubo cardiomyopathy with ejection fraction preserved; AFib; COPD; hypothyroidism; CVA; tachy-kayleigh syndrome, with pacer placement; AAA repair; polymyalgia rheumatica, who presents today with a fall in which she states her legs gave up from underneath her when she stood up this morning to go to the bathroom. The patient states she has been feeling dizzy when lying down but unaffected by standing. The patient describes the dizziness as lightheadedness, but denies vertigo. The patient has a history of vertigo, unknown etiology, and she states it is unlike that. The patient states she is somewhat nauseous with dizziness. The patient denies any progression in the dizziness over the past week. The patient denies any change in vision, palpitations, chest pain or shortness of breath, constipation, diarrhea, changes in fluid intake or recent changes in medication. The patient denies any fevers or chills, vomiting, sick contacts, or feeling ill herself. The patient claims to have been on antibiotics for the past 2 months for urinary tract infection and back pain. The patient denies ever having fallen in the past. The patient denies ever having any dizziness like this in the past. The patient lives alone, independent with ADLs. The patient denies any other weakness except in her legs. The patient denies any musculoskeletal pain from her fall. PAST MEDICAL HISTORY: Takotsubo cardiomyopathy with ejection fraction of 55% to 60% from an echocardiogram in July; AFib, rate controlled; hypertension; COPD; hyperlipidemia; hypothyroidism; thrombocytopenia; history of hemolytic anemia; CVA; mitral valve replacement; tachy-kayleigh syndrome, with pacer implantation; AAA repair; iliac aneurysm repair; splenectomy; polymyalgia rheumatica with chronic steroid use. The patient was admitted earlier this year for a month with atypical pneumonia with respiratory failure. MEDICATIONS: 1. Levothyroxine 75 mcg p.o. q.a.m. 2. Latanoprost 0.005% one drop right eye bedtime. 3. Brimonidine tartrate 0.15% right eye b.i.d. 4. Tylenol 650 mg p.o. t.i.d. 5. Calcium, magnesium, zinc 1 tab p.o. q.p.m. 6. Vitamin D3 1000 units p.o. q.p.m. 7. Digoxin 0.125 mg p.o. q.a.m. 8. ProOmega 1000 mg p.o. q.p.m. 9. Coenzyme Q10 100 mg p.o. daily. 10. Aspirin 81 mg p.o. daily. 11. Furosemide 40 mg p.o. Wednesday, Wednesday, , and Wednesday. 12. Lipitor 5 mg p.o. q.p.m. 13. Senokot/docusate 8.6/50 one tab p.o. b.i.d. 14. Multivitamin and mineral, Theragran, 1 tab p.o. q.a.m. 15. Clarinex 5 mg p.o. daily. 16. Potassium chloride 20 mEq p.o. daily. 17. Colace 100 mg p.o. b.i.d. 18. Prednisone 5 mg p.o. daily. 19. Warfarin 1 mg p.o. at bedtime. 20. Diltiazem 120 mg p.o. at bedtime. 21. Diltiazem continuous dosing 240 mg p.o. q.a.m. ALLERGIES: The patient is allergic to AMLODIPINE, CELEBREX, and VIOXX. FAMILY HISTORY: Family history from previous history and physical. Father of rheumatic fever, mother of complications of surgery. SOCIAL HISTORY: The patient stopped smoking tobacco in 2001. She denies any recent alcohol or drug use. The patient lives at home alone. REVIEW OF SYSTEMS: A 14-point review of systems was conducted and is negative except as stated in the HPI. PHYSICAL EXAMINATION GENERAL: The patient is an 87-year-old female, who appears stated age and sitting in the hospital bed. The patient appears visibly anxious. VITAL SIGNS: On admission to the floor, temperature 98.7, pulse rate 90, respiratory rate 18, oxygen saturation 95% on room air, blood pressure 150/65. Vital signs upon arriving to the emergency room, temperature 99.3, heart rate 92 , respiratory rate 16, oxygen saturation 98%, blood pressure 179/89. HEENT: Head: Normocephalic. There is a red warm bump on the left side of the scalp that is nontender to palpation. Eyes: Anicteric. No conjunctival injection. Mouth: Mucous membranes are moist. Pharynx: Nonerythematous. NECK: Supple, nontender. No carotid bruit auscultated. No lymphadenopathy. RESPIRATORY: Crackles heard in the bilateral lower lungs, otherwise clear to auscultation. Good air exchange bilaterally. CARDIAC: Irregularly irregular rhythm. There is a grade 4/6 systolic murmur heard best at the apex and radiating to the axilla. Pulses 2+ in the bilateral radial, dorsalis pedis, and posterior tibialis areas. No edema. ABDOMEN: Soft, nontender, nondistended. Bowel sounds hypoactive in all 4 quadrants. There is a bruit that is able to be auscultated throughout the whole of the abdomen corresponding to the patient's heartbeat. MUSCULOSKELETAL: No cranial tenderness. No cervical, thoracic, or lumbar spinous process tenderness. No obvious deformity or bruising. Range of motion intact. NEURO: Cranial nerves II through XII intact. No visual field losses. Extraocular movements intact. No nystagmus. 4/5 strength in the distal and proximal muscle groups of the upper and lower extremity, equal bilaterally with no focality. [id number] test performed without difficulty. Rapidly alternating movements normal. Finger taps normal. Straight leg raise negative bilaterally. PSYCH: The patient appears anxious, but denies being anxious when asked. SKIN: Clean, dry, and intact. No ecchymosis or erythema except as stated above. DIAGNOSTIC STUDIES/LAB DATA: White blood cell count 8.7, hemoglobin 11.1, hematocrit 35, MCH 26, RDW 23, monocytes 10.6. There is presence of hypochromasia, acanthocytes and schistocytes. INR 2.08. Sodium 137, potassium 3.9, chloride 105, carbon dioxide 23, anion gap 9, BUN 23, creatinine 0.89, glucose 86, calcium 9.4. Total bilirubin 0.5, AST 18, ALT 13. CT of the brain shows no acute intracranial pathology, diffuse involutional change with chronic small vessel ischemic changes. CT scan of the cervical spine shows osteopenia, degenerative disk disease, and osteoarthritis. No acute osseous injury. Atherosclerosis with small saccular aneurysm of the aortic arch measuring up to 0.5 cm, small left pleural effusion. CT of the lumbar spine shows osteopenia, degenerative disk disease, and osteoarthritis. No acute osseous injury from lumbar spine. ASSESSMENT AND PLAN: Impression: The patient is an 87-year-old female with a past history that is extensive including Takotsubo cardiomyopathy; vertigo; atrial fibrillation; hypertension; cerebrovascular accident; mitral valve replacement; tachy-kayleigh syndrome, with pacer implantation, who presents with dizziness for a week and a fall this morning. The patient remains persistently weak in her legs and was unable to be discharged from the emergency department due to this. We will admit to attempt to establish etiology for her dizziness and for PT/OT evaluation for a possible rehab or residential placement. 1. Dizziness, fall. There are no changes in the patient's history to explain the patient's dizziness. The patient drinks adequately, has had no recent changes and we will order orthostatic vital signs and MRI of the patient's brain. The patient was hypertensive, possibly due to stress or due to missing morning doses of antihypertensive medications. We will give 20 of Lasix at this time and 90 of Cardizem in addition to her nightly Cardizem as she missed her morning dose and we will see if this affects her dizziness. We will avoid giving fluids at this time due to hypertension and pulmonary edema. We will consult PT/OT for a possible deconditioning leading to leg weakness and/or additional insight into her functional status. 2. Hypertension. Continue the patient's diltiazem and furosemide at home doses. 3. Atrial fibrillation. Continue the patient's digoxin and Cardizem at home doses for rate control. The patient is currently rate controlled at the high end of normal. 4. Hemolytic anemia, thrombocytopenia. We will monitor CBC daily pending pathologist review of the patient's red blood cell morphology. 5. Tachy-kayleigh syndrome, with pacer implantation. We will have patient's pacemaker interrogated to assess for possible cardiac causes of the dizziness and we will order an EKG to be done at this time. 6. Polymyalgia rheumatica. Continue prednisone at home dose. 7. DVT prophylaxis. The patient is currently anticoagulated on warfarin and her INR is therapeutic. 8. Code status. The patient wants to be a DNR and her healthcare proxy is her daughter, Joesph. 9. Disposition. The patient is admitted for observation. TIME SPENT: Approximately 60 minutes was spent on this admission, half of which was spent [id number] with the patient obtaining history and physical. This plan was discussed with my attending, Dr. Susan Hernandez, and she is in agreement. SERGIO WRIGHT ADDENDUM TO HISTORY AND PHYSICAL: Rina Gilmore is an 87-year-old female with history of chronic atrial fibrillation, on anticoagulation with Coumadin, as well as vertigo, who today felt dizzy and fell. She could not get up. She is going to be placed on overnight observation with neuro checks and physical therapy evaluation in the morning. For further details of the patient's presentation, please see history and physical dictated by SERGIO Wright, on 04/14/17, with which I agree. Susan Hernandez MD [id number]/[facility] #: [id number] #: [id number] [place]
[2017-04-15 06:54] LABS: Hematocrit 36 % (35-47); Hemoglobin 11.5 g/dl (12.0-16.0); Mean Corpuscular HGB Conc 32 g/dl (31-36); Mean Corpuscular Hemoglobin 26 pg (27-31); Mean Corpuscular Volume 82 fL (80-97); Red Blood Count 4.34 10^6/ul (4.0-5.4)
[2017-04-15 07:07] LABS: Comments Flag Yes
[2017-04-15 07:09] LABS: Add Diff/Slide Review? Slide Review Added; Red Cell Distribution Width 23 % (10.5-15)
[2017-04-15 07:10] LABS: Calcium 8.9 mg/dL (8.6-10.3); EGFR African American 82.5 (>60); EGFR Non-African American 64.1 (>60); Potassium 4.3 mmol/L (3.5-5.0)
[2017-04-15 08:26] LABS: Mean Platelet Volume 11 um3 (7.4-10.4)
[2017-04-15] MEDS: Levothyroxine TAB* 75 MCG TAB PO SCH (08:34)
[2017-04-15] MEDS: predniSONE TAB* 5 MG PO SCH (08:34)
[2017-04-15] MEDS: Digoxin TAB* 0.125 MG PO SCH (08:34)
[2017-04-15] MEDS: Polyethylene Glycol 3350* 17 GM PACKET PO SCH (08:34)
[2017-04-15] MEDS: Diltiazem CD CAP* 240 MG PO SCH (08:34)
[2017-04-15] MEDS: Multivitamins/Minerals TAB PO SCH (08:34)
[2017-04-15] MEDS: Docusate CAP* 100 MG PO SCH ×2 (08:34→22:25)
[2017-04-15] MEDS: Acetaminophen TAB* 325 MG PO SCH ×3 (08:35→22:22)
[2017-04-15] MEDS: Aspirin EC Low Dose* 81 MG TAB.EC PO SCH (08:35)
[2017-04-15] MEDS: Potassium Chlor TAB* 20 MEQ TAB.ER PO SCH (08:35)
[2017-04-15] MEDS: Brimonidine P 0.15%(NF) OPH SOL 5 ML BTL RIGHT EYE SCH (08:43)
[2017-04-15] MEDS: COENZYME Q10 100 MG PO SCH (09:00)
[2017-04-15] MEDS ORDERED: COENZYME Q10 100 MG PO SCH (09:00)
--- NOTE | 2017-04-15 15:10 | PN ---
Subjective Date of Service: 04/15/17 Interval History: Patient seen and examined at bedside. Patient states that she was unable to really work with PT because of dizziness. She states laying still in bed she is not dizzy but sitting up sets it off. She states she was having dizziness prior to her fall but it would resolve. Episodes are fairly recent. She denies fevers. She has shortness o fbreath but that is not new. She was unable to have the MRI because of her pacemaker. Family History: Unchanged from Admission Social History: Unchanged from Admission Past Medical History: Unchanged from Admission Objective Active Medications: Acetaminophen (Tylenol Tab*) 975 mg PO TID МАРИЯ Aspirin (Aspirin Ec Low Dose*) 81 mg PO QAM МАРИЯ Atorvastatin Calcium (Lipitor*) 5 mg PO QPM МАРИЯ Brimonidine Tartrate (Alphagan P 0.15%(Nf)) 1 drop RIGHT EYE BID МАРИЯ Cholecalciferol (Vitamin D Tab*) 1,000 units PO QPM МАРИЯ Coenzyme Q10 (Coenzyme Q10 (Nf)) 1 cap PO DAILY МАРИЯ Digoxin (Lanoxin Tab*) 0.125 mg PO QAM МАРИЯ Diltiazem HCl (Cardizem Cd Cap*) 120 mg PO BEDTIME МАРИЯ Diltiazem HCl (Cardizem Cd Cap*) 240 mg PO QAM МАРИЯ Docusate Sodium (Colace Cap*) 100 mg PO BID МАРИЯ Furosemide (Lasix Tab*) 40 mg PO MoTuWeThFr@1600 МАРИЯ Latanoprost (Xalatan 0.005%*) 1 drop RIGHT EYE BEDTIME МАРИЯ Levothyroxine Sodium (Synthroid Tab*) 75 mcg PO QAM МАРИЯ Multivitamins/Minerals (Theragran/Minerals Tab*) 1 tab PO QAM МАРИЯ Ondansetron HCl (Zofran Inj*) 4 mg IV Q6H PRN Oxycodone HCl (Roxycodone Tab*) 5 mg PO Q6H PRN Polyethylene Glycol/Electrolytes (Miralax*) 17 gm PO DAILY МАРИЯ Potassium Chloride (Klor Con Er Tab*) 20 meq PO DAILY МАРИЯ Prednisone (Deltasone Tab*) 5 mg PO QAM МАРИЯ Senna (Senokot Tab*) 2 tab PO BEDTIME МАРИЯ Warfarin Sodium (Coumadin Tab(*)) 1 mg PO BEDTIME МАРИЯ 04/15/17 04/15/17 04/15/17 07:44 08:34 14:45 Temperature 98.3 F 98.2 F Pulse Rate 91 91 64 Respiratory 18 22 Rate Blood Pressure 143/58 149/47 (mmHg) O2 Sat by Pulse 96 99 Oximetry Oxygen Devices in Use Now: None Appearance: laying in bed, NAD Eyes: No Scleral Icterus, PERRLA Ears/Nose/Mouth/Throat: NL Teeth, Lips, Gums Neck: NL Appearance and Movements; NL JVP Respiratory: Symmetrical Chest Expansion and Respiratory Effort, Clear to Auscultation Cardiovascular: NL Sounds; No Murmurs; No JVD, RRR Abdominal: NL Sounds; No Tenderness; No Distention Extremities: No Edema Skin: No Rash or Ulcers Neurological: Alert and Oriented x 3, NL Muscle Strength and Tone Lines/Tubes/Other Access: Clean, Dry and Intact Peripheral IV Nutrition: Taking PO's Result Diagrams: 04/15/17 06:00 04/15/17 06:00 Assess/Plan/Problems-Billing Patient is an 87 y/o F w/ PMH significant for tachy-kayleigh syndrome (s/p PPM), HLD, HTN, CVA, polymyalgia rheumatica, who presented to the ER after a fall precipitated by dizziness. - Patient Problems (1) Dizziness Comment: The cause is unclear. She is not orthostatic and per patient it does not feel like veritog as she has had this before. Blood pressure is stable on her regimen. She cannot have an MRI because of her pacer. Neurological exam unchanged. Seems less likely posterior circulation stroke b/c it is positional. Will ask neurology to evaluate. She was unable to really work with PT d/t dizziness. (2) Atrial fibrillation Comment: Rate controlled. Continue Digoxin and Cardizem. Will interrogate pacer to see if high rate afib is at all related to her dizziness. (3) Hypothyroidism Comment: Continue Synthroid (4) COPD (chronic obstructive pulmonary disease) Comment: Not in excaerbation. Continue home medications. (5) Hypertension Comment: Was elevated yesterday but now better controlled. Continue Norvasc, cardizem and Lasix. (6) Polymyalgia rheumatica Comment: Continue Prednisone 5mg PO daily. (7) DVT prophylaxis Comment: INR 2.0 (8) Full code status Status and Disposition: Change to Inpatient for dizziness. May need STR at discharge as lives alone. CM aware.
[2017-04-15] MEDS ORDERED: Furosemide TAB* 20 MG PO SCH (16:09)
[2017-04-15 16:41] LABS: Troponin I 0.07 ng/mL (<0.04)
[2017-04-15] MEDS: Furosemide TAB* 40 MG PO SCH (17:22)
[2017-04-15] MEDS: Atorvastatin* 10 MG TAB PO SCH (17:36)
[2017-04-15] MEDS: Cholecalciferol TAB* 1000 UNITS PO SCH (17:36)
[2017-04-15 17:39] LABS: Troponin I 0.04 ng/mL (<0.04)
--- NOTE | 2017-04-15 21:54 | CONS ---
NEUROLOGY CONSULTATION: DATE OF CONSULTATION: 04/15/17 REFERRING PHYSICIAN: Alayna Wade NP PRIMARY CARE PROVIDER: Edilberto Ayers MD LOCATION: She is an inpatient in room 420. CHIEF COMPLAINT: Dizziness. HISTORY OF PRESENT ILLNESS: Rina Gilmore is an 87-year-old woman admitted yesterday when she woke up, felt dizzy, and fell. Said she felt fine the night before, but she woke up and when she sat up in bed, she felt like her head was spinning. She had to go to the bathroom and so she tried to get there and made it to the bathroom, but then fell. She pressed her call button for help. She has had dizziness since, but it has improved today. If she holds still, she feels pretty good. When she tried to sit up and move around, it seemed to get worse. Physical Therapy tried to evaluate her today and she felt too dizzy apparently when they tried to get her up. She does not feel faint or lightheaded and she has not loss consciousness. When she fell yesterday, she did hit the back of her head on the toilet, but no loss of consciousness. She has had episodic vertigo before going back at least 9 years or so. There is no episodic hearing loss or change in hearing currently. She has a history of significant cerebrovascular disease based on prior CT angiograms and was hospitalized about a year ago with dizziness. She also has chronic atrial fibrillation, pacemaker, and is anticoagulated. PAST MEDICAL HISTORY: Notable for chronic AFib, Takotsubo cardiomyopathy, hypertension, hemolytic anemia, mitral valve replacement, abdominal aortic aneurysm repair, iliac aneurysm repair, splenectomy, polymyalgia rheumatica, on chronic steroids. MEDICATIONS: At the time of this admission include: 1. Digoxin 0.125 mg p.o. q.a.m. 2. Coenzyme Q10 100 mg p.o. daily. 3. Aspirin 81 mg p.o. daily. 4. Furosemide 40 mg p.o. every other day. 5. Lipitor 5 mg p.o. daily. 6. Warfarin. 7. Prednisone 5 mg p.o. daily. 8. Diltiazem. ALLERGIES: She is allergic to AMLODIPINE and CELEBREX. REVIEW OF SYSTEMS: Notable for being an ex-smoker, having quit in 2001. Does not drink alcohol. Lives alone. She denies nausea or new shortness of breath. No headaches. No double vision. Her scalp is tender where she fell. No numbness in the face or limbs. PHYSICAL EXAMINATION: She is an elderly woman, lying in her hospital bed. Temperature 98.2 orally, blood pressure 149/47, heart rate in the 70's and they are irregularly irregular. Respiratory rate is 22 and oxygen saturation is 99% on room air. Orthostatic vital signs done yesterday at lying, sitting, and standing did not show appreciable change. Lungs reveal few wheezes bilaterally. Heart is in an irregular rhythm with a grade 2/6 systolic murmur, upper right sternal border. Carotid pulses are weakly felt and I cannot hear any bruits, but just transmitted murmurs. She has some tenderness in the right parieto-occipital scalp, but head is otherwise atraumatic. Neck is supple. Neurological exam, pupils are small at about 2.5 mm, reacting to light at 2 mm. Eye movements are full with nystagmus and left gaze, which is precipitated by movement. Visual javed are full to confrontation and fundi reveal hypertensive changes without hemorrhages. There is no ptosis. Facial musculature is intact and symmetric. Facial sensation is intact to light touch and temperature symmetrically. Palate and tongue appear normal. Tongue protrudes in the midline. There is no dysarthria. Hearing is intact bilaterally to tuning fork. Neck strength is normal for age. On motor exam, she has atrophy and mild weakness of the right quadriceps and hip flexor. She has pretty good strength proximally and distally in upper extremities and lower extremities for age. There is a mild sustention tremor in both outstretched hands, but no rest tremor. [id number] maneuver is normal bilaterally. Wsdw-[id number] maneuver is normal bilaterally. Reflexes are hypoactive. Plantar responses are flexor. I sat her up and had her stand up and she felt reasonably good. When we laid her back down, she felt somewhat dizzy and there is a new bout of left beating nystagmus, which lasted about 10 seconds. She is alert and oriented and a good historian. Memory seems intact and language is fluent. Attention, concentration, and fund of knowledge were all adequate. DIAGNOSTIC DATA/LAB DATA: Laboratory data includes a CT of the brain, which I reviewed and which looks normal for age. She had a CT angiogram of the neck and brain last year, which reveals multiple areas of stenosis and I refer to that report. Other laboratory studies this admission notable for unremarkable CBC, platelet count of 165,000, chemistry is unremarkable. Digoxin level is 1.1 yesterday. IMPRESSION: My impression is that of probable paroxysmal positional vertigo. She has numerous other medical problems including recurrent vertigo and significant cerebrovascular disease. However, she is already both on an antiplatelet agent and anticoagulated with her INR at 2.08. I would recommend symptomatic treatment with meclizine and gradual mobilization with physical therapy. I do not think we need to repeat her cerebrovascular studies as there is likely no intervention other than medical therapy that would be helpful. [id number]/[facility] #: [id number] [place]
[2017-04-15] MEDS: Diltiazem CD CAP* 120 MG PO SCH (22:23)
[2017-04-15] MEDS: Senna TAB PO SCH (22:23)
[2017-04-15] MEDS: Warfarin TAB(*) 1 MG PO SCH (22:24)
[2017-04-16] MEDS: Latanoprost 0.005%* 2.5 ml BTL RIGHT EYE SCH ×2 (00:57→21:13)
[2017-04-16] MEDS: Brimonidine P 0.15%(NF) OPH SOL 5 ML BTL RIGHT EYE SCH ×3 (00:59→21:13)
[2017-04-16] MEDS: Meclizine TAB* 12.5 MG PO SCH ×3 (05:16→21:13)
[2017-04-16] MEDS: Acetaminophen TAB* 325 MG PO SCH ×3 (08:52→21:15)
[2017-04-16] MEDS: Digoxin TAB* 0.125 MG PO SCH (08:53)
[2017-04-16] MEDS: Diltiazem CD CAP* 240 MG PO SCH (08:53)
[2017-04-16] MEDS: Levothyroxine TAB* 75 MCG TAB PO SCH (08:54)
[2017-04-16] MEDS: predniSONE TAB* 5 MG PO SCH (08:54)
[2017-04-16] MEDS: Docusate CAP* 100 MG PO SCH ×2 (08:55→21:13)
[2017-04-16] MEDS: Potassium Chlor TAB* 20 MEQ TAB.ER PO SCH (08:55)
[2017-04-16] MEDS: Multivitamins/Minerals TAB PO SCH (08:55)
[2017-04-16] MEDS: Aspirin EC Low Dose* 81 MG TAB.EC PO SCH (08:55)
[2017-04-16] MEDS: Polyethylene Glycol 3350* 17 GM PACKET PO SCH (08:56)
--- NOTE | 2017-04-16 12:18 | PN ---
Subjective Date of Service: 04/16/17 Interval History: Patient seen and examined at bedside. Patient states dizziness much improved. She was able to get out of bed to the chair without significant dizziness. She states that if her daughter is here she would not have to go up stairs - can use an elevator. Her daughter will be here tomorrow. Highest rate of afib overnight 110 this AM. Family History: Unchanged from Admission Social History: Unchanged from Admission Past Medical History: Unchanged from Admission Objective Active Medications: Acetaminophen (Tylenol Tab*) 975 mg PO TID МАРИЯ Aspirin (Aspirin Ec Low Dose*) 81 mg PO QAM МАРИЯ Atorvastatin Calcium (Lipitor*) 5 mg PO QPM МАРИЯ Brimonidine Tartrate (Alphagan P 0.15%(Nf)) 1 drop RIGHT EYE BID МАРИЯ Cholecalciferol (Vitamin D Tab*) 1,000 units PO QPM МАРИЯ Coenzyme Q10 (Coenzyme Q10 (Nf)) 1 cap PO DAILY МАРИЯ Digoxin (Lanoxin Tab*) 0.125 mg PO QAM МАРИЯ Diltiazem HCl (Cardizem Cd Cap*) 120 mg PO BEDTIME МАРИЯ Diltiazem HCl (Cardizem Cd Cap*) 240 mg PO QAM МАРИЯ Docusate Sodium (Colace Cap*) 100 mg PO BID МАРИЯ Furosemide (Lasix Tab*) 40 mg PO MoTuWeThFr@1600 МАРИЯ Latanoprost (Xalatan 0.005%*) 1 drop RIGHT EYE BEDTIME МАРИЯ Levothyroxine Sodium (Synthroid Tab*) 75 mcg PO QAM МАРИЯ Meclizine HCl (Antivert Tab*) 12.5 mg PO Q8HR МАРИЯ Multivitamins/Minerals (Theragran/Minerals Tab*) 1 tab PO QAM МАРИЯ Ondansetron HCl (Zofran Inj*) 4 mg IV Q6H PRN Oxycodone HCl (Roxycodone Tab*) 5 mg PO Q6H PRN Polyethylene Glycol/Electrolytes (Miralax*) 17 gm PO DAILY МАРИЯ Potassium Chloride (Klor Con Er Tab*) 20 meq PO DAILY МАРИЯ Prednisone (Deltasone Tab*) 5 mg PO QAM МАРИЯ Senna (Senokot Tab*) 2 tab PO BEDTIME МАРИЯ Warfarin Sodium (Coumadin Tab(*)) 1 mg PO BEDTIME МАРИЯ Vital Signs 09/28/17 09/28/17 09/28/17 15:56 16:26 19:47 Temperature 98.1 F 97.4 F 98.3 F Pulse Rate 73 70 61 Respiratory 20 16 16 Rate Blood Pressure 150/60 137/58 149/47 (mmHg) O2 Sat by Pulse 100 100 98 Oximetry 04/15/17 04/15/17 04/16/17 20:00 22:22 08:24 Temperature 97.7 F Pulse Rate 64 65 Respiratory 16 18 Rate Blood Pressure 180/56 176/53 (mmHg) O2 Sat by Pulse 99 Oximetry Oxygen Devices in Use Now: None Appearance: sitting up in bed, NAD Eyes: No Scleral Icterus, PERRLA Ears/Nose/Mouth/Throat: NL Teeth, Lips, Gums Neck: NL Appearance and Movements; NL JVP Respiratory: Symmetrical Chest Expansion and Respiratory Effort, Clear to Auscultation Cardiovascular: NL Sounds; No Murmurs; No JVD, - - irregularly irregular Abdominal: NL Sounds; No Tenderness; No Distention Extremities: No Edema Skin: No Rash or Ulcers Neurological: Alert and Oriented x 3, NL Muscle Strength and Tone Lines/Tubes/Other Access: Clean, Dry and Intact Peripheral IV Nutrition: Taking PO's Result Diagrams: 04/15/17 06:00 04/15/17 06:00 Assess/Plan/Problems-Billing Patient is an 87 y/o F w/ PMH significant for tachy-kayleigh syndrome (s/p PPM), HLD, HTN, CVA, polymyalgia rheumatica, who presented to the ER after a fall precipitated by dizziness. - Patient Problems (1) Dizziness Comment: Appreciate Neurology input. Started standing low dose meclizine and dizziness has improved significantly. Pacer shower short isolated episodes back in January (all less that 10 sec). D/W cardiology who does not recommend any changes in medications. Will d/c tele. Continue PT. Daughter will be here tomorrow and can stay with her. (2) Atrial fibrillation Comment: Rate controlled. Continue Digoxin and Cardizem. High rate afib (< 10sec x 6 episodes) back in January. Troponin mildly elevated but lower than back in September when in RVR. Continue with current medications. (3) Hypothyroidism Comment: Continue Synthroid (4) COPD (chronic obstructive pulmonary disease) Comment: Not in exacerbation. Continue home medications. (5) Hypertension Comment: Was elevated yesterday but now better controlled. Continue Norvasc, cardizem and Lasix. (6) Polymyalgia rheumatica Comment: Continue Prednisone 5mg PO daily. (7) DVT prophylaxis Comment: INR 2.0 (8) Full code status Status and Disposition: Change to Inpatient for dizziness. Plan to discharge with daughter in the AM.
[2017-04-16] MEDS: COENZYME Q10 100 MG PO SCH (13:57)
[2017-04-16] MEDS: Atorvastatin* 10 MG TAB PO SCH (17:32)
[2017-04-16] MEDS: Cholecalciferol TAB* 1000 UNITS PO SCH (17:33)
[2017-04-16] MEDS: Diltiazem CD CAP* 120 MG PO SCH (19:08)
[2017-04-16] MEDS: Senna TAB PO SCH (21:13)
[2017-04-16] MEDS: Warfarin TAB(*) 1 MG PO SCH (21:13)
[2017-04-17] MEDS ORDERED: hydrALAZINE IV* 20 MG/ML VIAL IV PRN (04:40)
[2017-04-17] MEDS: Meclizine TAB* 12.5 MG PO SCH (05:00)
[2017-04-17] MEDS: Potassium Chlor TAB* 20 MEQ TAB.ER PO SCH (07:56)
[2017-04-17] MEDS: Digoxin TAB* 0.125 MG PO SCH (07:56)
[2017-04-17] MEDS: predniSONE TAB* 5 MG PO SCH (07:57)
[2017-04-17] MEDS: Diltiazem CD CAP* 240 MG PO SCH (07:57)
[2017-04-17] MEDS: Aspirin EC Low Dose* 81 MG TAB.EC PO SCH (07:57)
[2017-04-17] MEDS: Levothyroxine TAB* 75 MCG TAB PO SCH (07:57)
[2017-04-17] MEDS: Multivitamins/Minerals TAB PO SCH (07:58)
[2017-04-17] MEDS: Acetaminophen TAB* 325 MG PO SCH (07:58)
[2017-04-17] MEDS: Docusate CAP* 100 MG PO SCH (07:58)
[2017-04-17] MEDS: Brimonidine P 0.15%(NF) OPH SOL 5 ML BTL RIGHT EYE SCH (07:59)
[2017-04-17 08:18] VITALS: BP 160/59
[2017-04-17] MEDS: Polyethylene Glycol 3350* 17 GM PACKET PO SCH (08:18)
[2017-04-17] MEDS: COENZYME Q10 100 MG PO SCH (08:18)
--- NOTE | 2017-04-17 13:41 | DS ---
CC: Edilberto Ayers MD DISCHARGE SUMMARY: DATE OF ADMISSION: 04/14/17 DATE OF DISCHARGE: 04/17/17 DICTATING PHYSICIAN: Maria Ines Chen DO. PRIMARY DISCHARGE DIAGNOSIS: Benign positional paroxysmal vertigo. SECONDARY DIAGNOSES: 1. Fall. 2. Atrial fibrillation. 3. Tachy-kayleigh syndrome. 4. Polymyalgia rheumatica. 5. Chronic steroid dependence. 6. Takotsubo cardiomyopathy with resolved ejection fraction. REVIEW OF SYSTEMS: On the day of discharge, General: Dizziness resolved. HEENT: No blurry vision, no double vision, no headache, no lightheadedness. Chest: Palpitations. No chest pain, no shortne ss of breath. No dyspnea on exertion. Abdomen: No constipation or diarrhea. Extremities: No maddie a, no numbness or tingling. Remaining 14-point review of systems was negative. PHYSICAL EXAMINATION AT DISCHARGE: Vital Signs: Temperature 97.4 degrees, heart rate 65, respirato ry rate 18, blood pressure 160/59. General: Alert, well appearing, no distress. HEENT: Right goi ng nystagmus that fatigues after 3 seconds. Pupils are equal, round, reactive to light. Extraocula r movements are intact. Moist mucosa. Neck: No JVP. No cervical lymphadenopathy. Thyroid nonpal pable. Chest: Sternotomy incision well healed. Left chest wall pacer. Systolic murmur over the ap ex without radiation. Regular rate and rhythm. PMI nondisplaced. Lungs: Clear bilaterally. Abdo men: Soft, nontender, nondistended. Extremities: No edema. Distal pulses 2+ bilaterally. Sensati on intact. Strength 5+ throughout. HOSPITAL COURSE BY PROBLEM: 1. Benign paroxysmal positional vertigo. The etiology of her dizziness was decided to be benign pa roxysmal positional vertigo after cardiac and metabolic etiologies were excluded. She was monitored on telemetry and had no events. Her pacemaker was interrogated and had no recent rapid ventricular response or bradycardia and her EKG was paced. Her orthostatic vital signs were negative and she w as evaluated by Neurology who felt that her symptoms were suggestive of benign paroxysmal positional vertigo and they suggested starting meclizine. She had improvement in symptoms after initiation of meclizine. A brain CT at the time of admission showed no acute intracranial pathology but diffuse involutional change with chronic small vessel ischemic changes. She worked with physical therapy wh o recommended discharge to home and her daughter is here at the bedside who agrees to stay with her, so she will have assistance at home at all times. She was instructed to change positions slowly an d understands that she should not take meclizine for an extended period of time. I instructed that she not take it for more than 3 days in a row should another episode of vertigo resume. It is also possible that polypharmacy is playing a role in her dizziness. The digoxin level was within normal limits; however, she is on an extensive list of medications that are on the [employer]ers Criteria and may b e contributing to dizziness in an elderly person. 2. Polymyalgia rheumatica, on chronic prednisone. She did not require stress dose steroids and had no evidence of adrenal insufficiency. This has not changed since admission. 3. Fall. She did have one fall prior to admission where she hit the back of her head on the toilet . She did not lose consciousness and recognizes that she needs to maneuver more slowly at home. Arnulfo carter was evaluated by Physical Therapy and she has assistive devices at home including a walker. 4. Atrial fibrillation. She was well rate controlled on her home medications of Cardizem and digox in. She is therapeutically anticoagulated with warfarin. 5. Tachy-kayleigh syndrome with pacemaker. Again, her pacer was interrogated and showed no evidence o f cardiac etiology of her fall or dizziness. 6. Takotsubo cardiomyopathy. Her most recent echocardiogram showed a preserved ejection fraction. She showed no evidence of volume overload on this admission. 7. Hypertension. Her blood pressure was poorly controlled and she had some mild pulmonary edema. She was given IV furosemide at admission; however, was able to be titrated back to her home doses of antihypertensives. This was likely due to missed doses prior to admission. DISPOSITION: The patient is being discharged to home with her daughter. She has followup with her PCP. TIME SPENT: Approximately 60 minutes was spent on this discharge, half of which was spent face-to-f margarita with the patient and her family. [id number]/[facility] #: [id number]
== END 2017-04-17 12:50 | disposition home health service (06) | DRG 149 ==
LOC: ED 08:40 → MED 12:38 → OBSVTOIN 04-15 15:01 → MEDTELE 04-15 16:24
PROVIDERS: ADMIT Internal Medicine; ATTEND Internal Medicine
PROC: 4B02XSZ Measurement of Cardiac Pacemaker, External Approach (ICD-10-PCS; principal; 2017-04-15)
DX: H81.10 Benign paroxysmal vertigo, unspecified ear (principal); I11.0 Hypertensive heart disease with heart failure; G62.9 Polyneuropathy, unspecified; J44.9 Chronic obstructive pulmonary disease, unspecified; I48.2 Chronic atrial fibrillation; I50.9 Heart failure, unspecified; E03.9 Hypothyroidism, unspecified; F32.9 Major depressive disorder, single episode, unspecified; I51.81 Takotsubo syndrome; E78.5 Hyperlipidemia, unspecified; I25.10 Atherosclerotic heart disease of native coronary artery without angina pectoris; M35.3 Polymyalgia rheumatica; M85.88 Other specified disorders of bone density and structure, other site; M47.9 Spondylosis, unspecified; R40.2412 Glasgow coma scale score 13-15, at arrival to emergency department; M54.5 Low back pain; I73.9 Peripheral vascular disease, unspecified; Z96.642 Presence of left artificial hip joint; H40.9 Unspecified glaucoma; Z98.42 Cataract extraction status, left eye; Z87.891 Personal history of nicotine dependence; Z98.41 Cataract extraction status, right eye; Z88.8 Allergy status to other drugs, medicaments and biological substances; Z86.73 Personal history of transient ischemic attack (TIA), and cerebral infarction without residual deficits; Z95.2 Presence of prosthetic heart valve; Z90.81 Acquired absence of spleen; I25.2 Old myocardial infarction; Z95.0 Presence of cardiac pacemaker; Z86.711 Personal history of pulmonary embolism; Z90.710 Acquired absence of both cervix and uterus
CPT/HCPCS: 36415; 70450; 72125; 72131; 80048; 80053; 80162; 81003; 81015; 83735; 84484; 85025; 85060; 85610; 93005; A9270-GY; G0378; G8978-GP-CJ; G8979-GP-CH; G8980-GP-CH; G8987-GO-CK; G8988-GO-CI; J0360; J2270; J2405; J7512

== ENCOUNTER 2017-04-28 07:45 | Inpatient (IN) | payer MEDICARE, MEDICAID ==
[2017-04-28 08:28] LABS: Hematocrit 35 % (35-47); Hemoglobin 11.3 g/dl (12.0-16.0); Mean Corpuscular HGB Conc 33 g/dl (31-36); Mean Corpuscular Hemoglobin 27 pg (27-31); Mean Corpuscular Volume 82 fL (80-97); Red Blood Count 4.27 10^6/ul (4.0-5.4); Red Cell Distribution Width 23 % (10.5-15); White Blood Count 10.1 10^3/ul (3.5-10.8)
[2017-04-28 08:36] LABS: Add Diff/Slide Review? Slide Review Added; Comments Flag Yes
--- NOTE | 2017-04-28 08:38 | RAD ---
HISTORY: Dizziness, chest pain COMPARISONS: April 14, 2017 TECHNIQUE: Multiple contiguous axial CT scans were obtained of the head without intravenous contrast. FINDINGS: The study is limited by patient motion artifact. HEMORRHAGE/INFARCT: There is no hemorrhage or acute infarct. MASSES/SHIFT: There is no mass or shift. EXTRA-AXIAL SPACES: There are no extra-axial fluid collections. SULCI AND VENTRICLES: There is diffuse and proportional enlargement of the sulci and ventricles. CEREBRUM: There is hypoattenuation of the periventricular and subcortical white matter. BRAINSTEM: There are no focal parenchymal abnormalities. CEREBELLUM: There are no focal parenchymal abnormalities. VESSELS: There is calcification of the cavernous segments of the internal carotid arteries bilaterally and of the distal vertebral arteries bilaterally. PARANASAL SINUSES: The paranasal sinuses are clear. ORBITS: The orbits are unremarkable. BONES AND SOFT TISSUE: No bone or soft tissue abnormalities are noted. OTHER: None IMPRESSION: 1. LIMITED STUDY. 2. NO ACUTE INTRACRANIAL PATHOLOGY. 3. DIFFUSE INVOLUTIONAL CHANGE WITH CHRONIC SMALL VESSEL ISCHEMIC CHANGES.
[2017-04-28 08:49] LABS: Albumin 3.6 g/dL (3.2-5.2); BUN/Creatinine Ratio 23.6 (8-20); C Reactive Protein 98.77 mg/L (< 5.00); Calcium 9.2 mg/dL (8.6-10.3); EGFR African American 63.1 (>60); Globulin 3.8 g/dL (2-4); Magnesium 1.7 mg/dL (1.9-2.7); Total Bilirubin 0.8 mg/dL (0.2-1.0); Total Protein 7.4 g/dL (6.4-8.9)
[2017-04-28 08:54] LABS: Troponin I 0.33 ng/mL (<0.04)
--- NOTE | 2017-04-28 08:55 | RAD ---
INDICATION: Dizziness and chest pain. COMPARISON: Comparison is made with a prior chest x-ray study from January 31, 2017. TECHNIQUE: Dual-energy PA and lateral views of the chest were obtained. FINDINGS: The patient is status post sternotomy and cardiac valve surgery. The heart is within normal limits in size. There is a transvenous cardiac pacemaker present. The lungs are underinflated. There is mild prominence of the interstitial markings. No pleural effusion is seen. IMPRESSION: MILD PROMINENCE OF THE INTERSTITIAL MARKINGS SUGGESTING THE POSSIBILITY OF CONGESTIVE HEART FAILURE.
[2017-04-28] MEDS ORDERED: Diltiazem IV* 5 MG/ML 5 ML VIAL (for loading dose/IV Push) (25 MG) IV SLOW PU ONE (09:10)
[2017-04-28 09:23] LABS: TSH (Thyroid Stimulating Horm) 3.23 mcIU/mL (0.34-5.60)
[2017-04-28] MEDS ORDERED: Magnesium Sulfate 2 GM IV* 2 GM/50 ML BAG IVPB ONE (09:32)
[2017-04-28 09:34] LABS: Mean Platelet Volume 11 um3 (7.4-10.4)
[2017-04-28 09:35] LABS: Schistocytes 1+
[2017-04-28 09:36] LABS: Platelet Morphology Large
[2017-04-28 09:37] LABS: Add Path Review? YES
[2017-04-28] MEDS ORDERED: Morphine INJ* 2 MG/ML 1 ML CARPUJECT IV PRN (10:21)
[2017-04-28] MEDS ORDERED: Al Hydrox/Mg Hydrox/Simet LIQ* 30 ML UDC PO PRN (10:21)
[2017-04-28] MEDS ORDERED: Ondansetron INJ* 2 MG/ML VIAL IV PRN (10:23)
[2017-04-28] MEDS ORDERED: Meclizine TAB* 12.5 MG PO PRN (10:28)
[2017-04-28] MEDS ORDERED: NS 0.9% 1000 ML* 1,000 ML IV SCH ×2 (10:30→18:34)
[2017-04-28] MEDS ORDERED: Diltiazem CD CAP* 240 MG PO ONE (10:34)
[2017-04-28] MEDS ORDERED: Piperacillin/Tazobac (*) 3.375 GM ADDV.VIAL ONE (10:43)
[2017-04-28 10:46] LABS: Urine Bacteria Absent (Absent); Urine Bilirubin Negative (Negative); Urine Glucose Negative (Negative); Urine Nitrite Negative (Negative)
[2017-04-28] MEDS ORDERED: Zosyn per Pharmacy* NOTE FOLLOW UP SCH (11:00)
--- NOTE | 2017-04-28 12:33 | RAD ---
INDICATION: Hydronephrosis. COMPARISON: Comparison is made with a prior abdominal ultrasound from September 16, 2016. TECHNIQUE: Multiple real-time images of the kidneys were obtained. FINDINGS: The right kidney is increased in echogenicity suggestive of medical renal disease. The left kidney is small in size. The right kidney measured 13.1 x 6.8 x 5.9 cm and the left kidney measured 9.1 x 5.5 x 4.7 cm. There are several right renal cysts measuring 4.2 x 4.9 x 3.8, 2.0 x 2.0 x 1.9 and 1.4 x 1.3 x 1.4. No hydronephrosis is seen. IMPRESSION: 1. NO EVIDENCE FOR HYDRONEPHROSIS. 2. MULTIPLE RIGHT RENAL CYSTS. 3. SMALL LEFT KIDNEY.
[2017-04-28] MEDS ORDERED: Morphine INJ* 2 MG/ML 1 ML SYRINGE (TWO MG - NEW SYRINGE VERSION) IV PRN (12:36)
[2017-04-28] MEDS: Hydrocortisone INJ* 100 MG VIAL IV SCH ×2 (13:28→17:57)
[2017-04-28] MEDS: ZOSYN 3.375 GM Q8H per EXTENDED INFUSION IVPB SCH ×4 (14:12→22:29)
--- NOTE | 2017-04-28 14:30 | HP ---
CC: Dr. Ayers; Dr. Cordova * HISTORY AND PHYSICAL: DATE OF ADMISSION: 04/28/17 PRIMARY CARE PROVIDER: Dr. Ayers. GENERAL OPHTHALMOLOGIST: Dr. Cordova. CHIEF COMPLAINT: Nausea, dizziness, chest pain. HISTORY OF PRESENT ILLNESS: Rina Gilmore is an 87-year-old female with history of chronic atrial fibrillation, on Coumadin, who was just recently discharged from our facility approximately 10 days ago for benign positional vertigo, on meclizine. The patient stated that she had been doing fairly well for approximately a week or so. She stated that although occasionally when she would change position, she would still have vertigo. She was able to ambulate with the help of a walker without any problems. The patient also is being treated for problems with ESBL E. coli UTI infection ever since January of 2017 and had been off and on antibiotics. Currently, she is on Bactrim. Approximately 3 days ago, she had an onset of vertigo and was not feeling well. Visiting nurse at that point obtained a urinalysis to be sent to Dr. Ayers's office, which showed +2 esterase and white blood cells as well as bacteria present. The urine cultures are still pending at the time of this dictation. The patient stated that after that episode of vertigo, not feeling well. Yesterday, she actually felt pretty well and was able to ambulate until today in the morning when she started developing chest pain when she was lying in bed. She sat up in bed and developed sudden onset of vertigo as well as nausea. She presented to the hospital with atrial fibrillation with rapid ventricular response, retching. She also had a temperature of 99.4 degrees. She received 20 mg of IV Cardizem in the emergency department and heart rate currently is controlled in the one teens range. She no longer complains of chest pain. The patient stated that the chest pain occurred when she was lying down in bed, localized in left side of her chest, lasted several minutes, not associated with shortness of breath. She described it as "an ache." The patient is going to be admitted to the hospital with the diagnosis of non- ST elevation VT. I suspect that the patient is developing another urinary tract infection and she is meeting sepsis criteria at admission. PAST MEDICAL HISTORY: 1. History of Haemophilus parainfluenzae pneumonia and acute respiratory failure, requiring intubation in July 2016. 2. History of Takotsubo cardiomyopathy with EF of 55%. 3. History of benign positional vertigo. 4. History of chronic atrial fibrillation, on Coumadin. 5. Hypertension. 6. COPD. 7. Hyperlipidemia. 8. Hypothyroidism. 9. Thrombocytopenia. 10. History of hemolytic anemia. 11. History of CVA. 12. 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 14. 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 15. History of splenectomy. 16. History of polymyalgia rheumatica, on chronic prednisone. CURRENT MEDICATIONS: Include: 1. Levothyroxine 75 mcg daily. 2. Cardizem CD 240 mg in the morning and Cartia XT 120 mg at night. 3. Prednisone 5 mg daily. 4. Coumadin 1 mg daily. 5. Digoxin 0.125 mg daily. 6. Lipitor 5 mg daily. 7. Aspirin 81 mg daily. 8. Latanoprost eye drops 0.005% one drop at bedtime to the right eye. 9. Brimonidine tartrate 0.15% solution one drop b.i.d. to the right eye. 10. Lasix 20 mg 5 days a week only. 11. Senna b.i.d. 12. Docusate 100 mg b.i.d. 13. Potassium chloride 20 mEq daily. 14. Clarinex 5 mg daily. 15. Bactrim DS 1 tablet daily. 16. Multivitamin 1 tablet daily. ALLERGIES: Include CELEBREX, MORPHINE, ROFECOXIB, as well as NORVASC. NORVASC caused the patient to be constipated. FAMILY HISTORY: Mother with history of heart disease and rheumatic fever. The patient's mother in her 40s. Father with a history of dying of surgical complications. SOCIAL HISTORY: The patient quit smoking in 2001. She does not use oxygen at home. She ambulates with a rolling walker and has her own apartment. For the past several days, one of her daughters was staying with her. Her daughter, Joesph, is her healthcare proxy. The patient is DNR. REVIEW OF SYSTEMS: Please see history of present illness. In addition to the above mentioned, the patient stated that she has not had any urinary symptoms. Although her appetite had been poor, she has had no problems with bowel movement and no abdominal pain. She denies shortness of breath. She has no chest pain anymore. Her ambulation was very limited today in the morning due to vertigo and she stated that whenever she turns or tries to stand up, her vertigo is severe. The patient complains of nausea, but she has not been vomiting. She has dry heaves. All the remaining 14 systems were reviewed with the patient and were otherwise negative. PHYSICAL EXAMINATION GENERAL: The patient is a very pleasant 87-year-old female, who is in no acute distress. Alert, awake, and oriented x3. VITAL SIGNS: Temperature of 99.3, heart rate of 107 and irregular, respiratory rate 22, oxygen saturation 95% on 2 L of oxygen nasal cannula, and blood pressure 165/98. HEENT: Head is atraumatic, normocephalic. Eyes: Pupils are equal and reactive to light and accommodation. Oropharynx clear. Mucosa moist. NECK: Supple. No JVD. No bruits bilaterally. RESPIRATORY: Faint crackles heard at bilateral bases, otherwise clear. CARDIOVASCULAR: Irregularly irregular rhythm, tachycardia with 2/6 systolic ejection murmur noted on auscultation of the apex. ABDOMEN: Soft, nontender. Bowel sounds are present in all 4 quadrants. EXTREMITIES: There is no edema. Pulses are +2 bilaterally. No clubbing or cyanosis. NEURO: Speech clear. Cranial nerves II through XII grossly intact. Motor strength is 5/5 bilaterally. The patient has no nystagmus on evaluation. She complains of dizziness whenever she is repositioned or attempts to sit up. PSYCHIATRIC: The patient is not very comfortable right now, dry heaving occasionally. SKIN: Evaluation of the skin, no ecchymotic areas or rashes noted. DIAGNOSTIC STUDIES/LAB DATA: Studies performed today included: Urinalysis from today is pending at the time of dictation. CBC: White blood cell count of 10.1, hematocrit of 11.3, hematocrit of 35, and platelets of 144. Sodium was 132, potassium 4.0, chloride 102, carbon dioxide 23, BUN 25, creatinine 1.06. Liver function tests were unremarkable. Troponin of 0.33. Brain natriuretic peptide was . C-reactive protein was 98. TSH of 3.2. Blood cultures were obtained in the ED. The patient's EKG initial one showed intraventricular conduction delay, atrial fibrillation with heart rate [address] elevation most likely due to LVH and that is comparable from prior EKG. Repeat EKG when the patient was with a slower rate is basically unchanged. Portable chest x-ray, impression: "Mild prominence of interstitial markings suggested possibility of congestive heart failure." Brain CT, impression: "Limited study. No acute intracranial pathology. Diffuse involutional change with chronic small vessel ischemic changes." Lactic acid is pending at the time of dictation. ASSESSMENT AND PLAN: 1. Non-ST elevation myocardial infarction. The patient had an episode of chest pain. No marked EKG changes though. She does have a troponin of 0.3. She has a history of troponin of 0.3 when she was intubated in acute respiratory failure in July of 2016. At this point, the patient is being diagnosed with non-ST elevation myocardial infarction. She is going to be continued on Coumadin and her INR is therapeutic today at 2.2. She is currently chest pain free. I will continue her Cardizem as well as aspirin and statin. 2. In regards to the patient's sepsis, the patient is septic at admission. I suspect the source is urinary tract infection. A Walker catheter was placed since the patient was not able to urinate due to discomfort with dry heaving. According to the patient's microbiology results from January, the patient at that point had positive ESBL Escherichia coli and was sensitive to Zosyn, meropenem, and Bactrim. I will place the patient on Zosyn. I also place the patient on intravenous hydration, which is going to be gentle at 125 mL/hour due to that the patient has a history of using Lasix at home and has vascular congestion on her chest x-ray. 3. In regards to the patient's vertigo, I believe it is an exacerbation of benign positional vertigo due to ongoing sepsis and overall distress and non-ST elevation myocardial infarction. We will continue to follow and treat the patient with meclizine on a p.r.n. basis. 4. In regards to the patient's atrial fibrillation currently with heart rate in the 115, which is . If the patient becomes uncontrolled, we will place the patient on Cardizem drip. For the time being, we will attempt to keep p.o. Cardizem on board. I will also continue daily Coumadin. 5. 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 6. For hypothyroidism, her Synthroid is going to be continued. 7. For DVT prophylaxis, the patient will be continued on Coumadin with daily INRs. 8. Code status. The patient is do not resuscitate and MOLST was confirmed. The patient's healthcare proxy is her daughter, Joesph. TIME SPENT: Approximately 70 minutes was spent on admission of this patient, more than half that time was spent [id number] with the patient during the interview and physical exam and counseling. [id number] #: [id number] MTDD
--- NOTE | 2017-04-28 14:32 | ECHO ---
Patient: [facility] Rec#: [id number] : 1930 Date: 04/28/2017 Age: 87y Height: 160.02 cm / 63.0 in Weight: 47.63 kg / 105.0 lbs Sex: F BSA: 1.47 Room#: [facility] Admit Date#: 04/28/2017 Type: Inpatient Referring: Susan Hernandez MD Reading: Jt Hollingsworth MD Agricultural [employer] Teacher: Sarah Ng RDCS CC: Edilberto Ayers MD Transthoracic Echocardiogram Indication: NSTEMI BP: 165/98 HR: 107 Rhythm: Paced Findings History: Takotsubo, a-fib, COPD, CVA, AAA, tachy-kayleigh syndrome s/p pacer, MVR 2008, and CHF. Technical Comments: The study quality is fair. The study is technically limited due to the patient's history of COPD. Completed at 1340. Left Ventricle: The left ventricular chamber size is normal. Moderate concentric left ventricular hypertrophy is observed. Mild global hypokinesis of the left ventricle is observed. There is mildly decreased left ventricular systolic function. Unable to estimate left ventricular ejection fraction. Given mild rapid a fib, LBBB but probably around 45% Post surgical hypokinesis of the interventricular septum is observed consistent with valve replacement. The assessment of diastolic function is non-diagnostic. Left Atrium: The left atrium is severely dilated. Right Ventricle: Moderator Band present. The right ventricular cavity size is normal. The right ventricular global systolic function is mildly reduced. A pacemaker wire is visualized in the right ventricle. Right Atrium: The right atrium is moderately dilated. A pacemaker wire is visualized in the right atrium. Aortic Valve: The aortic valve is trileaflet. Moderate aortic leaflet calcification is visualized. There is mild to moderate aortic regurgitation. There is moderate aortic stenosis. The mean gradient of the aortic valve is 24.9 mmHg. The peak instantaneous gradient of the aortic valve is 39.89 mmHg. The aortic valve area, by peak velocities, is calculated at 1.85 cm2. The aortic valve area, by VTI's, is calculated at 1.59 cm2. Mitral Valve: The mitral valve leaflets are mildly thickened. The bioprosthetic mitral valve appears to be functioning normally. Tricuspid Valve: The tricuspid valve leaflets are normal. There is mild to moderate tricuspid regurgitation. The right ventricular systolic pressure is estimated at 39 mmHg. There is evidence of mild pulmonary hypertension. There is no tricuspid stenosis. Pulmonic Valve: The pulmonic valve appears normal. There is mild pulmonic regurgitation. There is no pulmonic stenosis. Pericardium: There is no significant pericardial effusion. Aorta: There is no dilatation of the ascending aorta. There is no dilatation of the aortic arch. The aortic root is normal in size. Pulmonary Artery: The main pulmonary artery is not well visualized. Venous: The inferior vena cava appears normal in size. There is a greater than 50% respiratory change in the inferior vena cava dimension. Summary: There are changes noted when compared to the previous study done on 08/17/2016, LV EF is now mildly reduced instead of 55-60% then. Now there is increase in from mild then. PHTN is new. Conclusions The left ventricular chamber size is normal. Moderate concentric left ventricular hypertrophy is observed. There is mildly decreased left ventricular systolic function. Post surgical hypokinesis of the interventricular septum is observed consistent with valve replacement. Unable to estimate left ventricular ejection fraction. Given mild rapid a fib, LBBB but probably around 45% The assessment of diastolic function is non-diagnostic. The left atrium is severely dilated. A pacemaker wire is visualized in the right ventricle. A pacemaker wire is visualized in the right atrium. There is mild to moderate aortic regurgitation. There is moderate aortic stenosis. The bioprosthetic mitral valve appears to be functioning normally. There is mild to moderate tricuspid regurgitation. The right ventricular systolic pressure is estimated at 39 mmHg. There is evidence of mild pulmonary hypertension. There is mild pulmonic regurgitation. There are changes noted when compared to the previous study done on 08/17/2016, LV EF is now mildly reduced instead of 55-60% then. Now there is increase in from mild then. PHTN is new. Measurements Name Value Normal Range RVIDd (AP) 2D 2.9 cm (0.9 - 2.6) RVDdMajor (2D) 2.9 cm (2.2 - 4.4) RAd ISD 4CH 5.7 cm (3.4 - 4.9) RA (A4C)W 4.3 cm (2.9 - 4.6) IVSd (2D) 1.6 cm (0.6 - 1) LVPWd (2D) 1.6 cm (0.6 - 1) LVIDd (2D) 4.1 cm (3.6 - 5.4) LVIDs (2D) 2.6 cm - LV FS (2D) 38 % (25 - 45) Aortic Annulus 1.9 cm (1.4 - 2.6) Ao root diameter (2D) 3.5 cm (2.1 - 3.5) Ascending Ao 3.4 cm (2.1 - 3.4) Aortic arch 3.2 cm (1.8 - 3.4) LA dimension (AP) 2D 4.8 cm (2.3 - 3.8) LAd ISD 4CH 6.5 cm (2.9 - 5.3) LA ISD 4CH W 5.2 cm (2.5 - 4.5) Name Value Normal Range LA ESV SP 4CH (A/L) 140 ml - LA ESV SP 2CH (A/L) 166 ml - LA ESV BP (A/L) 153 ml - LA ESV BP (A/L) index 104 ml/m2 - LA ESV SP 4CH (MOD) 133 ml - LA ESV SP 2CH (MOD) 154 ml - Name Value Normal Range MV E-wave Vmax 1.7 m/sec - MV deceleration time 341.68 msec - LV septal e' Vmax 0.04 m/sec - LV lateral e' Vmax 0.09 m/sec - LV E:e' septal ratio 42.5 ratio - LV E:e' lateral ratio 18.89 ratio - Name Value Normal Range AV Vmax 3.13 m/sec - AV VTI 46.4 cm - AV peak gradient 39.89 mmHg - AV mean gradient 24.9 mmHg - LVOT diameter 2 cm - LVOT Vmax 1.84 m/sec - LVOT VTI 23.48 cm - LVOT peak gradient 13.78 mmHg - LVOT mean gradient 7.65 mmHg - DOI (VTI) 0.53 ratio - SONIA (continuity Vmax) 1.85 cm2 - SONIA (continuity VTI) 1.59 cm2 - AR PHT 312.4 msec - AR peak gradient 79.95 mmHg - CLARY Vmax 0.26 m/sec - Name Value Normal Range MV Vmax 2.17 m/sec - MV VTI 43.94 cm - MV peak gradient 18.97 mmHg - MV mean gradient 5.6 mmHg - MVA (continuity VTI) 1.63 cm2 - Name Value Normal Range TR Vmax 3 m/sec - TR peak gradient 36 mmHg - RAP 3 mmHg - RVSP 39 mmHg - IVC diameter 1.9 cm - Name Value Normal Range PV Vmax 1.19 m/sec - PV peak gradient 5.77 mmHg - UT end-diastolic Vmax 1.6 m/sec -
[2017-04-28] MEDS: Atorvastatin* 10 MG TAB PO SCH (17:56)
[2017-04-28] MEDS: Warfarin TAB(*) 1 MG PO SCH (17:56)
[2017-04-28] MEDS: Digoxin TAB* 0.125 MG PO SCH (17:56)
[2017-04-28] MEDS: Acetaminophen TAB* 325 MG PO PRN (18:06)
--- NOTE | 2017-04-28 18:56 | ED ---
Charlie Sanabria Angela, scribed for Nash Castellanos MD on 04/28/17 at 0805 . HPI Chest Pain - HPI Summary HPI Summary: This pt is a 87 y/o female presenting to [facility] c/o chest pain, dizziness and nausea since this morning. Pt reports that her chest pain has currently resolved. She states that while at rest sitting down, her dizziness and nausea is resolved. Pt feels dizzy and nauseous when sitting up. Pt describes dizziness as room spinning. She notes she is always SOB. PMHx: COPD, pneumonia, PE. - History of Current Complaint Chief Complaint: EDDizziness Time Seen by Provider: 04/28/17 07:57 Hx Obtained From: Patient Onset/Duration: Started Hours Ago Timing: Lasting Hours Pain Intensity: 0 Chest Pain Radiates: No Aggravating Factor(s): Other: - sitting up causes dizziness and nausea Alleviating Factor(s): Spontaneous Resolution Associated Signs and Symptoms: Positive: Chest Pain, Dizziness, Shortness of Breath - chronic, Nausea - Additional Pertinent History Primary Care Physician: AMAURI - Allergy/Home Medications Allergies/Adverse Reactions: Allergies Allergy/AdvReac Type Severity Reaction Status Date / Time Amlodipine AdvReac Constipatio Verified 04/28/17 08:04 n Celecoxib [From Celebrex] AdvReac Nausea And Verified 04/28/17 08:04 Vomiting Rofecoxib [From Vioxx] AdvReac Nausea And Verified 04/28/17 08:04 Vomiting Home Medications: Home Medications Sulfamethox/Trimethoprim DS* [Bactrim DS 800/160 TAB*] 1 tab PO DAILY 04/28/17 [ History Confirmed 04/28/17] PMH/Surg Hx/FS Hx/Imm Hx Endocrine/Hematology History: Reports: Hx Anticoagulant Therapy, Hx Blood Transfusions - multiple, Hx Thyroid Disease - hypothroid, Hx Anemia Denies: Hx Blood Disorders, Hx Bone Marrow Disease, Hx Diabetes, Hx Systemic Lupus Erythematosus, Hx Unexplained Bleeding Cardiovascular History: Reports: Hx Aneurysm - AAA REPAIR 03/07/13, Hx Congestive Heart Failure - 09/2007, Hx Coronary Artery Disease, Hx Hypercholesterolemia, Hx Hypertension, Hx Myocardial Infarction, Hx Pacemaker/ ICD, Hx Peripheral Vascular Disease, 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,AORTIC VALVE DIEASE, Other Cardiovascular Problems/Disorders - AORTIC VALVE DISEASE/AAA/ISCHEMIC [id number] Denies: Hx Angina Respiratory History: Reports: Hx Chronic Obstructive Pulmonary Disease (COPD), Hx Pneumonia - post op, Hx Pulmonary Embolism, Other Respiratory Problems/ Disorders - HX OF PNEUMONIA, MOST RECENT CASE PUT HER IN ICU ON A VENT. GI History: Reports: Hx Gall Bladder Disease Denies: Other GI Disorders History: Reports: Hx Renal Disease - abnormal gfr Denies: Hx Dialysis, Hx Kidney Stones, Other Problems/Disorders Musculoskeletal History: Reports: Hx Arthritis - POLYMYALIGIA RHEUMATICA, Hx Orthopedic Injury - left hip replacement, Other Musculoskeletal History - POLYMYALGIA RHEUMATICA, osteopenia Denies: Hx Back Problems, Hx Osteoporosis Sensory History: Reports: Hx Contacts or Glasses, Hx Glaucoma - right eye Denies: Hx Hearing Aid, Hx Hearing Problem Opthamlomology History: Reports: Hx Contacts or Glasses, Hx Glaucoma - right eye Neurological History: Reports: Hx Nerve Disease - peripheral neuropathy right leg only Denies: Hx Dementia, Hx Headaches, Hx Seizures, Hx Transient Ischemic Attacks (TIA), Other Neuro Impairments/Disorders Psychiatric History: Reports: Hx Depression - remote past - Cancer History Hx Chemotherapy: No Hx Radiation Therapy: No - Surgical History Surgery Procedure, Year, and Place: hemorrrhoidectomy, hysterectomy,cataracts, spleenectomy,mitral valve,aortic aneurysm, pacer, iliac artery aneurysm,left hip replacement Hx Anesthesia Reactions: No Infectious Disease History: No Infectious Disease History: Denies: Traveled Outside the [place] in Last 30 Days - Family History Known Family History: Positive: Cardiac Disease, Hypertension Negative: Diabetes - Social History Alcohol Use: None Substance Use Type: Reports: None Hx Tobacco Use: Yes Smoking Status (MU): Former Smoker Type: Cigarettes Amount Used/How Often: quit 2009 Length of Time of Smoking/Using Tobacco: 1PPD Have You Smoked in the Last Year: No Review of Systems Negative: Fever, Chills Eyes: Negative ENT: Negative Positive: Chest Pain - resolved now Positive: Shortness Of Breath - chronic Positive: Nausea. Negative: Vomiting Genitourinary: Negative Musculoskeletal: Negative Skin: Negative Neurological: Other - dizziness All Other Systems Reviewed And Are Negative: Yes Physical Exam - Summary Physical Exam Summary: VITAL SIGNS: Reviewed. GENERAL: Patient is a well-developed and nourished female who is lying comfortable in the stretcher. Patient is not in any acute respiratory distress. HEAD AND FACE: No signs of trauma. No ecchymosis, hematomas or skull depressions. No sinus tenderness. EYES: PERRLA, EOMI x 2, No injected conjunctiva, no nystagmus. EARS: Hearing grossly intact. Ear canals and tympanic membranes are within normal limits. MOUTH: Oropharynx within normal limits. NECK: Supple, trachea is midline, no adenopathy, no JVD, no carotid bruit, no c- spine tenderness, neck with full ROM. CHEST: Symmetric, no tenderness at palpation LUNGS: Clear to auscultation bilaterally. No wheezing or crackles. CVS: Regular rate and rhythm, S1 and S2 present, no murmurs or gallops appreciated. ABDOMEN: Soft, non-tender. No signs of distention. No rebound no guarding, and no masses palpated. Bowel sounds are normal. EXTREMITIES: FROM in all major joints, no edema, no cyanosis or clubbing. NEURO: Alert and oriented x 3. No acute neurological deficits. Speech is normal and follows commands. SKIN: Dry and warm GCS: 15 Triage Information Reviewed: Yes Vital Signs On Initial Exam: Initial Vitals Temp Pulse Resp BP Pulse Ox 99.3 F 111 24 164/128 99 04/28/17 07:56 04/28/17 07:56 04/28/17 07:56 04/28/17 07:56 04/28/17 07:56 Vital Signs Reviewed: Yes Diagnostics - Vital Signs Vital Signs Temp Pulse Resp BP Pulse Ox 04/28/17 07:56 99.3 F 111 24 164/128 99 - Laboratory Lab Results: Lab Results 04/28/17 04/28/17 04/28/17 Range/Units 08:19 08:19 08:19 WBC 10.1 (3.5-10.8) 10^3/ul RBC 4.27 (4.0-5.4) 10^6/ul Hgb 11.3 L (12.0-16.0) g/dl Hct 35 (35-47) % MCV 82 (80-97) fL MCH 27 (27-31) pg MCHC 33 (31-36) g/dl RDW 23 H (10.5-15) % Plt Count 144 L (150-450) 10^3/ul MPV 11 H (7.4-10.4) um3 Neut % (Auto) 70.6 (38-83) % Lymph % (Auto) 20.7 L (25-47) % Villalba % (Auto) 7.4 (1-9) % Eos % (Auto) 0.4 (0-6) % Baso % (Auto) 0.9 (0-2) % Absolute Neuts (auto) 7.1 (1.5-7.7) 10^3/ul Absolute Lymphs (auto) 2.1 (1.0-4.8) 10^3/ul Absolute Monos (auto) 0.8 (0-0.8) 10^3/ul Absolute Eos (auto) 0 (0-0.6) 10^3/ul Absolute Basos (auto) 0.1 (0-0.2) 10^3/ul Absolute Nucleated RBC 0.04 10^3/ul Nucleated RBC % 0.4 Platelet Morphology Large Normal RBC Morphology Not Reportable Elliptocytes 1+ Acanthocytes (Spur) 2+ Schistocytes 1+ Hem Pathologist Commnt Pending INR (Anticoag Therapy) (0.89-1.11) Sodium 132 L (133-145) mmol/L Potassium 4.0 (3.5-5.0) mmol/L Chloride 102 (101-111) mmol/L Carbon Dioxide 23 (22-32) mmol/L Anion Gap 7 (2-11) mmol/L BUN 25 H (6-24) mg/dL Creatinine 1.06 H (0.51-0.95) mg/dL Est GFR ( Amer) 63.1 (>60) Est GFR (Non-Af Amer) 49.0 (>60) BUN/Creatinine Ratio 23.6 H (8-20) Glucose 90 (70-100) mg/dL Calcium 9.2 (8.6-10.3) mg/dL Magnesium 1.7 L (1.9-2.7) mg/dL Total Bilirubin 0.80 (0.2-1.0) mg/dL AST 20 (13-39) U/L ALT 14 (7-52) U/L Alkaline Phosphatase 64 (34-104) U/L Total Creatine Kinase 20 (10-223) U/L Troponin I 0.33 H* (<0.04) ng/mL C-Reactive Protein 98.77 H (< 5.00) mg/L B-Natriuretic Peptide 959 H ( - 100) pg/mL Total Protein 7.4 (6.4-8.9) g/dL Albumin 3.6 (3.2-5.2) g/dL Globulin 3.8 (2-4) g/dL Albumin/Globulin Ratio 0.9 L (1-3) TSH 3.23 (0.34-5.60) mcIU/mL 04/28/17 Range/Units 08:19 WBC (3.5-10.8) 10^3/ul RBC (4.0-5.4) 10^6/ul Hgb (12.0-16.0) g/dl Hct (35-47) % MCV (80-97) fL MCH (27-31) pg MCHC (31-36) g/dl RDW (10.5-15) % Plt Count (150-450) 10^3/ul MPV (7.4-10.4) um3 Neut % (Auto) (38-83) % Lymph % (Auto) (25-47) % Villalba % (Auto) (1-9) % Eos % (Auto) (0-6) % Baso % (Auto) (0-2) % Absolute Neuts (auto) (1.5-7.7) 10^3/ul Absolute Lymphs (auto) (1.0-4.8) 10^3/ul Absolute Monos (auto) (0-0.8) 10^3/ul Absolute Eos (auto) (0-0.6) 10^3/ul Absolute Basos (auto) (0-0.2) 10^3/ul Absolute Nucleated RBC 10^3/ul Nucleated RBC % Platelet Morphology Normal RBC Morphology Elliptocytes Acanthocytes (Spur) Schistocytes Hem Pathologist Commnt INR (Anticoag Therapy) 2.28 H (0.89-1.11) Sodium (133-145) mmol/L Potassium (3.5-5.0) mmol/L Chloride (101-111) mmol/L Carbon Dioxide (22-32) mmol/L Anion Gap (2-11) mmol/L BUN (6-24) mg/dL Creatinine (0.51-0.95) mg/dL Est GFR ( Amer) (>60) Est GFR (Non-Af Amer) (>60) BUN/Creatinine Ratio (8-20) Glucose (70-100) mg/dL Calcium (8.6-10.3) mg/dL Magnesium (1.9-2.7) mg/dL Total Bilirubin (0.2-1.0) mg/dL AST (13-39) U/L ALT (7-52) U/L Alkaline Phosphatase (34-104) U/L Total Creatine Kinase (10-223) U/L Troponin I (<0.04) ng/mL C-Reactive Protein (< 5.00) mg/L B-Natriuretic Peptide ( - 100) pg/mL Total Protein (6.4-8.9) g/dL Albumin (3.2-5.2) g/dL Globulin (2-4) g/dL Albumin/Globulin Ratio (1-3) TSH (0.34-5.60) mcIU/mL Result Diagrams: 04/28/17 08:19 04/28/17 08:19 Lab Statement: Any lab studies that have been ordered have been reviewed, and results considered in the medical decision making process. - Radiology Chest XR Xray Interpretation: Positive (See Comments) - IMPRESSION: Mild prominence of the interstitial markings suggesting the possibility of congestive heart failure. ED physician has reviewed this radiology report and agrees. Radiology Interpretation Completed By: Radiologist - CT Brain CT CT Interpretation: Positive (See Comments) - IMPRESSION: 1. Limited study. 2. No acute intracranial pathology. 3. Diffuse involutional change with chronic small vessel ischemic changes. ED physician has reviewed this radiology report and agrees. CT Interpretation Completed By: Radiologist - EKG 0817 EKG Rhythm: Atrial Fibrillation - at 111 bpm EKG Interpretation: LVH Chest Pain Course/Dx - Course Assessment/Plan: This pt is a 87 y/o female presenting to [facility] c/o chest pain, dizziness and nausea since this morning. Pt reports that her chest pain has currently resolved. She states that while at rest sitting down, her dizziness and nausea is resolved. Pt feels dizzy and nauseous when sitting up. Pt describes dizziness as room spinning. She notes she is always SOB. PMHx: COPD, pneumonia, PE. Test results are without any significant abnormalities except for INR of 2.28, sodium of 132, increase BUN and creatinine significant for renal insufficiency. Troponin is 0.33, CRP of 98.7, BNP of 959. Urinalysis is negative for UTI. Initial EKG showed ST elevation in V1-V3, avf, with ST depressions and T wave inversions in V4-V6. I contacted Dr. Gruber who reviewed and compared todays EKG to an old EKG. He reports the pt does not have an ST elevation, he thinks the pt has an LVH. Therefore, he recommended for the pt to be treated medically. In the ED course, the pt does not complain of chest pain any longer but she is dizzy. The pt was given Diltiazem and IV fluids. I discussed the case with Dr. Hernandez, who accepted the pt for admission. Pt is hemodynamically stable, alert and oriented x3. - Chest Pain Differential Diagnosis/HQI/PQRI: Acute VA, ACS, Angina, CHF, Chest Wall, GI Disease, Lower Respiratory Infection - Diagnoses Provider Diagnoses: Non-STEMI (non-ST elevated myocardial infarction), Vertigo, Renal insufficiency - Provider Notifications Discussed Care Of Patient With: Sean Gruber Time Discussed With Above Provider: 08:25 Instructed by Provider To: Other - I discussed the pt's EKG with Dr. Gruber. He believes it is LVH but no ST elevation. At 0925: I discussed the pt's case with Dr. Hernandez, who has agreed to admit the pt. Discharge - Discharge Plan Condition: Stable Disposition: ADMITTED TO [facility] The documentation as recorded by the Charlie ledesma Angela accurately reflects the service I personally performed and the decisions made by me, Nash Castellanos MD.
[2017-04-28] MEDS: Latanoprost 0.005%* 2.5 ml BTL RIGHT EYE SCH (20:32)
[2017-04-28] MEDS: Diltiazem CD CAP* 120 MG PO SCH (20:33)
[2017-04-28] MEDS: Docusate CAP* 100 MG PO SCH (20:33)
[2017-04-28] MEDS: Senna TAB PO SCH (20:36)
[2017-04-28] MEDS: Brimonidine P 0.15%(NF) OPH SOL 5 ML BTL RIGHT EYE SCH (21:12)
--- NOTE | 2017-04-28 21:33 | CONS ---
CC: Dr. Cordova; Dr. Ayers; Dr. Hernandez, Hospitalist Service; Dr. Hollingsworth * CARDIOLOGY CONSULTATION NOTE: DATE OF CONSULT: 04/28/17 HISTORY OF PRESENT ILLNESS: I was asked by Dr. 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 She presented to the hospital with vertigo. She was hospitalized recently, then discharged. Then she came back to the hospital with vertigo and she was found to have urosepsis. Cardiology consult was further requested because of blood work of troponin that came in at 2.01. She is chest pain free at the present time. Her initial troponin today at 8:19 was 0.33, did go up to 2.01 at 12:04 today. She is chest pain free. She gives no chest pain, no orthopnea. No PND's. No nausea. No vomiting. No hematochezia. No skin rash is appreciated. EKG without any definite ST elevation. The patient is DNR. She gives no swelling in the lower extremities and no hematochezia is appreciated. PAST MEDICAL HISTORY: Her past medical history is extensive and including history of Takotsubo cardiomyopathy in the past, history of benign positional vertigo, chronic AFib on Coumadin treatment, history of pneumonia, history of thrombocytopenia, hypothyroidism, hyperlipidemia, COPD, hypertension, pacemaker implantation. PAST SURGICAL HISTORY: Includes splenectomy, history of abdominal aortic aneurysm repair, and iliac aneurysm repair. MEDICATIONS: Include: 1. Levothyroxine 75 mcg daily. 2. Prednisone 5 mg daily. 3. Cardizem CD 240 mg in the morning and 120 at night. 4. Coumadin adjusted to her PT and INR. 5. Digoxin 0.125 mg daily. 6. Lipitor 5 mg daily. 7. Aspirin 81 mg daily. 8. She is on Lasix 20 mg 5 days a week. 9. Potassium 20 mEq daily. 10. Multivitamin. ALLERGIES: She is allergic to MORPHINE, NORVASC makes her constipated, and CELEBREX. FAMILY HISTORY: There was no premature coronary artery disease in her family history. SOCIAL HISTORY: She quit smoking in 2001. No history of drug abuse or drinking. She is DNR. REVIEW OF SYSTEMS: Review of all other systems essentially is negative. PHYSICAL EXAM: On exam, she is awake, alert, and oriented. She is not in acute distress. She is chest pain free. Vital Signs: Blood pressure is 139/50 ; pulse 82, she is in AFib; temperature 100.3. Head and Neck Exam: Normocephalic, atraumatic. Head, Ear, Nose, and Throat: Essentially benign. Neck: Supple. JVP is not elevated. No carotid bruit. Chest: Diminished air entry bilaterally. No rales, no wheeze. Heart: Normal. Irregularly irregular. S1 and S2. No added sounds, no gallops, no rubs. There is a grade 2-3/6 systolic murmur at the left sternal border. Abdomen: Benign. Positive bowel sounds. Extremities: No edema. No cyanosis. No clubbing. Skin exam is normal. Psych: Normal affect and mood. BRAIDER TENDER: No focal deficits appreciated. DIAGNOSTIC STUDIES/LAB DATA: White blood cell 10.1, hemoglobin 11.3, hematocrit 35, and platelets 144,000. Her INR 2.28. Chemistry: Sodium 132, potassium 4, BUN 25, creatinine 1.06, magnesium 1.7. LFTs are normal. CRP is high at 98.7. BMP 9059. Her urine was abnormal and showing +2 protein, +1 RBC , and trace white blood cells. The echo which was done actually today showed EF 45%. There is moderate aortic stenosis, bioprosthetic mitral valve functioning normally. There is a mild-to- moderate aortic insufficiency as well. There is [id number] tricuspid insufficiency, mild pulmonary hypertension. IMPRESSION: The patient is an 87-year-old with: 1. Presentation with urosepsis and fever. 2. Abnormal troponin. She is chest pain free. 3. Chronic atrial fibrillation. 4. 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 5. History of mitral valve bioprosthesis in the past, functioning normally. 6. Reduced EF 45%. 7. Chronic left bundle branch block. 8. Systemic arterial hypertension. 9. Hypothyroidism. 10. History of thrombocytopenia. 11. Moderate aortic stenosis. 12. [id number] aortic insufficiency. 13. [id number] tricuspid insufficiency and moderate pulmonary hypertension. PLAN: The patient is currently chest pain free. She is DNR. I had a very lengthy talk and discussion about her comorbidities and clinical condition. She made it clear to me that she does not wish to proceed with any invasive procedures and she wants only to continue medical treatment at the present time. At the present time, I agree with your management, continuing her Lipitor , digoxin, Cardizem treatment, treatment with antibiotic treatment for her presumptive urosepsis as well. Keep a good close eye on her I's and O's, daily weight, not to push her into congestive heart failure. Continue Coumadin with therapeutic INR between 2.0 and 3.0. I answered all her concerns and questions up to her satisfaction. Thank you very much for asking us to participate in the care of this patient. TIME SPENT: More than half of at least 60 plus minutes was in the education and counseling mode [id number], explaining all of the above to the patient and answering her concerns and questions. [id number]/[facility] #: [id number] [place]
[2017-04-29] MEDS: Hydrocortisone INJ* 100 MG VIAL IV SCH (03:15)
[2017-04-29 05:28] LABS: Hematocrit 33 % (35-47); Hemoglobin 10.7 g/dl (12.0-16.0); Mean Corpuscular HGB Conc 33 g/dl (31-36); Mean Corpuscular Hemoglobin 27 pg (27-31); Mean Corpuscular Volume 82 fL (80-97); Red Blood Count 3.99 10^6/ul (4.0-5.4); Red Cell Distribution Width 22 % (10.5-15); White Blood Count 10.3 10^3/ul (3.5-10.8)
[2017-04-29 05:47] LABS: EGFR African American 84.8 (>60); EGFR Non-African American 65.9 (>60); Potassium 3.9 mmol/L (3.5-5.0)
[2017-04-29 05:52] LABS: Add Diff/Slide Review? Slide Review Added; Comments Flag Yes
[2017-04-29] MEDS: ZOSYN 3.375 GM Q8H per EXTENDED INFUSION IVPB SCH ×6 (06:08→21:53)
[2017-04-29] MEDS: Levothyroxine TAB* 75 MCG TAB PO SCH (06:09)
[2017-04-29 06:24] LABS: Mean Platelet Volume 11 um3 (7.4-10.4)
[2017-04-29 08:42] LABS: Troponin I 2.5 ng/mL (<0.04)
[2017-04-29] MEDS ORDERED: Furosemide TAB* 20 MG PO ONE (08:45)
--- NOTE | 2017-04-29 08:49 | PN ---
Subjective Date of Service: 04/29/17 Interval History: Pt feels much better today. hungry. Nausea and vertigo resolved. no CP. Telem shows controlled A. fib Objective Active Medications: Acetaminophen (Tylenol Tab*) 650 mg PO Q4H PRN PRN Reason: FEVER/PAIN Last Admin: 04/28/17 18:06 Dose: 650 mg Al Hydrox/Mg Hydrox/Simethicone (Maalox Plus*) 30 ml PO Q6H PRN PRN Reason: INDIGESTION Aspirin (Aspirin Ec Low Dose*) 81 mg PO QAM [facility] Atorvastatin Calcium (Lipitor*) 5 mg PO QPM [facility] Last Admin: 04/28/17 17:56 Dose: 5 mg Brimonidine Tartrate (Alphagan P 0.15%(Nf)) 1 drop RIGHT EYE BID [facility] Last Admin: 04/28/17 21:12 Dose: Not Given Digoxin (Lanoxin Tab*) 0.125 mg PO DAILY@1700 [facility] Last Admin: 04/28/17 17:56 Dose: 0.125 mg Diltiazem HCl (Cardizem Cd Cap*) 120 mg PO BEDTIME [facility] Last Admin: 04/28/17 20:33 Dose: 120 mg Diltiazem HCl (Cardizem Cd Cap*) 240 mg PO QAM [facility] Docusate Sodium (Colace Cap*) 100 mg PO BID [facility] Last Admin: 04/28/17 20:33 Dose: 100 mg Hydrocortisone Sodium Succinate (Solu-Cortef*) 50 mg IV Q8H [facility] Last Admin: 04/29/17 03:15 Dose: 50 mg Latanoprost (Xalatan 0.005%*) 1 drop RIGHT EYE BEDTIME [facility] Last Admin: 04/28/17 20:32 Dose: 1 drop Levothyroxine Sodium (Synthroid Tab*) 75 mcg PO QAM@0600 [facility] Last Admin: 04/29/17 06:09 Dose: 75 mcg Meclizine HCl (Antivert Tab*) 12.5 mg PO Q8HR PRN PRN Reason: DIZZINESS Morphine Sulfate (Morphine Inj (Syringe)*) 1 mg IV Q4H PRN PRN Reason: PAIN Ondansetron HCl (Zofran Inj*) 4 mg IV Q4H PRN PRN Reason: NAUSEA Pantoprazole Sodium (Protonix Iv*) 40 mg IV DAILY [facility] Pharmacy Consult (Zosyn Per Pharmacy*) 1 note FOLLOW UP .ZOSYN PER PHARMACY [facility] Senna (Senokot Tab*) 1 tab PO BID [facility] Last Admin: 04/28/17 20:36 Dose: 1 tab Warfarin Sodium (Coumadin Tab(*)) 1 mg PO DAILY@1700 [facility] PRN Reason: Protocol Last Admin: 04/28/17 17:56 Dose: 1 mg Vital Signs 04/28/17 04/28/17 04/28/17 09:30 10:00 10:30 Temperature Pulse Rate 102 110 109 Respiratory Rate Blood Pressure 176/61 152/67 165/98 (mmHg) O2 Sat by Pulse 97 98 95 Oximetry 04/28/17 04/28/17 04/28/17 11:00 11:27 11:30 Temperature Pulse Rate 71 100 Respiratory 24 Rate Blood Pressure 161/73 161/73 152/68 (mmHg) O2 Sat by Pulse 96 99 Oximetry 04/28/17 04/28/17 04/28/17 11:53 15:21 19:00 Temperature 99.0 F 100.3 F Pulse Rate 96 82 Respiratory 22 24 18 Rate Blood Pressure 139/90 139/50 (mmHg) O2 Sat by Pulse 96 90 Oximetry 04/28/17 04/28/17 04/29/17 19:51 23:29 03:20 Temperature 98.3 F 97.7 F 97.4 F Pulse Rate 62 69 78 Respiratory 16 16 18 Rate Blood Pressure 121/42 133/50 135/55 (mmHg) O2 Sat by Pulse 90 96 96 Oximetry Oxygen Devices in Use Now: None Appearance: 87 yo F in nAD, aAOx3 Eyes: No Scleral Icterus, PERRLA Ears/Nose/Mouth/Throat: NL Teeth, Lips, Gums, Mucous Membranes Moist Neck: NL Appearance and Movements; NL JVP, Trachea Midline Respiratory: Symmetrical Chest Expansion and Respiratory Effort, - - crackles at b/l bases Cardiovascular: NL Sounds; No Murmurs; No JVD, - - irregular Abdominal: NL Sounds; No Tenderness; No Distention Lymphatic: No Cervical Adenopathy Extremities: No Edema, No Clubbing, Cyanosis Skin: No Rash or Ulcers, No Nodules or Sclerosis Neurological: Alert and Oriented x 3, NL Muscle Strength and Tone Result Diagrams: 04/29/17 04:51 04/29/17 04:35 Additional Lab and Data: Lab Results 04/28/17 04/28/17 04/28/17 Range/Units 08:19 08:19 08:19 WBC 10.1 (3.5-10.8) 10^3/ul RBC 4.27 (4.0-5.4) 10^6/ul Hgb 11.3 L (12.0-16.0) g/dl Hct 35 (35-47) % MCV 82 (80-97) fL MCH 27 (27-31) pg MCHC 33 (31-36) g/dl RDW 23 H (10.5-15) % Plt Count 144 L (150-450) 10^3/ul MPV 11 H (7.4-10.4) um3 Neut % (Auto) 70.6 (38-83) % Lymph % (Auto) 20.7 L (25-47) % Citrus % (Auto) 7.4 (1-9) % Eos % (Auto) 0.4 (0-6) % Baso % (Auto) 0.9 (0-2) % Absolute Neuts (auto) 7.1 (1.5-7.7) 10^3/ul Absolute Lymphs (auto) 2.1 (1.0-4.8) 10^3/ul Absolute Monos (auto) 0.8 (0-0.8) 10^3/ul Absolute Eos (auto) 0 (0-0.6) 10^3/ul Absolute Basos (auto) 0.1 (0-0.2) 10^3/ul Absolute Nucleated RBC 0.04 10^3/ul Nucleated RBC % 0.4 Platelet Morphology Large Normal RBC Morphology Not Reportable Elliptocytes 1+ Acanthocytes (Spur) 2+ Schistocytes 1+ Hem Pathologist Commnt Pending INR (Anticoag Therapy) (0.89-1.11) Sodium 132 L (133-145) mmol/L Potassium 4.0 (3.5-5.0) mmol/L Chloride 102 (101-111) mmol/L Carbon Dioxide 23 (22-32) mmol/L Anion Gap 7 (2-11) mmol/L BUN 25 H (6-24) mg/dL Creatinine 1.06 H (0.51-0.95) mg/dL Est GFR ( Amer) 63.1 (>60) Est GFR (Non-Af Amer) 49.0 (>60) BUN/Creatinine Ratio 23.6 H (8-20) Glucose 90 (70-100) mg/dL Calcium 9.2 (8.6-10.3) mg/dL Magnesium 1.7 L (1.9-2.7) mg/dL Total Bilirubin 0.80 (0.2-1.0) mg/dL AST 20 (13-39) U/L ALT 14 (7-52) U/L Alkaline Phosphatase 64 (34-104) U/L Total Creatine Kinase 20 (10-223) U/L Troponin I 0.33 H* (<0.04) ng/mL C-Reactive Protein 98.77 H (< 5.00) mg/L B-Natriuretic Peptide 959 H ( - 100) pg/mL Total Protein 7.4 (6.4-8.9) g/dL Albumin 3.6 (3.2-5.2) g/dL Globulin 3.8 (2-4) g/dL Albumin/Globulin Ratio 0.9 L (1-3) TSH 3.23 (0.34-5.60) mcIU/mL 04/28/17 Range/Units 08:19 WBC (3.5-10.8) 10^3/ul RBC (4.0-5.4) 10^6/ul Hgb (12.0-16.0) g/dl Hct (35-47) % MCV (80-97) fL MCH (27-31) pg MCHC (31-36) g/dl RDW (10.5-15) % Plt Count (150-450) 10^3/ul MPV (7.4-10.4) um3 Neut % (Auto) (38-83) % Lymph % (Auto) (25-47) % Citrus % (Auto) (1-9) % Eos % (Auto) (0-6) % Baso % (Auto) (0-2) % Absolute Neuts (auto) (1.5-7.7) 10^3/ul Absolute Lymphs (auto) (1.0-4.8) 10^3/ul Absolute Monos (auto) (0-0.8) 10^3/ul Absolute Eos (auto) (0-0.6) 10^3/ul Absolute Basos (auto) (0-0.2) 10^3/ul Absolute Nucleated RBC 10^3/ul Nucleated RBC % Platelet Morphology Normal RBC Morphology Elliptocytes Acanthocytes (Spur) Schistocytes Hem Pathologist Commnt INR (Anticoag Therapy) 2.28 H (0.89-1.11) Sodium (133-145) mmol/L Potassium (3.5-5.0) mmol/L Chloride (101-111) mmol/L Carbon Dioxide (22-32) mmol/L Anion Gap (2-11) mmol/L BUN (6-24) mg/dL Creatinine (0.51-0.95) mg/dL Est GFR ( Amer) (>60) Est GFR (Non-Af Amer) (>60) BUN/Creatinine Ratio (8-20) Glucose (70-100) mg/dL Calcium (8.6-10.3) mg/dL Magnesium (1.9-2.7) mg/dL Total Bilirubin (0.2-1.0) mg/dL AST (13-39) U/L ALT (7-52) U/L Alkaline Phosphatase (34-104) U/L Total Creatine Kinase (10-223) U/L Troponin I (<0.04) ng/mL C-Reactive Protein (< 5.00) mg/L B-Natriuretic Peptide ( - 100) pg/mL Total Protein (6.4-8.9) g/dL Albumin (3.2-5.2) g/dL Globulin (2-4) g/dL Albumin/Globulin Ratio (1-3) TSH (0.34-5.60) mcIU/mL Assess/Plan/Problems-Billing Assessment: 87 yo F with h/o chronic A. fib, pacer, PMR on prednisone, ESBL E. coli ( on Bactrim suppression), MVR presented with N/V, vertigo, CP and elevated CRP - Patient Problems (1) NSTEMI (non-ST elevated myocardial infarction) Comment: suspect that most of pt's symptoms could have been angina equvalent. Nauses, verigo and cP resolved Troponin peaked at 2.[address] Hollingsworth consult Echo shows EF that is 45%-lower than in 07/2016, also mod AR/ cont ASA/coumadin (2) Polymyalgia rheumatica Comment: Was placed on stress dose steroids yesterday, so far apart for CRP at 94 no evidence of infection. will go back to Prednisone 5 mg daily blood cx pending (3) History of ESBL E. coli infection Comment: h/o UTI, now planned for 3 months on Bactrim DS daily, will cont since no gross abn on UA will stop Zosyn Renal US shows no hydronephrosis, + cysts (4) Chronic diastolic (congestive) heart failure Comment: lasix 20mg PO today for mild fluid overload, and restart her home schedule with 40 mg 5 days a week (5) Atrial fibrillation Comment: Rate controlled. Continue Digoxin and Cardizem. 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
[2017-04-29] MEDS: Aspirin EC Low Dose* 81 MG TAB.EC PO SCH (08:59)
[2017-04-29] MEDS: Diltiazem CD CAP* 240 MG PO SCH (08:59)
[2017-04-29] MEDS: Senna TAB PO SCH ×2 (08:59→20:32)
[2017-04-29] MEDS: Pantoprazole IV* 40 MG IV SCH (08:59)
[2017-04-29] MEDS: Acetaminophen TAB* 325 MG PO PRN ×2 (09:02→17:56)
[2017-04-29 09:12] LABS: HDL Cholesterol 15.8 mg/dL
[2017-04-29] MEDS: predniSONE TAB* 5 MG PO SCH (09:31)
[2017-04-29] MEDS: Docusate CAP* 100 MG PO SCH ×2 (09:31→20:32)
[2017-04-29] MEDS: Sulfamethox/Trimethoprim DS 800/160* TAB PO SCH (09:32)
[2017-04-29] MEDS: Brimonidine P 0.15%(NF) OPH SOL 5 ML BTL RIGHT EYE SCH (09:35)
[2017-04-29] MEDS: Furosemide TAB* 40 MG PO SCH (09:52)
[2017-04-29] MEDS: Warfarin TAB(*) 1 MG PO SCH (17:51)
[2017-04-29] MEDS: Digoxin TAB* 0.125 MG PO SCH (17:51)
[2017-04-29] MEDS: Atorvastatin* 10 MG TAB PO SCH (17:52)
[2017-04-29] MEDS: PTO: Brimonidine P 0.15%(NF) OPH SOL 5 ML BTL RIGHT EYE SCH (20:33)
[2017-04-29] MEDS: Diltiazem CD CAP* 120 MG PO SCH (20:33)
[2017-04-29] MEDS: Latanoprost 0.005%* 2.5 ml BTL RIGHT EYE SCH (20:33)
[2017-04-30 05:42] LABS: Hematocrit 31 % (35-47); Hemoglobin 10.1 g/dl (12.0-16.0); Mean Corpuscular HGB Conc 32 g/dl (31-36); Mean Corpuscular Hemoglobin 26 pg (27-31); Mean Corpuscular Volume 81 fL (80-97); Red Blood Count 3.85 10^6/ul (4.0-5.4); Red Cell Distribution Width 23 % (10.5-15)
[2017-04-30 05:44] LABS: Add Diff/Slide Review? Slide Review Added; Comments Flag Yes
[2017-04-30 05:56] LABS: C Reactive Protein 94.4 mg/L (< 5.00); Calcium 7.9 mg/dL (8.6-10.3); EGFR African American 71.6 (>60); EGFR Non-African American 55.6 (>60); Potassium 3.4 mmol/L (3.5-5.0)
[2017-04-30] MEDS: ZOSYN 3.375 GM Q8H per EXTENDED INFUSION IVPB SCH ×2 (06:00)
[2017-04-30] MEDS: Levothyroxine TAB* 75 MCG TAB PO SCH (06:00)
[2017-04-30 06:17] LABS: Schistocytes 1+
[2017-04-30 06:18] LABS: Platelet Morphology Large
[2017-04-30 06:19] LABS: Macrocytosis 1+; Microcytosis 1+
[2017-04-30 06:21] LABS: Mean Platelet Volume 11 um3 (7.4-10.4)
[2017-04-30] MEDS: PTO: Brimonidine P 0.15%(NF) OPH SOL 5 ML BTL RIGHT EYE SCH ×2 (09:50→21:30)
[2017-04-30] MEDS: Pantoprazole IV* 40 MG IV SCH (10:42)
[2017-04-30] MEDS: KCL 20 MEQ/100 ML IVPREMIX* 20 MEQ/100 ML BAG IV SCH ×2 (10:43→17:03)
[2017-04-30] MEDS ORDERED: Iodixanol* (CONTRAST) 320 MG/ML 100 ML SDV IV ONE (10:52)
[2017-04-30] MEDS ORDERED: fentaNYL* 50 MCG/ML 2 ML VIAL (100 MCG VIAL) ONE (12:07)
[2017-04-30] MEDS ORDERED: Midazolam* 1 MG/ML 5 ML VIAL (5 MG) ONE (12:07)
[2017-04-30] MEDS ORDERED: Naloxone* 0.4 MG/ML 1 ML VIAL ONE (12:07)
[2017-04-30] MEDS ORDERED: Lidocaine 2% VISCOUS* 15 ML UDC ONE (12:07)
[2017-04-30] MEDS ORDERED: Flumazenil* 0.1 MG/ML 5 ML MDV ONE (12:07)
--- NOTE | 2017-04-30 12:12 | CONS ---
CONSULTATION REPORT: DATE OF CONSULT: 04/30/17 REQUESTING PHYSICIAN: Dr. Hernandez. CONSULTING SERVICE: Infectious Disease. REASON FOR CONSULT: Strep bacteremia. IMPRESSION: 1. Streptococcus sanguinis in 4/4 blood culture bottles drawn on 04/28/17 in the setting of vomiting and vertigo. She has also had 2 weeks of fairly severe night sweats. She has a prosthetic mitral valve and a pacemaker, so those are at the top of the differential for a cardiac-device related infection and prosthetic valve endocarditis. She has a prosthetic left hip which has been asymptomatic, so I doubt that is infected. She does not have spine tenderness, so a vertebral osteodiskitis or epidural abscess seems unlikely. She has no other focal areas of pains including none of her joints, so I do not think she has a septic joint. 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 We will have to investigate that further, particularly if the ABBEY is negative as infection of a graft is a consideration. 2. Atrial fibrillation. 3. Status post mitral valve replacement, porcine. 4. Status post pacemaker placement for tachybrady syndrome. 5. Status post left hip arthroplasty. 6. Polymyalgia rheumatica, on prednisone. RECOMMENDATIONS: Change Zosyn to ceftriaxone, recheck the blood cultures, and she is going to have a transesophageal echocardiogram today. If that is unremarkable, then CT of abdomen and pelvis to evaluate her aneurysm grafts. HISTORY OF PRESENT ILLNESS: An 87-year-old woman with a mitral valve replacement and pacemaker, and aortic and iliac aneurysm grafts admitted, with vomiting and with mild abdominal pain, came on 04/28/17. That was in the setting of having vertigo for a couple of days. She had a brain CT that showed no acute changes. She had a white count of 10,000. She is afebrile. She had noted 2 weeks of drenching night sweats. She had a CRP that was 95. Dr. Hernandez obtained blood cultures which were positive, 4/4 growing Strep sanguinis. She has been on Zosyn, is actually feeling a lot better over the last couple of days. Her left hip does not bother her, does not hurt with walking or moving in bed. She has not had an infection in the blood in the past that she can recall. She has been followed by Cardiology with an elevated troponin of 2 and is going to be seen by Dr. Hollingsworth for a transesophageal echocardiogram. PAST MEDICAL HISTORY: 1. Haemophilus pneumonia, July 2016, requiring intubation. 2. Takotsubo cardiomyopathy. 3. Benign vertigo. 4. Atrial fibrillation, on Coumadin. 5. Hypertension. 6. COPD. 7. Hyperlipidemia. 8. Hypothyroidism. 9. Thrombocytopenia. 10. Hemolytic anemia in the past. 11. History of a stroke. 12. Status post mitral valve replacement, porcine. 13. Status post pacemaker placement for tachybrady syndrome. 14. 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 15. Status post splenectomy. 16. Polymyalgia rheumatica, on prednisone. MEDICATIONS: 1. Tylenol. 2. Aspirin. 3. Lipitor. 4. Digoxin. 5. Diltiazem. 6. Furosemide. 7. Levothyroxine. 8. Zosyn 3.375 g IV every 8 hours. 9. Prednisone 5 mg a day. ALLERGIES: CELEBREX, MORPHINE, ROFECOXIB, NORVASC. FAMILY HISTORY: No recurrent infections, no tuberculosis. Mother had heart disease and is . Father from surgical complications. SOCIAL HISTORY: She lives in [place] by herself. No travel or sick contacts. REVIEW OF SYSTEMS: A 14-point review of systems was negative except as noted above. PHYSICAL EXAM: Vital Signs: Temperature is 37, heart rate 70, respiratory rate 18, blood pressure 150/50, and O2 sat 95% on room air. In general, she is awake, not in distress. Neurologic: She is oriented x3, follows all commands. Lower Extremities: Strength is 5/5 in the biceps, triceps, quadriceps, tibialis anterior, and gastrocnemius bilaterally. Sensation is intact to light touch in the upper and lower extremities bilaterally. There is no lower extremity clonus bilaterally. Neck is supple. Lymph Nodes: There is no cervical, supraclavicular, inguinal, axillary, or epitrochlear lymphadenopathy. Heart has regular rate and rhythm with a 1/6 systolic murmur. Lungs are clear to auscultation bilaterally. Abdomen: Soft, non-tender, and nondistended. Bowel sounds are present. Skin: There is no rash or splinter hemorrhages. Musculoskeletal: No spine tenderness to palpation or log roll with left hip range of motion. There is no joint synovitis. LABORATORY DATA: White blood cell count 8, hemoglobin 10, platelets 127. Creatinine is 0.9. CRP 94. Urinalysis showed red cells. Please see impressions and recommendations outlined above which I have discussed with Dr. Hernandez. Thank you for asking me to see Mr. Gilmore in consultation. [id number]/[facility] #: [id number] MTDD
--- NOTE | 2017-04-30 13:55 | TEE ---
Patient: [facility] Rec#: [id number] : 1930 Date: 04/30/2017 Age: 87y Height: 160.02 cm / 63.0 in Weight: 47.63 kg / 105.0 lbs Sex: F BSA: 1.47 Room#: [facility] Type: Inpatient Referring: Susan Hernandez MD Performing: Jt Hollingsworth MD Reading: Jt Hollingsworth MD Digital Marketing Project Manager: Yolanda Wagner RDCS Nurse: Jazmine Davis RN CC: Edilberto Ayers MD Transesophageal Echocardiogram Indication: NSTEMI BP: 188/73 HR: 85 Rhythm: Paced Findings History: A-fib,s/p pacer,COPD,CVA,s/p AAA repair,s/p MV replacement(porcine)2008,CHF, + blood cultures. Technical Comments: The study quality is good. Left Ventricle: The left ventricular chamber size is normal. The estimated ejection fraction is 45-50%. Post surgical hypokinesis of the interventricular septum is observed consistent with valve replacement. There is abnormal ventricular septal wall motion consistent with right ventricular pacemaker. Left Atrium: The left atrium is severely dilated. Spontaneous echo contrast is present in the left atrium. There is no thrombus visualized in the left atrial appendage. Right Ventricle: The right ventricular cavity size is normal. The right ventricular global systolic function is mildly reduced. A pacemaker wire is visualized in the right ventricle. Right Atrium: The right atrium is moderately dilated. A pacemaker wire is visualized in the right atrium. The interatrial septum appears lipomatous. There is no patent foramen ovale visualized. A patent foramen ovale is not demonstrated with color Doppler and agitated contrast. Aortic Valve: The aortic valve is trileaflet. Transthoracic echo report of 04/28/2017 contains a full evaluation of aortic valve. Moderate aortic leaflet calcification is visualized. Systolic excursion of the aortic valve cusps is reduced. There is mild aortic regurgitation. There is no aortic vegetation present. Mitral Valve: No vegetation is observed on the mitral valve. A porcine bioprosthetic mitral valve is present. However a slight perivalvular leak is noted. The bioprosthetic mitral valve appears to be functioning normally. Tricuspid Valve: The tricuspid valve leaflets are normal. There is mild tricuspid regurgitation. No vegetation is observed on the tricuspid valve. Pulmonic Valve: The pulmonic valve appears normal. There is mild pulmonic regurgitation. There is no pulmonic stenosis. No vegetation is observed on the pulmonic valve. Pericardium: The pericardium appears normal. Aorta: There is mild dilatation of the ascending aorta. There is no dilatation of the aortic arch. There is no dilation of the aortic root. There is plaque visualized in the descending aorta. Especially in the descending thoracic aorta. Pulmonary Artery: The main pulmonary artery appears normal. Venous: The bicaval view was obtained and appears normal. The pulmonary veins appear normal in size. 3 out of 4 seen. The flow pattern of the pulmonary veins appear normal. ABBEY Procedures: History and physical as well as labs were reviewed. The patient was in a fasting state. Risks and benefits of the procedure, including alternatives, were discussed and written informed consent was obtained. The patient and/or their health care authorization representative expressed understanding of the procedure, risks and benefits. Baseline and continuous monitoring of blood pressure, heart rate, pulse oximetry and heart rhythm was performed throughout the procedure. The appropriate time-out procedure was performed as per [facility] protocol. The patient was placed in the left lateral decubitus position. The patient's posterior pharynx was anesthetized with 20ml of 2% viscous lidocaine. The patient received IV Midazolam with a total dose of 3mg. The patient received IV Fentanyl with a total dose of 50mcg. An oral bite block was inserted for protection of oral dentition. The multiplane transesophageal echocardiogram probe was inserted through the posterior oropharynx and advanced into the esophagus without difficulty. Multiple 2D images were obtained of the heart and its related structures. Color flow Doppler was used for evaluation. Spectral Doppler was also used. The atrial septum was interrogated with color flow Doppler. At the conclusion of the procedure the probe was removed with continuous suction without complications. The patient tolerated the procedure with no apparent complications. Conclusions The left ventricular chamber size is normal. The estimated ejection fraction is 45-50%. Post surgical hypokinesis of the interventricular septum is observed consistent with valve replacement. There is abnormal ventricular septal wall motion consistent with right ventricular pacemaker. The left atrium is severely dilated. Spontaneous echo contrast is present in the left atrium. There is no thrombus visualized in the left atrial appendage. A pacemaker wire is visualized in the right ventricle. A pacemaker wire is visualized in the right atrium. The aortic valve is trileaflet. Transthoracic echo report of 04/28/2017 contains a full evaluation of aortic valve. There is mild aortic regurgitation. A porcine bioprosthetic mitral valve is present. However a slight perivalvular leak is noted. The bioprosthetic mitral valve appears to be functioning normally. There is mild tricuspid regurgitation. There is mild pulmonic regurgitation. There is mild dilatation of the ascending aorta. There is plaque visualized in the descending aorta. Especially in the descending thoracic aorta. No obvious intracavitary masses, clots, or vegetations. Measurements Name Value Normal Range Aortic Annulus 2.4 cm (1.4 - 2.6) Ao root diameter (2D) 3.1 cm (2.1 - 3.5) Ascending Ao 3.7 cm (2.1 - 3.4) Name Value Normal Range MV E-wave Vmax 1.9 m/sec - MV deceleration time 387 msec -
--- NOTE | 2017-04-30 14:22 | PN ---
Subjective Date of Service: 04/30/17 Interval History: pt is seen after negative ABBEY, feels well, no new complaints. Objective Active Medications: Acetaminophen (Tylenol Tab*) 650 mg PO Q4H PRN PRN Reason: FEVER/PAIN Last Admin: 04/29/17 17:56 Dose: 650 mg Al Hydrox/Mg Hydrox/Simethicone (Maalox Plus*) 30 ml PO Q6H PRN PRN Reason: INDIGESTION Aspirin (Aspirin Ec Low Dose*) 81 mg PO QAM [facility] Last Admin: 04/29/17 08:59 Dose: 81 mg Atorvastatin Calcium (Lipitor*) 5 mg PO QPM [facility] Last Admin: 04/29/17 17:52 Dose: 5 mg Brimonidine Tartrate (Alphagan P 0.15%(Nf)) 1 drop RIGHT EYE BID [facility] Last Admin: 04/30/17 09:50 Dose: 1 drop Digoxin (Lanoxin Tab*) 0.125 mg PO DAILY@1700 [facility] Last Admin: 04/29/17 17:51 Dose: 0.125 mg Diltiazem HCl (Cardizem Cd Cap*) 120 mg PO BEDTIME [facility] Last Admin: 04/29/17 20:33 Dose: 120 mg Diltiazem HCl (Cardizem Cd Cap*) 240 mg PO QAM [facility] Last Admin: 04/29/17 08:59 Dose: 240 mg Docusate Sodium (Colace Cap*) 100 mg PO BID [facility] Last Admin: 04/29/17 20:32 Dose: 100 mg Furosemide (Lasix Tab*) 40 mg PO MoTuWeThFr@0900 [facility] Last Admin: 04/29/17 09:52 Dose: 40 mg Heparin Sodium (Porcine) (Heparin Flush Port (Ivad)) 5 ml FLUSH DAILY [facility] PRN Reason: Protocol Ceftriaxone Sodium 1,000 mg/ (Sodium Chloride) 50 mls @ 200 mls/hr IVPB Q24H [facility] Latanoprost (Xalatan 0.005%*) 1 drop RIGHT EYE BEDTIME [facility] Last Admin: 04/29/17 20:33 Dose: 1 drop Levothyroxine Sodium (Synthroid Tab*) 75 mcg PO QAM@0600 [facility] Last Admin: 04/30/17 06:00 Dose: 75 mcg Meclizine HCl (Antivert Tab*) 12.5 mg PO Q8HR PRN PRN Reason: DIZZINESS Morphine Sulfate (Morphine Inj (Syringe)*) 1 mg IV Q4H PRN PRN Reason: PAIN Ondansetron HCl (Zofran Inj*) 4 mg IV Q4H PRN PRN Reason: NAUSEA Prednisone (Deltasone Tab*) 5 mg PO QAM [facility] Last Admin: 04/29/17 09:31 Dose: 5 mg Senna (Senokot Tab*) 1 tab PO BID [facility] Last Admin: 04/29/17 20:32 Dose: 1 tab Vital Signs 04/29/17 04/29/17 04/29/17 15:52 17:51 19:43 Temperature 97.9 F Pulse Rate 76 64 67 Respiratory 20 24 Rate Blood Pressure 135/54 127/96 (mmHg) O2 Sat by Pulse 99 Oximetry 04/29/17 04/29/17 04/30/17 20:00 23:43 03:17 Temperature 97.9 F 97.6 F Pulse Rate 69 74 Respiratory 24 20 16 Rate Blood Pressure 158/56 139/56 (mmHg) O2 Sat by Pulse 97 95 Oximetry 04/30/17 04/30/17 04/30/17 07:43 08:00 11:04 Temperature 98.1 F 97.8 F Pulse Rate 74 79 Respiratory 18 18 18 Rate Blood Pressure 153/54 146/48 (mmHg) O2 Sat by Pulse 95 99 Oximetry Oxygen Devices in Use Now: None Appearance: 87 yo F in nAD, aAOx3 Eyes: No Scleral Icterus, PERRLA Ears/Nose/Mouth/Throat: NL Teeth, Lips, Gums, Mucous Membranes Moist Neck: NL Appearance and Movements; NL JVP, Trachea Midline Respiratory: Symmetrical Chest Expansion and Respiratory Effort, Clear to Auscultation Cardiovascular: - - irregular, 2/6 ELIAS at apex Abdominal: NL Sounds; No Tenderness; No Distention, No Hepatosplenomegaly Lymphatic: No Cervical Adenopathy Extremities: No Edema, No Clubbing, Cyanosis Skin: No Rash or Ulcers, No Nodules or Sclerosis Neurological: Alert and Oriented x 3, NL Muscle Strength and Tone Result Diagrams: 04/30/17 05:27 04/30/17 05:27 Additional Lab and Data: Lab Results 04/28/17 04/28/17 04/28/17 Range/Units 08:19 08:19 08:19 WBC 10.1 (3.5-10.8) 10^3/ul RBC 4.27 (4.0-5.4) 10^6/ul Hgb 11.3 L (12.0-16.0) g/dl Hct 35 (35-47) % MCV 82 (80-97) fL MCH 27 (27-31) pg MCHC 33 (31-36) g/dl RDW 23 H (10.5-15) % Plt Count 144 L (150-450) 10^3/ul MPV 11 H (7.4-10.4) um3 Neut % (Auto) 70.6 (38-83) % Lymph % (Auto) 20.7 L (25-47) % [place] % (Auto) 7.4 (1-9) % Eos % (Auto) 0.4 (0-6) % Baso % (Auto) 0.9 (0-2) % Absolute Neuts (auto) 7.1 (1.5-7.7) 10^3/ul Absolute Lymphs (auto) 2.1 (1.0-4.8) 10^3/ul Absolute Monos (auto) 0.8 (0-0.8) 10^3/ul Absolute Eos (auto) 0 (0-0.6) 10^3/ul Absolute Basos (auto) 0.1 (0-0.2) 10^3/ul Absolute Nucleated RBC 0.04 10^3/ul Nucleated RBC % 0.4 Platelet Morphology Large Normal RBC Morphology Not Reportable Elliptocytes 1+ Acanthocytes (Spur) 2+ Schistocytes 1+ Hem Pathologist Commnt Pending INR (Anticoag Therapy) (0.89-1.11) Sodium 132 L (133-145) mmol/L Potassium 4.0 (3.5-5.0) mmol/L Chloride 102 (101-111) mmol/L Carbon Dioxide 23 (22-32) mmol/L Anion Gap 7 (2-11) mmol/L BUN 25 H (6-24) mg/dL Creatinine 1.06 H (0.51-0.95) mg/dL Est GFR ( Amer) 63.1 (>60) Est GFR (Non-Af Amer) 49.0 (>60) BUN/Creatinine Ratio 23.6 H (8-20) Glucose 90 (70-100) mg/dL Calcium 9.2 (8.6-10.3) mg/dL Magnesium 1.7 L (1.9-2.7) mg/dL Total Bilirubin 0.80 (0.2-1.0) mg/dL AST 20 (13-39) U/L ALT 14 (7-52) U/L Alkaline Phosphatase 64 (34-104) U/L Total Creatine Kinase 20 (10-223) U/L Troponin I 0.33 H* (<0.04) ng/mL C-Reactive Protein 98.77 H (< 5.00) mg/L B-Natriuretic Peptide 959 H ( - 100) pg/mL Total Protein 7.4 (6.4-8.9) g/dL Albumin 3.6 (3.2-5.2) g/dL Globulin 3.8 (2-4) g/dL Albumin/Globulin Ratio 0.9 L (1-3) TSH 3.23 (0.34-5.60) mcIU/mL 04/28/17 Range/Units 08:19 WBC (3.5-10.8) 10^3/ul RBC (4.0-5.4) 10^6/ul Hgb (12.0-16.0) g/dl Hct (35-47) % MCV (80-97) fL MCH (27-31) pg MCHC (31-36) g/dl RDW (10.5-15) % Plt Count (150-450) 10^3/ul MPV (7.4-10.4) um3 Neut % (Auto) (38-83) % Lymph % (Auto) (25-47) % [place] % (Auto) (1-9) % Eos % (Auto) (0-6) % Baso % (Auto) (0-2) % Absolute Neuts (auto) (1.5-7.7) 10^3/ul Absolute Lymphs (auto) (1.0-4.8) 10^3/ul Absolute Monos (auto) (0-0.8) 10^3/ul Absolute Eos (auto) (0-0.6) 10^3/ul Absolute Basos (auto) (0-0.2) 10^3/ul Absolute Nucleated RBC 10^3/ul Nucleated RBC % Platelet Morphology Normal RBC Morphology Elliptocytes Acanthocytes (Spur) Schistocytes Hem Pathologist Commnt INR (Anticoag Therapy) 2.28 H (0.89-1.11) Sodium (133-145) mmol/L Potassium (3.5-5.0) mmol/L Chloride (101-111) mmol/L Carbon Dioxide (22-32) mmol/L Anion Gap (2-11) mmol/L BUN (6-24) mg/dL Creatinine (0.51-0.95) mg/dL Est GFR ( Amer) (>60) Est GFR (Non-Af Amer) (>60) BUN/Creatinine Ratio (8-20) Glucose (70-100) mg/dL Calcium (8.6-10.3) mg/dL Magnesium (1.9-2.7) mg/dL Total Bilirubin (0.2-1.0) mg/dL AST (13-39) U/L ALT (7-52) U/L Alkaline Phosphatase (34-104) U/L Total Creatine Kinase (10-223) U/L Troponin I (<0.04) ng/mL C-Reactive Protein (< 5.00) mg/L B-Natriuretic Peptide ( - 100) pg/mL Total Protein (6.4-8.9) g/dL Albumin (3.2-5.2) g/dL Globulin (2-4) g/dL Albumin/Globulin Ratio (1-3) TSH (0.34-5.60) mcIU/mL Microbiology and Other Data: Microbiology 04/28/17 10:36 Aerobic Blood Culture - Preliminary Blood Venous Streptococcus Sanguinis Anaerobic Blood Culture - Preliminary Streptococcus Sanguinis Blood Culture - Final 04/28/17 10:45 Aerobic Blood Culture - Preliminary Blood Venous Strep Sanguis (S Sanguis I) Anaerobic Blood Culture - Preliminary Streptococcus Sanguinis Blood Culture - Final Assess/Plan/Problems-Billing Assessment: 87 yo F with h/o chronic A. fib, pacer, PMR on prednisone, ESBL E. coli ( on Bactrim suppression), MVR presented with N/V, vertigo, CP and elevated CRP - Patient Problems (1) Sepsis Comment: pt's presentation at admission with SIRS turned to be due to sepsis and strep sanguis bacteremia Appreciate Dr. Aponte's consult. Zosyn switched to ceftriaxone. Spoke with pt' s daughter who is aware that pt will likley require several weeks of IV antibiotics tx due to prosthetic mitral valve and pacer ABBEY neg. CT abd/pelvis pending (2) NSTEMI (non-ST elevated myocardial infarction) Comment: Nausea, verigo and CP resolved Troponin peaked at 2.[address] Hollingsworth consult Echo shows EF that is 45%-lower than in 07/2016, also mod AR/ cont ASA/coumadin (3) Polymyalgia rheumatica Comment: back to Prednisone 5 mg daily (4) History of ESBL E. coli infection Comment: h/o UTI, now planned for 3 months on Bactrim DS daily. UA shows no bacteria. D/w DR. Aponte , Bactrim stopped (5) Chronic diastolic (congestive) heart failure Comment: restarted her home schedule with 40 mg 5 days a week (6) Atrial fibrillation Comment: Rate controlled. Continue Digoxin and Cardizem. 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
--- NOTE | 2017-04-30 14:52 | RAD ---
Indication: Perivascular abscess. Contrast: Administered 60.0 ml of VISIPAQUE 320 mg/ml CT of the abdomen and pelvis was performed after IV contrast administration. No oral contrast was given. Coronal and sagittal reconstructed images were obtained. The lung bases demonstrate bilateral pleural effusion with bibasilar atelectasis. The heart demonstrates no pericardial effusion. The liver is normal in size. No focal lesions or intrahepatic ductal dilatation is noted. Low density lesion in the right lobe of liver measures up to 3.6 cm. Left lobe hepatic lesion measures 18 mm. These are likely cysts. No intrahepatic duct dilatation is noted. The cysts were identified on a prior ultrasound dated September 16, 2016. The gallbladder is distended with multiple calcified gallstones. No pericholecystic fluid or wall thickening is identified. The common duct is not dilated. Pancreas demonstrates no mass or pancreatic ductal dilatation. Common duct is not dilated. No adrenal lesions are noted. The kidneys demonstrate symmetric nephrograms. Cortical cysts are noted in both kidneys. No hydronephrosis is noted. There is aortic stent graft repair. No evidence of perivascular infiltration or edema is noted to suggest a perigraft abscess. CT of the pelvis demonstrates no retroperitoneal or pelvic lymphadenopathy. Urinary bladder is distended. No hernias are identified. Patient is status post left hip replacement. IMPRESSION: PATIENT IS STATUS POST AORTIC STENT GRAFT REPAIR. NO EVIDENCE OF PERIVASCULAR GRAFT INFECTION IS NOTED. NO ABNORMAL FLUID COLLECTIONS ARE NOTED. CHOLELITHIASIS WITHOUT EVIDENCE OF BILIARY DUCT DILATATION IS NOTED. BILATERAL RENAL CYSTS IS NOTED. ADDITIONALLY HEPATIC CYSTS ARE NOTED. BILATERAL PLEURAL EFFUSIONS ARE NOTED. COMPRESSIVE ATELECTASIS OF THE BASES NOTED.
[2017-04-30] MEDS: cefTRIAXone VIAL(*) 1,000 MG in NS 0.9% 50 ML* 50 ML IVPB SCH (16:28)
[2017-04-30] MEDS: Aspirin EC Low Dose* 81 MG TAB.EC PO SCH (16:30)
[2017-04-30] MEDS: Furosemide TAB* 40 MG PO SCH (16:30)
[2017-04-30] MEDS: predniSONE TAB* 5 MG PO SCH (16:31)
[2017-04-30] MEDS: Acetaminophen TAB* 325 MG PO PRN ×2 (16:43→21:36)
[2017-04-30] MEDS: Diltiazem CD CAP* 240 MG PO SCH (16:45)
[2017-04-30] MEDS: Docusate CAP* 100 MG PO SCH ×2 (16:45→21:29)
[2017-04-30] MEDS: Senna TAB PO SCH ×2 (16:46→21:29)
[2017-04-30] MEDS: Atorvastatin* 10 MG TAB PO SCH (17:19)
[2017-04-30] MEDS: Digoxin TAB* 0.125 MG PO SCH (17:20)
[2017-04-30] MEDS: Diltiazem CD CAP* 120 MG PO SCH (21:29)
[2017-04-30] MEDS: Latanoprost 0.005%* 2.5 ml BTL RIGHT EYE SCH (21:30)
[2017-05-01 05:46] LABS: Hematocrit 32 % (35-47); Hemoglobin 10.6 g/dl (12.0-16.0); Mean Corpuscular HGB Conc 33 g/dl (31-36); Mean Corpuscular Hemoglobin 27 pg (27-31); Mean Corpuscular Volume 81 fL (80-97); White Blood Count 5.6 10^3/ul (3.5-10.8)
[2017-05-01 05:51] LABS: Comments Flag Yes
[2017-05-01 05:52] LABS: Red Cell Distribution Width 22 % (10.5-15)
[2017-05-01 06:04] LABS: BUN/Creatinine Ratio 22.2 (8-20); EGFR Non-African American 66.9 (>60); Potassium 3.9 mmol/L (3.5-5.0)
[2017-05-01 06:49] LABS: Mean Platelet Volume 11 um3 (7.4-10.4)
[2017-05-01] MEDS: Sulfamethox/Trimethoprim DS 800/160* TAB PO SCH (09:07)
[2017-05-01] MEDS: Docusate CAP* 100 MG PO SCH ×2 (09:22→20:16)
[2017-05-01] MEDS: Senna TAB PO SCH ×2 (09:22→20:16)
[2017-05-01] MEDS: Aspirin EC Low Dose* 81 MG TAB.EC PO SCH (09:22)
[2017-05-01] MEDS: PTO: Brimonidine P 0.15%(NF) OPH SOL 5 ML BTL RIGHT EYE SCH ×2 (09:22→20:17)
[2017-05-01] MEDS: Diltiazem CD CAP* 240 MG PO SCH (09:22)
[2017-05-01] MEDS: Levothyroxine TAB* 75 MCG TAB PO SCH (09:22)
[2017-05-01] MEDS: predniSONE TAB* 5 MG PO SCH (09:22)
[2017-05-01] MEDS: Acetaminophen TAB* 325 MG PO PRN (09:27)
--- NOTE | 2017-05-01 14:09 | PN ---
Subjective Date of Service: 05/01/17 Interval History: Pt without complaint. Uses walker more recently. VIKEELIANE AF. INR elevated. 3.55 Objective Active Medications: Acetaminophen (Tylenol Tab*) 650 mg PO Q4H PRN PRN Reason: FEVER/PAIN Last Admin: 05/01/17 09:27 Dose: 650 mg Al Hydrox/Mg Hydrox/Simethicone (Maalox Plus*) 30 ml PO Q6H PRN PRN Reason: INDIGESTION Aspirin (Aspirin Ec Low Dose*) 81 mg PO QAM [facility] Last Admin: 05/01/17 09:22 Dose: 81 mg Atorvastatin Calcium (Lipitor*) 5 mg PO QPM [facility] Last Admin: 04/30/17 17:19 Dose: 5 mg Brimonidine Tartrate (Alphagan P 0.15%(Nf)) 1 drop RIGHT EYE BID [facility] Last Admin: 05/01/17 09:22 Dose: 1 drop Digoxin (Lanoxin Tab*) 0.125 mg PO DAILY@1700 [facility] Last Admin: 04/30/17 17:20 Dose: 0.125 mg Diltiazem HCl (Cardizem Cd Cap*) 120 mg PO BEDTIME [facility] Last Admin: 04/30/17 21:29 Dose: 120 mg Diltiazem HCl (Cardizem Cd Cap*) 240 mg PO QAM [facility] Last Admin: 05/01/17 09:22 Dose: 240 mg Docusate Sodium (Colace Cap*) 100 mg PO BID [facility] Last Admin: 05/01/17 09:22 Dose: 100 mg Furosemide (Lasix Tab*) 40 mg PO MoTuWeThFr@0900 [facility] Last Admin: 04/30/17 16:30 Dose: 40 mg Ceftriaxone Sodium 1,000 mg/ (Sodium Chloride) 50 mls @ 200 mls/hr IVPB Q24H [facility] Last Admin: 04/30/17 16:28 Dose: 200 mls/hr Latanoprost (Xalatan 0.005%*) 1 drop RIGHT EYE BEDTIME [facility] Last Admin: 04/30/17 21:30 Dose: 1 drop Levothyroxine Sodium (Synthroid Tab*) 75 mcg PO QAM@0600 [facility] Last Admin: 05/01/17 09:22 Dose: 75 mcg Meclizine HCl (Antivert Tab*) 12.5 mg PO Q8HR PRN PRN Reason: DIZZINESS Morphine Sulfate (Morphine Inj (Syringe)*) 1 mg IV Q4H PRN PRN Reason: PAIN Ondansetron HCl (Zofran Inj*) 4 mg IV Q4H PRN PRN Reason: NAUSEA Prednisone (Deltasone Tab*) 5 mg PO QAM [facility] Last Admin: 05/01/17 09:22 Dose: 5 mg Senna (Senokot Tab*) 1 tab PO BID [facility] Last Admin: 05/01/17 09:22 Dose: 1 tab Vital Signs 04/30/17 04/30/17 04/30/17 15:26 17:20 20:00 Temperature 97.3 F Pulse Rate 72 77 Respiratory 15 18 Rate Blood Pressure 160/59 (mmHg) O2 Sat by Pulse 95 Oximetry 04/30/17 04/30/17 05/01/17 20:11 23:31 03:42 Temperature 97.4 F 97.2 F 98.3 F Pulse Rate 64 64 64 Respiratory 28 16 16 Rate Blood Pressure 141/57 164/65 167/62 (mmHg) O2 Sat by Pulse 95 97 96 Oximetry 05/01/17 05/01/17 05/01/17 07:16 07:22 07:51 Temperature 97.5 F 97.7 F Pulse Rate 91 72 Respiratory 20 20 18 Rate Blood Pressure 159/60 (mmHg) O2 Sat by Pulse 97 98 Oximetry Oxygen Devices in Use Now: None Appearance: No acute distress. Lying in bed Eyes: No Scleral Icterus, PERRLA Ears/Nose/Mouth/Throat: NL Teeth, Lips, Gums, Mucous Membranes Moist Neck: NL Appearance and Movements; NL JVP, Trachea Midline Respiratory: Symmetrical Chest Expansion and Respiratory Effort, Clear to Auscultation Cardiovascular: - - Regular rate, 3/6 ELIAS LLSB, no rubs or gallops Abdominal: NL Sounds; No Tenderness; No Distention, No Hepatosplenomegaly Lymphatic: No Cervical Adenopathy Extremities: No Edema Skin: - - scattered small echymosis; no donny skin breaks Neurological: Alert and Oriented x 3, NL Sensation Result Diagrams: 05/01/17 05:13 05/01/17 05:13 Additional Lab and Data: Laboratory Results - last 24 hr 05/01/17 05/01/17 05/01/17 05:13 05:13 05:13 WBC 5.6 RBC 4.00 Hgb 10.6 L Hct 32 L MCV 81 MCH 27 MCHC 33 RDW 22 H Plt Count 130 L MPV 11 H INR (Anticoag Therapy) 3.55 H Sodium 135 Potassium 3.9 Chloride 105 Carbon Dioxide 26 Anion Gap 4 BUN 18 Creatinine 0.81 Est GFR ( Amer) 86.0 Est GFR (Non-Af Amer) 66.9 BUN/Creatinine Ratio 22.2 H Glucose 81 Calcium 8.0 L Microbiology and Other Data: Microbiology 04/28/17 10:36 Aerobic Blood Culture - Preliminary Blood Venous Streptococcus Sanguinis Anaerobic Blood Culture - Preliminary Streptococcus Sanguinis Blood Culture - Final 04/28/17 10:45 Aerobic Blood Culture - Preliminary Blood Venous Streptococcus Sanguinis Anaerobic Blood Culture - Preliminary Streptococcus Sanguinis Blood Culture - Final Assess/Plan/Problems-Billing Assessment: 87 yo F with PMH MVR s/p porcine valce, chronic A. fib (on coumadin) , pacer, aortic/iliac stent graft, PMR on prednisone, ESBL E. coli ( on Bactrim suppression), presented with N/V, vertigo, CP and elevated CRP. Strep sanguinus bactremia. ABBEY and CT a/p w/o e/o in infection but with 3 potential intravascular sources treating empirically. CFTX. - Patient Problems (1) Streptococcal bacteremia Current Visit: Yes Status: Acute Code(s): R78.81 - BACTEREMIA SNOMED Code( s): 487708641052 Comment: Appreciate ID recs Continue ceftriaxone for now. likely 2 week course No e/o vegetation on porcine valve. PPM could also be culprit f/u speciation from 04/28 and two new BCx drawn 05/01 was on bactrim chronic suppression for ESBL Ecoli UTI from January. (2) Sepsis Current Visit: Yes Status: Acute Comment: plan as above. resolved. SIRS (tachycardia, fever); thrombocytopenia mild, no lactic acidosis. (3) History of ESBL E. coli infection Current Visit: Yes Status: Acute Code(s): Z86.19 - PERSONAL HISTORY OF OTHER INFECTIOUS AND PARASITIC DISEASES SNOMED Code(s): 835611105 Comment: h/o UTI, had planned for 3 months on Bactrim DS daily. UA shows no bacteria. D/w DR. Aponte , Bactrim was stopped (4) NSTEMI (non-ST elevated myocardial infarction) Current Visit: Yes Status: Acute Code(s): I21.4 - NON-ST ELEVATION (NSTEMI) MYOCARDIAL INFARCTION SNOMED Code(s): 585417210 Comment: Nausea, verigo and CP resolved Troponin peaked at 2.[address] Hollingsworth consult Echo shows EF that is 45%-lower than in 07/2016, also mod AR/ cont ASA/coumadin(held for elevated INR) (5) Atrial fibrillation Current Visit: No Status: Acute Priority: High Onset Date: 05/21/14 Code (s): I48.91 - UNSPECIFIED ATRIAL FIBRILLATION SNOMED Code(s): 52013237 Comment: Rate controlled. Continue Digoxin and Cardizem. A fib with RVR from admission, resolved coumadin held for elevated INR (6) COPD (chronic obstructive pulmonary disease) Current Visit: No Status: Acute Code(s): J44.9 - CHRONIC OBSTRUCTIVE PULMONARY DISEASE, UNSPECIFIED SNOMED Code(s): 39203129 Comment: Not in exacerbation. Continue home medications. (7) Chronic diastolic (congestive) heart failure Current Visit: No Status: Acute Code(s): I50.32 - CHRONIC DIASTOLIC ( CONGESTIVE) HEART FAILURE SNOMED Code(s): 522837756 Comment: restarted her home schedule with 40 mg 5 days a week Status and Disposition: medicine inpatient, potential d/c 05/03 or 05/04 Attending: Travis Cooper
[2017-05-01] MEDS: cefTRIAXone VIAL(*) 1,000 MG in NS 0.9% 50 ML* 50 ML IVPB SCH (15:37)
[2017-05-01] MEDS ORDERED: Acetaminophen TAB* 325 MG PO SCH (16:30)
[2017-05-01] MEDS: Atorvastatin* 10 MG TAB PO SCH (17:00)
[2017-05-01] MEDS: Digoxin TAB* 0.125 MG PO SCH (17:00)
[2017-05-01] MEDS: Acetaminophen TAB* 325 MG PO SCH (17:01)
[2017-05-01] MEDS: Latanoprost 0.005%* 2.5 ml BTL RIGHT EYE SCH (20:15)
[2017-05-01] MEDS: Diltiazem CD CAP* 120 MG PO SCH (20:16)
[2017-05-02] MEDS: hydrALAZINE IV* 20 MG/ML VIAL IV SLOW PU PRN ×2 (00:44→23:53)
[2017-05-02] MEDS: Levothyroxine TAB* 75 MCG TAB PO SCH (05:54)
[2017-05-02] MEDS: Acetaminophen TAB* 325 MG PO SCH ×3 (08:06→16:52)
[2017-05-02] MEDS: Aspirin EC Low Dose* 81 MG TAB.EC PO SCH (08:06)
[2017-05-02] MEDS: Diltiazem CD CAP* 240 MG PO SCH (08:06)
[2017-05-02] MEDS: Senna TAB PO SCH ×2 (08:06→21:14)
[2017-05-02] MEDS: predniSONE TAB* 5 MG PO SCH (08:06)
[2017-05-02] MEDS: Docusate CAP* 100 MG PO SCH ×2 (08:06→21:15)
[2017-05-02] MEDS: PTO: Brimonidine P 0.15%(NF) OPH SOL 5 ML BTL RIGHT EYE SCH ×2 (08:07→21:13)
[2017-05-02] MEDS: cefTRIAXone VIAL(*) 1,000 MG in NS 0.9% 50 ML* 50 ML IVPB SCH (14:53)
--- NOTE | 2017-05-02 15:56 | PN ---
Subjective Date of Service: 05/02/17 Interval History: No complaints. Worked with PT. repeat Bcx clear. Sensitivities back. Objective Active Medications: Acetaminophen (Tylenol Tab*) 650 mg PO 0800,1200,1700 [facility] Last Admin: 05/02/17 12:16 Dose: 650 mg Al Hydrox/Mg Hydrox/Simethicone (Maalox Plus*) 30 ml PO Q6H PRN PRN Reason: INDIGESTION Aspirin (Aspirin Ec Low Dose*) 81 mg PO QAM [facility] Last Admin: 05/02/17 08:06 Dose: 81 mg Atorvastatin Calcium (Lipitor*) 5 mg PO QPM [facility] Last Admin: 05/01/17 17:00 Dose: 5 mg Brimonidine Tartrate (Alphagan P 0.15%(Nf)) 1 drop RIGHT EYE BID [facility] Last Admin: 05/02/17 08:07 Dose: 1 drop Digoxin (Lanoxin Tab*) 0.125 mg PO DAILY@1700 [facility] Last Admin: 05/01/17 17:00 Dose: 0.125 mg Diltiazem HCl (Cardizem Cd Cap*) 120 mg PO BEDTIME [facility] Last Admin: 05/01/17 20:16 Dose: 120 mg Diltiazem HCl (Cardizem Cd Cap*) 240 mg PO QAM [facility] Last Admin: 05/02/17 08:06 Dose: 240 mg Docusate Sodium (Colace Cap*) 100 mg PO BID [facility] Last Admin: 05/02/17 08:06 Dose: 100 mg Furosemide (Lasix Tab*) 40 mg PO MoTuWeThFr@0900 [facility] Last Admin: 04/30/17 16:30 Dose: 40 mg Hydralazine HCl (Apresoline Iv*) 5 mg IV SLOW PU Q6H PRN PRN Reason: BLOOD PRESSURE Last Admin: 05/02/17 00:44 Dose: 5 mg Ceftriaxone Sodium 1,000 mg/ (Sodium Chloride) 50 mls @ 200 mls/hr IVPB Q24H [facility] Last Admin: 05/02/17 14:53 Dose: 200 mls/hr Latanoprost (Xalatan 0.005%*) 1 drop RIGHT EYE BEDTIME [facility] Last Admin: 05/01/17 20:15 Dose: 1 drop Levothyroxine Sodium (Synthroid Tab*) 75 mcg PO QAM@0600 [facility] Last Admin: 05/02/17 05:54 Dose: 75 mcg Meclizine HCl (Antivert Tab*) 12.5 mg PO Q8HR PRN PRN Reason: DIZZINESS Morphine Sulfate (Morphine Inj (Syringe)*) 1 mg IV Q4H PRN PRN Reason: PAIN Ondansetron HCl (Zofran Inj*) 4 mg IV Q4H PRN PRN Reason: NAUSEA Prednisone (Deltasone Tab*) 5 mg PO QAM [facility] Last Admin: 05/02/17 08:06 Dose: 5 mg Senna (Senokot Tab*) 1 tab PO BID [facility] Last Admin: 05/02/17 08:06 Dose: 1 tab Warfarin Sodium (Coumadin Tab(*)) 1 mg PO DAILY@1700 [facility] PRN Reason: Protocol Vital Signs 05/01/17 05/01/17 05/01/17 19:21 20:00 23:56 Temperature 97.7 F 97.5 F Pulse Rate 73 64 Respiratory 17 17 20 Rate Blood Pressure 146/57 183/68 (mmHg) O2 Sat by Pulse 99 98 Oximetry 05/02/17 05/02/17 05/02/17 00:20 03:28 07:14 Temperature 97.7 F 97.9 F Pulse Rate 69 74 Respiratory 22 20 Rate Blood Pressure 194/90 173/56 176/57 (mmHg) O2 Sat by Pulse 97 97 Oximetry 05/02/17 05/02/17 05/02/17 07:49 09:36 11:25 Temperature 97.8 F Pulse Rate 74 70 Respiratory 16 20 Rate Blood Pressure 146/47 143/54 (mmHg) O2 Sat by Pulse 99 Oximetry 05/02/17 15:12 Temperature 98.2 F Pulse Rate 62 Respiratory 24 Rate Blood Pressure 135/47 (mmHg) O2 Sat by Pulse 98 Oximetry Oxygen Devices in Use Now: None Appearance: NAD sitting in chair. Eyes: No Scleral Icterus, PERRLA Ears/Nose/Mouth/Throat: NL Teeth, Lips, Gums, Mucous Membranes Moist Neck: NL Appearance and Movements; NL JVP, Trachea Midline Respiratory: Symmetrical Chest Expansion and Respiratory Effort, Clear to Auscultation Cardiovascular: No Edema, - - s1 s2 ELIAS 3/6 across precordium Abdominal: NL Sounds; No Tenderness; No Distention Extremities: No Edema Neurological: Alert and Oriented x 3, NL Muscle Strength and Tone Result Diagrams: 05/01/17 05:13 05/01/17 05:13 Additional Lab and Data: Laboratory Results - last 24 hr 05/02/17 09:34 INR (Anticoag Therapy) 2.18 H Microbiology and Other Data: Microbiology 04/28/17 10:36 Aerobic Blood Culture - Preliminary Blood Venous Streptococcus Sanguinis Anaerobic Blood Culture - Preliminary Streptococcus Sanguinis Blood Culture - Final 04/28/17 10:45 Aerobic Blood Culture - Preliminary Blood Venous Streptococcus Sanguinis Anaerobic Blood Culture - Preliminary Streptococcus Sanguinis Blood Culture - Final Assess/Plan/Problems-Billing Assessment: 87 yo F with PMH MVR s/p porcine valce, chronic A. fib (on coumadin) , pacer, aortic/iliac stent graft, PMR on prednisone, ESBL E. coli ( on Bactrim suppression), presented with N/V, vertigo, CP and elevated CRP. Strep sanguinus bactremia. ABBEY and CT a/p w/o e/o in infection but with 3 potential intravascular sources treating empirically. CFTX. - Patient Problems (1) Streptococcal bacteremia Current Visit: Yes Status: Acute Code(s): R78.81 - BACTEREMIA SNOMED Code( s): 511286154773 Comment: Appreciate ID recs Continue ceftriaxone for now. likely 2 week course No e/o vegetation on porcine valve. PPM could also be culprit f/u speciation from 04/28 is sensitive. BCx drawn 05/01, first N[facility] place MIDLINE was on bactrim chronic suppression for ESBL Ecoli UTI from January. (2) Sepsis Current Visit: Yes Status: Acute Comment: plan as above. resolved. SIRS (tachycardia, fever); thrombocytopenia mild, no lactic acidosis. (3) History of ESBL E. coli infection Current Visit: Yes Status: Acute Code(s): Z86.19 - PERSONAL HISTORY OF OTHER INFECTIOUS AND PARASITIC DISEASES SNOMED Code(s): 842467572 Comment: h/o UTI, had planned for 3 months on Bactrim DS daily. UA shows no bacteria. D/w DR. Aponte , Bactrim was stopped (4) NSTEMI (non-ST elevated myocardial infarction) Current Visit: Yes Status: Acute Code(s): I21.4 - NON-ST ELEVATION (NSTEMI) MYOCARDIAL INFARCTION SNOMED Code(s): 160122846 Comment: Nausea, verigo and CP resolved Troponin peaked at 2.[address] Hollingsworth consult Echo shows EF that is 45%-lower than in 07/2016, also mod AR/ cont ASA/coumadin(held for elevated INR) (5) Atrial fibrillation Current Visit: No Status: Acute Priority: High Onset Date: 05/21/14 Code (s): I48.91 - UNSPECIFIED ATRIAL FIBRILLATION SNOMED Code(s): 23920221 Comment: Rate controlled. Continue Digoxin and Cardizem. A fib with RVR from admission, resolved restart coumadin 05/02 (INR 2.18) (6) COPD (chronic obstructive pulmonary disease) Current Visit: No Status: Acute Code(s): J44.9 - CHRONIC OBSTRUCTIVE PULMONARY DISEASE, UNSPECIFIED SNOMED Code(s): 19860507 Comment: Not in exacerbation. Continue home medications. (7) Chronic diastolic (congestive) heart failure Current Visit: No Status: Acute Code(s): I50.32 - CHRONIC DIASTOLIC ( CONGESTIVE) HEART FAILURE SNOMED Code(s): 775302781 Comment: continue her home schedule with 40 mg 5 days a week Status and Disposition: medicine inpatient, potential d/c 05/03 or 05/04 once home IV abx support through [facility] can be arranged vs infusion center. Attending: Travis Cooper
[2017-05-02] MEDS: Digoxin TAB* 0.125 MG PO SCH (16:51)
[2017-05-02] MEDS: Atorvastatin* 10 MG TAB PO SCH (16:52)
[2017-05-02] MEDS: Warfarin TAB(*) 1 MG PO SCH (16:52)
[2017-05-02] MEDS: Latanoprost 0.005%* 2.5 ml BTL RIGHT EYE SCH (21:13)
[2017-05-02] MEDS: Diltiazem CD CAP* 120 MG PO SCH (21:15)
[2017-05-03] MEDS: Levothyroxine TAB* 75 MCG TAB PO SCH (05:43)
[2017-05-03] MEDS: Docusate CAP* 100 MG PO SCH ×2 (08:26→21:25)
[2017-05-03] MEDS: Diltiazem CD CAP* 240 MG PO SCH (08:26)
[2017-05-03] MEDS: predniSONE TAB* 5 MG PO SCH (08:26)
[2017-05-03] MEDS: Acetaminophen TAB* 325 MG PO SCH ×3 (08:26→17:23)
[2017-05-03] MEDS: Senna TAB PO SCH ×2 (08:26→21:25)
[2017-05-03] MEDS: Aspirin EC Low Dose* 81 MG TAB.EC PO SCH (08:26)
[2017-05-03] MEDS: hydrALAZINE IV* 20 MG/ML VIAL IV SLOW PU PRN (08:53)
[2017-05-03] MEDS: Furosemide TAB* 40 MG PO SCH (09:01)
--- NOTE | 2017-05-03 11:05 | PN ---
Progress Note - Progress Note Date of Service: 05/03/17 SOAP: Subjective: CC: bacteremia HPI: 87 year old woman with pacemaker, prosthetic valve and aortic artery graft here with bacteremia. Initial vertigo is improved and no weakness or numbness. No spine tenderness. No fever, rash, or diarrhea. Objective: [] Vital Signs Temp 36.4 C 05/03/17 07:22 Pulse 86 05/03/17 07:22 Resp 24 05/03/17 08:00 BP 168/58 05/03/17 08:52 Pulse Ox 98 05/03/17 07:22 Intake & Output 05/02/17 05/03/17 05/03/17 18:59 06:59 18:59 Intake Total 1850 200 350 Output Total 350 950 Balance 1500 -750 350 Intake: IV Fluids 80 ABX - CEFTRIAXONE 60 NS (0.9%) 20 Oral 1770 200 350 Output: Urine 350 950 Other: Estimated Void Small Medium # Bowel Movements 0 Estimated Stool Amount Small # Voids 2 Gen:awake, no distress Neuro:Ox3, moves all extremities HEENT: MMM no thrush Heart:RRR no murmur Lungs:CTA BL Abd:+BS NTND soft Skin: No rash MSK: no spine tenderness Laboratory Results - last 24 hr 05/03/17 06:23 INR (Anticoag Therapy) 2.10 H ABBEY no vegetation on valve or pacer leads Assessment: 1. Strep bacteremia, cleared 2. Strep prosthetic acute infective endocarditis, by Bradford Criteria 3. presence of pacemaker and prosthetic mitral valve 4. AAA s/p graft repair 5. PMR on chronic corticosteroids Plan: 1. continue ceftriaxone 1 gm daily, day . Weekly CBC, CMP, CRP. 35 minutes floor time >50% face to face with patient and daughter discussing IV antibiotics and consideration of lifelong abx suppression.
[2017-05-03] MEDS: PTO: Brimonidine P 0.15%(NF) OPH SOL 5 ML BTL RIGHT EYE SCH ×2 (11:50→21:28)
[2017-05-03] MEDS: cefTRIAXone VIAL(*) 1,000 MG in NS 0.9% 50 ML* 50 ML IVPB SCH (15:02)
--- NOTE | 2017-05-03 16:02 | PN ---
Subjective Date of Service: 05/03/17 Interval History: Got very anxious about getting PICC line and about going home but daughter able to moderate. Objective Active Medications: Acetaminophen (Tylenol Tab*) 650 mg PO 0800,1200,1700 [facility] Last Admin: 05/03/17 13:27 Dose: 650 mg Al Hydrox/Mg Hydrox/Simethicone (Maalox Plus*) 30 ml PO Q6H PRN PRN Reason: INDIGESTION Aspirin (Aspirin Ec Low Dose*) 81 mg PO QAM [facility] Last Admin: 05/03/17 08:26 Dose: 81 mg Atorvastatin Calcium (Lipitor*) 5 mg PO QPM [facility] Last Admin: 05/02/17 16:52 Dose: 5 mg Brimonidine Tartrate (Alphagan P 0.15%(Nf)) 1 drop RIGHT EYE BID [facility] Last Admin: 05/03/17 11:50 Dose: 1 drop Digoxin (Lanoxin Tab*) 0.125 mg PO DAILY@1700 [facility] Last Admin: 05/02/17 16:51 Dose: 0.125 mg Diltiazem HCl (Cardizem Cd Cap*) 120 mg PO BEDTIME [facility] Last Admin: 05/02/17 21:15 Dose: 120 mg Diltiazem HCl (Cardizem Cd Cap*) 240 mg PO QAM [facility] Last Admin: 05/03/17 08:26 Dose: 240 mg Docusate Sodium (Colace Cap*) 100 mg PO BID [facility] Last Admin: 05/03/17 08:26 Dose: 100 mg Furosemide (Lasix Tab*) 40 mg PO MoTuWeThFr@0900 [facility] Last Admin: 05/03/17 09:01 Dose: 40 mg Heparin Sodium (Porcine) (Heparin Flush Picc/Ml/Cvc(*)) 0 ml FLUSH 0600,1800 [facility] Hydralazine HCl (Apresoline Iv*) 5 mg IV SLOW PU Q6H PRN PRN Reason: BLOOD PRESSURE Last Admin: 05/03/17 08:53 Dose: 5 mg Ceftriaxone Sodium 1,000 mg/ (Sodium Chloride) 50 mls @ 200 mls/hr IVPB Q24H [facility] Last Admin: 05/03/17 15:02 Dose: 200 mls/hr Latanoprost (Xalatan 0.005%*) 1 drop RIGHT EYE BEDTIME [facility] Last Admin: 05/02/17 21:13 Dose: 1 drop Levothyroxine Sodium (Synthroid Tab*) 75 mcg PO QAM@0600 [facility] Last Admin: 05/03/17 05:43 Dose: 75 mcg Meclizine HCl (Antivert Tab*) 12.5 mg PO Q8HR PRN PRN Reason: DIZZINESS Morphine Sulfate (Morphine Inj (Syringe)*) 1 mg IV Q4H PRN PRN Reason: PAIN Ondansetron HCl (Zofran Inj*) 4 mg IV Q4H PRN PRN Reason: NAUSEA Pharmacy Profile Note (Coumadin Daily Reminder*) 0 note FOLLOW UP 1700 [facility] Last Admin: 05/02/17 18:31 Dose: 1 note Prednisone (Deltasone Tab*) 5 mg PO QAM [facility] Last Admin: 05/03/17 08:26 Dose: 5 mg Senna (Senokot Tab*) 1 tab PO BID [facility] Last Admin: 05/03/17 08:26 Dose: 1 tab Warfarin Sodium (Coumadin Tab(*)) 1 mg PO DAILY@1700 [facility] PRN Reason: Protocol Last Admin: 05/02/17 16:52 Dose: 1 mg Vital Signs 05/02/17 05/02/17 05/02/17 16:51 19:20 19:33 Temperature 97.6 F Pulse Rate 68 74 Respiratory 20 24 Rate Blood Pressure 169/64 (mmHg) O2 Sat by Pulse 98 Oximetry 05/02/17 05/03/17 05/03/17 23:33 04:19 07:22 Temperature 97.4 F 98.3 F 97.6 F Pulse Rate 73 92 86 Respiratory 20 16 16 Rate Blood Pressure 186/69 148/66 181/59 (mmHg) O2 Sat by Pulse 99 98 98 Oximetry 05/03/17 05/03/17 05/03/17 08:00 08:25 08:52 Temperature Pulse Rate Respiratory 24 Rate Blood Pressure 155/80 168/58 (mmHg) O2 Sat by Pulse Oximetry 05/03/17 12:59 Temperature 97.8 F Pulse Rate 107 Respiratory 16 Rate Blood Pressure 108/50 (mmHg) O2 Sat by Pulse 97 Oximetry Oxygen Devices in Use Now: None Appearance: NAD, sitting in chair. Eyes: No Scleral Icterus, PERRLA Ears/Nose/Mouth/Throat: NL Teeth, Lips, Gums, Mucous Membranes Moist Neck: NL Appearance and Movements; NL JVP, Trachea Midline Respiratory: Symmetrical Chest Expansion and Respiratory Effort, Clear to Auscultation Cardiovascular: NL Sounds; No Murmurs; No JVD, RRR Abdominal: NL Sounds; No Tenderness; No Distention, No Hepatosplenomegaly Extremities: No Edema, No Clubbing, Cyanosis Skin: No Rash or Ulcers Neurological: Alert and Oriented x 3, NL Sensation Nutrition: Taking PO's Result Diagrams: 05/01/17 05:13 05/01/17 05:13 Additional Lab and Data: Laboratory Results - last 24 hr 05/03/17 06:23 INR (Anticoag Therapy) 2.10 H Microbiology and Other Data: Microbiology 04/28/17 10:36 Aerobic Blood Culture - Preliminary Blood Venous Streptococcus Sanguinis Anaerobic Blood Culture - Preliminary Streptococcus Sanguinis Blood Culture - Final 04/28/17 10:45 Aerobic Blood Culture - Preliminary Blood Venous Streptococcus Sanguinis Anaerobic Blood Culture - Preliminary Streptococcus Sanguinis Blood Culture - Final Assess/Plan/Problems-Billing Assessment: 87 yo F with PMH MVR s/p porcine valce, chronic A. fib (on coumadin) , pacer, aortic/iliac stent graft, PMR on prednisone, ESBL E. coli ( on Bactrim suppression), presented with N/V, vertigo, CP and elevated CRP. Strep sanguinus bactremia. ABBEY and CT a/p w/o e/o in infection but with 3 potential intravascular sources treating empirically. CFTX. - Patient Problems (1) Streptococcal bacteremia Current Visit: Yes Status: Acute Code(s): R78.81 - BACTEREMIA SNOMED Code( s): 644555540025 Comment: Appreciate ID recs Continue ceftriaxone for now. Day 4 of 42 ( 6 week course with possible lifelong suppressive therapy) No ABBEY e/o vegetation on porcine valve. PPM could also be culprit. Treat as porcine valve vs PPM lead endocarditis per modified Dickinson criteria. f/u speciation from 04/28 is sensitive. BCx drawn 05/01, first NGTD placed PICC was on bactrim chronic suppression for ESBL Ecoli UTI from January. (2) Sepsis Current Visit: Yes Status: Acute Comment: plan as above. resolved. SIRS (tachycardia, fever); thrombocytopenia mild, no lactic acidosis. (3) History of ESBL E. coli infection Current Visit: Yes Status: Acute Code(s): Z86.19 - PERSONAL HISTORY OF OTHER INFECTIOUS AND PARASITIC DISEASES SNOMED Code(s): 492841503 Comment: h/o UTI, had planned for 3 months on Bactrim DS daily. UA shows no bacteria. D/w DR. Aponte , Bactrim was stopped (4) NSTEMI (non-ST elevated myocardial infarction) Current Visit: Yes Status: Acute Code(s): I21.4 - NON-ST ELEVATION (NSTEMI) MYOCARDIAL INFARCTION SNOMED Code(s): 677132528 Comment: Nausea, verigo and CP resolved Troponin peaked at 2.[address] Hollingsworth consult Echo shows EF that is 45%-lower than in 07/2016, also mod AR/ cont ASA/coumadin(held for elevated INR) (5) Atrial fibrillation Current Visit: No Status: Acute Priority: High Onset Date: 05/21/14 Code (s): I48.91 - UNSPECIFIED ATRIAL FIBRILLATION SNOMED Code(s): 37864767 Comment: Rate controlled. Continue Digoxin and Cardizem. A fib with RVR from admission, resolved continue coumadin 1mg daily (6) COPD (chronic obstructive pulmonary disease) Current Visit: No Status: Acute Code(s): J44.9 - CHRONIC OBSTRUCTIVE PULMONARY DISEASE, UNSPECIFIED SNOMED Code(s): 44117686 Comment: Not in exacerbation. Continue home medications. (7) Chronic diastolic (congestive) heart failure Current Visit: No Status: Acute Code(s): I50.32 - CHRONIC DIASTOLIC ( CONGESTIVE) HEART FAILURE SNOMED Code(s): 591728443 Comment: continue her home schedule with 40 mg 5 days a week Status and Disposition: medicine inpatient, discharge pending home IV abx arrangement, likely 05/04 given 4 refusals from different companies so far. Attending: Travis Cooper
[2017-05-03] MEDS: Warfarin TAB(*) 1 MG PO SCH (17:22)
[2017-05-03] MEDS: Digoxin TAB* 0.125 MG PO SCH (17:23)
[2017-05-03] MEDS: Atorvastatin* 10 MG TAB PO SCH (17:24)
[2017-05-03] MEDS: Diltiazem CD CAP* 120 MG PO SCH (21:26)
[2017-05-03] MEDS: Latanoprost 0.005%* 2.5 ml BTL RIGHT EYE SCH (21:27)
[2017-05-04] MEDS: Levothyroxine TAB* 75 MCG TAB PO SCH (05:42)
[2017-05-04] MEDS: Diltiazem CD CAP* 240 MG PO SCH (08:23)
[2017-05-04] MEDS: Aspirin EC Low Dose* 81 MG TAB.EC PO SCH (08:23)
[2017-05-04] MEDS: Senna TAB PO SCH (08:23)
[2017-05-04] MEDS: Acetaminophen TAB* 325 MG PO SCH ×2 (08:23→12:22)
[2017-05-04] MEDS: predniSONE TAB* 5 MG PO SCH (08:23)
[2017-05-04] MEDS: Docusate CAP* 100 MG PO SCH (08:23)
[2017-05-04] MEDS: PTO: Brimonidine P 0.15%(NF) OPH SOL 5 ML BTL RIGHT EYE SCH (08:24)
[2017-05-04] MEDS: Furosemide TAB* 40 MG PO SCH (09:24)
[2017-05-04 11:58] VITALS: BP 142/56
[2017-05-04] MEDS: cefTRIAXone VIAL(*) 1,000 MG in NS 0.9% 50 ML* 50 ML IVPB SCH (13:31)
--- NOTE | 2017-05-05 04:58 | DS ---
DISCHARGE SUMMARY: DATE OF ADMISSION: 04/28/17 DATE OF DISCHARGE: 05/04/17 ADMITTING PROVIDER: Dr. Susan Hernandez. ATTENDING PHYSICIAN: Dr. Travis Cooper. PRIMARY CARE PHYSICIAN: Dr. Ayers. PRIMARY EMERGENCY RESPONSE TECHNICIAN: Dr. Cordova. CHIEF COMPLAINT: Nausea, dizziness, and chest pain. PRINCIPAL DIAGNOSES: Streptococcus sanguinis bacteremia and presumptive infective endocarditis on either prosthetic mitral valve or pacemaker leads. SECONDARY DIAGNOSES: Include: 1. Hypertension. 2. Chronic obstructive pulmonary disease. 3. Hyperlipidemia. 4. Hypothyroidism. 5. Thrombocytopenia. 6. History of hemolytic anemia. 7. History of cerebrovascular accident, status post mitral valve replacement ( porcine). 8. Status post pacemaker for tachybrady syndrome. 9. Abdominal aortic aneurysm repair and iliac aneurysm repair. 10. History of splenectomy. 11. History of polymyalgia rheumatica, on chronic prednisone. 12. Chronic atrial fibrillation, on Coumadin. 13. Benign positional vertigo. 14. History of Takotsubo cardiomyopathy. 15. History of acute respiratory failure secondary to Haemophilus parainfluenzae pneumonia, resulting in intubation in July 2016. HISTORY OF PRESENT ILLNESS AND HOSPITAL COURSE: Rina Gilmore is an 87-year- old female with past medical history as above, recently discharged from [facility] 10 days prior to admission for a benign positional vertigo, discharged on meclizine. She had been doing fairly well for approximately last week, although she did have some vertigo sensations. She had been able to ambulate with a walker. She was on Bactrim for chronic suppression of an ESBL E. coli UTI discovered in January of 2017. Few days prior to admission, she had vertigo and was feeling unwell. A urinalysis was obtained, which showed 2+ leukocyte esterase, white blood cells, and bacteria. On the day prior to admission, she felt better, was able to ambulate, but then started to develop some chest pain. She sat up suddenly in bed and had an onset of nausea and vertigo, and presented to the [facility] Emergency Room. She had a temperature of 99.4 degrees. She was in AFib with RVR, received 20 mg of IV Cardizem, and chest pain resolved. The pain was described as an ache, lasted several minutes, and was not associated with any shortness of breath. She was diagnosed with NSTEMI and sepsis. Her EKG showed intraventricular conduction delay, atrial fibrillation with heart rate in 111, and some anterior ST elevations most likely due to LVH and comparable to prior EKGs. Her troponins were initially 0.33, then jennifer to 2.0 and peaked at 2.71 on day of admission. Manager Medical Affairs, Dr. Hollingsworth, was consulted. The patient made it clear to him that she did not want to present with any invasive procedures, so her Lipitor, digoxin, Cardizem, and antibiotics were continued, but no further cardiovascular intervention. Her INR was initially 2.28, but with medication interactions jennifer to 3.75, was held for a few days before restarted at 1 mg p.o. daily. Of note to her blood cultures drawn on admission grew 4/4 bottles with Streptococcus sanguinis, which was sensitive to vancomycin, ceftriaxone, cefepime, penicillin, levofloxacin; resistant to clindamycin, tetracycline, intermediate ampicillin. Repeat blood cultures drawn on May 01 have been no growth to date. Transthoracic echocardiogram was done on April 28, which demonstrated because of her rapid AFib at that time, it was difficult to estimate her ejection fraction, though approximately around 35%. Diastolic function was nondiagnostic. Left atrium was severely dilated. There was mild- to-moderate aortic regurgitation, moderate aortic stenosis, bioprosthetic mitral valve appeared to be functioning normally, mild to moderate tricuspid regurgitation, RVSP was 39 mmHg. There is no note of any vegetation seen. On April 30, a a transesophageal echocardiogram was performed, EF was 45% to 50 %. There was postsurgical hypokinesis of the interventricular septum consistent with a valve replacement. Left atrium was severely dilated. No thrombus visualized in the left atrial appendage. Pacemaker wires were visualized in the right atrium and right ventricle. A slight paravalvular leak of the mitral valve was noted, but otherwise functioning normally. Mild tricuspid regurgitation. No intracavitary masses, clots, or vegetations were seen. There was plaque visualized in the descending aorta. Dr. Ha ordered a CT abdomen and pelvis performed on April 30, which did not notice any evidence of perivascular graft infection or abnormal fluid collections, did note cholelithiasis without evidence of biliary duct dilatation. Dr. Ha recommended continuation of a 6-week course of ceftriaxone for Streptococcus sanguinis, prosthetic valve acute infective endocarditis by Bradford's criteria ( versus pacemaker lead infection) and discussed potentially a course of lifelong antibiotic suppression therapy given that it would be challenging to redo the pacemaker or valve if source control was not obtained or rather if infection was not completely cleared with a 6-week course of antibiotics. The patient did well for the remainder of hospital stay, waited for home IV antibiotics to be arranged, finally done so on May 04. She worked with Physical Therapy , using her rolling walker and was able to demonstrate safe and independent transfers, bed mobility, and use of the walker. MEDICATIONS ON DISCHARGE: Include: 1. Ceftriaxone 1 g q.24 hours for 37 additional days. 2. Diltiazem 240 mg p.o. q.a.m. and 120 mg p.o. at bedtime. 3. Digoxin 0.125 mg p.o. q.a.m. 4. Brimonidine tartrate 0.15% solution 1 drop right eye b.i.d. 5. Atorvastatin 5 mg q.p.m. 6. Aspirin 81 mg daily. 7. Furosemide 40 mg Wednesday, Wednesday, Wednesday, , and Wednesday. 8. Synthroid 75 mcg daily. 9. Meclizine 12.5 mg p.o. q.8 hours p.r.n. for dizziness. 10. Sennosides-docusate sodium 1 tablet p.o. b.i.d. 11. Warfarin 1 mg p.o. daily. 12. Prednisone 5 mg daily. 13. Acetaminophen 650 mg p.o. t.i.d. 14. Calcium, magnesium, and zinc 1 tablet p.o. q.p.m. 15. Cholecalciferol 1000 units p.o. q.p.m. 16. Coenzyme Q10 100 mg p.o. daily. 17. Clarinex 5 mg p.o. daily. 18. Docusate 100 mg p.o. b.i.d. 19. one capsule p.o. daily. 20. Potassium chloride tablets 20 mEq p.o. daily. 21. ProOmega 1000 one capsule p.o. q.p.m. DISCHARGE DIET: Heart healthy. DISPOSITION: Home. ACTIVITY: No restrictions, needing walker. FOLLOWUP: The patient is to follow up with Dr. Peter Ha; primary care physician, Edilberto Ayers. She is getting visiting nursing services. TIME SPENT ON DISCHARGE: 40 minutes. [id number]/CPS #: [id number] [place]
== END 2017-05-04 15:15 | disposition home or self-care (01) | DRG 280 ==
LOC: ED 07:45 → MEDTELE 09:28
PROVIDERS: ADMIT Internal Medicine; ATTEND Internal Medicine
PROC: B246ZZ4 Ultrasonography of Right and Left Heart, Transesophageal (ICD-10-PCS; principal; 2017-04-30 12:00)
PROC: 05H633Z Insertion of Infusion Device into Left Subclavian Vein, Percutaneous Approach (ICD-10-PCS; 2017-05-03)
DX: T82.6XXA Infection and inflammatory reaction due to cardiac valve prosthesis, initial encounter (principal); A40.8 Other streptococcal sepsis; I21.4 Non-ST elevation (NSTEMI) myocardial infarction; D69.6 Thrombocytopenia, unspecified; I11.0 Hypertensive heart disease with heart failure; I48.2 Chronic atrial fibrillation; I50.32 Chronic diastolic (congestive) heart failure; T82.7XXA Infection and inflammatory reaction due to other cardiac and vascular devices, implants and grafts, initial encounter; I33.0 Acute and subacute infective endocarditis; N39.0 Urinary tract infection, site not specified; J44.9 Chronic obstructive pulmonary disease, unspecified; I49.5 Sick sinus syndrome; B95.4 Other streptococcus as the cause of diseases classified elsewhere; E78.5 Hyperlipidemia, unspecified; I44.7 Left bundle-branch block, unspecified; E03.9 Hypothyroidism, unspecified; M35.3 Polymyalgia rheumatica; X58.XXXA Exposure to other specified factors, initial encounter; Z66 Do not resuscitate; Z96.642 Presence of left artificial hip joint; Z95.0 Presence of cardiac pacemaker; Z79.01 Long term (current) use of anticoagulants; Z86.73 Personal history of transient ischemic attack (TIA), and cerebral infarction without residual deficits; Y92.009 Unspecified place in unspecified non-institutional (private) residence as the place of occurrence of the external cause; Z79.2 Long term (current) use of antibiotics; Z79.82 Long term (current) use of aspirin; Z79.52 Long term (current) use of systemic steroids; Z79.899 Other long term (current) drug therapy; Z88.5 Allergy status to narcotic agent; Z88.8 Allergy status to other drugs, medicaments and biological substances; Z82.49 Family history of ischemic heart disease and other diseases of the circulatory system; Z87.891 Personal history of nicotine dependence; Z95.3 Presence of xenogenic heart valve
CPT/HCPCS: 36415; 70450; 71020; 74177; 76775; 80048; 80053; 80061; 81003; 81015; 82550; 83605; 83735; 83880; 84443; 84484; 85025; 85027; 85060; 85610; 86140; 87040; 87077; 87086; 87186; 87205; 93005; 93306; 93312; 93325; 99156; A9270-GY; C1751; J0360; J0696; J1642; J1720; J2250; J2310; J2543; J3010; J3475; J3480; J7512; Q9967

== ENCOUNTER 2017-07-06 09:26 | Emergency (ER) | payer MEDICARE, MEDICAID ==
[2017-07-06 09:56] VITALS: BP 140/53
--- NOTE | 2017-07-06 11:07 | UC ---
Skin Complaint HPI - HPI Summary HPI Summary: 3 DAYS OF LOWER LIP LESIONS. STARTED BLISTERS WHICH HAVE NOW RUPTURED. PT HAS BEEN ON BACTRIM FOR 5 DAYS FOR UTI. LAST DOSE LAST NIGHT. NO TONGUE SWELLING OR RESPIRATORY INVOLVEMENT. NO FEVER. 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 Onset/Duration: Sudden Onset, Lasting Days, Still Present Timing: Constant Onset Severity: Moderate Current Severity: Moderate Pain Intensity: 0 Pain Scale Used: 0-10 Numeric Location: Other - LOWER LIP Character: Pain Aggravating Factor(s): Touch Alleviating Factor(s): Nothing Associated Signs & Symptoms: Positive: Tenderness Related History: Recent change in medication - Allergy/Home Medications Allergies/Adverse Reactions: Allergies Allergy/AdvReac Type Severity Reaction Status Date / Time Amlodipine AdvReac Constipatio Verified 07/06/17 09:49 n Celecoxib [From Celebrex] AdvReac Nausea And Verified 07/06/17 09:49 Vomiting Rofecoxib [From Vioxx] AdvReac Nausea And Verified 07/06/17 09:49 Vomiting Review of Systems Constitutional: Negative Skin: Other - LIP LESIONS Respiratory: Negative Cardiovascular: Negative Gastrointestinal: Negative All Other Systems Reviewed And Are Negative: Yes PMH/Surg Hx/FS Hx/Imm Hx - Additional Past Medical History Additional PMH: REPORTS STREP BACTEREMIA 05/2017. Endocrine History: Hypothyroidism Cardiovascular History: Hypertension, Atrial Fibrillation Other Cardiovascular History: TACHY/KATHARINA WITH PACER Respiratory History: COPD Other History Of: Anticoagulant Therapy - Surgical History Surgical History: Yes Surgery Procedure, Year, and Place: hemorrrhoidectomy, hysterectomy,cataracts, spleenectomy,mitral valve,aortic aneurysm, pacer, iliac artery aneurysm,left hip replacement - Family History Known Family History: Positive: Cardiac Disease, Hypertension Negative: Diabetes - Social History Alcohol Use: None Substance Use Type: None Smoking Status (MU): Former Smoker Type: Cigarettes Amount Used/How Often: quit 1999 Length of Time of Smoking/Using Tobacco: 1PPD Have You Smoked in the Last Year: No When Did the Patient Quit Smoking/Using Tobacco: 2000 - Immunization History Most Recent Influenza Vaccination: 03/2017 Most Recent Tetanus Shot: up to date Most Recent Pneumonia Vaccination: 2012 Physical Exam Triage Information Reviewed: Yes Appearance: Well-Appearing, No Pain Distress, Well-Nourished Vital Signs: Initial Vital Signs Temp 97.6 F 07/06/17 09:49 Pulse 93 07/06/17 09:49 Resp 16 07/06/17 09:49 BP 140/53 07/06/17 09:49 Pulse Ox 100 07/06/17 09:49 Vital Signs Reviewed: Yes Eyes: Positive: Conjunctiva Clear ENT: Positive: Hearing grossly normal Neck: Positive: Supple Respiratory: Positive: No respiratory distress, No accessory muscle use Cardiovascular: Positive: Pulses Normal Abdomen Description: Positive: Soft Musculoskeletal: Positive: No Edema Neurological: Positive: Alert Psychological: Positive: Age Appropriate Behavior Skin: Positive: Other - RUPTURED BLISTERS LOWER LIP ON DRY AND WET VERMILION. NO DRAINAGE OR ERYTHEMA. MILDLY TENDER Course/Dx - Diagnoses Provider Diagnoses: ADVERSE DRUG REACTION Discharge - Discharge Plan Condition: Stable Disposition: HOME Patient Education Materials: Adverse Drug Reaction (ED) Referrals: Edilberto Ayers MD [Primary Care Provider] - If Needed Additional Instructions: NO MORE BACTRIM. APPLY VASELINE OINTMENT TO HELP WITH DISCOMFORT. SEEK FOLLOW- UP IF NOT RESOLVING OVER THE NEXT 1-2 WEEKS. GO TO ER WITHOUT FAIL IF SX WORSEN OR YOU DEVELOP ANY RESPIRATORY INVOLVEMENT.
== END 2017-07-06 11:14 | disposition home or self-care (01) ==
LOC: UCEAST 09:26
DX: S00.521A Blister (nonthermal) of lip, initial encounter (principal); T37.0X5A Adverse effect of sulfonamides, initial encounter; Y92.9 Unspecified place or not applicable; Z87.891 Personal history of nicotine dependence
CPT/HCPCS: 99212; G0463

== ENCOUNTER 2017-07-07 09:59 | Inpatient (IN) | payer MEDICARE, MEDICAID ==
[2017-07-07] MEDS: NS 0.9% 1000 ML* 1,000 ML IV SCH ×2 (11:09→23:47)
[2017-07-07 11:37] LABS: ABS Basophils 0.1 10^3/ul (0-0.2); ABS Eosinophils 0 10^3/ul (0-0.6); ABS Lymphocytes 2.4 10^3/ul (1.0-4.8); ABS Monocytes 1.6 10^3/ul (0-0.8); ABS Neutrophils 9.2 10^3/ul (1.5-7.7); ABS Nucleated RBC 0.07 10^3/ul; Eosinophil % 0.3 % (0-6); Hematocrit 34 % (35-47); Hemoglobin 10.9 g/dl (12.0-16.0); Lymphocyte % 17.6 % (25-47); Mean Corpuscular HGB Conc 32 g/dl (31-36); Mean Corpuscular Hemoglobin 25 pg (27-31); Mean Corpuscular Volume 78 fL (80-97); Nucleated Red Blood Cells % 0.5; Red Blood Count 4.43 10^6/ul (4.0-5.4); Red Cell Distribution Width 19 % (10.5-15); White Blood Count 13.4 10^3/ul (3.5-10.8)
[2017-07-07 11:53] LABS: INR 4.05 (0.77-1.02)
[2017-07-07] MEDS ORDERED: NS 0.9% 1000 ML* 2,000 ML IV ONE (11:57)
[2017-07-07] MEDS ORDERED: Cefepime(*) 2 GM in NS 0.9% 50 ML* 50 ML IVPB ONE (11:59)
[2017-07-07] MEDS ORDERED: Acetaminophen TAB* 325 MG PO ONE (12:02)
[2017-07-07 12:03] LABS: EGFR Non-African American 55.6 (>60)
--- NOTE | 2017-07-07 12:21 | RAD ---
INDICATION: Chills and myalgias. COMPARISON: Comparison is made with prior chest x-ray studies from January 31, 2017 and April 28, 2017. TECHNIQUE: A portable view of the chest was obtained. FINDINGS: The heart is mildly enlarged and unchanged. The patient is status post sternotomy and cardiac valve replacement surgery. There is a transvenous pacemaker present. 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 The lungs are underinflated and clear. No pleural effusion is seen. IMPRESSION: 1. NO EVIDENCE FOR ACUTE FINDING. 2. 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 THIS CAN BE FURTHER EVALUATED WITH A CONTRAST-ENHANCED CT OF THE CHEST CLINICALLY NEEDED.
[2017-07-07 12:24] LABS: Urine Appearance Clear; Urine Blood Negative (Negative); Urine Color Yellow; Urine Ketones Negative (Negative); Urine Protein 2+(100 mg/dL) (Negative); Urine Specific Gravity 1.017 (1.010-1.030); Urine Urobilinogen Negative (Negative)
[2017-07-07] MEDS ORDERED: Morphine INJ* 2 MG/ML 1 ML SYRINGE (TWO MG - NEW SYRINGE VERSION) ONE (12:33)
[2017-07-07] MEDS ORDERED: Morphine INJ* 2 MG/ML 1 ML SYRINGE (TWO MG - NEW SYRINGE VERSION) IV ONE (12:34)
[2017-07-07 12:48] LABS: Platelet Count 163 10^3/ul (150-450)
[2017-07-07 12:50] LABS: Schistocytes 2+
[2017-07-07] MEDS ORDERED: Magnesium Sulfate 2 GM IV* 2 GM/50 ML BAG IVPB ONE (12:53)
[2017-07-07] MEDS ORDERED: HYDROmorphone INJ* 1 MG/ML CARPUJECT SYRINGE IV SLOW PU PRN (12:58)
[2017-07-07] MEDS ORDERED: HYDROmorphone INJ* 2 MG/ML CARPUJECT SYRINGE IV SLOW PU ONE (12:58)
[2017-07-07] MEDS ORDERED: Cefepime 2 GM in Dextrose(*) 2 GM/50 ML BAG IV ONE (13:00)
[2017-07-07] MEDS ORDERED: Cefepime 2 GM in Dextrose(*) 2 GM/50 ML BAG IV SCH (13:00)
[2017-07-07] MEDS ORDERED: Phytonadione Oral Solution* 5 MG/25 ML UDC PO ONE (13:23)
[2017-07-07] MEDS ORDERED: Albuterol 2.5 MG/3 ML NEB.SOL* (0.083%) INH PRN (13:28)
[2017-07-07] MEDS: Digoxin TAB* 0.125 MG PO SCH (14:49)
[2017-07-07] MEDS: Diltiazem TAB* 30 MG PO SCH ×3 (14:49→23:43)
[2017-07-07] MEDS: Acetaminophen TAB* 325 MG PO PRN (17:26)
[2017-07-07] MEDS: Atorvastatin* 10 MG TAB PO SCH (17:26)
--- NOTE | 2017-07-07 17:58 | ED ---
Tiera Sanabria Julia, scribed for Phoenix Delcid MD on 07/07/17 at 1123 . Complex/Multi-Sys Presentation - HPI Summary HPI Summary: This patient is a 87 year old F BIBA to [facility] accompanied by daughter with a chief complaint of intermittent numbness and pain in bilateral UE for the past few days, worsening this morning. Patient states that she cant use her hands and that she hurts all over. Patient rates the pain 9/10 in severity. Patient reports back pain, chills, hyperventilation, and oral dryness and blisters. Patient denies chest pain, abdominal pain, fever, N/V/D, foot numbness, or urinary symptoms. - History Of Current Complaint Chief Complaint: EDExtremityUpper Time Seen by Provider: 07/07/17 10:32 Hx Obtained From: Patient Onset/Duration: Lasting Days, Still Present, Worse Since Timing: Intermittent, Lasting: Severity Initially: Severe - 9/10 Location: Pain At: - "all over", back, upper exremities Associated Signs And Symptoms: Positive: Other - numbness and pain in upper extremities - Allergies/Home Medications Allergies/Adverse Reactions: Allergies Allergy/AdvReac Type Severity Reaction Status Date / Time Amlodipine AdvReac Constipatio Verified 07/06/17 09:49 n Celecoxib [From Celebrex] AdvReac Nausea And Verified 07/06/17 09:49 Vomiting Rofecoxib [From Vioxx] AdvReac Nausea And Verified 07/06/17 09:49 Vomiting Home Medications: Home Medications Brimonidine P 0.15%(NF) [Alphagan P 0.15%(NF)] 1 drop RIGHT EYE BID 07/07/17 [ History Confirmed 07/07/17] Dxnzdaa-Npaxnhuem-Qrxo [Calcium/Magnesium/Zinc] 2 tab PO DAILY 07/07/17 [ History Confirmed 07/07/17] Cephalexin CAP* [Keflex CAP*] 500 mg PO TID 07/07/17 [History Confirmed 07/07/17 ] Cholecalciferol TAB* [Vitamin D TAB*] 1,000 unit PO QPM 07/07/17 [History Confirmed 07/07/17] Diltiazem CD CAP* [Cardizem CD CAP*] 120 mg PO BEDTIME 07/07/17 [History Confirmed 07/07/17] [place]-3 Fatty Acids [[place] 3] 1 cap PO QPM 07/07/17 [History Confirmed 07/07/17] Probiotic Product [Probiotic Multi-Enzyme] 1 tab PO DAILY 07/07/17 [History Confirmed 07/07/17] Warfarin TAB(*) [Coumadin TAB(*)] 2 mg PO .TUTH 07/07/17 [History Confirmed ] PMH/Surg Hx/FS Hx/Imm Hx Endocrine/Hematology History: Reports: Hx Anticoagulant Therapy, Hx Blood Transfusions - multiple, Hx Thyroid Disease, Hx Anemia Denies: Hx Blood Disorders, Hx Bone Marrow Disease, Hx Diabetes, Hx Systemic Lupus Erythematosus, Hx Unexplained Bleeding Cardiovascular History: Reports: Hx Aneurysm - AAA REPAIR 03/07/13, Hx Congestive Heart Failure - 09/2007, Hx Coronary Artery Disease, Hx Hypercholesterolemia, Hx Hypertension, Hx Myocardial Infarction, Hx Pacemaker/ ICD, Hx Peripheral Vascular Disease, 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 Denies: Hx Asthma GI History: Reports: Hx Gall Bladder Disease Denies: Hx Ulcer, Other GI Disorders History: Reports: Hx Renal Disease - abnormal gfr Denies: Hx Dialysis, Hx Kidney Stones, Other Problems/Disorders Musculoskeletal History: Reports: Hx Arthritis - POLYMYALIGIA RHEUMATICA, Hx Orthopedic Injury - left hip replacement, Other Musculoskeletal History - POLYMYALGIA RHEUMATICA, osteopenia Denies: Hx Back Problems, Hx Osteoporosis Sensory History: Reports: Hx Contacts or Glasses, Hx Glaucoma - right eye Denies: Hx Hearing Aid, Hx Hearing Problem Opthamlomology History: Reports: Hx Contacts or Glasses, Hx Glaucoma - right eye Neurological History: Reports: Hx Nerve Disease - peripheral neuropathy right leg only Denies: Hx Dementia, Hx Headaches, Hx Seizures, Hx Transient Ischemic Attacks (TIA), Other Neuro Impairments/Disorders Psychiatric History: Reports: Hx Depression - remote past - Cancer History Hx Chemotherapy: No Hx Radiation Therapy: No - Surgical History Surgery Procedure, Year, and Place: hemorrrhoidectomy, hysterectomy,cataracts, spleenectomy,mitral valve,aortic aneurysm, pacer, iliac artery aneurysm,left hip replacement Hx Anesthesia Reactions: No Infectious Disease History: No Infectious Disease History: Denies: Hx Clostridium Difficile, Hx Hepatitis, Hx Human Immunodeficiency Virus (HIV), Hx of Known/Suspected MRSA, Hx Shingles, Hx Tuberculosis, Hx Known/ Suspected VRE, Hx Known/Suspected VRSA, Traveled Outside the [place] in Last 30 Days - Family History Known Family History: Positive: Cardiac Disease, Hypertension Negative: Diabetes - Social History Alcohol Use: None Hx Substance Use: No Substance Use Type: Reports: None Hx Tobacco Use: Yes Smoking Status (MU): Former Smoker Type: Cigarettes Amount Used/How Often: quit 1999 Length of Time of Smoking/Using Tobacco: 1PPD Have You Smoked in the Last Year: No Review of Systems Positive: Chills, Other. Negative: Fever Positive: Other - oral dryness and blisters Negative: Chest Pain Positive: Other - hyperventilation Negative: Abdominal Pain, Vomiting, Diarrhea, Nausea Positive: no symptoms reported Positive: Myalgia - generalize, Other - back pain Neurological: Other - intermittent numbness and pain in bilateral UE Negative: Paresthesia - in feet All Other Systems Reviewed And Are Negative: Yes Physical Exam - Summary Physical Exam Summary: General: well-appearing, no pain distress Skin: warm, color reflects adequate perfusion, dry, oral dryness Head: normal Eyes: EOMI, COLIN ENT: normal Neck: supple, nontender Respiratory: , breath sounds present, Bilateral crackles at base Cardiovascular: Irregularly irregular rhythm and tacycardic. There is good capillary refill. Abdomen: soft, nontender Bowel: present Musculoskeletal: normal, strength/ROM intact Neurological: normal, sensory/motor intact, A&O x3 Psychological: affect/mood appropriate Triage Information Reviewed: Yes Vital Signs On Initial Exam: Initial Vitals Temp Pulse Resp BP Pulse Ox 99.1 F 99 25 178/82 96 07/07/17 10:04 07/07/17 10:04 07/07/17 10:04 07/07/17 10:04 07/07/17 10:04 Vital Signs Reviewed: Yes Skin: Positive: Dry - oral Cardiovascular: Positive: Tachycardia, Other - irregular - Ignacio Coma Scale Coma Scale Total: 15 Diagnostics - Vital Signs Vital Signs Temp Pulse Resp BP Pulse Ox 07/07/17 10:04 99.1 F 99 25 178/82 96 - Laboratory Lab Results: Lab Results 07/07/17 07/07/17 07/07/17 Range/Units 11:20 11:20 11:20 WBC (3.5-10.8) 10^3/ul RBC (4.0-5.4) 10^6/ul Hgb (12.0-16.0) g/dl Hct (35-47) % MCV (80-97) fL MCH (27-31) pg MCHC (31-36) g/dl RDW (10.5-15) % Plt Count (150-450) 10^3/ul MPV Neut % (Auto) (38-83) % Lymph % (Auto) (25-47) % Lander % (Auto) (1-9) % Eos % (Auto) (0-6) % Baso % (Auto) (0-2) % Absolute Neuts (auto) (1.5-7.7) 10^3/ul Absolute Lymphs (auto) (1.0-4.8) 10^3/ul Absolute Monos (auto) (0-0.8) 10^3/ul Absolute Eos (auto) (0-0.6) 10^3/ul Absolute Basos (auto) (0-0.2) 10^3/ul Absolute Nucleated RBC 10^3/ul Nucleated RBC % Normal RBC Morphology Hypochromasia Acanthocytes (Spur) Schistocytes ESR (0-40) mm/Hr INR (Anticoag Therapy) 4.05 H (0.77-1.02) APTT 43.5 H (26.0-36.3) seconds D-Dimer, Quantitative > 1050 H (Less Than 230) ng/mL Sodium 132 L (133-145) mmol/L Potassium 3.8 (3.5-5.0) mmol/L Chloride 102 (101-111) mmol/L Carbon Dioxide 21 L (22-32) mmol/L Anion Gap 9 (2-11) mmol/L BUN 27 H (6-24) mg/dL Creatinine 0.95 (0.51-0.95) mg/dL Est GFR ( Amer) 71.6 (>60) Est GFR (Non-Af Amer) 55.6 (>60) BUN/Creatinine Ratio 28.4 H (8-20) Glucose 94 (70-100) mg/dL Lactic Acid 1.2 (0.5-2.0) mmol/L Calcium 9.3 (8.6-10.3) mg/dL Magnesium 1.8 L (1.9-2.7) mg/dL Total Bilirubin 1.00 (0.2-1.0) mg/dL AST 18 (13-39) U/L ALT 12 (7-52) U/L Alkaline Phosphatase 46 (34-104) U/L Total Creatine Kinase 11 (10-223) U/L CK-MB (CK-2) 0.8 (0.6-6.3) ng/mL Troponin I 0.11 H* (<0.04) ng/mL C-Reactive Protein 82.05 H (< 5.00) mg/L B-Natriuretic Peptide ( - 100) pg/mL Total Protein 7.7 (6.4-8.9) g/dL Albumin 3.7 (3.2-5.2) g/dL Globulin 4.0 (2-4) g/dL Albumin/Globulin Ratio 0.9 L (1-3) Lipase 10 L (11.0-82.0) U/L TSH 1.70 (0.34-5.60) mcIU/mL Urine Color Urine Appearance Urine pH (5-9) Ur Specific [place] (1.010-1.030) Urine Protein (Negative) Urine Ketones (Negative) Urine Blood (Negative) Urine Nitrate (Negative) Urine Bilirubin (Negative) Urine Urobilinogen (Negative) Ur Leukocyte Esterase (Negative) Urine WBC (Auto) (Absent) Urine RBC (Auto) (Absent) Ur Squamous Epith Cells (Absent) Urine Bacteria (Absent) Urine Glucose (Negative) Digoxin 0.9 (0.8-2.0) ng/ml Influenza A (Rapid) (Negative) Influenza B (Rapid) (Negative) 07/07/17 07/07/17 07/07/17 Range/Units 11:20 11:20 11:32 WBC 13.4 H (3.5-10.8) 10^3/ul RBC 4.43 (4.0-5.4) 10^6/ul Hgb 10.9 L (12.0-16.0) g/dl Hct 34 L (35-47) % MCV 78 L (80-97) fL MCH 25 L (27-31) pg MCHC 32 (31-36) g/dl RDW 19 H (10.5-15) % Plt Count 163 (150-450) 10^3/ul MPV Not Reportable Neut % (Auto) 69.1 (38-83) % Lymph % (Auto) 17.6 L (25-47) % Lander % (Auto) 12.2 H (1-9) % Eos % (Auto) 0.3 (0-6) % Baso % (Auto) 0.8 (0-2) % Absolute Neuts (auto) 9.2 H (1.5-7.7) 10^3/ul Absolute Lymphs (auto) 2.4 (1.0-4.8) 10^3/ul Absolute Monos (auto) 1.6 H (0-0.8) 10^3/ul Absolute Eos (auto) 0 (0-0.6) 10^3/ul Absolute Basos (auto) 0.1 (0-0.2) 10^3/ul Absolute Nucleated RBC 0.07 10^3/ul Nucleated RBC % 0.5 Normal RBC Morphology Not Reportable Hypochromasia 1+ Acanthocytes (Spur) 2+ Schistocytes 2+ ESR 34 (0-40) mm/Hr INR (Anticoag Therapy) (0.77-1.02) APTT (26.0-36.3) seconds D-Dimer, Quantitative (Less Than 230) ng/mL Sodium (133-145) mmol/L Potassium (3.5-5.0) mmol/L Chloride (101-111) mmol/L Carbon Dioxide (22-32) mmol/L Anion Gap (2-11) mmol/L BUN (6-24) mg/dL Creatinine (0.51-0.95) mg/dL Est GFR ( Amer) (>60) Est GFR (Non-Af Amer) (>60) BUN/Creatinine Ratio (8-20) Glucose (70-100) mg/dL Lactic Acid (0.5-2.0) mmol/L Calcium (8.6-10.3) mg/dL Magnesium (1.9-2.7) mg/dL Total Bilirubin (0.2-1.0) mg/dL AST (13-39) U/L ALT (7-52) U/L Alkaline Phosphatase (34-104) U/L Total Creatine Kinase (10-223) U/L CK-MB (CK-2) (0.6-6.3) ng/mL Troponin I (<0.04) ng/mL C-Reactive Protein (< 5.00) mg/L B-Natriuretic Peptide 1412 H ( - 100) pg/mL Total Protein (6.4-8.9) g/dL Albumin (3.2-5.2) g/dL Globulin (2-4) g/dL Albumin/Globulin Ratio (1-3) Lipase (11.0-82.0) U/L TSH (0.34-5.60) mcIU/mL Urine Color Yellow Urine Appearance Clear Urine pH 6.0 (5-9) Ur Specific [place] 1.017 (1.010-1.030) Urine Protein 2+(100 mg/dl) H (Negative) Urine Ketones Negative (Negative) Urine Blood Negative (Negative) Urine Nitrate Negative (Negative) Urine Bilirubin Negative (Negative) Urine Urobilinogen Negative (Negative) Ur Leukocyte Esterase Negative (Negative) Urine WBC (Auto) 2+(11-20/hpf) H (Absent) Urine RBC (Auto) Trace(0-2/hpf) (Absent) Ur Squamous Epith Cells Present H (Absent) Urine Bacteria 1+ H (Absent) Urine Glucose Negative (Negative) Digoxin (0.8-2.0) ng/ml Influenza A (Rapid) (Negative) Influenza B (Rapid) (Negative) 07/07/17 Range/Units 12:28 WBC (3.5-10.8) 10^3/ul RBC (4.0-5.4) 10^6/ul Hgb (12.0-16.0) g/dl Hct (35-47) % MCV (80-97) fL MCH (27-31) pg MCHC (31-36) g/dl RDW (10.5-15) % Plt Count (150-450) 10^3/ul MPV Neut % (Auto) (38-83) % Lymph % (Auto) (25-47) % Lander % (Auto) (1-9) % Eos % (Auto) (0-6) % Baso % (Auto) (0-2) % Absolute Neuts (auto) (1.5-7.7) 10^3/ul Absolute Lymphs (auto) (1.0-4.8) 10^3/ul Absolute Monos (auto) (0-0.8) 10^3/ul Absolute Eos (auto) (0-0.6) 10^3/ul Absolute Basos (auto) (0-0.2) 10^3/ul Absolute Nucleated RBC 10^3/ul Nucleated RBC % Normal RBC Morphology Hypochromasia Acanthocytes (Spur) Schistocytes ESR (0-40) mm/Hr INR (Anticoag Therapy) (0.77-1.02) APTT (26.0-36.3) seconds D-Dimer, Quantitative (Less Than 230) ng/mL Sodium (133-145) mmol/L Potassium (3.5-5.0) mmol/L Chloride (101-111) mmol/L Carbon Dioxide (22-32) mmol/L Anion Gap (2-11) mmol/L BUN (6-24) mg/dL Creatinine (0.51-0.95) mg/dL Est GFR ( Amer) (>60) Est GFR (Non-Af Amer) (>60) BUN/Creatinine Ratio (8-20) Glucose (70-100) mg/dL Lactic Acid (0.5-2.0) mmol/L Calcium (8.6-10.3) mg/dL Magnesium (1.9-2.7) mg/dL Total Bilirubin (0.2-1.0) mg/dL AST (13-39) U/L ALT (7-52) U/L Alkaline Phosphatase (34-104) U/L Total Creatine Kinase (10-223) U/L CK-MB (CK-2) (0.6-6.3) ng/mL Troponin I (<0.04) ng/mL C-Reactive Protein (< 5.00) mg/L B-Natriuretic Peptide ( - 100) pg/mL Total Protein (6.4-8.9) g/dL Albumin (3.2-5.2) g/dL Globulin (2-4) g/dL Albumin/Globulin Ratio (1-3) Lipase (11.0-82.0) U/L TSH (0.34-5.60) mcIU/mL Urine Color Urine Appearance Urine pH (5-9) Ur Specific [place] (1.010-1.030) Urine Protein (Negative) Urine Ketones (Negative) Urine Blood (Negative) Urine Nitrate (Negative) Urine Bilirubin (Negative) Urine Urobilinogen (Negative) Ur Leukocyte Esterase (Negative) Urine WBC (Auto) (Absent) Urine RBC (Auto) (Absent) Ur Squamous Epith Cells (Absent) Urine Bacteria (Absent) Urine Glucose (Negative) Digoxin (0.8-2.0) ng/ml Influenza A (Rapid) Negative (Negative) Influenza B (Rapid) Negative (Negative) Result Diagrams: 07/07/17 11:20 07/07/17 11:20 Lab Statement: Any lab studies that have been ordered have been reviewed, and results considered in the medical decision making process. - Radiology Chest XR Radiology Interpretation Completed By: Radiologist - This chest XR reveals 1. NO EVIDENCE FOR ACUTE FINDING.2. 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 THIS CAN BE FURTHER EVALUATED WITH A CONTRAST ENHANCED CT OF THE CHEST CLINICALLY NEEDED. ED Physician has reviewed this report. - EKG 11:01 Cardiac Rate: Tachycardia EKG Rhythm: Atrial Fibrillation - at 121 BPM EKG Interpretation: LVH, and anterior ST elevation 2nd to LVH Complex Multi-Symp Course/Dx Course Of Treatment: ADMIT HOSPITALIST. - Diagnoses Provider Diagnoses: Chills, UTI (urinary tract infection), Elevated troponin Discharge - Discharge Plan Condition: Stable Disposition: ADMITTED TO [facility] The documentation as recorded by the Tiera ledesma Julia accurately reflects the service I personally performed and the decisions made by , Phoenix Delcid MD.
[2017-07-07] MEDS ORDERED: HYDROmorphone INJ* 1 MG/ML CARPUJECT SYRINGE IV SLOW PU ONE (19:01)
--- NOTE | 2017-07-07 19:14 | RAD ---
INDICATION: Wrist pain COMPARISON: None TECHNIQUE: AP and lateral views were obtained. FINDINGS: There is marked osteopenia. There is mild diffuse soft tissue swelling. There is a presumed triquetral fracture which could be chronic. There is cystic change of the lunate and scaphoid. 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 There are mild erosive changes about the distal ulna. There is mild diffuse soft tissue swelling. There are soft tissue calcifications as well. IMPRESSION: ADVANCED OSTEOARTHRITIC CHANGE WITH SOFT TISSUE SWELLING. PROBABLE TRIQUETRAL FRACTURE WHICH IS AGE INDETERMINANT.
--- NOTE | 2017-07-07 19:39 | HP ---
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 Ha, who presented to the hospital with fevers off and on for the past 1 week. The patient also had not been feeling well and eating well. She went to see her primary care provider and was with pseudomonas UTI. Her treatment was not changed though. She has continued on Keflex. Today, she woke up with a very tender and swollen right wrist. The patient's daughter is convinced that it is the patient's polymyalgia rheumatica. Her wrist has mild effusion. It is tender to palpation with increased warmth. The patient has decreased range of motion and flexion of wrist due to extreme pain. She has leukocytosis and temperature is 99.1 and she is tachycardic. At this point, the suspicion is that the patient may have a septic right wrist. We will ask Orthopedic Surgery for evaluation. Dr. Ha will also follow this patient from Infectious Diseases. She is going to be placed on broad-spectrum antibiotics. The case was discussed with Rohan Bueno NP, who included the remaining assessment and plan in history and physical dictated by him on 07/07/17 with which I agree. [id number]/[facility] #: [id number] [place]
--- NOTE | 2017-07-07 20:04 | HP ---
ATTENDING ADDENDUM NOW INCLUDED ON THIS REPORT CC: Dr. Ayers; Dr. Mattson; Dr. Ha * HISTORY AND PHYSICAL: DATE OF ADMISSION: 07/07/17 PRIMARY CARE PROVIDER: Dr. Ayers. ATTENDING PHYSICIAN WHILE IN THE HOSPITAL: Dr. Susan Hernandez * (report dictated by Rohan Bueno NP). CONSULTING ORTHOPEDIST: Dr. Mattson. CONSULTING ID DOCTOR: Dr. Ha. CHIEF COMPLAINT: Bilateral wrist pain. HISTORY OF PRESENT ILLNESS: Ms. 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 Ha and is now on lifelong suppression in the form of Keflex. She recently was diagnosed with an UTI about 6 days ago but before being treated was going to see Dr. Ha. She was supposed to see him today to see if she should be further treated or if this was colonization. Unfortunately though in the interim of this appointment over the last couple of days, she has been having wrist pain, tickling in that right wrist but the left wrist is bothering her as well. She could not put her weight on it. The patient denies shoulder pain, but the daughter stated that the patient was having some shoulder discomfort. The patient noted that her wrist had become swollen and was getting red. Because the right one again was much more painful than the left and they were concerned and came in. Yesterday, they went to the [facility] because it was noted that she had a blister on her lip. The patient states that she has had low-grade fevers of 100.4 and 100.1. She has been having no chest pain. No shortness of breath. No cough. No rhinorrhea or URI symptoms. There has been no nausea, vomiting, or diarrhea but her biggest complaint was this wrist pain and it has been painful to move and stiff to move , particularly in the right wrist. She came into the ED, was evaluated and was noted that she had an elevated white count. CRP was mildly elevated. In addition to this, she appeared to be septic, she was tachycardic and we were asked to evaluate for admission. PAST MEDICAL HISTORY: Significant for: 1. 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 2. She has a history of pneumonia. 3. History of Takotsubo cardiomyopathy, last EF was noted to be around 50%. 4. BPV. 5. AFib. 6. Hypertension. 7. COPD. 8. Hyperlipidemia. 9. Hypothyroidism. 10. Thrombocytopenia. 11. History of hemolytic anemia. 12. History of CVA. 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 14. AAA. 15. PMR. PAST SURGICAL HISTORY: 1. 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 2. She has had a pacemaker placement for tachy-kayleigh syndrome. 3. She had a AAA repair. 4. She has had a splenectomy. 5. She has had a CABG as well with the mitral valve repair. MEDICATIONS: Her home meds according to the list that she provided includes: 1. Diltiazem 240 mg p.o. daily. 2. Synthroid 75 mcg daily. 3. Dramamine one capsule daily. 4. Cardizem CD 120 mg at bedtime. 5. Provitamin one capsule daily. 6. [place]-3 one capsule p.o. daily. 7. Multivitamin one tablet daily. 8. Calcium/magnesium/zinc two tablets p.o. daily. 9. Co-enzyme Q10 100 mg daily. 10. Vitamin D, 1000 units p.o. daily. 11. Keflex 500 mg p.o. t.i.d. 12. Tylenol 650 mg t.i.d. as needed. 13. Prednisone 5 mg a daily. 14. Senna 1 tablet p.o. b.i.d. 15. Potassium 20 mEq p.o. daily. 16. Colace 100 mg p.o. b.i.d. 17. Warfarin 2 mg p.o. Wednesday and . 18. Warfarin 1 mg Wednesday, Wednesday, Wednesday, Wednesday, and Wednesday. 19. Latanoprost one drop right eye at bedtime. 20. Lasix 20 mg Wednesday, Wednesday, Wednesday, , and Wednesday. 21. Digoxin 0.125 mg daily. 22. Alphagan one drop right eye b.i.d. 23. Atorvastatin 5 mg daily. 24. Aspirin 81 mg daily. ALLERGIES TO MEDICATIONS: Include AMLODIPINE, MORPHINE, CELEBREX, and VIOXX. FAMILY HISTORY: Her mother rheumatic fever and heart disease. Father from complications of surgery. SOCIAL HISTORY: The patient is a former smoker. She quit in 2001. She does not drink alcohol. Surrogate decision maker is her daughter, Joesph. REVIEW OF SYSTEMS: There is a documented fever of 100.4. There is no double vision. No ear discharge. No rhinorrhea. No sore throat. No thyroid enlargement. She denied having any chest pain. There is no orthopnea. No nocturnal dyspnea. There was no abdominal discomfort. No nausea. No vomiting. No dysuria. No frequency. No loss of consciousness. No pruritus and no skin ulcerations. Review of 14 systems completed, all others negative. PHYSICAL EXAMINATION GENERAL: At this time, Ms. Gilmore is an 87-year-old female patient. She does appear to be in a moderate amount of distress. She appears to be uncomfortable , during my entire evaluation she is complaining of wrist pain. She is well- nourished, well-developed. VITAL SIGNS: Blood pressure 163/90, pulse of 107, respirations were 20, her O2 sat was 89% and is now 99% on 2 L, and her temperature was 99.1. HEENT: Head: Atraumatic. Eyes: Sclerae anicteric, not pale. Throat: Oral mucosa appears to be dry. No oropharyngeal erythema. NECK: Supple. LUNGS: Clear to auscultation bilaterally. No wheezes, rales, or rhonchi. HEART: Sounds S1, S2. Irregularly irregular rate. No murmurs, rubs, or gallops. ABDOMEN: Soft, flat, nontender. Bowel sounds were present. EXTREMITIES: Pulses were 2+ throughout. She has 5/5 strength in all extremities. The right wrist, she was noted to have fluid about the right wrist joint. There was there was tenderness at the joint and she had pain with flexion and extension of that joint. Her fingers did appear to be swollen and erythematic. Compared to the left wrist, she is moving that wrist freely. She has a little bit of pain, but the right wrist is again more painful on examination. NEUROLOGIC: She is awake, alert, oriented x3. Tongue midline. Leather Cleaner were equal. No gross focal deficits. SKIN: Intact. DIAGNOSTIC STUDIES/LAB DATA: WBC of 13.4, RBC of 4.43, hemoglobin 10.9, hematocrit 34, platelet count of 163. INR was 4.05. PTT of 43.5. D-dimer is greater than 1050. The sodium was 132, potassium is 3.8, chloride of 102, bicarb 21, BUN 27, creatinine 0.95, glucose 94, lactic 1.2, calcium 9.8, mag was 1.8, total bili 1, AST 18, ALT 12, alk phos 46. CK 11, CK-MB 0.8. Troponin 0.11. CRP 82. BMP of 1412. Albumin was 3.7. TSH of 1.7. Urine showed 2+ protein, 2+ WBC, 1+ bacteria. Toxicology had a normal digox level of 0.9. Serology was negative for flu. She had chest x-ray obtained today. Impression: No evidence for acute finding. 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 This can be further evaluated with a contrast enhanced CT of the chest if clinically indicated. She is not having any chest pain. Her EKG is markedly abnormal; however, it shows atrial fibrillation with LVH. In addition to this, she does appear to have a intraventricular conduction delay. There appears to be a left bundle-branch block, which previously she has had in the past and this looks unchanged from her previous EKGs. There was an echo that showed an EF of 45%. Old medical records were reviewed. ASSESSMENT AND PLAN: Ms. Gilmore is a complex 87-year-old female patient coming into the ED today with complaints of wrist discomfort, found to have an elevated white count, found to be tachycardic and there were complaints of low- grade fever and generalized malaise preceding this. She will be admitted under inpatient status for: 1. Sepsis: At this point, I am concerned that right wrist could be septic; however, she does have polymyalgia rheumatica and it could be related to this. However given the fact that 2 months ago she had endocarditis, it is highly likely that she may have seeded the joint. My plan is to get in touch with Dr. Mattson. I have left a message with him to try to get this joint tapped if we can do it safely, her INR is 4.05. Empirically, I am putting her on Rocephin as this will cover the strep and the pseudomonas that she had in her urine. I am going to get in touch with Dr. Ha. I am not going to stress dose her with steroids at this point because if this is an active infection I do not want to again possibly make the infection worse with high dose steroids. However if she does drop her blood pressure and if she becomes hypotensive, I will give her stress dose steroids at that point because she has been on chronic longstanding steroids for her polymyalgia rheumatica. She has gotten a liter of fluid here in the ED, she has got antibiotics, blood cultures for the time being and she has also got a urine and a chest x-ray which shows no pneumonia and we will continue to follow. I would like to get fluid from that joint. If this pans out not to be infectious, then obviously I will get in touch with Dr. Taylor and have her evaluate the patient but I am concerned that could possibly be a source of infection, and I did have my attending, Dr. Hernandez, evaluate the patient as well and she felt that we should again go for a tap of this this right wrist. 2. Endocarditis: At this point, we will continue her on cefepime. 3. History of Takotsubo cardiomyopathy, EF of 45%. 4. History of atrial fibrillation: I am going to ago ahead and put her on immediate release diltiazem with hold parameters and we will hold her warfarin until the INR is below 4. 5. Hypertension: Continue meds as prescribed. 6. Chronic obstructive pulmonary disease: Continue her meds as prescribed and p.r.n. albuterol. 7. Hyperlipidemia: Continue statin therapy. 8. Hypothyroidism: Continue her Synthroid. 9. Thrombocytopenia: Her platelet count here appears to be stable. We will follow. 10. Hemolytic anemia: H and H appears to be at baseline. We will monitor for this. 11. History of cerebrovascular accident: Continue secondary prevention. 12. History of abdominal aortic aneurysm: Continue with surveillance. 13. History polymyalgia rheumatica: Again, this could be the culprit of the wrist pain but with her recent endocarditis, this certainly could be a seeded wrist. So before getting her on high dose steroids to treat polymyalgia rheumatica, I would like to make sure we are not dealing with an active infection. 14. DVT prophylaxis: INR is 4.04. I am actually going to give her a little bit of vitamin K to bring that down, so that we could prepare for an arthrocentesis. 15. Code status: She is a DNR. 16. Fluids, electrolytes, and nutrition. She can have a heart-healthy diet. TIME SPENT: Time spent on the admission was 90 minutes; greater than half the time was spent [id number] with the patient obtaining my history and physical, other half of the time spent going over the plan of care with the patient and implementing plan of care. I did discuss plan of care with my attending, Dr. Hernandez, she is in agreement. ROHAN BUENO NP ADDENDUM: Rina Gilmore is an 87-year-old female with a history of endocarditis, for which she is on chronic suppression with antibiotics, currently it is Keflex, as directed Dr. Ha, who presented to the hospital with fevers off and on for the past 1 week. The patient also had not been feeling well and eating well. She went to see her primary care provider and was with pseudomonas UTI. Her treatment was not changed though. She has continued on Keflex. Today, she woke up with a very tender and swollen right wrist. The patient's daughter is convinced that it is the patient's polymyalgia rheumatica. Her wrist has mild effusion. It is tender to palpation with increased warmth. The patient has decreased range of motion and flexion of wrist due to extreme pain. She has leukocytosis and temperature is 99.1 and she is tachycardic. At this point, the suspicion is that the patient may have a septic right wrist. We will ask Orthopedic Surgery for evaluation. Dr. Ha will also follow this patient from Infectious Diseases. She is going to be placed on broad-spectrum antibiotics. The case was discussed with Rohan Bueno NP, who included the remaining assessment and plan in history and physical dictated by him on 07/07/17 with which I agree. SUSAN HERNANDEZ MD [id number]/[facility] #: [id number]/[facility] #: [id number] MTDD
[2017-07-07] MEDS: Latanoprost 0.005%* 2.5 ml BTL RIGHT EYE SCH (20:05)
[2017-07-07] MEDS: Senna TAB PO SCH (20:05)
[2017-07-07] MEDS: Brimonidine P 0.15%(NF) OPH SOL 5 ML BTL RIGHT EYE SCH (20:07)
[2017-07-07] MEDS: HYDROmorphone INJ* 1 MG/ML CARPUJECT SYRINGE IV SLOW PU PRN (21:44)
[2017-07-08] MEDS: HYDROmorphone INJ* 1 MG/ML CARPUJECT SYRINGE IV SLOW PU PRN ×5 (02:01→21:20)
--- NOTE | 2017-07-08 03:35 | CONS ---
CONSULTATION REPORT: DATE OF CONSULT: 07/07/17 REASON FOR CONSULT: Painful bilateral wrists. HISTORY OF PRESENT ILLNESS: The patient is an 87-year-old woman, with a history of what is thought to be a chronic endocarditis as well as possibly infection of pacemaker electro cardio leads, under the care of Dr. Ha, and on life-long suppression in the form of Keflex, who presented to the emergency department today with the complaint of bilateral wrist discomfort, right greater than left. The patient has a history of polymyalgia rheumatica and describes occasional joint pains. She does describe back pain and chills recently in the last few days. The patient describes numbness appearing in the last few days in her hands and then some pain in her wrist and some difficulty using her hands. The patient is well known to Dr. Ha of Infectious Disease. The patient took a 6-week course of antibiotics and is on life-long suppression with Keflex. The patient was also recently diagnosed with urinary tract infection 6 days ago, but was being treated for that by Dr. Ha. The patient denied shoulder pain speaking with the hospitalist service and with , me but her daughter describe the patient complaining of recent shoulder pain. The patient went to [facility] yesterday with a blister on her lip. The patient described low-grade temperature recently of 100.4 and 100.1. The patient in the emergency department was noted to have an elevated CRP and white blood cell count, and was tachycardic. She was admitted to the hospitalist service. An Orthopedic Surgery consult was ordered. 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 PAST SURGICAL HISTORY: Porcine mitral valve replacement, pacemaker placement for tachycardia-bradycardia syndrome, abdominal aortic aneurysm repair, splenectomy, coronary artery bypass graft surgery. MEDICATIONS: 1. Diltiazem. 2. Synthroid. 3. Dramamine. 4. Cardizem. 5. Multivitamin. 6. [place]-3. 7. Provitamin. 8. Keflex 500 mg p.o. t.i.d. 9. Prednisone. 10. Senna. 11. Potassium. 12. Colace. 13. Tylenol. 14. Coumadin. 15. Latanoprost eye drops. 16. Lasix. 17. Digoxin. 18. Alphagan eye drops. 19. Atorvastatin. 20. Aspirin. ALLERGIES: AMLODIPINE, MORPHINE, CELEBREX, and VIOXX. SOCIAL HISTORY: The patient describes living on her own in [place]. She is a former smoker who quit in 2001. The patient's daughter lives locally. REVIEW OF SYSTEMS: The patient describes recent back pain and chills. She describes a fever of 100.4 at home. No other joint pain admitted to in her conversation with me, although her daughter describes recent complaint of shoulder pain. PHYSICAL EXAM: Vitals at 2:38 p.m. on 07/07/17, showed temperature 97.6 degrees Fahrenheit, heart rate 100, blood pressure 146/57, respiratory rate 13, O2 sat 96% on 2 L of nasal cannula air. In no acute distress, alert, and oriented. The patient is nontoxic appearing. The patient is comfortable in bed. The patient was resting comfortably when I first went into see her. Several minutes after I left her, I returned to the room and the patient was sleeping comfortably. Appropriate dress and hygiene for an inpatient. Gait was not assessed as the patient was lying in bed. Well- coordinated bilateral upper and lower extremities. Bilateral upper extremity exam revealed no pain with passive range of motion of the shoulders or elbows. No lymphangitic or other erythematous streaking. No palpable lymphadenopathy. Neurovascularly intact distally. Left wrist exam demonstrates some mild soft tissue swelling (the patient describes some chronic soft tissue swelling at bilateral wrists). The patient had painless passive range from approximately 15 degrees of extension to 30 degrees of flexion of the left wrist. Especially when I distracted, this was not painful. Some inconsistent mild tenderness to palpation present about that wrist. No significant erythema. Right wrist exam demonstrates some soft tissue swelling. This is slightly more than of the left wrist. The patient was able to have the right wrist passively ranged from 10 degrees of extension to 30 degrees of flexion. She seemed possibly more anxious than in pain with my movement of the right wrist. Mildly tender to palpation about the wrist as well. DIAGNOSTIC STUDIES/LAB DATA: Labs: White blood cell count 13.4, ESR 34, CRP is 82.05, all of these on 07/07/17. Troponin is trending from 0.11 down to 0.09. INR is 4.05. Neutrophils as a percentage were 69.1%. Imaging: Two x-ray reviews of the right wrist were obtained on the date of admission. There are degenerative changes, erosive changes about the distal radial ulnar joint. Soft tissue swelling visible. ASSESSMENT: 1. Bilateral wrist pain, right worse than left. 2. Possible wrist joint infection, right versus flare of polymyalgia rheumatica , bilateral wrists. 3. Recent urinary tract infection. 4. 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 PLAN: 1. Thank you for the consultation. 2. Especially secondary to the perceived emotional component of the pain, difficult to discern between an infected wrist joint and polymyalgia rheumatica and question of psychiatric overlay. 3. I held off on aspiration wrist joint tonight. 4. The patient will be placed on antibiotics by the hospitalist team. She has been started on cefepime. 5. I recommend CT scan of the right wrist to assess for fluid collection in the radiocarpal joint consistent with a possible wrist joint infection. Similarly, attention should be paid to the DRUJ because of the significant erosive changes at that joint. 6. I will continue to follow. As needed tomorrow evening I can aspirate the wrist and/or perform any irrigation and debridement of the right and/or left wrist. [id number]/[facility] #: [id number] MTDD
[2017-07-08] MEDS: Diltiazem TAB* 30 MG PO SCH ×3 (06:11→16:59)
[2017-07-08] MEDS: Levothyroxine TAB* 75 MCG TAB PO SCH (06:11)
[2017-07-08] MEDS: NS 0.9% 1000 ML* 1,000 ML IV SCH (06:17)
[2017-07-08] MEDS ORDERED: Furosemide IV* 10 MG/ML VIAL (40 MG) IV ONE (07:36)
[2017-07-08] MEDS ORDERED: Furosemide IV* 10 MG/ML VIAL (40 MG) ONE (07:47)
[2017-07-08] MEDS: Aspirin EC Low Dose* 81 MG TAB.EC PO SCH (07:51)
[2017-07-08] MEDS: Acetaminophen TAB* 325 MG PO PRN (07:52)
[2017-07-08] MEDS: Potassium Chlor TAB* 20 MEQ TAB.ER PO SCH (07:52)
[2017-07-08] MEDS: Senna TAB PO SCH ×2 (07:52→21:21)
[2017-07-08] MEDS: Lactobacillus Acidophilu (GG)* 1 CAP CAP PO SCH (07:52)
[2017-07-08] MEDS: Docusate CAP* 100 MG PO SCH (07:52)
[2017-07-08] MEDS: Digoxin TAB* 0.125 MG PO SCH (07:52)
[2017-07-08] MEDS: Brimonidine P 0.15%(NF) OPH SOL 5 ML BTL RIGHT EYE SCH (07:53)
--- NOTE | 2017-07-08 08:15 | PN ---
Subjective Date of Service: 07/08/17 Interval History: Pain in b/l wrists and hands, right greater than left. Will not say if wrist pain in worse than finger pain Denies SOB Objective Active Medications: Acetaminophen (Tylenol Tab*) 650 mg PO Q4H PRN PRN Reason: FEVER/PAIN Last Admin: 07/08/17 07:52 Dose: 650 mg Albuterol (Ventolin 2.5 Mg/3 Ml Neb.Edwina*) 2.5 mg INH Q2H PRN PRN Reason: SOB/WHEEZING Aspirin (Aspirin Ec Low Dose*) 81 mg PO QAM [facility] Last Admin: 07/08/17 07:51 Dose: 81 mg Atorvastatin Calcium (Lipitor*) 5 mg PO QPM [facility] Last Admin: 07/07/17 17:26 Dose: 5 mg Brimonidine Tartrate (Alphagan P 0.15%(Nf)) 1 drop RIGHT EYE BID [facility] Last Admin: 07/08/17 07:53 Dose: Not Given Digoxin (Lanoxin Tab*) 0.125 mg PO QAM [facility] Last Admin: 07/08/17 07:52 Dose: 0.125 mg Diltiazem HCl (Cardizem Tab*) 90 mg PO Q6HR [facility] Last Admin: 07/08/17 06:11 Dose: 90 mg Docusate Sodium (Colace Cap*) 100 mg PO DAILY [facility] Last Admin: 07/08/17 07:52 Dose: 100 mg Hydromorphone HCl (Dilaudid Injic*) 0.5 mg IV SLOW PU Q4H PRN PRN Reason: PAIN Last Admin: 07/08/17 06:10 Dose: 0.5 mg Sodium Chloride (Ns 0.9% 1000 Ml*) 1,000 mls @ 150 mls/hr IV PER RATE [facility] Last Admin: 07/08/17 06:17 Dose: 150 mls/hr Cefepime HCl (Maxipime 2 Gm In Dextrose Duplex (*)) 2 gm in 50 mls @ 100 mls/ hr IV Q24H [facility] Lactobacillus Rhamnosus (Culturelle*) 1 cap PO DAILY [facility] Last Admin: 07/08/17 07:52 Dose: 1 cap Latanoprost (Xalatan 0.005%*) 1 drop RIGHT EYE BEDTIME [facility] Last Admin: 07/07/17 20:05 Dose: 1 drop Levothyroxine Sodium (Synthroid Tab*) 75 mcg PO DAILY@0600 [facility] Last Admin: 07/08/17 06:11 Dose: 75 mcg Potassium Chloride (Klor Con Er Tab*) 20 meq PO DAILY [facility] Last Admin: 07/08/17 07:52 Dose: 20 meq Prednisone (Deltasone Tab*) 5 mg PO QAM [facility] Last Admin: 07/08/17 07:52 Dose: 5 mg Senna (Senokot Tab*) 1 tab PO BID [facility] Last Admin: 07/08/17 07:52 Dose: 1 tab Vital Signs - 8 hr 07/08/17 07/08/17 07/08/17 02:01 03:53 03:57 Temperature 98.4 F Pulse Rate 97 Respiratory 20 16 16 Rate Blood Pressure (mmHg) O2 Sat by Pulse 87 Oximetry 07/08/17 07/08/17 07/08/17 05:14 06:10 06:20 Temperature Pulse Rate Respiratory 28 34 Rate Blood Pressure 155/65 151/65 (mmHg) O2 Sat by Pulse 90 87 Oximetry 07/08/17 07/08/17 07/08/17 07:22 07:30 07:35 Temperature Pulse Rate 83 Respiratory 36 36 Rate Blood Pressure (mmHg) O2 Sat by Pulse Oximetry 07/08/17 07/08/17 07:42 07:52 Temperature 99.3 F Pulse Rate 97 86 Respiratory 22 Rate Blood Pressure 156/46 (mmHg) O2 Sat by Pulse 90 Oximetry Oxygen Devices in Use Now: Nasal Cannula, High Flow Nasal Cannula Appearance: stated age, looks anxious, Eyes: No Scleral Icterus Ears/Nose/Mouth/Throat: - - dry MM Neck: NL Appearance and Movements; NL JVP, Trachea Midline Respiratory: Symmetrical Chest Expansion and Respiratory Effort, - - expiratory wheeze, rales in b/l bases left>right Cardiovascular: RRR, - - 2/6 ELIAS RUSB Extremities: No Edema, - - small effusion in right wrist, pain with passive range of motion in b/l wrists and fingers Skin: No Rash or Ulcers Neurological: Alert and Oriented x 3 Result Diagrams: 07/07/17 11:20 07/07/17 11:20 Additional Lab and Data: Lab Results 07/07/17 07/07/17 07/07/17 Range/Units 11:20 11:20 11:20 WBC (3.5-10.8) 10^3/ul RBC (4.0-5.4) 10^6/ul Hgb (12.0-16.0) g/dl Hct (35-47) % MCV (80-97) fL MCH (27-31) pg MCHC (31-36) g/dl RDW (10.5-15) % Plt Count (150-450) 10^3/ul MPV Neut % (Auto) (38-83) % Lymph % (Auto) (25-47) % Camp % (Auto) (1-9) % Eos % (Auto) (0-6) % Baso % (Auto) (0-2) % Absolute Neuts (auto) (1.5-7.7) 10^3/ul Absolute Lymphs (auto) (1.0-4.8) 10^3/ul Absolute Monos (auto) (0-0.8) 10^3/ul Absolute Eos (auto) (0-0.6) 10^3/ul Absolute Basos (auto) (0-0.2) 10^3/ul Absolute Nucleated RBC 10^3/ul Nucleated RBC % Normal RBC Morphology Hypochromasia Acanthocytes (Spur) Schistocytes ESR (0-40) mm/Hr INR (Anticoag Therapy) 4.05 H (0.77-1.02) APTT 43.5 H (26.0-36.3) seconds D-Dimer, Quantitative > 1050 H (Less Than 230) ng/mL Sodium 132 L (133-145) mmol/L Potassium 3.8 (3.5-5.0) mmol/L Chloride 102 (101-111) mmol/L Carbon Dioxide 21 L (22-32) mmol/L Anion Gap 9 (2-11) mmol/L BUN 27 H (6-24) mg/dL Creatinine 0.95 (0.51-0.95) mg/dL Est GFR ( Amer) 71.6 (>60) Est GFR (Non-Af Amer) 55.6 (>60) BUN/Creatinine Ratio 28.4 H (8-20) Glucose 94 (70-100) mg/dL Lactic Acid 1.2 (0.5-2.0) mmol/L Calcium 9.3 (8.6-10.3) mg/dL Magnesium 1.8 L (1.9-2.7) mg/dL Total Bilirubin 1.00 (0.2-1.0) mg/dL AST 18 (13-39) U/L ALT 12 (7-52) U/L Alkaline Phosphatase 46 (34-104) U/L Total Creatine Kinase 11 (10-223) U/L CK-MB (CK-2) 0.8 (0.6-6.3) ng/mL Troponin I 0.11 H* (<0.04) ng/mL C-Reactive Protein 82.05 H (< 5.00) mg/L B-Natriuretic Peptide ( - 100) pg/mL Total Protein 7.7 (6.4-8.9) g/dL Albumin 3.7 (3.2-5.2) g/dL Globulin 4.0 (2-4) g/dL Albumin/Globulin Ratio 0.9 L (1-3) Lipase 10 L (11.0-82.0) U/L TSH 1.70 (0.34-5.60) mcIU/mL Urine Color Urine Appearance Urine pH (5-9) Ur Specific [place] (1.010-1.030) Urine Protein (Negative) Urine Ketones (Negative) Urine Blood (Negative) Urine Nitrate (Negative) Urine Bilirubin (Negative) Urine Urobilinogen (Negative) Ur Leukocyte Esterase (Negative) Urine WBC (Auto) (Absent) Urine RBC (Auto) (Absent) Ur Squamous Epith Cells (Absent) Urine Bacteria (Absent) Urine Glucose (Negative) Digoxin 0.9 (0.8-2.0) ng/ml Influenza A (Rapid) (Negative) Influenza B (Rapid) (Negative) 07/07/17 07/07/17 07/07/17 Range/Units 11:20 11:20 11:32 WBC 13.4 H (3.5-10.8) 10^3/ul RBC 4.43 (4.0-5.4) 10^6/ul Hgb 10.9 L (12.0-16.0) g/dl Hct 34 L (35-47) % MCV 78 L (80-97) fL MCH 25 L (27-31) pg MCHC 32 (31-36) g/dl RDW 19 H (10.5-15) % Plt Count 163 (150-450) 10^3/ul MPV Not Reportable Neut % (Auto) 69.1 (38-83) % Lymph % (Auto) 17.6 L (25-47) % [place] % (Auto) 12.2 H (1-9) % Eos % (Auto) 0.3 (0-6) % Baso % (Auto) 0.8 (0-2) % Absolute Neuts (auto) 9.2 H (1.5-7.7) 10^3/ul Absolute Lymphs (auto) 2.4 (1.0-4.8) 10^3/ul Absolute Monos (auto) 1.6 H (0-0.8) 10^3/ul Absolute Eos (auto) 0 (0-0.6) 10^3/ul Absolute Basos (auto) 0.1 (0-0.2) 10^3/ul Absolute Nucleated RBC 0.07 10^3/ul Nucleated RBC % 0.5 Normal RBC Morphology Not Reportable Hypochromasia 1+ Acanthocytes (Spur) 2+ Schistocytes 2+ ESR 34 (0-40) mm/Hr INR (Anticoag Therapy) (0.77-1.02) APTT (26.0-36.3) seconds D-Dimer, Quantitative (Less Than 230) ng/mL Sodium (133-145) mmol/L Potassium (3.5-5.0) mmol/L Chloride (101-111) mmol/L Carbon Dioxide (22-32) mmol/L Anion Gap (2-11) mmol/L BUN (6-24) mg/dL Creatinine (0.51-0.95) mg/dL Est GFR ( Amer) (>60) Est GFR (Non-Af Amer) (>60) BUN/Creatinine Ratio (8-20) Glucose (70-100) mg/dL Lactic Acid (0.5-2.0) mmol/L Calcium (8.6-10.3) mg/dL Magnesium (1.9-2.7) mg/dL Total Bilirubin (0.2-1.0) mg/dL AST (13-39) U/L ALT (7-52) U/L Alkaline Phosphatase (34-104) U/L Total Creatine Kinase (10-223) U/L CK-MB (CK-2) (0.6-6.3) ng/mL Troponin I (<0.04) ng/mL C-Reactive Protein (< 5.00) mg/L B-Natriuretic Peptide 1412 H ( - 100) pg/mL Total Protein (6.4-8.9) g/dL Albumin (3.2-5.2) g/dL Globulin (2-4) g/dL Albumin/Globulin Ratio (1-3) Lipase (11.0-82.0) U/L TSH (0.34-5.60) mcIU/mL Urine Color Yellow Urine Appearance Clear Urine pH 6.0 (5-9) Ur Specific [place] 1.017 (1.010-1.030) Urine Protein 2+(100 mg/dl) H (Negative) Urine Ketones Negative (Negative) Urine Blood Negative (Negative) Urine Nitrate Negative (Negative) Urine Bilirubin Negative (Negative) Urine Urobilinogen Negative (Negative) Ur Leukocyte Esterase Negative (Negative) Urine WBC (Auto) 2+(11-20/hpf) H (Absent) Urine RBC (Auto) Trace(0-2/hpf) (Absent) Ur Squamous Epith Cells Present H (Absent) Urine Bacteria 1+ H (Absent) Urine Glucose Negative (Negative) Digoxin (0.8-2.0) ng/ml Influenza A (Rapid) (Negative) Influenza B (Rapid) (Negative) 07/07/17 Range/Units 12:28 WBC (3.5-10.8) 10^3/ul RBC (4.0-5.4) 10^6/ul Hgb (12.0-16.0) g/dl Hct (35-47) % MCV (80-97) fL MCH (27-31) pg MCHC (31-36) g/dl RDW (10.5-15) % Plt Count (150-450) 10^3/ul MPV Neut % (Auto) (38-83) % Lymph % (Auto) (25-47) % [place] % (Auto) (1-9) % Eos % (Auto) (0-6) % Baso % (Auto) (0-2) % Absolute Neuts (auto) (1.5-7.7) 10^3/ul Absolute Lymphs (auto) (1.0-4.8) 10^3/ul Absolute Monos (auto) (0-0.8) 10^3/ul Absolute Eos (auto) (0-0.6) 10^3/ul Absolute Basos (auto) (0-0.2) 10^3/ul Absolute Nucleated RBC 10^3/ul Nucleated RBC % Normal RBC Morphology Hypochromasia Acanthocytes (Spur) Schistocytes ESR (0-40) mm/Hr INR (Anticoag Therapy) (0.77-1.02) APTT (26.0-36.3) seconds D-Dimer, Quantitative (Less Than 230) ng/mL Sodium (133-145) mmol/L Potassium (3.5-5.0) mmol/L Chloride (101-111) mmol/L Carbon Dioxide (22-32) mmol/L Anion Gap (2-11) mmol/L BUN (6-24) mg/dL Creatinine (0.51-0.95) mg/dL Est GFR ( Amer) (>60) Est GFR (Non-Af Amer) (>60) BUN/Creatinine Ratio (8-20) Glucose (70-100) mg/dL Lactic Acid (0.5-2.0) mmol/L Calcium (8.6-10.3) mg/dL Magnesium (1.9-2.7) mg/dL Total Bilirubin (0.2-1.0) mg/dL AST (13-39) U/L ALT (7-52) U/L Alkaline Phosphatase (34-104) U/L Total Creatine Kinase (10-223) U/L CK-MB (CK-2) (0.6-6.3) ng/mL Troponin I (<0.04) ng/mL C-Reactive Protein (< 5.00) mg/L B-Natriuretic Peptide ( - 100) pg/mL Total Protein (6.4-8.9) g/dL Albumin (3.2-5.2) g/dL Globulin (2-4) g/dL Albumin/Globulin Ratio (1-3) Lipase (11.0-82.0) U/L TSH (0.34-5.60) mcIU/mL Urine Color Urine Appearance Urine pH (5-9) Ur Specific [place] (1.010-1.030) Urine Protein (Negative) Urine Ketones (Negative) Urine Blood (Negative) Urine Nitrate (Negative) Urine Bilirubin (Negative) Urine Urobilinogen (Negative) Ur Leukocyte Esterase (Negative) Urine WBC (Auto) (Absent) Urine RBC (Auto) (Absent) Ur Squamous Epith Cells (Absent) Urine Bacteria (Absent) Urine Glucose (Negative) Digoxin (0.8-2.0) ng/ml Influenza A (Rapid) Negative (Negative) Influenza B (Rapid) Negative (Negative) Assess/Plan/Problems-Billing Assessment: 87 yo F 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, afib, copd, htn, PMR on steroids p/w - Patient Problems (1) Wrist pain Comment: Right greater than left Concern for infected joing vs PMR Appreciate ortho assistance Will obtain CT right wrist now and evaluate need for arthrocentesis or wash out Consider rheum consult if no evidence of infection Cefepime empirically dilaudid PRN pain (2) Atrial fibrillation Comment: Hold coumadin cardizem - 2 doses listed in home medication reconciliation Identify correct dose and update today c/w digoxin (3) Acute systolic heart failure Comment: In setting of fluid received after presentation d/c fluid Lasix IV 40mg now (4) Hypertension Comment: Cardizem (5) History of endocarditis Comment: On supressive abx Cefepime now with concern for joint infection (6) Supratherapeutic INR Priority: High Comment: holding coumadin (7) Polymyalgia rheumatica Comment: Prednisone 5 mg daily consider increase based on CT e/o infection and clinical course (8) DVT prophylaxis Comment: supratherapeutic INR
--- NOTE | 2017-07-08 08:24 | RAD ---
HISTORY: Shortness of breath COMPARISONS: July 07, 2017 VIEWS: 1: frontal portable view of the chest at 7:30 AM FINDINGS: LINES AND TUBES: A left-sided pacemaker is noted. CARDIOMEDIASTINAL SILHOUETTE: There is stable contour deformity of the left upper mediastinal silhouette is stable from previous examinations, likely representing a tortuous thoracic aorta.. A prosthetic heart valve is noted. PLEURA: The costophrenic angles are sharp. No pleural abnormalities are noted. LUNG PARENCHYMA: There is a diffuse reticular pattern with indistinct pulmonary vessels. ABDOMEN: The upper abdomen is clear. There is no subphrenic gas. BONES AND SOFT TISSUES: The patient is status post median sternotomy. IMPRESSION: PULMONARY INTERSTITIAL EDEMA
[2017-07-08] MEDS ORDERED: predniSONE TAB* 5 MG PO SCH (09:00)
[2017-07-08 09:23] LABS: EGFR Non-African American 65.9 (>60)
[2017-07-08 10:01] LABS: INR 3.12 (0.77-1.02)
--- NOTE | 2017-07-08 10:04 | RAD ---
INDICATION: Right wrist swelling evaluate effusion. COMPARISON: Comparison is made with a prior x-ray study of the right wrist from July 07, 2017. TECHNIQUE: Contiguous axial sections were obtained of the right wrist. Images were reconstructed in the sagittal and coronal planes. FINDINGS: There is diffuse soft tissue swelling. In addition there is low-density suspicious for fluid surrounding the flexor tendons at the level of the distal radius and ulna and also deep to the carpal bones. The bones are osteopenic. There is an effusion within the distal radial ulnar joint with erosive change present around this joint space. There is chondrocalcinosis within the proximal radiocarpal and intercarpal joints. There is an area of ossification adjacent to the dorsal medial aspect of the ulna and carpal bones suggestive of myositis ossificans. IMPRESSION: 1. DIFFUSE SOFT TISSUE SWELLING. THERE ALSO APPEARS TO BE FLUID TRACKING ADJACENT TO THE FLEXOR TENDONS DESCRIBED. 2. EROSIVE CHANGE AND JOINT EFFUSION WITHIN THE DISTAL RADIOULNAR JOINT. THIS MAY REPRESENT A CHRONIC FINDING ALTHOUGH A SEPTIC ARTHRITIS CANNOT BE EXCLUDED. 3. CHONDROCALCINOSIS.
[2017-07-08] MEDS: methylPREDNISolone SOD 40 MG* 1 ML VIAL IV SCH ×2 (10:20→21:21)
--- NOTE | 2017-07-08 11:01 | PN ---
Progress Note - Progress Note Date of Service: 07/08/17 SOAP: Subjective: [] Patient seen at bedside. She reports pain of bilateral wrists and hands R>L. Denies chest pain, shortness of breath, fever or chills. Objective: [] B/L UE: - Wrists and hands warm to touch without obvious erythema or streaking. - Swelling of wrist joints R>L. Circumferential tenderness over b/l wrists and hands, all the way into distal digits R>L. Right digits contracted into partial flexion with inability to flex or extend out of current position due to pain. Unable to supinate R hand due to pain. Right wrist with roughly 30 degrees of flexion, minimal to no extension. Left: left wrist with approximately 30 degrees flexion, 15 degrees extension. Able to flex and extend digits. Vital Signs Temp 97.5 F 07/08/17 12:15 Pulse 85 07/08/17 12:15 Resp 18 07/08/17 12:15 BP 140/52 07/08/17 12:15 Pulse Ox 90 07/08/17 12:15 Intake & Output 07/07/17 07/08/17 07/08/17 18:59 06:59 18:59 Intake Total 1225 1030 Output Total 0 Balance 1225 1030 Weight 103 lb Intake: IV Fluids 1125 980 NS (0.9%) 980 Oral 100 50 Output: Urine 0 Other: Estimated Void Large # Bowel Movements 0 1 Estimated Stool Amount Large Small # Voids 0 1 Laboratory Last Values WBC 13.4 10^3/ul (3.5-10.8) H 07/07/17 11:20 RBC 4.43 10^6/ul (4.0-5.4) 07/07/17 11:20 Hgb 10.9 g/dl (12.0-16.0) L 07/07/17 11:20 Hct 34 % (35-47) L 07/07/17 11:20 MCV 78 fL (80-97) L 07/07/17 11:20 MCH 25 pg (27-31) L 07/07/17 11:20 MCHC 32 g/dl (31-36) 07/07/17 11:20 RDW 19 % (10.5-15) H 07/07/17 11:20 Plt Count 163 10^3/ul (150-450) 07/07/17 11:20 MPV Not Reportable 07/07/17 11:20 Neut % (Auto) 69.1 % (38-83) 07/07/17 11:20 Lymph % (Auto) 17.6 % (25-47) L 07/07/17 11:20 [place] % (Auto) 12.2 % (1-9) H 07/07/17 11:20 Eos % (Auto) 0.3 % (0-6) 07/07/17 11:20 Baso % (Auto) 0.8 % (0-2) 07/07/17 11:20 Absolute Neuts (auto) 9.2 10^3/ul (1.5-7.7) H 07/07/17 11:20 Absolute Lymphs (auto) 2.4 10^3/ul (1.0-4.8) 07/07/17 11:20 Absolute Monos (auto) 1.6 10^3/ul (0-0.8) H 07/07/17 11:20 Absolute Eos (auto) 0 10^3/ul (0-0.6) 07/07/17 11:20 Absolute Basos (auto) 0.1 10^3/ul (0-0.2) 07/07/17 11:20 Absolute Nucleated RBC 0.07 10^3/ul 07/07/17 11:20 Nucleated RBC % 0.5 07/07/17 11:20 Normal RBC Morphology Not Reportable 07/07/17 11:20 Hypochromasia 1+ 07/07/17 11:20 Acanthocytes (Spur) 2+ 07/07/17 11:20 Schistocytes 2+ 07/07/17 11:20 ESR 34 mm/Hr (0-40) 07/07/17 11:20 INR (Anticoag Therapy) 3.12 (0.77-1.02) H 07/08/17 09:00 APTT 43.5 seconds (26.0-36.3) H 07/07/17 11:20 D-Dimer, Quantitative > 1050 ng/mL (Less Than 230) H 07/07/17 11:20 Sodium 129 mmol/L (133-145) L 07/08/17 09:00 Potassium 3.9 mmol/L (3.5-5.0) 07/08/17 09:00 Chloride 103 mmol/L (101-111) 07/08/17 09:00 Carbon Dioxide 19 mmol/L (22-32) L 07/08/17 09:00 Anion Gap 7 mmol/L (2-11) 07/08/17 09:00 BUN 21 mg/dL (6-24) 07/08/17 09:00 Creatinine 0.82 mg/dL (0.51-0.95) 07/08/17 09:00 Est GFR ( Amer) 84.8 (>60) 07/08/17 09:00 Est GFR (Non-Af Amer) 65.9 (>60) 07/08/17 09:00 BUN/Creatinine Ratio 25.6 (8-20) H 07/08/17 09:00 Glucose 109 mg/dL (70-100) H 07/08/17 09:00 Lactic Acid 1.2 mmol/L (0.5-2.0) 07/07/17 11:20 Calcium 8.4 mg/dL (8.6-10.3) L 07/08/17 09:00 Magnesium 1.8 mg/dL (1.9-2.7) L 07/07/17 11:20 Total Bilirubin 1.00 mg/dL (0.2-1.0) 07/07/17 11:20 AST 18 U/L (13-39) 07/07/17 11:20 ALT 12 U/L (7-52) 07/07/17 11:20 Alkaline Phosphatase 46 U/L (34-104) 07/07/17 11:20 Total Creatine Kinase 11 U/L (10-223) 07/07/17 11:20 CK-MB (CK-2) 0.8 ng/mL (0.6-6.3) 07/07/17 11:20 Troponin I 0.08 ng/mL (<0.04) H* 07/07/17 22:44 C-Reactive Protein 82.05 mg/L (< 5.00) H 07/07/17 11:20 B-Natriuretic Peptide 1412 pg/mL (-100) H 07/07/17 11:20 Total Protein 7.7 g/dL (6.4-8.9) 07/07/17 11:20 Albumin 3.7 g/dL (3.2-5.2) 07/07/17 11:20 Globulin 4.0 g/dL (2-4) 07/07/17 11:20 Albumin/Globulin Ratio 0.9 (1-3) L 07/07/17 11:20 Lipase 10 U/L (11.0-82.0) L 07/07/17 11:20 TSH 1.70 mcIU/mL (0.34-5.60) 07/07/17 11:20 Urine Color Yellow 07/07/17 11:32 Urine Appearance Clear 07/07/17 11:32 Urine pH 6.0 (5-9) 07/07/17 11:32 Ur Specific [place] 1.017 (1.010-1.030) 07/07/17 11:32 Urine Protein 2+(100 mg/dl) (Negative) H 07/07/17 11:32 Urine Ketones Negative (Negative) 07/07/17 11:32 Urine Blood Negative (Negative) 07/07/17 11:32 Urine Nitrate Negative (Negative) 07/07/17 11:32 Urine Bilirubin Negative (Negative) 07/07/17 11:32 Urine Urobilinogen Negative (Negative) 07/07/17 11:32 Ur Leukocyte Esterase Negative (Negative) 07/07/17 11:32 Urine WBC (Auto) 2+(11-20/hpf) (Absent) H 07/07/17 11:32 Urine RBC (Auto) Trace(0-2/hpf) (Absent) 07/07/17 11:32 Ur Squamous Epith Cells Present (Absent) H 07/07/17 11:32 Urine Bacteria 1+ (Absent) H 07/07/17 11:32 Urine Glucose Negative (Negative) 07/07/17 11:32 Digoxin 0.9 ng/ml (0.8-2.0) 07/07/17 11:20 Influenza A (Rapid) Negative (Negative) 07/07/17 12:28 Influenza B (Rapid) Negative (Negative) 07/07/17 12:28 Assessment: []Bilateral wrist pain with question of reactive changes of polymyalgia rheumatica vs septic joint Plan: []Per ID: likely reactive changes rather than bacterial joint infection. Recommends monitoring, can aspirate if continued concern. Continue cefepime, prednisone
[2017-07-08] MEDS ORDERED: Cefepime 2 GM in Dextrose(*) 2 GM/50 ML BAG IV SCH (13:00)
--- NOTE | 2017-07-08 14:16 | CONS ---
CONSULTATION REPORT: DATE OF CONSULT: 07/08/17. REQUESTING PHYSICIAN: Dr. Araya. CONSULTING SERVICE: Infectious Disease. REASON FOR CONSULTATION: Bilateral wrist edema and pain. IMPRESSION: 1. Right greater than left severe wrist pain, edema, and tenderness in the setting of r ecent streptococcal bacteremia. Other differential diagnosis includes reactive arthritis given the r ecent infection versus an immune complex mediated process, if there is a recurrence of what may have been infective endocarditis versus a manifestation of her polymyalgia rheumatica. I think because it is bilateral that a septic process is less likely. 2. Recent bacteremia with Streptococcus sanguinis in the blood in the setting of a pacemaker and art ificial heart valve she had 6 weeks of antibiotics and this been on an attempt at suppressive antibio tic since then. 3. Hypertension. 4. Aortic abdominal aneurysm which has been stented. 5. Status post splenectomy. 6. Status post CABG and mitral valve replacement, a porcine valve. RECOMMENDATION: Agree with antibiotics while we are awaiting the blood cultures. I do think corticos teroid therapy makes sense, and I consider asking Dr. Taylor to see her as well. If this is a reacti ve process it can be a quite persistent and quite prolonged immunosuppressive management. HISTORY OF PRESENT ILLNESS: This is an 87-year-old woman with a pacemaker, mitral valve replacement, aortic aneurysm stent, recent Strep sanguinis bacteremia, had 6 weeks of ceftriaxone, has been on Ke flex since then and now admitted with right greater than left wrist pain that had developed over the last 3 or 4 days. Her wrist hurt to move, even at rest they are painful; her elbows, shoulders, hips , knees, feet, and fingers do not bother her. She has some swelling from the wrist that extends into the finger. She does not think it is too painful to bend her fingers compared to her wrist. She perez d some fevers and chills at home. Her appetite had been decreased when she got to the hospital she h ad a white count is 13,000, a C-reactive protein of 82. She had a fever to 38.2 when she arrived in the ER. She was started on cefepime, blood cultures were sent. A urinalysis was sent that showed no blood, nitrites, or leukocytes esterase. In [facility] there is a urine culture from 07/01/[address] Midura which showed greater than 100,000 colonies of pseudomonas. She has not noticed any uri nary frequency or dysuria. An influenza PCR was negative when she came to the hospital. PAST MEDICAL HISTORY: 1. Presumed cardiac device related infection due to Strep sanguinis, April 2017, on suppressive an tibiotics. 2. Tachy-kayleigh syndrome, status post pacemaker. 3. Coronary disease, status post coronary artery bypass. 4. Status post mitral valve replacement with bioprosthetic valve. 5. History of takotsubo cardiomyopathy. 6. Atrial fibrillation. 7. Hypertension. 8. Hyperlipidemia. 9. Hypothyroidism. 10. Thrombocytopenia. 11. Hemolytic anemia. 12. Stroke. 13. Aortic abdominal aneurysm which was repaired. 14. Polymyalgia rheumatica on chronic corticosteroids. 15. Status post splenectomy. MEDICATIONS: 1. Tylenol. 2. Aspirin. 3. Lipitor. 4. Digoxin. 5. Cefepime 2 g once a day. 6. Lactobacillus. 7. Prednisone. 8. Senna. 9. Potassium. ALLERGIES: AMLODIPINE, MORPHINE, CELEBREX, and VIOXX. FAMILY HISTORY: No current infections. Her mother had rheumatic fever. Her father from a s urgical complication. SOCIAL HISTORY: She lives in [place]. She has no travel or sick contacts. REVIEW OF SYSTEMS: A 14-point review of systems was negative, except as noted above. PHYSICAL EXAM: Vital Signs: Temperature 37.4, heart rate 97, respiratory rate 20, blood pressure 15 6/46, O2 sat 90% on 8 L. in general, she is awake, not in distress. Neurologic: She is oriented x3, follows all commands. HEENT: There is no conjunctival hemorrhage. Oropharynx without lesions. Ne ck: Supple without nuchal rigidity. Lymph Nodes: There is no inguinal, axillary, or epitrochlear ly mphadenopathy. Heart is regular rate and rhythm without murmurs, rubs or gallops. Lungs have decrea sed breath sounds at bases bilaterally without wheezes or rales. Abdomen: Soft, nontender, nondisten ded. There are bowel sounds present. Skin: There is no rashes or splinter hemorrhages. Musculoskel etal: There is no spine tenderness on palpation. The right wrist there is diffuse edema, tenderness to palpation on the wrist. There is pain with flexion and extension including passive flexion and e xtension of the right wrist. On the left there is also diffuse edema, less severe and less tender bu t there is warmth in both wrists. Passive range of motion of her fingers is not painful. There is no synovitis in the elbow, shoulder, knees or ankles. LABORATORY DATA: White blood cell count 13, hemoglobin 10, platelets 163. Creatinine is 0.8. Please see impression and recommendations as outlined above which I have discussed with Dr. Araya. Thanks for asking me to see Leonila Mando in consultation. [id number]/[facility] [place] #: [id number]
[2017-07-08] MEDS: Atorvastatin* 10 MG TAB PO SCH (16:59)
--- NOTE | 2017-07-08 20:10 | CONSULT ---
Consult Consult: Ms. Gilmore is an 87 year old woman with a recent history of Strep bacteremia in the setting of an artificial heart valve. She also has been on long standing prednisone for polymyalgia rheumatica. She has recently noted bilateral wrist pain and swelling and her exam is notable for mild synovitis and warmth of both wrists as well a synovitis 1 plus of her right 2nd PIP joint with decreased range of motion of the wrist. She may have a reactive arthropathy. Also consider an evolving inflammatory arthritis, which can overlap with PMR (such as RS3PE syndrome). A crystalline arthropathy is also possible. A septic joint was considered unlikely by ID as symptoms are bilateral.. Would check autoimmune serologies. I agree that a trial of steroids may help her symptoms; however it appears that she is already on both Solu-Medrol 40mg q 12 hours; her baseline dose of Prednisone 5mg orally was held while this was initiated. As her symptoms improve, consider transitioning back to oral steroids with a taper back to her baseline of 5mg daily Will follow daily. Consider joint aspiration if symptoms persist.
[2017-07-08] MEDS: Latanoprost 0.005%* 2.5 ml BTL RIGHT EYE SCH (21:21)
[2017-07-08] MEDS: PTO: Brimonidine P 0.15%(NF) OPH SOL 5 ML BTL RIGHT EYE SCH (21:21)
--- NOTE | 2017-07-08 23:42 | CONS ---
CONSULTATION REPORT: DATE OF CONSULT: 07/08/17 CONSULTING PHYSICIANS: Dr. Araya and Dr. Ha. REASON FOR CONSULTATION: Bilateral wrist pain and swelling. HISTORY OF PRESENT ILLNESS: Ms. Rina Gilmore is an 87-year-old woman with a longstanding history of polymyalgia rheumatica. She has been on fpc corticosteroids at 5 mg daily of prednisone. She was admitted with strep bacteremia and she has complications of endocarditis. She had a seeded mitral valve. She had recently finished a 6-week course of antibiotic therapy and has been on lifelong antibiotics as well too. She was admitted with complications with strep bacteremia. During her hospitalization, she noted the initiation of bilateral wrist pain and swelling. I have been asked to evaluate for an inflammatory arthritis. Indeed over the last couple of days even prior to admission, she had had some wrist pain, worse on the right wrist but also the left wrist was bothering her as well. She also had restrictions in her wrist so that she cannot move them very easily and she also had some pain and swelling in her index finger as well too. She had difficulty mobilizing the joints as well, but she did not have any pain in other areas. She did, however , have a low grade fever of 100.4 just prior to admission, this has overall resolved. Currently, she continues to have bilateral wrist pain and swelling; however, she does not have any shortness of breath or cough and no recent upper respiratory symptoms. She has had no nausea or vomiting, but she continues to have the wrist pain which has been very restricted. Her workup is notable for C -reactive protein that was elevated and she was also bacteremic, she appeared to be tachycardic, and she was admitted for treatment of this condition. PAST MEDICAL HISTORY: Includes: 1. History of cardiomyopathy with an ejection fraction around 50%. 2. 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 3. History of atrial fibrillation. 4. Hypertension. 5. COPD. 6. History of pneumonia. 7. History of hyperlipidemia. 8. History of hypothyroidism. 9. Thrombocytopenia. 10. History of hemolytic anemia. 11. History of CVA. 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 PAST SURGICAL HISTORY: Includes: 1. 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 2. History of pacemaker placement for tachy-kayleigh syndrome. 3. AAA repair. 4. History of splenectomy. 5. She has also had a CABG as well with the mitral valve repair. MEDICATIONS: She is currently on: 1. Solu-Medrol 40 mg every 12 hours. 2. Diltiazem 240 mg daily. 3. Synthroid 75 mcg daily. 4. Dramamine. 5. Provitamins. 6. [place]-3 fatty acids. 7. Tylenol. 8. Senna. 9. Potassium chloride. 10. Warfarin daily. 11. Digoxin 0.125 mg daily. 12. Alphagan 1 drop twice daily. 13. Atorvastatin 5 mg daily. 14. Aspirin 81 mg daily. ALLERGIES TO MEDICATIONS: Include: 1. AMLODIPINE. 2. MORPHINE. 3. CELEBREX. 4. VIOXX. FAMILY HISTORY: Notable for her mother with rheumatic fever as well as some heart disease. Father of complications from surgery. SOCIAL HISTORY: She is a former smoker, she quit in 2001. She does not drink alcohol. She has a supportive family. REVIEW OF SYSTEMS: General: She has bilateral wrist pain, but no other objective symptoms. Pulmonary: Denies shortness of breath. GI: Denies abdominal pain. Cardiac: Denies chest wall pain. Endocrine: Denied thyroid swelling. : Denies blood in the urine or stool. Psychiatric: No recent depression. Musculoskeletal: She has bilateral wrist pain and swelling. Neurologic: No focal weakness. Other 14-point review of systems were reviewed and were otherwise negative. PHYSICAL EXAM: On exam, she had a temperature of 97.5, pulse of 85, respiratory rate of 18, blood pressure 140/52, pulse ox is 90%. On exam, she is pleasant, in no acute distress. HEENT: Normocephalic, atraumatic. Pupils are equal, round and reactive to light and accommodation. Extraocular movements are intact. Lungs were clear to auscultation bilaterally. Cardiovascular exam revealed a regular rate and rhythm. Normal S1 and S2. No S3 or S4. Abdomen: Soft, nontender, nondistended. Positive bowel sounds. Musculoskeletal Exam: She had synovitis of both wrists which extended to tenosynovitis, right greater than left. There is also synovitis of her second right PIP joint with a slight restriction of the hands themselves. The wrist themselves were both restricted as well. She was able to move her wrist to a limited extent and there was warmth around both wrists circumferentially and mild redness. LABORATORY DATA: She had a white count of 13.4, hemoglobin of 10.9, hematocrit 34, platelet count 163,000. Lactic acid 1.2. Also, she had a white count of 13.4 on initial evaluation with a sed rate of 34, C-reactive protein of 82.05. Imaging of the right wrist revealed degenerative changes and erosive changes around the distal radial ulnar joints with soft tissue swelling visible. ASSESSMENT: 1. She has bilateral wrist pain, right greater than left. 2. Hand pain with synovitis extending across the dorsum of the wrist with tenosynovitis type pattern. 3. History of urinary tract infection. 4. Chronic infection, possibly endocarditis. At this point in time, she may have an underlying reactive arthropathy, also consider crystalline arthropathy. Pseudogout is a possibility given that she has chondrocalcinosis on her CT scan. Of note, she does have a longstanding history of polymyalgia rheumatica. This occasionally has been associated with other autoimmune condition such as RS3PE syndrome, which is remitting seronegative synovitis with pitting edema and she does indeed have tenosynovitis across the dorsum of the wrist. In fact, her picture seems less likely according to ID as her symptoms are bilaterally. However, we should consider an aspiration of her wrist should her symptoms persist or worsen, currently they seem to be doing a little better, but she is on Solu-Medrol 40 mg every 12 hours and this may be starting to help her inflammation; also consider adding low dose Colchicine .6mg twice daily if symptoms are refractory to steroids. She was seen by Orthopedics and an aspiration was not done. In terms of looking for an underlying autoimmune condition or connective tissue disorder, we will check uric acid, rheumatoid factor and a connective tissue panel, which will include a CCP antibody. I would also follow her inflammatory markers for improvement, as she improves the Solu-Medrol should be switched back to her baseline prednisone dose but consider a taper of prednisone beginning at 40 mg and tapering gradually over the next week to back down to a baseline dose of 5 mg daily. I agree with IV antibiotics with cefepime per ID. She also has had a CT scan of her upper extremity, which showed erosive changes with the joint effusion at distal, radial, and ulnar joints with chondrocalcinosis. Therefore, pseudogout is a possibility as well too, as noted above. I will continue to follow daily. [id number]/[facility] #: [id number] [place]
[2017-07-09] MEDS: HYDROmorphone INJ* 1 MG/ML CARPUJECT SYRINGE IV SLOW PU PRN ×2 (01:12→12:00)
[2017-07-09] MEDS: Diltiazem TAB* 30 MG PO SCH ×3 (01:13→12:00)
[2017-07-09] MEDS: Levothyroxine TAB* 75 MCG TAB PO SCH (05:35)
[2017-07-09 06:29] LABS: ABS Basophils 0 10^3/ul (0-0.2); ABS Eosinophils 0 10^3/ul (0-0.6); ABS Lymphocytes 0.5 10^3/ul (1.0-4.8); ABS Monocytes 0.7 10^3/ul (0-0.8); ABS Neutrophils 10.3 10^3/ul (1.5-7.7); ABS Nucleated RBC 0.02 10^3/ul; Eosinophil % 0 % (0-6); Hematocrit 30 % (35-47); Hemoglobin 9.5 g/dl (12.0-16.0); Lymphocyte % 4.2 % (25-47); Mean Corpuscular HGB Conc 32 g/dl (31-36); Mean Corpuscular Hemoglobin 25 pg (27-31); Mean Corpuscular Volume 78 fL (80-97); Nucleated Red Blood Cells % 0.1; Red Blood Count 3.85 10^6/ul (4.0-5.4); Red Cell Distribution Width 19 % (10.5-15)
[2017-07-09 06:33] LABS: INR 2.22 (0.77-1.02)
[2017-07-09 06:53] LABS: EGFR Non-African American 60.8 (>60)
[2017-07-09 07:50] LABS: Platelet Morphology Large
[2017-07-09 07:52] LABS: Mean Platelet Volume 11 um3 (7.4-10.4); Platelet Count 148 10^3/ul (150-450); White Blood Count 11.5 10^3/ul (3.5-10.8)
[2017-07-09] MEDS: Digoxin TAB* 0.125 MG PO SCH (08:41)
[2017-07-09] MEDS: Potassium Chlor TAB* 20 MEQ TAB.ER PO SCH (08:41)
[2017-07-09] MEDS: Aspirin EC Low Dose* 81 MG TAB.EC PO SCH (08:41)
[2017-07-09] MEDS: Senna TAB PO SCH ×2 (08:44→20:46)
[2017-07-09] MEDS: Docusate CAP* 100 MG PO SCH (08:45)
[2017-07-09] MEDS: PTO: Brimonidine P 0.15%(NF) OPH SOL 5 ML BTL RIGHT EYE SCH ×2 (08:45→20:46)
[2017-07-09] MEDS: Lactobacillus Acidophilu (GG)* 1 CAP CAP PO SCH (08:45)
--- NOTE | 2017-07-09 08:47 | PN ---
Progress Note - Progress Note Date of Service: 07/09/17 SOAP: Subjective: CC: wrist pain HPI: 87 year old woman with recent VGS sepsis, prosthetic heart valve, pacer; now with right greater than left wrist pain and swelling; had R wrist aspirated last night. Both are improved in terms of pain and swelling. Can move them more. No fever or diarrhea. Objective: Vital Signs Temp 36.4 C 07/09/17 03:46 Pulse 63 07/09/17 03:46 Resp 16 07/09/17 03:46 BP 145/48 07/09/17 03:46 Pulse Ox 93 07/09/17 03:46 Intake & Output 07/08/17 07/09/17 07/09/17 18:59 06:59 18:59 Intake Total 695 375 240 Output Total 0 Balance 695 375 240 Weight 106 lb 8 oz Intake: IV Fluids 10 NS (0.9%) 10 IVPB 55 NS (0.9%) 55 Oral 630 375 240 Output: Urine 0 Other: Estimated Void Large # Bowel Movements 1 0 Estimated Stool Amount Small # Voids 1 0 Gen:awake, no distress HEENT:PERRL, MMM Heart:RRR no murmur Lungs:CTA BL Abd:+BS NTND soft Skin: no rash MSK: L>R wrist diffuse edema and mild tenderness, warmth, no erythema; increased non painful ROM Laboratory Results - last 24 hr 07/08/17 07/08/17 07/08/17 09:00 09:00 21:00 WBC RBC Hgb Hct MCV MCH MCHC RDW Plt Count MPV Neut % (Auto) Lymph % (Auto) [place] % (Auto) Eos % (Auto) Baso % (Auto) Absolute Neuts (auto) Absolute Lymphs (auto) Absolute Monos (auto) Absolute Eos (auto) Absolute Basos (auto) Absolute Nucleated RBC Nucleated RBC % Platelet Morphology Normal RBC Morphology Hypochromasia Target Cells Elliptocytes Acanthocytes (Spur) ESR INR (Anticoag Therapy) 3.12 H Sodium 129 L Potassium 3.9 Chloride 103 Carbon Dioxide 19 L Anion Gap 7 BUN 21 Creatinine 0.82 Est GFR ( Amer) 84.8 Est GFR (Non-Af Amer) 65.9 BUN/Creatinine Ratio 25.6 H Glucose 109 H Uric Acid 3.8 Calcium 8.4 L C-Reactive Protein Fluid Source Synovial fluid Fluid Volume 5 Fluid Color [place] Fluid Appearance Cloudy Fluid WBC 24120 Fluid RBC 4028 Fluid Tot Cell Count 100 Fluid Neutrophils 89 Fluid Lymphocytes 3 Fluid Monocytes 8 07/09/17 07/09/17 07/09/17 06:03 06:03 06:03 WBC 11.5 H RBC 3.85 L Hgb 9.5 L Hct 30 L MCV 78 L MCH 25 L MCHC 32 RDW 19 H Plt Count 148 L MPV 11 H Neut % (Auto) 89.0 H Lymph % (Auto) 4.2 L [place] % (Auto) 6.5 Eos % (Auto) 0 Baso % (Auto) 0.3 Absolute Neuts (auto) 10.3 H Absolute Lymphs (auto) 0.5 L Absolute Monos (auto) 0.7 Absolute Eos (auto) 0 Absolute Basos (auto) 0 Absolute Nucleated RBC 0.02 Nucleated RBC % 0.1 Platelet Morphology Large Normal RBC Morphology Not Reportable Hypochromasia 1+ Target Cells 1+ Elliptocytes 1+ Acanthocytes (Spur) 1+ ESR 46 H INR (Anticoag Therapy) 2.22 H Sodium 129 L Potassium 4.4 Chloride 101 Carbon Dioxide 20 L Anion Gap 8 BUN 31 H Creatinine 0.88 Est GFR ( Amer) 78.2 Est GFR (Non-Af Amer) 60.8 BUN/Creatinine Ratio 35.2 H Glucose 135 H Uric Acid Calcium 8.7 C-Reactive Protein 259.12 H Fluid Source Fluid Volume Fluid Color Fluid Appearance Fluid WBC Fluid RBC Fluid Tot Cell Count Fluid Neutrophils Fluid Lymphocytes Fluid Monocytes Microbiology 07/08/17 21:00 Gram Stain - Preliminary Joint Fluid(Synovial) - Wrist Right Skin and Soft Tissue MRSA/MSSA (PCR - Final Mrsa Negative S.aureus Negative 07/08/17 21:00 Gram Stain - Preliminary Joint Fluid(Synovial) - Wrist Right Skin and Soft Tissue MRSA/MSSA (PCR - Final Mrsa Negative S.aureus Negative 07/07/17 11:32 Urine Culture - Preliminary Urine Enterococcus Faecium 07/07/17 11:20 Aerobic Blood Culture - Preliminary Blood Venous No Growth Day 1 Anaerobic Blood Culture - Preliminary No Growth Day 1 07/07/17 12:00 Aerobic Blood Culture - Preliminary Blood Venous No Growth Day 1 Anaerobic Blood Culture - Preliminary No Growth Day 1 Assessment: 1. Bilateral wrist synovitis; synovial fluid 14 WBC; differential diagnosis includes reactive arthritis, pseudogout, PMR related, WBC count and bilateral and improving on corticosteroids argues against septic process. 2. 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 pacemaker and mitral valve replacement 4. PMR on chronic corticosteroids Plan: 1. DC antibiotics; check trans thoracic echo 2. corticosteroids per hospitalists and Dr Taylor 35 minute floor time >50% in counseling and coordination regarding diagnostic workup
[2017-07-09] MEDS: Acetaminophen TAB* 325 MG PO PRN (09:11)
[2017-07-09] MEDS ORDERED: predniSONE TAB* 20 MG PO SCH (10:00)
--- NOTE | 2017-07-09 10:44 | PN ---
Subjective Date of Service: 07/09/17 Interval History: C/O BL wrist pain R > L. Needs help with transfers, toileting, eating. Objective Active Medications: Acetaminophen (Tylenol Tab*) 650 mg PO Q4H PRN PRN Reason: FEVER/PAIN Last Admin: 07/09/17 09:11 Dose: 650 mg Albuterol (Ventolin 2.5 Mg/3 Ml Neb.Edwina*) 2.5 mg INH Q2H PRN PRN Reason: SOB/WHEEZING Aspirin (Aspirin Ec Low Dose*) 81 mg PO QAM [facility] Last Admin: 07/09/17 08:41 Dose: 81 mg Atorvastatin Calcium (Lipitor*) 5 mg PO QPM [facility] Last Admin: 07/08/17 16:59 Dose: 5 mg Brimonidine Tartrate (Alphagan P 0.15%(Nf)) 1 drop RIGHT EYE BID [facility] Last Admin: 07/09/17 08:45 Dose: Not Given Digoxin (Lanoxin Tab*) 0.125 mg PO QAM [facility] Last Admin: 07/09/17 08:41 Dose: 0.125 mg Diltiazem HCl (Cardizem Tab*) 90 mg PO Q6HR [facility] Last Admin: 07/09/17 05:35 Dose: 90 mg Docusate Sodium (Colace Cap*) 100 mg PO DAILY [facility] Last Admin: 07/09/17 08:45 Dose: 100 mg Hydromorphone HCl (Dilaudid Injic*) 0.5 mg IV SLOW PU Q4H PRN PRN Reason: PAIN Last Admin: 07/09/17 01:12 Dose: 0.5 mg Lactobacillus Rhamnosus (Culturelle*) 1 cap PO DAILY [facility] Last Admin: 07/09/17 08:45 Dose: 1 cap Latanoprost (Xalatan 0.005%*) 1 drop RIGHT EYE BEDTIME [facility] Last Admin: 07/08/17 21:21 Dose: 1 drop Levothyroxine Sodium (Synthroid Tab*) 75 mcg PO DAILY@0600 [facility] Last Admin: 07/09/17 05:35 Dose: 75 mcg Potassium Chloride (Klor Con Er Tab*) 20 meq PO DAILY [facility] Last Admin: 07/09/17 08:41 Dose: 20 meq Prednisone (Deltasone Tab*) 40 mg PO DAILY [facility] Senna (Senokot Tab*) 1 tab PO BID [facility] Last Admin: 07/09/17 08:44 Dose: 1 tab Vital Signs - 8 hr 07/09/17 07/09/17 07/09/17 02:59 03:16 03:46 Temperature 97.6 F Pulse Rate 70 63 Respiratory 18 20 16 Rate Blood Pressure 145/48 (mmHg) O2 Sat by Pulse 92 93 Oximetry 07/09/17 07/09/17 07/09/17 07:32 08:00 08:41 Temperature 98.7 F Pulse Rate 69 75 Respiratory 18 28 Rate Blood Pressure 154/62 (mmHg) O2 Sat by Pulse 99 Oximetry Oxygen Devices in Use Now: High Flow Nasal Cannula Appearance: Alert, supine in bed. In fair spirits. Looks comfortable at rest but holding both arms out. Eyes: No Scleral Icterus Neck: NL Appearance and Movements; NL JVP, No Thyroid Enlargement, Masses Respiratory: Symmetrical Chest Expansion and Respiratory Effort, Clear to Auscultation, Clear to Percussion Extremities: No Clubbing, Cyanosis Skin: No Rash or Ulcers, No Nodules or Sclerosis, - Neurological: Alert and Oriented x 3 Result Diagrams: 07/09/17 06:03 07/09/17 06:03 Additional Lab and Data: Lab Results 07/07/17 07/07/17 07/07/17 Range/Units 11:20 11:20 11:20 WBC (3.5-10.8) 10^3/ul RBC (4.0-5.4) 10^6/ul Hgb (12.0-16.0) g/dl Hct (35-47) % MCV (80-97) fL MCH (27-31) pg MCHC (31-36) g/dl RDW (10.5-15) % Plt Count (150-450) 10^3/ul MPV Neut % (Auto) (38-83) % Lymph % (Auto) (25-47) % [place] % (Auto) (1-9) % Eos % (Auto) (0-6) % Baso % (Auto) (0-2) % Absolute Neuts (auto) (1.5-7.7) 10^3/ul Absolute Lymphs (auto) (1.0-4.8) 10^3/ul Absolute Monos (auto) (0-0.8) 10^3/ul Absolute Eos (auto) (0-0.6) 10^3/ul Absolute Basos (auto) (0-0.2) 10^3/ul Absolute Nucleated RBC 10^3/ul Nucleated RBC % Normal RBC Morphology Hypochromasia Acanthocytes (Spur) Schistocytes ESR (0-40) mm/Hr INR (Anticoag Therapy) 4.05 H (0.77-1.02) APTT 43.5 H (26.0-36.3) seconds D-Dimer, Quantitative > 1050 H (Less Than 230) ng/mL Sodium 132 L (133-145) mmol/L Potassium 3.8 (3.5-5.0) mmol/L Chloride 102 (101-111) mmol/L Carbon Dioxide 21 L (22-32) mmol/L Anion Gap 9 (2-11) mmol/L BUN 27 H (6-24) mg/dL Creatinine 0.95 (0.51-0.95) mg/dL Est GFR ( Amer) 71.6 (>60) Est GFR (Non-Af Amer) 55.6 (>60) BUN/Creatinine Ratio 28.4 H (8-20) Glucose 94 (70-100) mg/dL Lactic Acid 1.2 (0.5-2.0) mmol/L Calcium 9.3 (8.6-10.3) mg/dL Magnesium 1.8 L (1.9-2.7) mg/dL Total Bilirubin 1.00 (0.2-1.0) mg/dL AST 18 (13-39) U/L ALT 12 (7-52) U/L Alkaline Phosphatase 46 (34-104) U/L Total Creatine Kinase 11 (10-223) U/L CK-MB (CK-2) 0.8 (0.6-6.3) ng/mL Troponin I 0.11 H* (<0.04) ng/mL C-Reactive Protein 82.05 H (< 5.00) mg/L B-Natriuretic Peptide ( - 100) pg/mL Total Protein 7.7 (6.4-8.9) g/dL Albumin 3.7 (3.2-5.2) g/dL Globulin 4.0 (2-4) g/dL Albumin/Globulin Ratio 0.9 L (1-3) Lipase 10 L (11.0-82.0) U/L TSH 1.70 (0.34-5.60) mcIU/mL Urine Color Urine Appearance Urine pH (5-9) Ur Specific [place] (1.010-1.030) Urine Protein (Negative) Urine Ketones (Negative) Urine Blood (Negative) Urine Nitrate (Negative) Urine Bilirubin (Negative) Urine Urobilinogen (Negative) Ur Leukocyte Esterase (Negative) Urine WBC (Auto) (Absent) Urine RBC (Auto) (Absent) Ur Squamous Epith Cells (Absent) Urine Bacteria (Absent) Urine Glucose (Negative) Digoxin 0.9 (0.8-2.0) ng/ml Influenza A (Rapid) (Negative) Influenza B (Rapid) (Negative) 07/07/17 07/07/17 07/07/17 Range/Units 11:20 11:20 11:32 WBC 13.4 H (3.5-10.8) 10^3/ul RBC 4.43 (4.0-5.4) 10^6/ul Hgb 10.9 L (12.0-16.0) g/dl Hct 34 L (35-47) % MCV 78 L (80-97) fL MCH 25 L (27-31) pg MCHC 32 (31-36) g/dl RDW 19 H (10.5-15) % Plt Count 163 (150-450) 10^3/ul MPV Not Reportable Neut % (Auto) 69.1 (38-83) % Lymph % (Auto) 17.6 L (25-47) % [place] % (Auto) 12.2 H (1-9) % Eos % (Auto) 0.3 (0-6) % Baso % (Auto) 0.8 (0-2) % Absolute Neuts (auto) 9.2 H (1.5-7.7) 10^3/ul Absolute Lymphs (auto) 2.4 (1.0-4.8) 10^3/ul Absolute Monos (auto) 1.6 H (0-0.8) 10^3/ul Absolute Eos (auto) 0 (0-0.6) 10^3/ul Absolute Basos (auto) 0.1 (0-0.2) 10^3/ul Absolute Nucleated RBC 0.07 10^3/ul Nucleated RBC % 0.5 Normal RBC Morphology Not Reportable Hypochromasia 1+ Acanthocytes (Spur) 2+ Schistocytes 2+ ESR 34 (0-40) mm/Hr INR (Anticoag Therapy) (0.77-1.02) APTT (26.0-36.3) seconds D-Dimer, Quantitative (Less Than 230) ng/mL Sodium (133-145) mmol/L Potassium (3.5-5.0) mmol/L Chloride (101-111) mmol/L Carbon Dioxide (22-32) mmol/L Anion Gap (2-11) mmol/L BUN (6-24) mg/dL Creatinine (0.51-0.95) mg/dL Est GFR ( Amer) (>60) Est GFR (Non-Af Amer) (>60) BUN/Creatinine Ratio (8-20) Glucose (70-100) mg/dL Lactic Acid (0.5-2.0) mmol/L Calcium (8.6-10.3) mg/dL Magnesium (1.9-2.7) mg/dL Total Bilirubin (0.2-1.0) mg/dL AST (13-39) U/L ALT (7-52) U/L Alkaline Phosphatase (34-104) U/L Total Creatine Kinase (10-223) U/L CK-MB (CK-2) (0.6-6.3) ng/mL Troponin I (<0.04) ng/mL C-Reactive Protein (< 5.00) mg/L B-Natriuretic Peptide 1412 H ( - 100) pg/mL Total Protein (6.4-8.9) g/dL Albumin (3.2-5.2) g/dL Globulin (2-4) g/dL Albumin/Globulin Ratio (1-3) Lipase (11.0-82.0) U/L TSH (0.34-5.60) mcIU/mL Urine Color Yellow Urine Appearance Clear Urine pH 6.0 (5-9) Ur Specific [place] 1.017 (1.010-1.030) Urine Protein 2+(100 mg/dl) H (Negative) Urine Ketones Negative (Negative) Urine Blood Negative (Negative) Urine Nitrate Negative (Negative) Urine Bilirubin Negative (Negative) Urine Urobilinogen Negative (Negative) Ur Leukocyte Esterase Negative (Negative) Urine WBC (Auto) 2+(11-20/hpf) H (Absent) Urine RBC (Auto) Trace(0-2/hpf) (Absent) Ur Squamous Epith Cells Present H (Absent) Urine Bacteria 1+ H (Absent) Urine Glucose Negative (Negative) Digoxin (0.8-2.0) ng/ml Influenza A (Rapid) (Negative) Influenza B (Rapid) (Negative) 07/07/17 Range/Units 12:28 WBC (3.5-10.8) 10^3/ul RBC (4.0-5.4) 10^6/ul Hgb (12.0-16.0) g/dl Hct (35-47) % MCV (80-97) fL MCH (27-31) pg MCHC (31-36) g/dl RDW (10.5-15) % Plt Count (150-450) 10^3/ul MPV Neut % (Auto) (38-83) % Lymph % (Auto) (25-47) % [place] % (Auto) (1-9) % Eos % (Auto) (0-6) % Baso % (Auto) (0-2) % Absolute Neuts (auto) (1.5-7.7) 10^3/ul Absolute Lymphs (auto) (1.0-4.8) 10^3/ul Absolute Monos (auto) (0-0.8) 10^3/ul Absolute Eos (auto) (0-0.6) 10^3/ul Absolute Basos (auto) (0-0.2) 10^3/ul Absolute Nucleated RBC 10^3/ul Nucleated RBC % Normal RBC Morphology Hypochromasia Acanthocytes (Spur) Schistocytes ESR (0-40) mm/Hr INR (Anticoag Therapy) (0.77-1.02) APTT (26.0-36.3) seconds D-Dimer, Quantitative (Less Than 230) ng/mL Sodium (133-145) mmol/L Potassium (3.5-5.0) mmol/L Chloride (101-111) mmol/L Carbon Dioxide (22-32) mmol/L Anion Gap (2-11) mmol/L BUN (6-24) mg/dL Creatinine (0.51-0.95) mg/dL Est GFR ( Amer) (>60) Est GFR (Non-Af Amer) (>60) BUN/Creatinine Ratio (8-20) Glucose (70-100) mg/dL Lactic Acid (0.5-2.0) mmol/L Calcium (8.6-10.3) mg/dL Magnesium (1.9-2.7) mg/dL Total Bilirubin (0.2-1.0) mg/dL AST (13-39) U/L ALT (7-52) U/L Alkaline Phosphatase (34-104) U/L Total Creatine Kinase (10-223) U/L CK-MB (CK-2) (0.6-6.3) ng/mL Troponin I (<0.04) ng/mL C-Reactive Protein (< 5.00) mg/L B-Natriuretic Peptide ( - 100) pg/mL Total Protein (6.4-8.9) g/dL Albumin (3.2-5.2) g/dL Globulin (2-4) g/dL Albumin/Globulin Ratio (1-3) Lipase (11.0-82.0) U/L TSH (0.34-5.60) mcIU/mL Urine Color Urine Appearance Urine pH (5-9) Ur Specific [place] (1.010-1.030) Urine Protein (Negative) Urine Ketones (Negative) Urine Blood (Negative) Urine Nitrate (Negative) Urine Bilirubin (Negative) Urine Urobilinogen (Negative) Ur Leukocyte Esterase (Negative) Urine WBC (Auto) (Absent) Urine RBC (Auto) (Absent) Ur Squamous Epith Cells (Absent) Urine Bacteria (Absent) Urine Glucose (Negative) Digoxin (0.8-2.0) ng/ml Influenza A (Rapid) Negative (Negative) Influenza B (Rapid) Negative (Negative) Microbiology and Other Data: Microbiology 07/08/17 21:00 Gram Stain - Final Joint Fluid(Synovial) - Wrist Right Skin and Soft Tissue MRSA/MSSA (PCR - Final Mrsa Negative S.aureus Negative 07/08/17 21:00 Gram Stain - Final Joint Fluid(Synovial) - Wrist Right Skin and Soft Tissue MRSA/MSSA (PCR - Final Mrsa Negative S.aureus Negative Assess/Plan/Problems-Billing Assessment: 87 yo F 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 Change to oral steroid 07/09 AM, add cochicine 0.6 mg once daily 07/09, try to taper steroid 07/10. Dr. Mattson will review with regard to possible IA steroids. OT/PT ordered. No further antibiotics for now per Dr. Ha. (2) Polymyalgia rheumatica Current Visit: Yes Status: Acute Code(s): M35.3 - POLYMYALGIA RHEUMATICA SNOMED Code(s): 19345073 Comment: Eventually maintain on prednisone 5 mg daily. (3) Atrial fibrillation Current Visit: Yes Status: Acute Code(s): I48.91 - UNSPECIFIED ATRIAL FIBRILLATION SNOMED Code(s): 24485891 Comment: Re-start warfarin at 1 mg daily 07/09, INR in 2 days. Resume home dose diltiazem. c/w digoxin (4) Hypothyroidism Current Visit: No Status: Acute Code(s): E03.9 - HYPOTHYROIDISM, UNSPECIFIED SNOMED Code(s): 54498366 Comment: Continue Synthroid TSH wnl 07/07/17. (5) Pacemaker Current Visit: No Status: Chronic Code(s): Z95.0 - PRESENCE OF CARDIAC PACEMAKER SNOMED Code(s): 745160030 Comment: in situ for h/o tachy kayleigh syndrome
[2017-07-09] MEDS: Colchicine* 0.6 MG TAB PO SCH (12:00)
--- NOTE | 2017-07-09 13:29 | ECHO ---
Patient: [facility] Rec#: [id number] : 1930 Date: 07/09/2017 Age: 87y Height: 160.02 cm / 63.0 in Weight: 48.08 kg / 106.0 lbs Sex: F BSA: 1.48 Room#: 435 Admit Date#: 07/07/2017 Type: Inpatient Referring: Peter Ha MD Reading: Isidro Cordova MD Dietitian Chief: Sarah NgMARICRUZ CC: Edilberto Ayers MD Transthoracic Echocardiogram Indication: Murmur, history of prosthetic valve BP: 154/62 HR: 77 Rhythm: Paced Findings History: A-fib s/p pacer, MVR (porcine 2008), CHF, CVA, s/p AAA repair, s/p CABG, Cardiomyopathy, HTN, COPD, former smoker, positive blood cultures 05/04. Technical Comments: The study quality is fair. The study is technically limited due to the patient's history of COPD. The study is technically limited due to the patient's smoking history. Completed at 1100. Left Ventricle: The left ventricular chamber size is decreased. Moderate concentric left ventricular hypertrophy is observed. Global left ventricular wall motion and contractility are within normal limits. There is normal left ventricular systolic function. The estimated ejection fraction is 55-60%. Sigmoid septum with mild increase in LVOT turbulence and velocity to 1.8 mps. There is abnormal ventricular septal wall motion consistent with right ventricular pacemaker. The assessment of diastolic function is non-diagnostic. Left Atrium: The left atrium is severely dilated. Right Ventricle: Moderator Band present. The right ventricle is mildly dilated. Borderline LVH at 5 mm. The right ventricular global systolic function is normal. A pacemaker wire is visualized in the right ventricle. Right Atrium: The right atrium is mildly dilated. A pacemaker wire is visualized in the right atrium. Aortic Valve: The aortic valve is trileaflet. Moderate aortic leaflet calcification is visualized. Systolic excursion of the aortic valve cusps is reduced. There is moderate aortic regurgitation. There is mild to moderate aortic stenosis. The mean gradient of the aortic valve is 19.59 mmHg. The peak instantaneous gradient of the aortic valve is 35.3 mmHg. The aortic valve area, by peak velocities, is calculated at 1.85 cm2. The measured aortic regurgitation pressure half-time is 327.7 msec. Mitral Valve: There is mild to moderate mitral regurgitation. This may represent a paravalvular regurgitant jet. There is moderate mitral stenosis. A porcine bioprosthetic mitral valve is present. Moderate stenosis with a mean gradient of 8.3 mmhg. Tricuspid Valve: The tricuspid valve leaflets are mildly thickened. There is mild to moderate tricuspid regurgitation. The right ventricular systolic pressure is estimated at 61 mmHg. There is evidence of moderate pulmonary hypertension. There is no tricuspid stenosis. No vegetation is observed on the tricuspid valve. Pulmonic Valve: The pulmonic valve appears thickened with good excursion. There is mild pulmonic regurgitation. There is no pulmonic stenosis. No vegetation is observed on the pulmonic valve. Pericardium: There is no significant pericardial effusion. Aorta: There is mild dilatation of the ascending aorta. There is no dilatation of the aortic arch. The aortic root is normal in size. Pulmonary Artery: The main pulmonary artery appears normal. Venous: The inferior vena cava is dilated. There is less than 50% respiratory change in the inferior vena cava dimension. Conclusions The study quality is fair. Moderate concentric left ventricular hypertrophy is observed. The estimated ejection fraction is 55-60%. Sigmoid septum with mild increase in LVOT turbulence and velocity to 1.8 mps. There is abnormal ventricular septal wall motion consistent with right ventricular pacemaker. The right ventricle is mildly dilated. Borderline RVH at 5 mm. The right ventricular global systolic function is normal. The right atrium is mildly dilated. There is moderate aortic regurgitation. There is mild to moderate aortic stenosis. The mean gradient of the aortic valve is 19.59 mmHg. There is mild to moderate mitral regurgitation. This may represent a paravalvular regurgitant jet. A porcine bioprosthetic mitral valve is present. Moderate stenosis with a mean gradient of 8.3 mmhg. There is mild to moderate tricuspid regurgitation. The right ventricular systolic pressure is estimated at 61 mmHg. The left atrium is severely dilated. There is evidence of moderate pulmonary hypertension. There is mild pulmonic regurgitation. There is mild dilatation of the ascending aorta. No obvious vegetations; the sensitivity of this test for detection of lesions is reduced due to technical issues related to the prosthetic valve and the calcifications of the leaftets and the annuli. Similar to the ABBEY report of 04.30.17 and TTE of 04.28.17 except for a mild interval increase in mean prosthetic valve gradient and increase in PASP from 39 mmhg to 61 mmhg. Measurements Name Value Normal Range RVIDd (AP) 2D 2.7 cm (0.9 - 2.6) RVDdMajor (2D) 4.7 cm (2.2 - 4.4) RAd ISD 4CH 5 cm (3.4 - 4.9) RA (A4C)W 3.9 cm (2.9 - 4.6) IVSd (2D) 1.5 cm (0.6 - 1) LVPWd (2D) 1.4 cm (0.6 - 1) LVIDd (2D) 3.5 cm (3.6 - 5.4) LVIDs (2D) 2.69 cm - LV FS (2D) 24 % (25 - 45) Aortic Annulus 1.6 cm (1.4 - 2.6) Ao root diameter (2D) 3.5 cm (2.1 - 3.5) Ascending Ao 3.7 cm (2.1 - 3.4) Aortic arch 2.3 cm (1.8 - 3.4) LA dimension (AP) 2D 4.1 cm (2.3 - 3.8) LAd ISD 4CH 5.7 cm (2.9 - 5.3) LA ISD 4CH W 5.2 cm (2.5 - 4.5) Name Value Normal Range LA ESV SP 4CH (A/L) 120 ml - LA ESV SP 2CH (A/L) 78 ml - LA ESV BP (A/L) 102 ml - LA ESV BP (A/L) index 69 ml/m2 - LA ESV SP 4CH (MOD) 112 ml - LA ESV SP 2CH (MOD) 78 ml - Name Value Normal Range MV E-wave Vmax 2.23 m/sec - MV deceleration time 267.4 msec - MV E:A ratio 141 ratio - LV septal e' Vmax 0.04 m/sec - LV lateral e' Vmax 0.05 m/sec - LV E:e' septal ratio 55.75 ratio - LV E:e' lateral ratio 44.6 ratio - Name Value Normal Range AV Vmax 3 m/sec - AV VTI 59.5 cm - AV peak gradient 35.3 mmHg - AV mean gradient 19.59 mmHg - LVOT diameter 2 cm - LVOT Vmax 1.77 m/sec - LVOT VTI 33.55 cm - LVOT peak gradient 12.62 mmHg - LVOT mean gradient 6.66 mmHg - SONIA (continuity Vmax) 1.85 cm2 - SONIA (continuity VTI) 1.77 cm2 - AR PHT 327.7 msec - AR peak gradient 69.5 mmHg - CLARY Vmax 0.44 m/sec - Name Value Normal Range MV Vmax 2.39 m/sec - MV VTI 70.3 cm - MV peak gradient 22.94 mmHg - MV mean gradient 8.28 mmHg - MV PHT 147.17 msec - MVA (PHT) 1.49 cm2 - Name Value Normal Range TR Vmax 3.4 m/sec - TR peak gradient 46 mmHg - RAP 15 mmHg - RVSP 61 mmHg - IVC diameter 2.5 cm - Name Value Normal Range PV Vmax 1.26 m/sec - PV peak gradient 6.36 mmHg - CT end-diastolic Vmax 1.38 m/sec -
--- NOTE | 2017-07-09 15:05 | PN ---
Subjective - Subjective Date of Service: 07/09/17 History: Patient had right wrist aspirated last night; results reveal calcium pyrophosphate crystals. She is improved on steroids and colchicine for pseudogout; her left wrist is significantly improved; she still has some swelling and discomfort of her right wrist but it is improving. Steroids were switched to Prednisone 40mg twice daily. She is trying bedside gentle ROM exercises Active Problems: Active Problems Acute systolic heart failure (Acute) I50.21 In setting of fluid received after presentation d/c fluid Lasix IV 40mg now Atrial fibrillation (Acute) I48.91 Re-start warfarin at 1 mg daily 07/09, INR in 2 days. Resume home dose diltiazem. c/w digoxin DVT prophylaxis (Acute) [id number] supratherapeutic INR History of endocarditis (Acute) Z86.79 On supressive abx Cefepime now with concern for joint infection Hypertension (Acute) I10 Cardizem Joint pain (Acute) M25.50 Polymyalgia rheumatica (Acute) M35.3 Eventually maintain on prednisone 5 mg daily. Supratherapeutic INR (Acute) R79.1 holding coumadin Synovitis (Acute) M65.9 BL wrists. Change to oral steroid 07/09 AM, add cochicine 0.6 mg once daily , try to taper steroid 07/10. Dr. Mattson will review with regard to possible IA steroids. OT/PT ordered. No further antibiotics for now per Dr. Ha. Wrist pain (Acute) M25.539 Right greater than left Concern for infected joing vs PMR Appreciate ortho assistance Will obtain CT right wrist now and evaluate need for arthrocentesis or wash out Consider rheum consult if no evidence of infection Cefepime empirically dilaudid PRN pain Current Medications: Current Medications Acetaminophen (Tylenol Tab*) 650 mg PO Q4H PRN PRN Reason: FEVER/PAIN Last Admin: 07/09/17 09:11 Dose: 650 mg Albuterol (Ventolin 2.5 Mg/3 Ml Neb.Edwina*) 2.5 mg INH Q2H PRN PRN Reason: SOB/WHEEZING Aspirin (Aspirin Ec Low Dose*) 81 mg PO QAM [facility] Last Admin: 07/09/17 08:41 Dose: 81 mg Atorvastatin Calcium (Lipitor*) 5 mg PO QPM [facility] Last Admin: 07/08/17 16:59 Dose: 5 mg Brimonidine Tartrate (Alphagan P 0.15%(Nf)) 1 drop RIGHT EYE BID [facility] Last Admin: 07/09/17 08:45 Dose: Not Given Colchicine (Colcrys*) 0.6 mg PO DAILY [facility] Last Admin: 07/09/17 12:00 Dose: 0.6 mg Digoxin (Lanoxin Tab*) 0.125 mg PO QAM [facility] Last Admin: 07/09/17 08:41 Dose: 0.125 mg Diltiazem HCl (Cardizem Cd Cap*) 120 mg PO BEDTIME [facility] Diltiazem HCl (Cardizem Cd Cap*) 240 mg PO DAILY [facility] Docusate Sodium (Colace Cap*) 100 mg PO DAILY [facility] Last Admin: 07/09/17 08:45 Dose: 100 mg Hydromorphone HCl (Dilaudid Injic*) 0.5 mg IV SLOW PU Q4H PRN PRN Reason: PAIN Last Admin: 07/09/17 12:00 Dose: 0.5 mg Lactobacillus Rhamnosus (Culturelle*) 1 cap PO DAILY [facility] Last Admin: 07/09/17 08:45 Dose: 1 cap Latanoprost (Xalatan 0.005%*) 1 drop RIGHT EYE BEDTIME [facility] Last Admin: 07/08/17 21:21 Dose: 1 drop Levothyroxine Sodium (Synthroid Tab*) 75 mcg PO DAILY@0600 [facility] Last Admin: 07/09/17 05:35 Dose: 75 mcg Potassium Chloride (Klor Con Er Tab*) 20 meq PO DAILY [facility] Last Admin: 07/09/17 08:41 Dose: 20 meq Prednisone (Deltasone Tab*) 40 mg PO BID [facility] Senna (Senokot Tab*) 1 tab PO BID [facility] Last Admin: 07/09/17 08:44 Dose: 1 tab Warfarin Sodium (Coumadin Tab(*)) 1 mg PO DAILY@1700 [facility] PRN Reason: Protocol - Review of Systems General Comments: No acute distress, discomfort in her wrists are improved as noted above Constitutional Symptoms: No: Weight Gain, Fatigue Dermatology: Normal: No Thyroid: Positive: Normal Pulmonary: Positive: Normal Cardiology: Positive: Normal Gastroenterology: Positive: Normal Musculoskeletal: Positive: Joint Pain, Joint Stiffness, Arthritis, Joint Deformities Hematologic/Lymphatic: Positive: Anemia Neurology: Positive: Normal Allergic/Immunologic: Positive: Immunocompromise Home Medications: Home Medications Medication Instructions Recorded Confirmed Type Levothyroxine TAB* [Synthroid 75 75 mcg PO QAM 03/06/13 07/07/17 History MCG TAB*] Latanoprost 0.005% OPTH (NF) 1 drop RIGHT EYE BEDTIME 03/18/13 07/07/17 History [Xalatan 0.005% OPTH*] Acetaminophen TAB* [Tylenol TAB*] 650 mg PO TID PRN 05/08/16 07/07/17 History Aspirin EC Low Dose* [Ecotrin EC 81 mg PO QAM 08/17/16 07/07/17 History Low Dose 81 MG*] Coenzyme Q10 (Ubidecarenone) 100 mg PO DAILY 08/17/16 07/07/17 History [Co-Enzyme Q10] Digoxin TAB* [Lanoxin TAB*] 0.125 mg PO QAM 08/17/16 07/07/17 History Atorvastatin* [Lipitor 10 MG*] 5 mg PO QPM 09/16/16 07/07/17 History Furosemide TAB* [Lasix TAB*] 20 mg PO MOTUWETHFR #0 09/16/16 07/07/17 History Sennosides-Docusate Sodium 1 tab PO BID 09/16/16 07/07/17 History [Senokot S 8.6-50 mg] Diltiazem CD CAP* [Cardizem CD 240 mg PO QAM 04/14/17 07/07/17 History CAP*] Docusate CAP* [Colace Cap*] 100 mg PO BID 04/14/17 07/07/17 History Drenamin 1 cap PO DAILY 04/14/17 07/07/17 History Multivitamins/Minerals TAB* 1 tab PO QAM 04/14/17 07/07/17 History [Theragran/minerals TAB*] Potassium Chlor TAB* [Potassium 20 meq PO DAILY 04/14/17 07/07/17 History Chlor TAB 20 MEQ*] Warfarin TAB(*) [Coumadin TAB(*)] 1 mg PO .SUMOWEFRSA 04/14/17 07/07/17 History predniSONE TAB* [Deltasone TAB*] 5 mg PO QAM 04/14/17 07/07/17 History Brimonidine P 0.15%(NF) [Alphagan 1 drop RIGHT EYE BID 07/07/17 07/07/17 History P 0.15%(NF)] Vxomrml-Vimmvckra-Nyus 2 tab PO DAILY 07/07/17 07/07/17 History [Calcium/Magnesium/Zinc] Cephalexin CAP* [Keflex CAP*] 500 mg PO TID 07/07/17 07/07/17 History Cholecalciferol TAB* [Vitamin D 1,000 unit PO QPM 07/07/17 07/07/17 History TAB*] Diltiazem CD CAP* [Cardizem CD 120 mg PO BEDTIME 07/07/17 07/07/17 History CAP*] [place]-3 Fatty Acids [[place] 3] 1 cap PO QPM 07/07/17 07/07/17 History Probiotic Product [Probiotic 1 tab PO DAILY 07/07/17 07/07/17 History Multi-Enzyme] Warfarin TAB(*) [Coumadin TAB(*)] 2 mg PO .TUTH 07/07/17 07/07/17 History Allergies: Allergies Allergy/AdvReac Type Severity Reaction Status Date / Time Amlodipine AdvReac Constipatio Verified 07/06/17 09:49 n Celecoxib [From Celebrex] AdvReac Nausea And Verified 07/06/17 09:49 Vomiting Rofecoxib [From Vioxx] AdvReac Nausea And Verified 07/06/17 09:49 Vomiting Objective - Vital Signs Vital Signs: Vital Signs 07/08/17 07/08/17 07/08/17 15:24 16:12 19:59 Temperature 98.3 F 98.5 F Pulse Rate 73 100 Respiratory 20 20 24 Rate Blood Pressure 127/46 140/64 (mmHg) O2 Sat by Pulse 91 98 Oximetry 07/08/17 07/08/17 07/08/17 20:00 21:20 23:33 Temperature Pulse Rate Respiratory 22 28 20 Rate Blood Pressure (mmHg) O2 Sat by Pulse Oximetry 07/08/17 07/09/17 07/09/17 23:43 01:12 02:59 Temperature 98.2 F Pulse Rate 72 Respiratory 16 20 18 Rate Blood Pressure 142/49 (mmHg) O2 Sat by Pulse 92 Oximetry 07/09/17 07/09/17 07/09/17 03:16 03:46 07:32 Temperature 97.6 F 98.7 F Pulse Rate 70 63 69 Respiratory 20 16 18 Rate Blood Pressure 145/48 154/62 (mmHg) O2 Sat by Pulse 92 93 99 Oximetry 07/09/17 07/09/17 07/09/17 08:00 08:41 11:24 Temperature 97.8 F Pulse Rate 75 74 Respiratory 28 22 Rate Blood Pressure 161/60 (mmHg) O2 Sat by Pulse 97 Oximetry 07/09/17 07/09/17 12:00 13:46 Temperature Pulse Rate Respiratory 22 18 Rate Blood Pressure (mmHg) O2 Sat by Pulse Oximetry - Intake and Output Intake and Output: Intake & Output 07/07/17 07/08/17 07/09/17 07/10/17 06:59 06:59 06:59 06:59 Intake Total 1130 1070 937 Output Total 0 0 Balance 1130 1070 937 Weight 103 lb 106 lb 8 oz Intake: IV Fluids 980 10 NS (0.9%) 980 10 IVPB 55 NS (0.9%) 55 Oral 150 1005 937 Output: Urine 0 0 Other: Estimated Void Large # Bowel Movements 0 0 Estimated Stool Amount Large Small # Voids 0 0 ADLs: Meal Record Start: 07/07/17 14: 21 Freq: DAILY@0900,1400,1800 Status: Active Protocol: Created 07/07/17 14:21 System (Rec: 07/07/17 14:21 System [email or web address]) Document 07/07/17 18:00 [id number] (Rec: 07/07/17 22:58 [id number] [email or web address]) Document 07/08/17 09:00 (Rec: 07/08/17 09:38 [email or web address]) Document 07/08/17 14:00 (Rec: 07/08/17 14:49 [email or web address]) Document 07/08/17 18:00 [id number] (Rec: 07/08/17 21:49 [id number] [email or web address]) Document 07/09/17 08:24 (Rec: 07/09/17 08:25 [email or web address]) Document 07/09/17 13:28 (Rec: 07/09/17 13:29 [email or web address]) Intake and Output Start: 07/07/17 14: 21 Freq: DAILY@0600,1400,2200 Status: Active Protocol: Created 07/07/17 14:21 System (Rec: 07/07/17 14:21 System [email or web address]) Document 07/07/17 22:00 [id number] (Rec: 07/07/17 22:58 [id number] [email or web address]) Document 07/08/17 06:00 [id number] (Rec: 07/08/17 06:58 [id number] [email or web address]) Document 07/08/17 14:00 (Rec: 07/08/17 14:49 [email or web address]) Document 07/08/17 21:50 [id number] (Rec: 07/08/17 21:52 [id number] [email or web address]) Document 07/09/17 06:00 [id number] (Rec: 07/09/17 07:21 [id number] [email or web address]) Document 07/09/17 14:00 (Rec: 07/09/17 14:31 [email or web address]) - Physical Exam General Physical Exam Comment: No acute distress. She is resting in bed. Relative is present Eye Exam: bilateral: PERRLA Thyroid Function: Clinically Euthyroid Lungs and Chest: Yes: Chest Expansion Full, Chest Expansion Symetrica Heart Rate and Rhythm: Irregular JVP: Not Elevated Abdominal Exam: Yes: Distention - Rheumotological System Joints: Joint Swelling - Left wrist improved ROM; mild Tenosynovitis present on the right with mild restriction and warmth - Extremities Posterior Tibial Pulse: Bilateral Normal - Neuro Psychiatric: Normal Results - Results Lab Results: Laboratory Results - last 24 hr 07/08/17 07/08/17 07/08/17 09:00 21:00 21:00 WBC RBC Hgb Hct MCV MCH MCHC RDW Plt Count MPV Neut % (Auto) Lymph % (Auto) [place] % (Auto) Eos % (Auto) Baso % (Auto) Absolute Neuts (auto) Absolute Lymphs (auto) Absolute Monos (auto) Absolute Eos (auto) Absolute Basos (auto) Absolute Nucleated RBC Nucleated RBC % Platelet Morphology Normal RBC Morphology Hypochromasia Target Cells Elliptocytes Acanthocytes (Spur) ESR INR (Anticoag Therapy) Sodium 129 L Potassium 3.9 Chloride 103 Carbon Dioxide 19 L Anion Gap 7 BUN 21 Creatinine 0.82 Est GFR ( Amer) 84.8 Est GFR (Non-Af Amer) 65.9 BUN/Creatinine Ratio 25.6 H Glucose 109 H Uric Acid 3.8 Calcium 8.4 L Total Bilirubin Direct Bilirubin Indirect Bilirubin AST ALT Alkaline Phosphatase Lactate Dehydrogenase C-Reactive Protein Total Protein Albumin Globulin Albumin/Globulin Ratio LDL Cholesterol Direct Fluid Source Synovial fluid Fluid Volume 5 Fluid Color [place] Fluid Appearance Cloudy Fluid WBC 24273 Fluid RBC 4028 Fluid Tot Cell Count 100 Fluid Neutrophils 89 Fluid Lymphocytes 3 Fluid Monocytes 8 Fluid Cell Count Rvw By Fluid Crystals Cppd(ca pyrophosate) Fluid Crystal Interp 07/09/17 07/09/17 07/09/17 06:03 06:03 06:03 WBC 11.5 H RBC 3.85 L Hgb 9.5 L Hct 30 L MCV 78 L MCH 25 L MCHC 32 RDW 19 H Plt Count 148 L MPV 11 H Neut % (Auto) 89.0 H Lymph % (Auto) 4.2 L [place] % (Auto) 6.5 Eos % (Auto) 0 Baso % (Auto) 0.3 Absolute Neuts (auto) 10.3 H Absolute Lymphs (auto) 0.5 L Absolute Monos (auto) 0.7 Absolute Eos (auto) 0 Absolute Basos (auto) 0 Absolute Nucleated RBC 0.02 Nucleated RBC % 0.1 Platelet Morphology Large Normal RBC Morphology Not Reportable Hypochromasia 1+ Target Cells 1+ Elliptocytes 1+ Acanthocytes (Spur) 1+ ESR 46 H INR (Anticoag Therapy) 2.22 H Sodium 129 L Potassium 4.4 Chloride 101 Carbon Dioxide 20 L Anion Gap 8 BUN 31 H Creatinine 0.88 Est GFR ( Amer) 78.2 Est GFR (Non-Af Amer) 60.8 BUN/Creatinine Ratio 35.2 H Glucose 135 H Uric Acid Calcium 8.7 Total Bilirubin 0.60 Direct Bilirubin 0.30 H Indirect Bilirubin 0.3 AST 16 ALT 10 Alkaline Phosphatase 42 Lactate Dehydrogenase TNP C-Reactive Protein 259.12 H Total Protein 6.8 Albumin 3.0 L Globulin 3.8 Albumin/Globulin Ratio 0.8 L LDL Cholesterol Direct 33 Fluid Source Fluid Volume Fluid Color Fluid Appearance Fluid WBC Fluid RBC Fluid Tot Cell Count Fluid Neutrophils Fluid Lymphocytes Fluid Monocytes Fluid Cell Count Rvw By Fluid Crystals Fluid Crystal Interp Assessment - Problem List Assessment: Patient Problems Acute systolic heart failure (Acute) Atrial fibrillation (Acute) DVT prophylaxis (Acute) History of endocarditis (Acute) Hypertension (Acute) Joint pain (Acute) Polymyalgia rheumatica (Acute) Supratherapeutic INR (Acute) Synovitis (Acute) Wrist pain (Acute) Acute respiratory failure with hypoxia (Acute) Anxiety (Acute) Atrial fibrillation (Acute 05/21/14) CAP (community acquired pneumonia) (Acute) COPD (chronic obstructive pulmonary disease) (Acute) Chronic diastolic (congestive) heart failure (Acute) Constipation (Acute) DVT prophylaxis (Acute) Dizziness (Acute) Edema of left forearm (Acute) Fever (Acute) Full code status (Acute) History of ESBL E. coli infection (Acute) Hypertension (Acute) Hypothyroidism (Acute) NSTEMI (non-ST elevated myocardial infarction) (Acute) Sepsis (Acute) Streptococcal bacteremia (Acute) TIA (transient ischemic attack) (Acute) Thrombocytopenia (Acute) Urinary retention (Acute) Pacemaker (Chronic) Plan: Pseudogout: Improved with steroids. Colchicine may also be helpful. OA: stable PMR: overall stable; we discussed how pseudogout may flare with stressful conditions. Consider Taper of prednisone back to baseline dose of 5mg daily over the next week. A regimen may be 40mg for 2 days then taper by 10mg every 2 days then back to her baseline dose of 5mg daily. Continue bedside PT and ROM exercises. Fever, leukocytosis: may improve as pseudougout flare improves. Follow up synovial cultures. Discussion with Family/Community Member: Discussed with family
[2017-07-09] MEDS: Atorvastatin* 10 MG TAB PO SCH (16:19)
[2017-07-09] MEDS: Warfarin TAB(*) 1 MG PO SCH (16:19)
--- NOTE | 2017-07-09 17:19 | PN ---
Progress Note - Progress Note Date of Service: 07/09/17 SOAP: Subjective: Last night (07/08/17) I saw the patient and performed an aspiration right wrist radiocarpal joint. Verbal consent, sterile technique, tolerated well. ~5 cc lidocaine in overlying soft tissues. Waited 10 minutes. I then aspirated ~1cc of joint fluid. It looks cloudy-yellow with sediment. In order to get more sample for testing, I then injected ~ 5cc of normal saline and aspirated ~ 4cc of fluid which contained join fluid. Sample showed pseudogout crystals. Now on oral Prednisone and Colchicine and off of antibiotics. Objective: NAD Comfortable- appearing LUE - painless PROM left wrist RUE - greatly improved arc of painless PROM wrist to ~ 30 degrees of wrist flexion and extension - NVID Selected Entries 07/09/17 11:24 Temperature 97.8 F Pulse Rate 74 Respiratory 22 Rate Blood Pressure 161/60 (mmHg) O2 Sat by Pulse 97 Oximetry Laboratory Tests 07/07/17 07/09/17 07/09/17 11:20 06:03 06:03 WBC 13.4 H 11.5 H ESR 46 H INR (Anticoag Therapy) 2.22 H C-Reactive Protein 07/09/17 06:03 WBC ESR INR (Anticoag Therapy) C-Reactive Protein 259.12 H Assessment: HD 3 bilateral wrist synovitis and pseudogout Polymyalgia rheumatica Plan: - Patient is responding well with significant improvement on oral steroids so that should be fine for now. We can avoid the trauma of another wrist puncture. - If pain fails to resolve completely in the next few days, we could reconsider an intraarticular cortisone injection right wrist - Continue Prednisone/Colchicine per medicine - Infection workup as needed per medicine - I am happy to see the patient in the office or next week as needed
[2017-07-09] MEDS: predniSONE TAB* 20 MG PO SCH (20:45)
[2017-07-09] MEDS: Latanoprost 0.005%* 2.5 ml BTL RIGHT EYE SCH (20:46)
[2017-07-09] MEDS: Diltiazem CD CAP* 120 MG PO SCH (20:46)
[2017-07-10] MEDS: hydrALAZINE IV* 20 MG/ML VIAL IV PRN ×2 (00:48→12:29)
[2017-07-10] MEDS: Levothyroxine TAB* 75 MCG TAB PO SCH (05:26)
[2017-07-10] MEDS: PTO: Brimonidine P 0.15%(NF) OPH SOL 5 ML BTL RIGHT EYE SCH ×2 (08:24→19:47)
[2017-07-10] MEDS: Senna TAB PO SCH ×2 (08:24→19:48)
[2017-07-10] MEDS: predniSONE TAB* 20 MG PO SCH (08:24)
[2017-07-10] MEDS: Lactobacillus Acidophilu (GG)* 1 CAP CAP PO SCH (08:24)
[2017-07-10] MEDS: Diltiazem CD CAP* 240 MG PO SCH (08:24)
[2017-07-10] MEDS: Colchicine* 0.6 MG TAB PO SCH (08:25)
[2017-07-10] MEDS: Aspirin EC Low Dose* 81 MG TAB.EC PO SCH (08:25)
[2017-07-10] MEDS: Digoxin TAB* 0.125 MG PO SCH (08:25)
[2017-07-10] MEDS: Docusate CAP* 100 MG PO SCH (08:25)
[2017-07-10] MEDS: Potassium Chlor TAB* 20 MEQ TAB.ER PO SCH (08:25)
--- NOTE | 2017-07-10 10:43 | PN ---
Progress Note - Progress Note Date of Service: 07/10/17 SOAP: Subjective: Pt lying comfortably in bed. States pain in wrists much improved, able to move wrists with less pain. 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 Denies fever or chills. Objective: Bilateral wrist swelling. There is bilateral bruising from aspiration sites. No signs of infection or erythema. Sensation intact to lite touch B/L. 2+ radial pulses. Vital Signs: Temp Pulse Resp BP Pulse Ox 97.5 F 83 28 159/59 98 07/10/17 07:24 07/10/17 08:25 07/10/17 07:24 07/10/17 07:24 07/10/17 07:24 Laboratory Last Values WBC 11.5 10^3/ul (3.5-10.8) H 07/09/17 06:03 RBC 3.85 10^6/ul (4.0-5.4) L 07/09/17 06:03 Hgb 9.5 g/dl (12.0-16.0) L 07/09/17 06:03 Hct 30 % (35-47) L 07/09/17 06:03 MCV 78 fL (80-97) L 07/09/17 06:03 MCH 25 pg (27-31) L 07/09/17 06:03 MCHC 32 g/dl (31-36) 07/09/17 06:03 RDW 19 % (10.5-15) H 07/09/17 06:03 Plt Count 148 10^3/ul (150-450) L 07/09/17 06:03 MPV 11 um3 (7.4-10.4) H 07/09/17 06:03 Neut % (Auto) 89.0 % (38-83) H 07/09/17 06:03 Lymph % (Auto) 4.2 % (25-47) L 07/09/17 06:03 [place] % (Auto) 6.5 % (1-9) 07/09/17 06:03 Eos % (Auto) 0 % (0-6) 07/09/17 06:03 Baso % (Auto) 0.3 % (0-2) 07/09/17 06:03 Absolute Neuts (auto) 10.3 10^3/ul (1.5-7.7) H 07/09/17 06:03 Absolute Lymphs (auto) 0.5 10^3/ul (1.0-4.8) L 07/09/17 06:03 Absolute Monos (auto) 0.7 10^3/ul (0-0.8) 07/09/17 06:03 Absolute Eos (auto) 0 10^3/ul (0-0.6) 07/09/17 06:03 Absolute Basos (auto) 0 10^3/ul (0-0.2) 07/09/17 06:03 Absolute Nucleated RBC 0.02 10^3/ul 07/09/17 06:03 Nucleated RBC % 0.1 07/09/17 06:03 Platelet Morphology Large 07/09/17 06:03 Normal RBC Morphology Not Reportable 07/09/17 06:03 Hypochromasia 1+ 07/09/17 06:03 Target Cells 1+ 07/09/17 06:03 Elliptocytes 1+ 07/09/17 06:03 Acanthocytes (Spur) 1+ 07/09/17 06:03 Schistocytes 2+ 07/07/17 11:20 ESR 46 mm/Hr (0-40) H 07/09/17 06:03 INR (Anticoag Therapy) 2.22 (0.77-1.02) H 07/09/17 06:03 APTT 43.5 seconds (26.0-36.3) H 07/07/17 11:20 D-Dimer, Quantitative > 1050 ng/mL (Less Than 230) H 07/07/17 11:20 Sodium 129 mmol/L (133-145) L 07/09/17 06:03 Potassium 4.4 mmol/L (3.5-5.0) 07/09/17 06:03 Chloride 101 mmol/L (101-111) 07/09/17 06:03 Carbon Dioxide 20 mmol/L (22-32) L 07/09/17 06:03 Anion Gap 8 mmol/L (2-11) 07/09/17 06:03 BUN 31 mg/dL (6-24) H 07/09/17 06:03 Creatinine 0.88 mg/dL (0.51-0.95) 07/09/17 06:03 Est GFR ( Amer) 78.2 (>60) 07/09/17 06:03 Est GFR (Non-Af Amer) 60.8 (>60) 07/09/17 06:03 BUN/Creatinine Ratio 35.2 (8-20) H 07/09/17 06:03 Glucose 135 mg/dL (70-100) H 07/09/17 06:03 Lactic Acid 1.2 mmol/L (0.5-2.0) 07/07/17 11:20 Uric Acid 3.8 mg/dL (2.3-6.6) 07/08/17 09:00 Calcium 8.7 mg/dL (8.6-10.3) 07/09/17 06:03 Magnesium 1.8 mg/dL (1.9-2.7) L 07/07/17 11:20 Total Bilirubin 0.60 mg/dL (0.2-1.0) 07/09/17 06:03 Direct Bilirubin 0.30 mg/dL (0.03-0.18) H 07/09/17 06:03 Indirect Bilirubin 0.3 mg/dL (0.3-1.0) 07/09/17 06:03 AST 16 U/L (13-39) 07/09/17 06:03 ALT 10 U/L (7-52) 07/09/17 06:03 Alkaline Phosphatase 42 U/L (34-104) 07/09/17 06:03 Lactate Dehydrogenase TNP 07/09/17 06:03 Total Creatine Kinase 11 U/L (10-223) 07/07/17 11:20 CK-MB (CK-2) 0.8 ng/mL (0.6-6.3) 07/07/17 11:20 Troponin I 0.08 ng/mL (<0.04) H* 07/07/17 22:44 C-Reactive Protein 259.12 mg/L (< 5.00) H 07/09/17 06:03 B-Natriuretic Peptide 1412 pg/mL (-100) H 07/07/17 11:20 Total Protein 6.8 g/dL (6.4-8.9) 07/09/17 06:03 Albumin 3.0 g/dL (3.2-5.2) L 07/09/17 06:03 Globulin 3.8 g/dL (2-4) 07/09/17 06:03 Albumin/Globulin Ratio 0.8 (1-3) L 07/09/17 06:03 LDL Cholesterol Direct 33 mg/dL 07/09/17 06:03 Lipase 10 U/L (11.0-82.0) L 07/07/17 11:20 TSH 1.70 mcIU/mL (0.34-5.60) 07/07/17 11:20 Urine Color Yellow 07/07/17 11:32 Urine Appearance Clear 07/07/17 11:32 Urine pH 6.0 (5-9) 07/07/17 11:32 Ur Specific [place] 1.017 (1.010-1.030) 07/07/17 11:32 Urine Protein 2+(100 mg/dl) (Negative) H 07/07/17 11:32 Urine Ketones Negative (Negative) 07/07/17 11:32 Urine Blood Negative (Negative) 07/07/17 11:32 Urine Nitrate Negative (Negative) 07/07/17 11:32 Urine Bilirubin Negative (Negative) 07/07/17 11:32 Urine Urobilinogen Negative (Negative) 07/07/17 11:32 Ur Leukocyte Esterase Negative (Negative) 07/07/17 11:32 Urine WBC (Auto) 2+(11-20/hpf) (Absent) H 07/07/17 11:32 Urine RBC (Auto) Trace(0-2/hpf) (Absent) 07/07/17 11:32 Ur Squamous Epith Cells Present (Absent) H 07/07/17 11:32 Urine Bacteria 1+ (Absent) H 07/07/17 11:32 Urine Glucose Negative (Negative) 07/07/17 11:32 Fluid Source Synovial fluid 07/08/17 21:00 Fluid Volume 5 mL 07/08/17 21:00 Fluid Color [place] 07/08/17 21:00 Fluid Appearance Cloudy 07/08/17 21:00 Fluid WBC 92674 /mcL ([id number]) 07/08/17 21:00 Fluid RBC 4028 /mcL 07/08/17 21:00 Fluid Tot Cell Count 100 07/08/17 21:00 Fluid Neutrophils 89 % 07/08/17 21:00 Fluid Lymphocytes 3 % 07/08/17 21:00 Fluid Monocytes 8 % 07/08/17 21:00 Fluid Cell Count Rvw By 07/08/17 21:00 Fluid Crystals Cppd(ca pyrophosate) 07/08/17 21:00 Fluid Crystal Interp 07/08/17 21:00 Digoxin 0.9 ng/ml (0.8-2.0) 07/07/17 11:20 Influenza A (Rapid) Negative (Negative) 07/07/17 12:28 Influenza B (Rapid) Negative (Negative) 07/07/17 12:28 Assessment: HD #4 bilateral wrist synovitis and pseudogout Polymyalgia rheumatica Plan: Pain control Continue prednisone/colchicine If worse will consider cortisone injection right wrist F/U with Dr. Mattson in the office next week as needed.
[2017-07-10] MEDS: Acetaminophen TAB* 325 MG PO PRN ×2 (14:45→19:42)
[2017-07-10] MEDS: Warfarin TAB(*) 1 MG PO SCH (16:13)
[2017-07-10] MEDS: Atorvastatin* 10 MG TAB PO SCH (16:13)
[2017-07-10] MEDS: Latanoprost 0.005%* 2.5 ml BTL RIGHT EYE SCH (19:47)
[2017-07-10] MEDS: Diltiazem CD CAP* 120 MG PO SCH (19:47)
[2017-07-10] MEDS ORDERED: predniSONE TAB* 20 MG PO SCH (21:00)
[2017-07-11] MEDS: Acetaminophen TAB* 325 MG PO PRN ×4 (00:10→21:48)
[2017-07-11] MEDS: hydrALAZINE IV* 20 MG/ML VIAL IV PRN (00:11)
[2017-07-11] MEDS: CMCS Melatonin (NF) 3 MG TAB PO PRN ×2 (01:54→21:51)
[2017-07-11 05:06] LABS: INR 2.61 (0.77-1.02)
[2017-07-11] MEDS: Levothyroxine TAB* 75 MCG TAB PO SCH (05:49)
[2017-07-11] MEDS ORDERED: predniSONE TAB* 20 MG PO SCH ×2 (09:00)
[2017-07-11] MEDS: PTO: Brimonidine P 0.15%(NF) OPH SOL 5 ML BTL RIGHT EYE SCH ×2 (09:08→21:37)
[2017-07-11] MEDS: Diltiazem CD CAP* 240 MG PO SCH (09:09)
[2017-07-11] MEDS: Aspirin EC Low Dose* 81 MG TAB.EC PO SCH (09:09)
[2017-07-11] MEDS: Digoxin TAB* 0.125 MG PO SCH (09:09)
[2017-07-11] MEDS: Lactobacillus Acidophilu (GG)* 1 CAP CAP PO SCH (09:09)
[2017-07-11] MEDS: Colchicine* 0.6 MG TAB PO SCH (09:09)
[2017-07-11] MEDS: Docusate CAP* 100 MG PO SCH (09:09)
[2017-07-11] MEDS: Senna TAB PO SCH (09:10)
[2017-07-11] MEDS: Potassium Chlor TAB* 20 MEQ TAB.ER PO SCH (09:10)
--- NOTE | 2017-07-11 11:23 | PN ---
Subjective Date of Service: 07/10/17 Interval History: Much improved. Less pain and swelling. "I can feed myself now." Objective Active Medications: Acetaminophen (Tylenol Tab*) 650 mg PO Q4H PRN PRN Reason: FEVER/PAIN Last Admin: 07/11/17 09:10 Dose: 650 mg Albuterol (Ventolin 2.5 Mg/3 Ml Neb.Edwina*) 2.5 mg INH Q2H PRN PRN Reason: SOB/WHEEZING Last Admin: 07/10/17 02:29 Dose: 2.5 mg Aspirin (Aspirin Ec Low Dose*) 81 mg PO QAM [facility] Last Admin: 07/11/17 09:09 Dose: 81 mg Atorvastatin Calcium (Lipitor*) 5 mg PO QPM [facility] Last Admin: 07/10/17 16:13 Dose: 5 mg Brimonidine Tartrate (Alphagan P 0.15%(Nf)) 1 drop RIGHT EYE BID [facility] Last Admin: 07/11/17 09:08 Dose: 1 drop Colchicine (Colcrys*) 0.6 mg PO DAILY [facility] Last Admin: 07/11/17 09:09 Dose: 0.6 mg Digoxin (Lanoxin Tab*) 0.125 mg PO QAM [facility] Last Admin: 07/11/17 09:09 Dose: 0.125 mg Diltiazem HCl (Cardizem Cd Cap*) 120 mg PO BEDTIME [facility] Last Admin: 07/10/17 19:47 Dose: 120 mg Diltiazem HCl (Cardizem Cd Cap*) 240 mg PO DAILY [facility] Last Admin: 07/11/17 09:09 Dose: 240 mg Docusate Sodium (Colace Cap*) 100 mg PO DAILY [facility] Last Admin: 07/11/17 09:09 Dose: 100 mg Hydralazine HCl (Apresoline Iv*) 10 mg IV Q4H PRN PRN Reason: Systolic >170 Last Admin: 07/11/17 00:11 Dose: 10 mg Hydromorphone HCl (Dilaudid Injic*) 0.5 mg IV SLOW PU Q4H PRN PRN Reason: PAIN Last Admin: 07/09/17 12:00 Dose: 0.5 mg Lactobacillus Rhamnosus (Culturelle*) 1 cap PO DAILY [facility] Last Admin: 07/11/17 09:09 Dose: 1 cap Latanoprost (Xalatan 0.005%*) 1 drop RIGHT EYE BEDTIME [facility] Last Admin: 07/10/17 19:47 Dose: 1 drop Levothyroxine Sodium (Synthroid Tab*) 75 mcg PO DAILY@0600 [facility] Last Admin: 07/11/17 05:49 Dose: 75 mcg Melatonin (Melatonin (Nf)) 3 mg PO BEDTIME PRN; Protocol PRN Reason: Sleep Last Admin: 07/11/17 01:54 Dose: 3 mg Potassium Chloride (Klor Con Er Tab*) 20 meq PO DAILY [facility] Last Admin: 07/11/17 09:10 Dose: 20 meq Prednisone (Deltasone Tab*) 20 mg PO BEDTIME [facility] Last Admin: 07/10/17 19:48 Dose: 20 mg Prednisone (Deltasone Tab*) 40 mg PO DAILY [facility] Last Admin: 07/11/17 09:10 Dose: 40 mg Senna (Senokot Tab*) 1 tab PO BID [facility] Last Admin: 07/11/17 09:10 Dose: 1 tab Warfarin Sodium (Coumadin Tab(*)) 1 mg PO DAILY@1700 [facility] PRN Reason: Protocol Last Admin: 07/10/17 16:13 Dose: 1 mg Vital Signs - 8 hr 07/11/17 07/11/17 07/11/17 04:10 07:36 08:06 Temperature 97.4 F 97.6 F Pulse Rate 55 79 Respiratory 16 20 24 Rate Blood Pressure 146/47 174/69 (mmHg) O2 Sat by Pulse 93 Oximetry 07/11/17 07/11/17 07/11/17 09:09 09:19 10:56 Temperature 97.5 F Pulse Rate 81 67 Respiratory 24 Rate Blood Pressure 152/51 (mmHg) O2 Sat by Pulse 94 96 Oximetry Oxygen Devices in Use Now: None Appearance: Alert, sitting up in bed. In good spirits. Looks comfortable. Extremities: No Clubbing, Cyanosis, - - Swelling both wrists much better. Skin wrinkled on R hand. Neurological: Alert and Oriented x 3, NL Sensation Result Diagrams: 07/09/17 06:03 07/09/17 06:03 Additional Lab and Data: Lab Results 07/07/17 07/07/17 07/07/17 Range/Units 11:20 11:20 11:20 WBC (3.5-10.8) 10^3/ul RBC (4.0-5.4) 10^6/ul Hgb (12.0-16.0) g/dl Hct (35-47) % MCV (80-97) fL MCH (27-31) pg MCHC (31-36) g/dl RDW (10.5-15) % Plt Count (150-450) 10^3/ul MPV Neut % (Auto) (38-83) % Lymph % (Auto) (25-47) % [place] % (Auto) (1-9) % Eos % (Auto) (0-6) % Baso % (Auto) (0-2) % Absolute Neuts (auto) (1.5-7.7) 10^3/ul Absolute Lymphs (auto) (1.0-4.8) 10^3/ul Absolute Monos (auto) (0-0.8) 10^3/ul Absolute Eos (auto) (0-0.6) 10^3/ul Absolute Basos (auto) (0-0.2) 10^3/ul Absolute Nucleated RBC 10^3/ul Nucleated RBC % Normal RBC Morphology Hypochromasia Acanthocytes (Spur) Schistocytes ESR (0-40) mm/Hr INR (Anticoag Therapy) 4.05 H (0.77-1.02) APTT 43.5 H (26.0-36.3) seconds D-Dimer, Quantitative > 1050 H (Less Than 230) ng/mL Sodium 132 L (133-145) mmol/L Potassium 3.8 (3.5-5.0) mmol/L Chloride 102 (101-111) mmol/L Carbon Dioxide 21 L (22-32) mmol/L Anion Gap 9 (2-11) mmol/L BUN 27 H (6-24) mg/dL Creatinine 0.95 (0.51-0.95) mg/dL Est GFR ( Amer) 71.6 (>60) Est GFR (Non-Af Amer) 55.6 (>60) BUN/Creatinine Ratio 28.4 H (8-20) Glucose 94 (70-100) mg/dL Lactic Acid 1.2 (0.5-2.0) mmol/L Calcium 9.3 (8.6-10.3) mg/dL Magnesium 1.8 L (1.9-2.7) mg/dL Total Bilirubin 1.00 (0.2-1.0) mg/dL AST 18 (13-39) U/L ALT 12 (7-52) U/L Alkaline Phosphatase 46 (34-104) U/L Total Creatine Kinase 11 (10-223) U/L CK-MB (CK-2) 0.8 (0.6-6.3) ng/mL Troponin I 0.11 H* (<0.04) ng/mL C-Reactive Protein 82.05 H (< 5.00) mg/L B-Natriuretic Peptide ( - 100) pg/mL Total Protein 7.7 (6.4-8.9) g/dL Albumin 3.7 (3.2-5.2) g/dL Globulin 4.0 (2-4) g/dL Albumin/Globulin Ratio 0.9 L (1-3) Lipase 10 L (11.0-82.0) U/L TSH 1.70 (0.34-5.60) mcIU/mL Urine Color Urine Appearance Urine pH (5-9) Ur Specific [place] (1.010-1.030) Urine Protein (Negative) Urine Ketones (Negative) Urine Blood (Negative) Urine Nitrate (Negative) Urine Bilirubin (Negative) Urine Urobilinogen (Negative) Ur Leukocyte Esterase (Negative) Urine WBC (Auto) (Absent) Urine RBC (Auto) (Absent) Ur Squamous Epith Cells (Absent) Urine Bacteria (Absent) Urine Glucose (Negative) Digoxin 0.9 (0.8-2.0) ng/ml Influenza A (Rapid) (Negative) Influenza B (Rapid) (Negative) 07/07/17 07/07/17 07/07/17 Range/Units 11:20 11:20 11:32 WBC 13.4 H (3.5-10.8) 10^3/ul RBC 4.43 (4.0-5.4) 10^6/ul Hgb 10.9 L (12.0-16.0) g/dl Hct 34 L (35-47) % MCV 78 L (80-97) fL MCH 25 L (27-31) pg MCHC 32 (31-36) g/dl RDW 19 H (10.5-15) % Plt Count 163 (150-450) 10^3/ul MPV Not Reportable Neut % (Auto) 69.1 (38-83) % Lymph % (Auto) 17.6 L (25-47) % [place] % (Auto) 12.2 H (1-9) % Eos % (Auto) 0.3 (0-6) % Baso % (Auto) 0.8 (0-2) % Absolute Neuts (auto) 9.2 H (1.5-7.7) 10^3/ul Absolute Lymphs (auto) 2.4 (1.0-4.8) 10^3/ul Absolute Monos (auto) 1.6 H (0-0.8) 10^3/ul Absolute Eos (auto) 0 (0-0.6) 10^3/ul Absolute Basos (auto) 0.1 (0-0.2) 10^3/ul Absolute Nucleated RBC 0.07 10^3/ul Nucleated RBC % 0.5 Normal RBC Morphology Not Reportable Hypochromasia 1+ Acanthocytes (Spur) 2+ Schistocytes 2+ ESR 34 (0-40) mm/Hr INR (Anticoag Therapy) (0.77-1.02) APTT (26.0-36.3) seconds D-Dimer, Quantitative (Less Than 230) ng/mL Sodium (133-145) mmol/L Potassium (3.5-5.0) mmol/L Chloride (101-111) mmol/L Carbon Dioxide (22-32) mmol/L Anion Gap (2-11) mmol/L BUN (6-24) mg/dL Creatinine (0.51-0.95) mg/dL Est GFR ( Amer) (>60) Est GFR (Non-Af Amer) (>60) BUN/Creatinine Ratio (8-20) Glucose (70-100) mg/dL Lactic Acid (0.5-2.0) mmol/L Calcium (8.6-10.3) mg/dL Magnesium (1.9-2.7) mg/dL Total Bilirubin (0.2-1.0) mg/dL AST (13-39) U/L ALT (7-52) U/L Alkaline Phosphatase (34-104) U/L Total Creatine Kinase (10-223) U/L CK-MB (CK-2) (0.6-6.3) ng/mL Troponin I (<0.04) ng/mL C-Reactive Protein (< 5.00) mg/L B-Natriuretic Peptide 1412 H ( - 100) pg/mL Total Protein (6.4-8.9) g/dL Albumin (3.2-5.2) g/dL Globulin (2-4) g/dL Albumin/Globulin Ratio (1-3) Lipase (11.0-82.0) U/L TSH (0.34-5.60) mcIU/mL Urine Color Yellow Urine Appearance Clear Urine pH 6.0 (5-9) Ur Specific [place] 1.017 (1.010-1.030) Urine Protein 2+(100 mg/dl) H (Negative) Urine Ketones Negative (Negative) Urine Blood Negative (Negative) Urine Nitrate Negative (Negative) Urine Bilirubin Negative (Negative) Urine Urobilinogen Negative (Negative) Ur Leukocyte Esterase Negative (Negative) Urine WBC (Auto) 2+(11-20/hpf) H (Absent) Urine RBC (Auto) Trace(0-2/hpf) (Absent) Ur Squamous Epith Cells Present H (Absent) Urine Bacteria 1+ H (Absent) Urine Glucose Negative (Negative) Digoxin (0.8-2.0) ng/ml Influenza A (Rapid) (Negative) Influenza B (Rapid) (Negative) 07/07/17 Range/Units 12:28 WBC (3.5-10.8) 10^3/ul RBC (4.0-5.4) 10^6/ul Hgb (12.0-16.0) g/dl Hct (35-47) % MCV (80-97) fL MCH (27-31) pg MCHC (31-36) g/dl RDW (10.5-15) % Plt Count (150-450) 10^3/ul MPV Neut % (Auto) (38-83) % Lymph % (Auto) (25-47) % [place] % (Auto) (1-9) % Eos % (Auto) (0-6) % Baso % (Auto) (0-2) % Absolute Neuts (auto) (1.5-7.7) 10^3/ul Absolute Lymphs (auto) (1.0-4.8) 10^3/ul Absolute Monos (auto) (0-0.8) 10^3/ul Absolute Eos (auto) (0-0.6) 10^3/ul Absolute Basos (auto) (0-0.2) 10^3/ul Absolute Nucleated RBC 10^3/ul Nucleated RBC % Normal RBC Morphology Hypochromasia Acanthocytes (Spur) Schistocytes ESR (0-40) mm/Hr INR (Anticoag Therapy) (0.77-1.02) APTT (26.0-36.3) seconds D-Dimer, Quantitative (Less Than 230) ng/mL Sodium (133-145) mmol/L Potassium (3.5-5.0) mmol/L Chloride (101-111) mmol/L Carbon Dioxide (22-32) mmol/L Anion Gap (2-11) mmol/L BUN (6-24) mg/dL Creatinine (0.51-0.95) mg/dL Est GFR ( Amer) (>60) Est GFR (Non-Af Amer) (>60) BUN/Creatinine Ratio (8-20) Glucose (70-100) mg/dL Lactic Acid (0.5-2.0) mmol/L Calcium (8.6-10.3) mg/dL Magnesium (1.9-2.7) mg/dL Total Bilirubin (0.2-1.0) mg/dL AST (13-39) U/L ALT (7-52) U/L Alkaline Phosphatase (34-104) U/L Total Creatine Kinase (10-223) U/L CK-MB (CK-2) (0.6-6.3) ng/mL Troponin I (<0.04) ng/mL C-Reactive Protein (< 5.00) mg/L B-Natriuretic Peptide ( - 100) pg/mL Total Protein (6.4-8.9) g/dL Albumin (3.2-5.2) g/dL Globulin (2-4) g/dL Albumin/Globulin Ratio (1-3) Lipase (11.0-82.0) U/L TSH (0.34-5.60) mcIU/mL Urine Color Urine Appearance Urine pH (5-9) Ur Specific [place] (1.010-1.030) Urine Protein (Negative) Urine Ketones (Negative) Urine Blood (Negative) Urine Nitrate (Negative) Urine Bilirubin (Negative) Urine Urobilinogen (Negative) Ur Leukocyte Esterase (Negative) Urine WBC (Auto) (Absent) Urine RBC (Auto) (Absent) Ur Squamous Epith Cells (Absent) Urine Bacteria (Absent) Urine Glucose (Negative) Digoxin (0.8-2.0) ng/ml Influenza A (Rapid) Negative (Negative) Influenza B (Rapid) Negative (Negative) Microbiology and Other Data: Microbiology 07/08/17 21:00 Gram Stain - Final Joint Fluid(Synovial) - Wrist Right Skin and Soft Tissue MRSA/MSSA (PCR - Final Mrsa Negative S.aureus Negative 07/08/17 21:00 Gram Stain - Final Joint Fluid(Synovial) - Wrist Right Skin and Soft Tissue MRSA/MSSA (PCR - Final Mrsa Negative S.aureus Negative Assess/Plan/Problems-Billing Assessment: 87 yo F 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 Change to oral steroid 07/09 AM, add cochicine 0.6 mg once daily 07/09. Continue prednisone taper 07/10. Dr. Mattson recommended holding off on IA steroids. (2) Polymyalgia rheumatica Current Visit: Yes Status: Acute Code(s): M35.3 - POLYMYALGIA RHEUMATICA SNOMED Code(s): 84492749 Comment: Eventually maintain on prednisone 5 mg daily. (3) Atrial fibrillation Current Visit: Yes Status: Acute Code(s): I48.91 - UNSPECIFIED ATRIAL FIBRILLATION SNOMED Code(s): 76894072 Comment: Re-start warfarin at 1 mg daily 07/09, INR in 2 days. Resume home dose diltiazem. c/w digoxin (4) Hypothyroidism Current Visit: No Status: Acute Code(s): E03.9 - HYPOTHYROIDISM, UNSPECIFIED SNOMED Code(s): 60511499 Comment: Continue Synthroid TSH wnl 07/07/17. (5) Pacemaker Current Visit: No Status: Chronic Code(s): Z95.0 - PRESENCE OF CARDIAC PACEMAKER SNOMED Code(s): 281880005 Comment: in situ for h/o tachy kayleigh syndrome
--- NOTE | 2017-07-11 11:33 | PN ---
Subjective Date of Service: 07/11/17 Interval History: Continues to improved but she still feels she can't use her walker/Rollator safely. Objective Active Medications: Acetaminophen (Tylenol Tab*) 650 mg PO Q4H PRN PRN Reason: FEVER/PAIN Last Admin: 07/11/17 09:10 Dose: 650 mg Albuterol (Ventolin 2.5 Mg/3 Ml Neb.Edwina*) 2.5 mg INH Q2H PRN PRN Reason: SOB/WHEEZING Last Admin: 07/10/17 02:29 Dose: 2.5 mg Aspirin (Aspirin Ec Low Dose*) 81 mg PO QAM [facility] Last Admin: 07/11/17 09:09 Dose: 81 mg Atorvastatin Calcium (Lipitor*) 5 mg PO QPM [facility] Last Admin: 07/10/17 16:13 Dose: 5 mg Brimonidine Tartrate (Alphagan P 0.15%(Nf)) 1 drop RIGHT EYE BID [facility] Last Admin: 07/11/17 09:08 Dose: 1 drop Colchicine (Colcrys*) 0.6 mg PO DAILY [facility] Last Admin: 07/11/17 09:09 Dose: 0.6 mg Digoxin (Lanoxin Tab*) 0.125 mg PO QAM [facility] Last Admin: 07/11/17 09:09 Dose: 0.125 mg Diltiazem HCl (Cardizem Cd Cap*) 120 mg PO BEDTIME [facility] Last Admin: 07/10/17 19:47 Dose: 120 mg Diltiazem HCl (Cardizem Cd Cap*) 240 mg PO DAILY [facility] Last Admin: 07/11/17 09:09 Dose: 240 mg Docusate Sodium (Colace Cap*) 100 mg PO DAILY [facility] Last Admin: 07/11/17 09:09 Dose: 100 mg Hydralazine HCl (Apresoline Iv*) 10 mg IV Q4H PRN PRN Reason: Systolic >170 Last Admin: 07/11/17 00:11 Dose: 10 mg Hydromorphone HCl (Dilaudid Injic*) 0.5 mg IV SLOW PU Q4H PRN PRN Reason: PAIN Last Admin: 07/09/17 12:00 Dose: 0.5 mg Lactobacillus Rhamnosus (Culturelle*) 1 cap PO DAILY [facility] Last Admin: 07/11/17 09:09 Dose: 1 cap Latanoprost (Xalatan 0.005%*) 1 drop RIGHT EYE BEDTIME [facility] Last Admin: 07/10/17 19:47 Dose: 1 drop Levothyroxine Sodium (Synthroid Tab*) 75 mcg PO DAILY@0600 [facility] Last Admin: 07/11/17 05:49 Dose: 75 mcg Melatonin (Melatonin (Nf)) 3 mg PO BEDTIME PRN; Protocol PRN Reason: Sleep Last Admin: 07/11/17 01:54 Dose: 3 mg Potassium Chloride (Klor Con Er Tab*) 20 meq PO DAILY [facility] Last Admin: 07/11/17 09:10 Dose: 20 meq Prednisone (Deltasone Tab*) 20 mg PO BEDTIME [facility] Last Admin: 07/10/17 19:48 Dose: 20 mg Prednisone (Deltasone Tab*) 40 mg PO DAILY [facility] Last Admin: 07/11/17 09:10 Dose: 40 mg Senna (Senokot Tab*) 1 tab PO BID [facility] Last Admin: 07/11/17 09:10 Dose: 1 tab Warfarin Sodium (Coumadin Tab(*)) 1 mg PO DAILY@1700 [facility] PRN Reason: Protocol Last Admin: 07/10/17 16:13 Dose: 1 mg Vital Signs - 8 hr 07/11/17 07/11/17 07/11/17 04:10 07:36 08:06 Temperature 97.4 F 97.6 F Pulse Rate 55 79 Respiratory 16 20 24 Rate Blood Pressure 146/47 174/69 (mmHg) O2 Sat by Pulse 93 Oximetry 07/11/17 07/11/17 07/11/17 09:09 09:19 10:56 Temperature 97.5 F Pulse Rate 81 67 Respiratory 24 Rate Blood Pressure 152/51 (mmHg) O2 Sat by Pulse 94 96 Oximetry Oxygen Devices in Use Now: None Appearance: Alert, supine in bed. In good spirits. Looks comfortable. Eyes: No Scleral Icterus Ears/Nose/Mouth/Throat: Clear Oropharnyx, Mucous Membranes Moist Neck: NL Appearance and Movements; NL JVP, No Thyroid Enlargement, Masses Extremities: No Clubbing, Cyanosis, - - edema and tenderness both hands virtually resolved. Neurological: Alert and Oriented x 3, NL Sensation, - - R hand oracle sql developer 3/5, L oracle sql developer 4+/5. Result Diagrams: 07/09/17 06:03 07/09/17 06:03 Additional Lab and Data: Lab Results 07/07/17 07/07/17 07/07/17 Range/Units 11:20 11:20 11:20 WBC (3.5-10.8) 10^3/ul RBC (4.0-5.4) 10^6/ul Hgb (12.0-16.0) g/dl Hct (35-47) % MCV (80-97) fL MCH (27-31) pg MCHC (31-36) g/dl RDW (10.5-15) % Plt Count (150-450) 10^3/ul MPV Neut % (Auto) (38-83) % Lymph % (Auto) (25-47) % [place] % (Auto) (1-9) % Eos % (Auto) (0-6) % Baso % (Auto) (0-2) % Absolute Neuts (auto) (1.5-7.7) 10^3/ul Absolute Lymphs (auto) (1.0-4.8) 10^3/ul Absolute Monos (auto) (0-0.8) 10^3/ul Absolute Eos (auto) (0-0.6) 10^3/ul Absolute Basos (auto) (0-0.2) 10^3/ul Absolute Nucleated RBC 10^3/ul Nucleated RBC % Normal RBC Morphology Hypochromasia Acanthocytes (Spur) Schistocytes ESR (0-40) mm/Hr INR (Anticoag Therapy) 4.05 H (0.77-1.02) APTT 43.5 H (26.0-36.3) seconds D-Dimer, Quantitative > 1050 H (Less Than 230) ng/mL Sodium 132 L (133-145) mmol/L Potassium 3.8 (3.5-5.0) mmol/L Chloride 102 (101-111) mmol/L Carbon Dioxide 21 L (22-32) mmol/L Anion Gap 9 (2-11) mmol/L BUN 27 H (6-24) mg/dL Creatinine 0.95 (0.51-0.95) mg/dL Est GFR ( Amer) 71.6 (>60) Est GFR (Non-Af Amer) 55.6 (>60) BUN/Creatinine Ratio 28.4 H (8-20) Glucose 94 (70-100) mg/dL Lactic Acid 1.2 (0.5-2.0) mmol/L Calcium 9.3 (8.6-10.3) mg/dL Magnesium 1.8 L (1.9-2.7) mg/dL Total Bilirubin 1.00 (0.2-1.0) mg/dL AST 18 (13-39) U/L ALT 12 (7-52) U/L Alkaline Phosphatase 46 (34-104) U/L Total Creatine Kinase 11 (10-223) U/L CK-MB (CK-2) 0.8 (0.6-6.3) ng/mL Troponin I 0.11 H* (<0.04) ng/mL C-Reactive Protein 82.05 H (< 5.00) mg/L B-Natriuretic Peptide ( - 100) pg/mL Total Protein 7.7 (6.4-8.9) g/dL Albumin 3.7 (3.2-5.2) g/dL Globulin 4.0 (2-4) g/dL Albumin/Globulin Ratio 0.9 L (1-3) Lipase 10 L (11.0-82.0) U/L TSH 1.70 (0.34-5.60) mcIU/mL Urine Color Urine Appearance Urine pH (5-9) Ur Specific [place] (1.010-1.030) Urine Protein (Negative) Urine Ketones (Negative) Urine Blood (Negative) Urine Nitrate (Negative) Urine Bilirubin (Negative) Urine Urobilinogen (Negative) Ur Leukocyte Esterase (Negative) Urine WBC (Auto) (Absent) Urine RBC (Auto) (Absent) Ur Squamous Epith Cells (Absent) Urine Bacteria (Absent) Urine Glucose (Negative) Digoxin 0.9 (0.8-2.0) ng/ml Influenza A (Rapid) (Negative) Influenza B (Rapid) (Negative) 07/07/17 07/07/17 07/07/17 Range/Units 11:20 11:20 11:32 WBC 13.4 H (3.5-10.8) 10^3/ul RBC 4.43 (4.0-5.4) 10^6/ul Hgb 10.9 L (12.0-16.0) g/dl Hct 34 L (35-47) % MCV 78 L (80-97) fL MCH 25 L (27-31) pg MCHC 32 (31-36) g/dl RDW 19 H (10.5-15) % Plt Count 163 (150-450) 10^3/ul MPV Not Reportable Neut % (Auto) 69.1 (38-83) % Lymph % (Auto) 17.6 L (25-47) % [place] % (Auto) 12.2 H (1-9) % Eos % (Auto) 0.3 (0-6) % Baso % (Auto) 0.8 (0-2) % Absolute Neuts (auto) 9.2 H (1.5-7.7) 10^3/ul Absolute Lymphs (auto) 2.4 (1.0-4.8) 10^3/ul Absolute Monos (auto) 1.6 H (0-0.8) 10^3/ul Absolute Eos (auto) 0 (0-0.6) 10^3/ul Absolute Basos (auto) 0.1 (0-0.2) 10^3/ul Absolute Nucleated RBC 0.07 10^3/ul Nucleated RBC % 0.5 Normal RBC Morphology Not Reportable Hypochromasia 1+ Acanthocytes (Spur) 2+ Schistocytes 2+ ESR 34 (0-40) mm/Hr INR (Anticoag Therapy) (0.77-1.02) APTT (26.0-36.3) seconds D-Dimer, Quantitative (Less Than 230) ng/mL Sodium (133-145) mmol/L Potassium (3.5-5.0) mmol/L Chloride (101-111) mmol/L Carbon Dioxide (22-32) mmol/L Anion Gap (2-11) mmol/L BUN (6-24) mg/dL Creatinine (0.51-0.95) mg/dL Est GFR ( Amer) (>60) Est GFR (Non-Af Amer) (>60) BUN/Creatinine Ratio (8-20) Glucose (70-100) mg/dL Lactic Acid (0.5-2.0) mmol/L Calcium (8.6-10.3) mg/dL Magnesium (1.9-2.7) mg/dL Total Bilirubin (0.2-1.0) mg/dL AST (13-39) U/L ALT (7-52) U/L Alkaline Phosphatase (34-104) U/L Total Creatine Kinase (10-223) U/L CK-MB (CK-2) (0.6-6.3) ng/mL Troponin I (<0.04) ng/mL C-Reactive Protein (< 5.00) mg/L B-Natriuretic Peptide 1412 H ( - 100) pg/mL Total Protein (6.4-8.9) g/dL Albumin (3.2-5.2) g/dL Globulin (2-4) g/dL Albumin/Globulin Ratio (1-3) Lipase (11.0-82.0) U/L TSH (0.34-5.60) mcIU/mL Urine Color Yellow Urine Appearance Clear Urine pH 6.0 (5-9) Ur Specific [place] 1.017 (1.010-1.030) Urine Protein 2+(100 mg/dl) H (Negative) Urine Ketones Negative (Negative) Urine Blood Negative (Negative) Urine Nitrate Negative (Negative) Urine Bilirubin Negative (Negative) Urine Urobilinogen Negative (Negative) Ur Leukocyte Esterase Negative (Negative) Urine WBC (Auto) 2+(11-20/hpf) H (Absent) Urine RBC (Auto) Trace(0-2/hpf) (Absent) Ur Squamous Epith Cells Present H (Absent) Urine Bacteria 1+ H (Absent) Urine Glucose Negative (Negative) Digoxin (0.8-2.0) ng/ml Influenza A (Rapid) (Negative) Influenza B (Rapid) (Negative) 07/07/17 Range/Units 12:28 WBC (3.5-10.8) 10^3/ul RBC (4.0-5.4) 10^6/ul Hgb (12.0-16.0) g/dl Hct (35-47) % MCV (80-97) fL MCH (27-31) pg MCHC (31-36) g/dl RDW (10.5-15) % Plt Count (150-450) 10^3/ul MPV Neut % (Auto) (38-83) % Lymph % (Auto) (25-47) % [place] % (Auto) (1-9) % Eos % (Auto) (0-6) % Baso % (Auto) (0-2) % Absolute Neuts (auto) (1.5-7.7) 10^3/ul Absolute Lymphs (auto) (1.0-4.8) 10^3/ul Absolute Monos (auto) (0-0.8) 10^3/ul Absolute Eos (auto) (0-0.6) 10^3/ul Absolute Basos (auto) (0-0.2) 10^3/ul Absolute Nucleated RBC 10^3/ul Nucleated RBC % Normal RBC Morphology Hypochromasia Acanthocytes (Spur) Schistocytes ESR (0-40) mm/Hr INR (Anticoag Therapy) (0.77-1.02) APTT (26.0-36.3) seconds D-Dimer, Quantitative (Less Than 230) ng/mL Sodium (133-145) mmol/L Potassium (3.5-5.0) mmol/L Chloride (101-111) mmol/L Carbon Dioxide (22-32) mmol/L Anion Gap (2-11) mmol/L BUN (6-24) mg/dL Creatinine (0.51-0.95) mg/dL Est GFR ( Amer) (>60) Est GFR (Non-Af Amer) (>60) BUN/Creatinine Ratio (8-20) Glucose (70-100) mg/dL Lactic Acid (0.5-2.0) mmol/L Calcium (8.6-10.3) mg/dL Magnesium (1.9-2.7) mg/dL Total Bilirubin (0.2-1.0) mg/dL AST (13-39) U/L ALT (7-52) U/L Alkaline Phosphatase (34-104) U/L Total Creatine Kinase (10-223) U/L CK-MB (CK-2) (0.6-6.3) ng/mL Troponin I (<0.04) ng/mL C-Reactive Protein (< 5.00) mg/L B-Natriuretic Peptide ( - 100) pg/mL Total Protein (6.4-8.9) g/dL Albumin (3.2-5.2) g/dL Globulin (2-4) g/dL Albumin/Globulin Ratio (1-3) Lipase (11.0-82.0) U/L TSH (0.34-5.60) mcIU/mL Urine Color Urine Appearance Urine pH (5-9) Ur Specific [place] (1.010-1.030) Urine Protein (Negative) Urine Ketones (Negative) Urine Blood (Negative) Urine Nitrate (Negative) Urine Bilirubin (Negative) Urine Urobilinogen (Negative) Ur Leukocyte Esterase (Negative) Urine WBC (Auto) (Absent) Urine RBC (Auto) (Absent) Ur Squamous Epith Cells (Absent) Urine Bacteria (Absent) Urine Glucose (Negative) Digoxin (0.8-2.0) ng/ml Influenza A (Rapid) Negative (Negative) Influenza B (Rapid) Negative (Negative) Microbiology and Other Data: Microbiology 07/08/17 21:00 Gram Stain - Final Joint Fluid(Synovial) - Wrist Right Skin and Soft Tissue MRSA/MSSA (PCR - Final Mrsa Negative S.aureus Negative 07/08/17 21:00 Gram Stain - Final Joint Fluid(Synovial) - Wrist Right Skin and Soft Tissue MRSA/MSSA (PCR - Final Mrsa Negative S.aureus Negative Assess/Plan/Problems-Billing Assessment: 87 yo F 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 Change to oral steroid 07/09 AM, add cochicine 0.6 mg once daily 07/09. Continue prednisone taper 07/11. Dr. Mattson recommended holding off on IA steroids. (2) Polymyalgia rheumatica Current Visit: Yes Status: Acute Code(s): M35.3 - POLYMYALGIA RHEUMATICA SNOMED Code(s): 55159953 Comment: Eventually maintain on prednisone 5 mg daily. (3) Atrial fibrillation Current Visit: Yes Status: Acute Code(s): I48.91 - UNSPECIFIED ATRIAL FIBRILLATION SNOMED Code(s): 18430893 Comment: Re-start warfarin at 1 mg daily 07/09, INR in 2 days. Resume home dose diltiazem. c/w digoxin (4) Hypothyroidism Current Visit: No Status: Acute Code(s): E03.9 - HYPOTHYROIDISM, UNSPECIFIED SNOMED Code(s): 94806887 Comment: Continue Synthroid TSH wnl 07/07/17. 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
[2017-07-11] MEDS ORDERED: Loperamide CAP* 2 MG PO PRN (15:15)
--- NOTE | 2017-07-11 15:47 | PN ---
Progress Note - Progress Note Date of Service: 07/11/17 SOAP: Subjective: Pt lying comfortably in bed. No complaint of pain. Objective: mild b/l wrist swelling. ROM improved b/l wrists. Mild bruising b/l wrists. 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 Mattson next week as needed
[2017-07-11] MEDS: Warfarin TAB(*) 1 MG PO SCH (16:49)
[2017-07-11] MEDS: Atorvastatin* 10 MG TAB PO SCH (16:49)
[2017-07-11] MEDS: Diltiazem CD CAP* 120 MG PO SCH (21:39)
[2017-07-11] MEDS: Latanoprost 0.005%* 2.5 ml BTL RIGHT EYE SCH (21:48)
[2017-07-12] MEDS: hydrALAZINE IV* 20 MG/ML VIAL IV PRN (03:51)
[2017-07-12] MEDS: Levothyroxine TAB* 75 MCG TAB PO SCH (06:05)
[2017-07-12] MEDS: Aspirin EC Low Dose* 81 MG TAB.EC PO SCH (08:56)
[2017-07-12] MEDS: Lactobacillus Acidophilu (GG)* 1 CAP CAP PO SCH (08:56)
[2017-07-12] MEDS: predniSONE TAB* 10 MG PO SCH (08:56)
[2017-07-12] MEDS: Digoxin TAB* 0.125 MG PO SCH (08:56)
[2017-07-12] MEDS: Potassium Chlor TAB* 20 MEQ TAB.ER PO SCH (08:56)
[2017-07-12] MEDS: PTO: Brimonidine P 0.15%(NF) OPH SOL 5 ML BTL RIGHT EYE SCH ×2 (08:56→20:35)
[2017-07-12] MEDS: Acetaminophen TAB* 325 MG PO PRN ×2 (08:56→16:01)
[2017-07-12] MEDS: Diltiazem CD CAP* 240 MG PO SCH (08:56)
--- NOTE | 2017-07-12 09:40 | PN ---
Subjective Date of Service: 07/12/17 Interval History: Mild pain R hand, relieved by APAP. No more diarrhea. No new c/o. Objective Active Medications: Acetaminophen (Tylenol Tab*) 650 mg PO Q4H PRN PRN Reason: FEVER/PAIN Last Admin: 07/12/17 08:56 Dose: 650 mg Albuterol (Ventolin 2.5 Mg/3 Ml Neb.Edwina*) 2.5 mg INH Q2H PRN PRN Reason: SOB/WHEEZING Last Admin: 07/10/17 02:29 Dose: 2.5 mg Aspirin (Aspirin Ec Low Dose*) 81 mg PO QAM [facility] Last Admin: 07/12/17 08:56 Dose: 81 mg Atorvastatin Calcium (Lipitor*) 5 mg PO QPM [facility] Last Admin: 07/11/17 16:49 Dose: 5 mg Brimonidine Tartrate (Alphagan P 0.15%(Nf)) 1 drop RIGHT EYE BID [facility] Last Admin: 07/12/17 08:56 Dose: 1 drop Colchicine (Colcrys*) 0.6 mg PO Q48H [facility] Digoxin (Lanoxin Tab*) 0.125 mg PO QAM [facility] Last Admin: 07/12/17 08:56 Dose: 0.125 mg Diltiazem HCl (Cardizem Cd Cap*) 120 mg PO BEDTIME [facility] Last Admin: 07/11/17 21:39 Dose: 120 mg Diltiazem HCl (Cardizem Cd Cap*) 240 mg PO DAILY [facility] Last Admin: 07/12/17 08:56 Dose: 240 mg Hydralazine HCl (Apresoline Iv*) 10 mg IV Q4H PRN PRN Reason: Systolic >170 Last Admin: 07/12/17 03:51 Dose: 10 mg Hydromorphone HCl (Dilaudid Injic*) 0.5 mg IV SLOW PU Q4H PRN PRN Reason: PAIN Last Admin: 07/09/17 12:00 Dose: 0.5 mg Lactobacillus Rhamnosus (Culturelle*) 1 cap PO DAILY [facility] Last Admin: 07/12/17 08:56 Dose: 1 cap Latanoprost (Xalatan 0.005%*) 1 drop RIGHT EYE BEDTIME [facility] Last Admin: 07/11/17 21:48 Dose: 1 drop Levothyroxine Sodium (Synthroid Tab*) 75 mcg PO DAILY@0600 [facility] Last Admin: 07/12/17 06:05 Dose: 75 mcg Loperamide HCl (Imodium Cap*) 2 mg PO QID PRN PRN Reason: DIARRHEA Last Admin: 07/11/17 15:43 Dose: 2 mg Melatonin (Melatonin (Nf)) 3 mg PO BEDTIME PRN; Protocol PRN Reason: Sleep Last Admin: 07/11/17 21:51 Dose: 3 mg Potassium Chloride (Klor Con Er Tab*) 20 meq PO DAILY [facility] Last Admin: 07/12/17 08:56 Dose: 20 meq Prednisone (Deltasone Tab*) 35 mg PO DAILY [facility] Last Admin: 07/12/17 08:56 Dose: 35 mg Warfarin Sodium (Coumadin Tab(*)) 1 mg PO DAILY@1700 [facility] PRN Reason: Protocol Last Admin: 07/11/17 16:49 Dose: 1 mg Vital Signs - 8 hr 07/12/17 07/12/17 07/12/17 03:36 08:44 08:56 Temperature 97.5 F Pulse Rate 60 85 85 Respiratory 16 16 Rate Blood Pressure 172/55 (mmHg) O2 Sat by Pulse 95 98 Oximetry Oxygen Devices in Use Now: None Appearance: Alert, in a chair with her legs elevated. In good spirits. Looks comfortable. Eyes: No Scleral Icterus Extremities: No Edema, No Clubbing, Cyanosis, - Skin: No Rash or Ulcers, No Nodules or Sclerosis, - Neurological: Alert and Oriented x 3, NL Sensation Result Diagrams: 07/09/17 06:03 07/09/17 06:03 Additional Lab and Data: Lab Results 07/07/17 07/07/17 07/07/17 Range/Units 11:20 11:20 11:20 WBC (3.5-10.8) 10^3/ul RBC (4.0-5.4) 10^6/ul Hgb (12.0-16.0) g/dl Hct (35-47) % MCV (80-97) fL MCH (27-31) pg MCHC (31-36) g/dl RDW (10.5-15) % Plt Count (150-450) 10^3/ul MPV Neut % (Auto) (38-83) % Lymph % (Auto) (25-47) % [place] % (Auto) (1-9) % Eos % (Auto) (0-6) % Baso % (Auto) (0-2) % Absolute Neuts (auto) (1.5-7.7) 10^3/ul Absolute Lymphs (auto) (1.0-4.8) 10^3/ul Absolute Monos (auto) (0-0.8) 10^3/ul Absolute Eos (auto) (0-0.6) 10^3/ul Absolute Basos (auto) (0-0.2) 10^3/ul Absolute Nucleated RBC 10^3/ul Nucleated RBC % Normal RBC Morphology Hypochromasia Acanthocytes (Spur) Schistocytes ESR (0-40) mm/Hr INR (Anticoag Therapy) 4.05 H (0.77-1.02) APTT 43.5 H (26.0-36.3) seconds D-Dimer, Quantitative > 1050 H (Less Than 230) ng/mL Sodium 132 L (133-145) mmol/L Potassium 3.8 (3.5-5.0) mmol/L Chloride 102 (101-111) mmol/L Carbon Dioxide 21 L (22-32) mmol/L Anion Gap 9 (2-11) mmol/L BUN 27 H (6-24) mg/dL Creatinine 0.95 (0.51-0.95) mg/dL Est GFR ( Amer) 71.6 (>60) Est GFR (Non-Af Amer) 55.6 (>60) BUN/Creatinine Ratio 28.4 H (8-20) Glucose 94 (70-100) mg/dL Lactic Acid 1.2 (0.5-2.0) mmol/L Calcium 9.3 (8.6-10.3) mg/dL Magnesium 1.8 L (1.9-2.7) mg/dL Total Bilirubin 1.00 (0.2-1.0) mg/dL AST 18 (13-39) U/L ALT 12 (7-52) U/L Alkaline Phosphatase 46 (34-104) U/L Total Creatine Kinase 11 (10-223) U/L CK-MB (CK-2) 0.8 (0.6-6.3) ng/mL Troponin I 0.11 H* (<0.04) ng/mL C-Reactive Protein 82.05 H (< 5.00) mg/L B-Natriuretic Peptide ( - 100) pg/mL Total Protein 7.7 (6.4-8.9) g/dL Albumin 3.7 (3.2-5.2) g/dL Globulin 4.0 (2-4) g/dL Albumin/Globulin Ratio 0.9 L (1-3) Lipase 10 L (11.0-82.0) U/L TSH 1.70 (0.34-5.60) mcIU/mL Urine Color Urine Appearance Urine pH (5-9) Ur Specific [place] (1.010-1.030) Urine Protein (Negative) Urine Ketones (Negative) Urine Blood (Negative) Urine Nitrate (Negative) Urine Bilirubin (Negative) Urine Urobilinogen (Negative) Ur Leukocyte Esterase (Negative) Urine WBC (Auto) (Absent) Urine RBC (Auto) (Absent) Ur Squamous Epith Cells (Absent) Urine Bacteria (Absent) Urine Glucose (Negative) Digoxin 0.9 (0.8-2.0) ng/ml Influenza A (Rapid) (Negative) Influenza B (Rapid) (Negative) 07/07/17 07/07/17 07/07/17 Range/Units 11:20 11:20 11:32 WBC 13.4 H (3.5-10.8) 10^3/ul RBC 4.43 (4.0-5.4) 10^6/ul Hgb 10.9 L (12.0-16.0) g/dl Hct 34 L (35-47) % MCV 78 L (80-97) fL MCH 25 L (27-31) pg MCHC 32 (31-36) g/dl RDW 19 H (10.5-15) % Plt Count 163 (150-450) 10^3/ul MPV Not Reportable Neut % (Auto) 69.1 (38-83) % Lymph % (Auto) 17.6 L (25-47) % [place] % (Auto) 12.2 H (1-9) % Eos % (Auto) 0.3 (0-6) % Baso % (Auto) 0.8 (0-2) % Absolute Neuts (auto) 9.2 H (1.5-7.7) 10^3/ul Absolute Lymphs (auto) 2.4 (1.0-4.8) 10^3/ul Absolute Monos (auto) 1.6 H (0-0.8) 10^3/ul Absolute Eos (auto) 0 (0-0.6) 10^3/ul Absolute Basos (auto) 0.1 (0-0.2) 10^3/ul Absolute Nucleated RBC 0.07 10^3/ul Nucleated RBC % 0.5 Normal RBC Morphology Not Reportable Hypochromasia 1+ Acanthocytes (Spur) 2+ Schistocytes 2+ ESR 34 (0-40) mm/Hr INR (Anticoag Therapy) (0.77-1.02) APTT (26.0-36.3) seconds D-Dimer, Quantitative (Less Than 230) ng/mL Sodium (133-145) mmol/L Potassium (3.5-5.0) mmol/L Chloride (101-111) mmol/L Carbon Dioxide (22-32) mmol/L Anion Gap (2-11) mmol/L BUN (6-24) mg/dL Creatinine (0.51-0.95) mg/dL Est GFR ( Amer) (>60) Est GFR (Non-Af Amer) (>60) BUN/Creatinine Ratio (8-20) Glucose (70-100) mg/dL Lactic Acid (0.5-2.0) mmol/L Calcium (8.6-10.3) mg/dL Magnesium (1.9-2.7) mg/dL Total Bilirubin (0.2-1.0) mg/dL AST (13-39) U/L ALT (7-52) U/L Alkaline Phosphatase (34-104) U/L Total Creatine Kinase (10-223) U/L CK-MB (CK-2) (0.6-6.3) ng/mL Troponin I (<0.04) ng/mL C-Reactive Protein (< 5.00) mg/L B-Natriuretic Peptide 1412 H ( - 100) pg/mL Total Protein (6.4-8.9) g/dL Albumin (3.2-5.2) g/dL Globulin (2-4) g/dL Albumin/Globulin Ratio (1-3) Lipase (11.0-82.0) U/L TSH (0.34-5.60) mcIU/mL Urine Color Yellow Urine Appearance Clear Urine pH 6.0 (5-9) Ur Specific [place] 1.017 (1.010-1.030) Urine Protein 2+(100 mg/dl) H (Negative) Urine Ketones Negative (Negative) Urine Blood Negative (Negative) Urine Nitrate Negative (Negative) Urine Bilirubin Negative (Negative) Urine Urobilinogen Negative (Negative) Ur Leukocyte Esterase Negative (Negative) Urine WBC (Auto) 2+(11-20/hpf) H (Absent) Urine RBC (Auto) Trace(0-2/hpf) (Absent) Ur Squamous Epith Cells Present H (Absent) Urine Bacteria 1+ H (Absent) Urine Glucose Negative (Negative) Digoxin (0.8-2.0) ng/ml Influenza A (Rapid) (Negative) Influenza B (Rapid) (Negative) 07/07/17 Range/Units 12:28 WBC (3.5-10.8) 10^3/ul RBC (4.0-5.4) 10^6/ul Hgb (12.0-16.0) g/dl Hct (35-47) % MCV (80-97) fL MCH (27-31) pg MCHC (31-36) g/dl RDW (10.5-15) % Plt Count (150-450) 10^3/ul MPV Neut % (Auto) (38-83) % Lymph % (Auto) (25-47) % [place] % (Auto) (1-9) % Eos % (Auto) (0-6) % Baso % (Auto) (0-2) % Absolute Neuts (auto) (1.5-7.7) 10^3/ul Absolute Lymphs (auto) (1.0-4.8) 10^3/ul Absolute Monos (auto) (0-0.8) 10^3/ul Absolute Eos (auto) (0-0.6) 10^3/ul Absolute Basos (auto) (0-0.2) 10^3/ul Absolute Nucleated RBC 10^3/ul Nucleated RBC % Normal RBC Morphology Hypochromasia Acanthocytes (Spur) Schistocytes ESR (0-40) mm/Hr INR (Anticoag Therapy) (0.77-1.02) APTT (26.0-36.3) seconds D-Dimer, Quantitative (Less Than 230) ng/mL Sodium (133-145) mmol/L Potassium (3.5-5.0) mmol/L Chloride (101-111) mmol/L Carbon Dioxide (22-32) mmol/L Anion Gap (2-11) mmol/L BUN (6-24) mg/dL Creatinine (0.51-0.95) mg/dL Est GFR ( Amer) (>60) Est GFR (Non-Af Amer) (>60) BUN/Creatinine Ratio (8-20) Glucose (70-100) mg/dL Lactic Acid (0.5-2.0) mmol/L Calcium (8.6-10.3) mg/dL Magnesium (1.9-2.7) mg/dL Total Bilirubin (0.2-1.0) mg/dL AST (13-39) U/L ALT (7-52) U/L Alkaline Phosphatase (34-104) U/L Total Creatine Kinase (10-223) U/L CK-MB (CK-2) (0.6-6.3) ng/mL Troponin I (<0.04) ng/mL C-Reactive Protein (< 5.00) mg/L B-Natriuretic Peptide ( - 100) pg/mL Total Protein (6.4-8.9) g/dL Albumin (3.2-5.2) g/dL Globulin (2-4) g/dL Albumin/Globulin Ratio (1-3) Lipase (11.0-82.0) U/L TSH (0.34-5.60) mcIU/mL Urine Color Urine Appearance Urine pH (5-9) Ur Specific [place] (1.010-1.030) Urine Protein (Negative) Urine Ketones (Negative) Urine Blood (Negative) Urine Nitrate (Negative) Urine Bilirubin (Negative) Urine Urobilinogen (Negative) Ur Leukocyte Esterase (Negative) Urine WBC (Auto) (Absent) Urine RBC (Auto) (Absent) Ur Squamous Epith Cells (Absent) Urine Bacteria (Absent) Urine Glucose (Negative) Digoxin (0.8-2.0) ng/ml Influenza A (Rapid) Negative (Negative) Influenza B (Rapid) Negative (Negative) Microbiology and Other Data: Microbiology 07/08/17 21:00 Gram Stain - Final Joint Fluid(Synovial) - Wrist Right Skin and Soft Tissue MRSA/MSSA (PCR - Final Mrsa Negative S.aureus Negative 07/08/17 21:00 Gram Stain - Final Joint Fluid(Synovial) - Wrist Right Skin and Soft Tissue MRSA/MSSA (PCR - Final Mrsa Negative S.aureus Negative Assess/Plan/Problems-Billing Assessment: 87 yo F 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 Continue prednisone taper 07/12. Continue colchicine at 0.6 mg QOD, could have been the cause of her diarrhea 07/11. (2) Polymyalgia rheumatica Current Visit: Yes Status: Acute Code(s): M35.3 - POLYMYALGIA RHEUMATICA SNOMED Code(s): 31962508 Comment: Eventually maintain on prednisone 5 mg daily. (3) Atrial fibrillation Current Visit: Yes Status: Acute Code(s): I48.91 - UNSPECIFIED ATRIAL FIBRILLATION SNOMED Code(s): 06073836 Comment: Re-started warfarin at 1 mg daily 07/09, INR 07/13. Continue home dose diltiazem, digoxin (4) Hypothyroidism Current Visit: No Status: Acute Code(s): E03.9 - HYPOTHYROIDISM, UNSPECIFIED SNOMED Code(s): 14158560 Comment: Continue Synthroid TSH wnl 07/07/17. (5) Pacemaker Current Visit: No Status: Chronic Code(s): Z95.0 - PRESENCE OF CARDIAC PACEMAKER SNOMED Code(s): 149246681 Comment: in situ for h/o tachy kayleigh syndrome
[2017-07-12] MEDS: Atorvastatin* 10 MG TAB PO SCH (17:38)
[2017-07-12] MEDS: Cephalexin CAP* 500 MG PO SCH ×2 (17:38→20:36)
[2017-07-12] MEDS: Warfarin TAB(*) 1 MG PO SCH (17:38)
[2017-07-12] MEDS: Latanoprost 0.005%* 2.5 ml BTL RIGHT EYE SCH (20:35)
[2017-07-12] MEDS: Diltiazem CD CAP* 120 MG PO SCH (20:36)
[2017-07-12] MEDS: CMCS Melatonin (NF) 3 MG TAB PO PRN (22:05)
[2017-07-13] MEDS: hydrALAZINE IV* 20 MG/ML VIAL IV PRN (00:22)
[2017-07-13] MEDS: Levothyroxine TAB* 75 MCG TAB PO SCH (05:54)
[2017-07-13 07:25] LABS: ABS Basophils 0 10^3/ul (0-0.2); ABS Eosinophils 0.1 10^3/ul (0-0.6); ABS Lymphocytes 1.5 10^3/ul (1.0-4.8); ABS Monocytes 1.3 10^3/ul (0-0.8); ABS Neutrophils 3.3 10^3/ul (1.5-7.7); ABS Nucleated RBC 0.19 10^3/ul; Eosinophil % 1.1 % (0-6); Hematocrit 31 % (35-47); Hemoglobin 10.1 g/dl (12.0-16.0); Lymphocyte % 24.3 % (25-47); Mean Corpuscular HGB Conc 33 g/dl (31-36); Mean Corpuscular Hemoglobin 25 pg (27-31); Mean Corpuscular Volume 76 fL (80-97); Mean Platelet Volume 11 um3 (7.4-10.4); Nucleated Red Blood Cells % 3.1; Red Blood Count 4.09 10^6/ul (4.0-5.4); Red Cell Distribution Width 19 % (10.5-15); White Blood Count 6.2 10^3/ul (3.5-10.8)
[2017-07-13 07:29] LABS: INR 4.53 (0.77-1.02)
[2017-07-13 07:41] LABS: EGFR Non-African American 92.8 (>60)
[2017-07-13] MEDS: Acetaminophen TAB* 325 MG PO PRN ×3 (08:15→19:56)
[2017-07-13] MEDS: Diltiazem CD CAP* 240 MG PO SCH (08:16)
[2017-07-13] MEDS: Digoxin TAB* 0.125 MG PO SCH (08:16)
[2017-07-13] MEDS: Potassium Chlor TAB* 20 MEQ TAB.ER PO SCH (08:16)
[2017-07-13] MEDS: Cephalexin CAP* 500 MG PO SCH ×3 (08:16→19:56)
[2017-07-13] MEDS: Lactobacillus Acidophilu (GG)* 1 CAP CAP PO SCH (08:16)
[2017-07-13] MEDS: Aspirin EC Low Dose* 81 MG TAB.EC PO SCH (08:16)
[2017-07-13] MEDS: predniSONE TAB* 10 MG PO SCH (08:17)
[2017-07-13] MEDS: PTO: Brimonidine P 0.15%(NF) OPH SOL 5 ML BTL RIGHT EYE SCH ×2 (08:19→19:57)
[2017-07-13 08:26] LABS: Schistocytes 2+
[2017-07-13 08:27] LABS: Platelet Morphology Large
[2017-07-13] MEDS ORDERED: Colchicine* 0.6 MG TAB PO SCH (09:00)
[2017-07-13 10:10] LABS: Platelet Count 170 10^3/ul (150-450)
--- NOTE | 2017-07-13 11:12 | PN ---
Progress Note - Progress Note Date of Service: 07/13/17 SOAP: Subjective: Pt seen lying comfortably in bed. States that pain is much improved. States mild numbness and burning in right hand 2nd and 3rd digits that is continuing to improve. Objective: mild b/l wrist swelling. ROM improved b/l wrists. Mild bruising b/l wrists. 2+ radial pulses Vital Signs: Vital Signs Temp 97.7 F 07/13/17 07:53 Pulse 84 07/13/17 08:16 Resp 24 07/13/17 09:24 BP 154/67 07/13/17 07:53 Pulse Ox 97 07/13/17 08:03 Intake & Output 07/12/17 07/13/17 07/13/17 18:59 06:59 18:59 Intake Total 1060 0 120 Output Total 400 1150 300 Balance 660 -1150 -180 Weight 105 lb Intake: Oral 1060 0 120 Output: Urine 400 1150 300 Other: Estimated Void Medium # Bowel Movements 0 # Voids 1 1 Assessment: HD #7 bilateral wrist synovitis and pseudogout Polymyalgia rheumatica Plan: continue with pain control Continue prednisone and colchicine F/U with Dr. Mattson next week as needed
[2017-07-13] MEDS: Atorvastatin* 10 MG TAB PO SCH (16:47)
--- NOTE | 2017-07-13 17:28 | PN ---
Subjective Date of Service: 07/13/17 Interval History: Pain level 4 in R hand. Eating using both hands. No BM today. No new c/o. Objective Active Medications: Acetaminophen (Tylenol Tab*) 650 mg PO Q4H PRN PRN Reason: FEVER/PAIN Last Admin: 07/13/17 13:49 Dose: 650 mg Albuterol (Ventolin 2.5 Mg/3 Ml Neb.Edwina*) 2.5 mg INH Q2H PRN PRN Reason: SOB/WHEEZING Last Admin: 07/10/17 02:29 Dose: 2.5 mg Aspirin (Aspirin Ec Low Dose*) 81 mg PO QAM [facility] Last Admin: 07/13/17 08:16 Dose: 81 mg Atorvastatin Calcium (Lipitor*) 5 mg PO QPM [facility] Last Admin: 07/13/17 16:47 Dose: 5 mg Brimonidine Tartrate (Alphagan P 0.15%(Nf)) 1 drop RIGHT EYE BID [facility] Last Admin: 07/13/17 08:19 Dose: 1 drop Cephalexin HCl (Keflex Cap*) 500 mg PO TID [facility] Last Admin: 07/13/17 13:49 Dose: 500 mg Colchicine (Colcrys*) 0.6 mg PO Q48H [facility] Last Admin: 07/13/17 08:16 Dose: 0.6 mg Digoxin (Lanoxin Tab*) 0.125 mg PO QAM [facility] Last Admin: 07/13/17 08:16 Dose: 0.125 mg Diltiazem HCl (Cardizem Cd Cap*) 120 mg PO BEDTIME [facility] Last Admin: 07/12/17 20:36 Dose: 120 mg Diltiazem HCl (Cardizem Cd Cap*) 240 mg PO DAILY [facility] Last Admin: 07/13/17 08:16 Dose: 240 mg Hydralazine HCl (Apresoline Iv*) 10 mg IV Q4H PRN PRN Reason: Systolic >170 Last Admin: 07/13/17 00:22 Dose: 10 mg Hydromorphone HCl (Dilaudid Injic*) 0.5 mg IV SLOW PU Q4H PRN PRN Reason: PAIN Last Admin: 07/09/17 12:00 Dose: 0.5 mg Lactobacillus Rhamnosus (Culturelle*) 1 cap PO DAILY [facility] Last Admin: 07/13/17 08:16 Dose: 1 cap Latanoprost (Xalatan 0.005%*) 1 drop RIGHT EYE BEDTIME [facility] Last Admin: 07/12/17 20:35 Dose: 1 drop Levothyroxine Sodium (Synthroid Tab*) 75 mcg PO DAILY@0600 [facility] Last Admin: 07/13/17 05:54 Dose: 75 mcg Loperamide HCl (Imodium Cap*) 2 mg PO QID PRN PRN Reason: DIARRHEA Last Admin: 07/11/17 15:43 Dose: 2 mg Melatonin (Melatonin (Nf)) 3 mg PO BEDTIME PRN; Protocol PRN Reason: Sleep Last Admin: 07/12/17 22:05 Dose: 3 mg Potassium Chloride (Klor Con Er Tab*) 20 meq PO DAILY [facility] Last Admin: 07/13/17 08:16 Dose: 20 meq Prednisone (Deltasone Tab*) 35 mg PO DAILY [facility] Last Admin: 07/13/17 08:17 Dose: 35 mg Vital Signs - 8 hr 07/13/17 07/13/17 07/13/17 11:48 13:43 15:29 Temperature 97.5 F 97.8 F Pulse Rate 71 64 Respiratory 18 22 Rate Blood Pressure 182/69 142/64 146/44 (mmHg) O2 Sat by Pulse 98 99 Oximetry Oxygen Devices in Use Now: None Appearance: Alert, partly up in bed. In good spirits. Looks comfortable. Eyes: No Scleral Icterus Extremities: No Clubbing, Cyanosis, - - minimla edema R hand only Skin: No Rash or Ulcers, No Nodules or Sclerosis, - Neurological: Alert and Oriented x 3, NL Sensation Result Diagrams: 07/13/17 06:59 07/13/17 06:59 Additional Lab and Data: Lab Results 07/07/17 07/07/17 07/07/17 Range/Units 11:20 11:20 11:20 WBC (3.5-10.8) 10^3/ul RBC (4.0-5.4) 10^6/ul Hgb (12.0-16.0) g/dl Hct (35-47) % MCV (80-97) fL MCH (27-31) pg MCHC (31-36) g/dl RDW (10.5-15) % Plt Count (150-450) 10^3/ul MPV Neut % (Auto) (38-83) % Lymph % (Auto) (25-47) % [place] % (Auto) (1-9) % Eos % (Auto) (0-6) % Baso % (Auto) (0-2) % Absolute Neuts (auto) (1.5-7.7) 10^3/ul Absolute Lymphs (auto) (1.0-4.8) 10^3/ul Absolute Monos (auto) (0-0.8) 10^3/ul Absolute Eos (auto) (0-0.6) 10^3/ul Absolute Basos (auto) (0-0.2) 10^3/ul Absolute Nucleated RBC 10^3/ul Nucleated RBC % Normal RBC Morphology Hypochromasia Acanthocytes (Spur) Schistocytes ESR (0-40) mm/Hr INR (Anticoag Therapy) 4.05 H (0.77-1.02) APTT 43.5 H (26.0-36.3) seconds D-Dimer, Quantitative > 1050 H (Less Than 230) ng/mL Sodium 132 L (133-145) mmol/L Potassium 3.8 (3.5-5.0) mmol/L Chloride 102 (101-111) mmol/L Carbon Dioxide 21 L (22-32) mmol/L Anion Gap 9 (2-11) mmol/L BUN 27 H (6-24) mg/dL Creatinine 0.95 (0.51-0.95) mg/dL Est GFR ( Amer) 71.6 (>60) Est GFR (Non-Af Amer) 55.6 (>60) BUN/Creatinine Ratio 28.4 H (8-20) Glucose 94 (70-100) mg/dL Lactic Acid 1.2 (0.5-2.0) mmol/L Calcium 9.3 (8.6-10.3) mg/dL Magnesium 1.8 L (1.9-2.7) mg/dL Total Bilirubin 1.00 (0.2-1.0) mg/dL AST 18 (13-39) U/L ALT 12 (7-52) U/L Alkaline Phosphatase 46 (34-104) U/L Total Creatine Kinase 11 (10-223) U/L CK-MB (CK-2) 0.8 (0.6-6.3) ng/mL Troponin I 0.11 H* (<0.04) ng/mL C-Reactive Protein 82.05 H (< 5.00) mg/L B-Natriuretic Peptide ( - 100) pg/mL Total Protein 7.7 (6.4-8.9) g/dL Albumin 3.7 (3.2-5.2) g/dL Globulin 4.0 (2-4) g/dL Albumin/Globulin Ratio 0.9 L (1-3) Lipase 10 L (11.0-82.0) U/L TSH 1.70 (0.34-5.60) mcIU/mL Urine Color Urine Appearance Urine pH (5-9) Ur Specific [place] (1.010-1.030) Urine Protein (Negative) Urine Ketones (Negative) Urine Blood (Negative) Urine Nitrate (Negative) Urine Bilirubin (Negative) Urine Urobilinogen (Negative) Ur Leukocyte Esterase (Negative) Urine WBC (Auto) (Absent) Urine RBC (Auto) (Absent) Ur Squamous Epith Cells (Absent) Urine Bacteria (Absent) Urine Glucose (Negative) Digoxin 0.9 (0.8-2.0) ng/ml Influenza A (Rapid) (Negative) Influenza B (Rapid) (Negative) 07/07/17 07/07/17 07/07/17 Range/Units 11:20 11:20 11:32 WBC 13.4 H (3.5-10.8) 10^3/ul RBC 4.43 (4.0-5.4) 10^6/ul Hgb 10.9 L (12.0-16.0) g/dl Hct 34 L (35-47) % MCV 78 L (80-97) fL MCH 25 L (27-31) pg MCHC 32 (31-36) g/dl RDW 19 H (10.5-15) % Plt Count 163 (150-450) 10^3/ul MPV Not Reportable Neut % (Auto) 69.1 (38-83) % Lymph % (Auto) 17.6 L (25-47) % [place] % (Auto) 12.2 H (1-9) % Eos % (Auto) 0.3 (0-6) % Baso % (Auto) 0.8 (0-2) % Absolute Neuts (auto) 9.2 H (1.5-7.7) 10^3/ul Absolute Lymphs (auto) 2.4 (1.0-4.8) 10^3/ul Absolute Monos (auto) 1.6 H (0-0.8) 10^3/ul Absolute Eos (auto) 0 (0-0.6) 10^3/ul Absolute Basos (auto) 0.1 (0-0.2) 10^3/ul Absolute Nucleated RBC 0.07 10^3/ul Nucleated RBC % 0.5 Normal RBC Morphology Not Reportable Hypochromasia 1+ Acanthocytes (Spur) 2+ Schistocytes 2+ ESR 34 (0-40) mm/Hr INR (Anticoag Therapy) (0.77-1.02) APTT (26.0-36.3) seconds D-Dimer, Quantitative (Less Than 230) ng/mL Sodium (133-145) mmol/L Potassium (3.5-5.0) mmol/L Chloride (101-111) mmol/L Carbon Dioxide (22-32) mmol/L Anion Gap (2-11) mmol/L BUN (6-24) mg/dL Creatinine (0.51-0.95) mg/dL Est GFR ( Amer) (>60) Est GFR (Non-Af Amer) (>60) BUN/Creatinine Ratio (8-20) Glucose (70-100) mg/dL Lactic Acid (0.5-2.0) mmol/L Calcium (8.6-10.3) mg/dL Magnesium (1.9-2.7) mg/dL Total Bilirubin (0.2-1.0) mg/dL AST (13-39) U/L ALT (7-52) U/L Alkaline Phosphatase (34-104) U/L Total Creatine Kinase (10-223) U/L CK-MB (CK-2) (0.6-6.3) ng/mL Troponin I (<0.04) ng/mL C-Reactive Protein (< 5.00) mg/L B-Natriuretic Peptide 1412 H ( - 100) pg/mL Total Protein (6.4-8.9) g/dL Albumin (3.2-5.2) g/dL Globulin (2-4) g/dL Albumin/Globulin Ratio (1-3) Lipase (11.0-82.0) U/L TSH (0.34-5.60) mcIU/mL Urine Color Yellow Urine Appearance Clear Urine pH 6.0 (5-9) Ur Specific [place] 1.017 (1.010-1.030) Urine Protein 2+(100 mg/dl) H (Negative) Urine Ketones Negative (Negative) Urine Blood Negative (Negative) Urine Nitrate Negative (Negative) Urine Bilirubin Negative (Negative) Urine Urobilinogen Negative (Negative) Ur Leukocyte Esterase Negative (Negative) Urine WBC (Auto) 2+(11-20/hpf) H (Absent) Urine RBC (Auto) Trace(0-2/hpf) (Absent) Ur Squamous Epith Cells Present H (Absent) Urine Bacteria 1+ H (Absent) Urine Glucose Negative (Negative) Digoxin (0.8-2.0) ng/ml Influenza A (Rapid) (Negative) Influenza B (Rapid) (Negative) 07/07/17 Range/Units 12:28 WBC (3.5-10.8) 10^3/ul RBC (4.0-5.4) 10^6/ul Hgb (12.0-16.0) g/dl Hct (35-47) % MCV (80-97) fL MCH (27-31) pg MCHC (31-36) g/dl RDW (10.5-15) % Plt Count (150-450) 10^3/ul MPV Neut % (Auto) (38-83) % Lymph % (Auto) (25-47) % [place] % (Auto) (1-9) % Eos % (Auto) (0-6) % Baso % (Auto) (0-2) % Absolute Neuts (auto) (1.5-7.7) 10^3/ul Absolute Lymphs (auto) (1.0-4.8) 10^3/ul Absolute Monos (auto) (0-0.8) 10^3/ul Absolute Eos (auto) (0-0.6) 10^3/ul Absolute Basos (auto) (0-0.2) 10^3/ul Absolute Nucleated RBC 10^3/ul Nucleated RBC % Normal RBC Morphology Hypochromasia Acanthocytes (Spur) Schistocytes ESR (0-40) mm/Hr INR (Anticoag Therapy) (0.77-1.02) APTT (26.0-36.3) seconds D-Dimer, Quantitative (Less Than 230) ng/mL Sodium (133-145) mmol/L Potassium (3.5-5.0) mmol/L Chloride (101-111) mmol/L Carbon Dioxide (22-32) mmol/L Anion Gap (2-11) mmol/L BUN (6-24) mg/dL Creatinine (0.51-0.95) mg/dL Est GFR ( Amer) (>60) Est GFR (Non-Af Amer) (>60) BUN/Creatinine Ratio (8-20) Glucose (70-100) mg/dL Lactic Acid (0.5-2.0) mmol/L Calcium (8.6-10.3) mg/dL Magnesium (1.9-2.7) mg/dL Total Bilirubin (0.2-1.0) mg/dL AST (13-39) U/L ALT (7-52) U/L Alkaline Phosphatase (34-104) U/L Total Creatine Kinase (10-223) U/L CK-MB (CK-2) (0.6-6.3) ng/mL Troponin I (<0.04) ng/mL C-Reactive Protein (< 5.00) mg/L B-Natriuretic Peptide ( - 100) pg/mL Total Protein (6.4-8.9) g/dL Albumin (3.2-5.2) g/dL Globulin (2-4) g/dL Albumin/Globulin Ratio (1-3) Lipase (11.0-82.0) U/L TSH (0.34-5.60) mcIU/mL Urine Color Urine Appearance Urine pH (5-9) Ur Specific [place] (1.010-1.030) Urine Protein (Negative) Urine Ketones (Negative) Urine Blood (Negative) Urine Nitrate (Negative) Urine Bilirubin (Negative) Urine Urobilinogen (Negative) Ur Leukocyte Esterase (Negative) Urine WBC (Auto) (Absent) Urine RBC (Auto) (Absent) Ur Squamous Epith Cells (Absent) Urine Bacteria (Absent) Urine Glucose (Negative) Digoxin (0.8-2.0) ng/ml Influenza A (Rapid) Negative (Negative) Influenza B (Rapid) Negative (Negative) Microbiology and Other Data: Microbiology 07/08/17 21:00 Gram Stain - Final Joint Fluid(Synovial) - Wrist Right Skin and Soft Tissue MRSA/MSSA (PCR - Final Mrsa Negative S.aureus Negative 07/08/17 21:00 Gram Stain - Final Joint Fluid(Synovial) - Wrist Right Skin and Soft Tissue MRSA/MSSA (PCR - Final Mrsa Negative S.aureus Negative Assess/Plan/Problems-Billing Assessment: 87 yo F 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 Continue prednisone taper 07/13. Continue colchicine at 0.6 mg QOD, could have been the cause of her diarrhea 07/11. (2) Polymyalgia rheumatica Current Visit: Yes Status: Acute Code(s): M35.3 - POLYMYALGIA RHEUMATICA SNOMED Code(s): 31134473 Comment: Eventually maintain on prednisone 5 mg daily. (3) Atrial fibrillation Current Visit: Yes Status: Acute Code(s): I48.91 - UNSPECIFIED ATRIAL FIBRILLATION SNOMED Code(s): 76790145 Comment: INR 07/13 4.53, warfarin held. Would hold again 07/14, recheck INR before re-starting at about 1 mg QOD. Continue home dose diltiazem, digoxin. (4) Hypothyroidism Current Visit: No Status: Acute Code(s): E03.9 - HYPOTHYROIDISM, UNSPECIFIED SNOMED Code(s): 33541971 Comment: Continue Synthroid TSH wnl 07/07/17. 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
[2017-07-13] MEDS: Diltiazem CD CAP* 120 MG PO SCH (19:56)
[2017-07-13] MEDS: Latanoprost 0.005%* 2.5 ml BTL RIGHT EYE SCH (19:57)
[2017-07-13] MEDS: CMCS Melatonin (NF) 3 MG TAB PO PRN (21:58)
[2017-07-13] MEDS: Senna TAB PO SCH (22:04)
[2017-07-14] MEDS: Acetaminophen TAB* 325 MG PO PRN (05:09)
[2017-07-14] MEDS: Levothyroxine TAB* 75 MCG TAB PO SCH (05:10)
[2017-07-14 07:41] VITALS: BP 145/49
--- NOTE | 2017-07-14 07:57 | PN ---
Progress Note - Progress Note Date of Service: 07/14/17 Note: Time spent on discharge 45 minutes.
--- NOTE | 2017-07-14 08:55 | TRS ---
CC: Dr Ayers * TRANSFER SUMMARY: DATE OF ADMISSION: 07/07/17 DATE OF TRANSFER: 07/14/17 HOSPITAL COURSE: This 87-year-old woman presented with bilateral wrist pain. 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 She was placed on cephalexin 500 mg t.i.d., indefinitely a suppressive therapy. She had a UTI recently. She then developed bilateral wrist pain. This was quite debilitating. She had temperatures up to 104 at home. She is unable to care for herself due to bilateral wrist pain. Rest of the history and physical exam is detailed in the admission note. She had aspiration of her right wrist by the orthopedist. This was no growth at the time of dictation. She had 2 sets of blood cultures, all of which were no growth at day 5. Urine grew out VRE, but this was not treated as she was asymptomatic. She was placed on prednisone and colchicine. She had dramatic response after a few days. Her CRP also dramatically responded going from the peak of 259 to 19.91 on 07/13/17. She is being transferred for rehabilitation, which I assume will not be a very long time. During the hospital stay warfarin was withheld for a while, it was restarted, but her INR went up to 4.53 on 07/13/17 and she did not receive any warfarin on 07/13/17. I recommend that she not have any warfarin on 07/14/17 and that her INR be checked on either 07/15/17 or 07/16/17. When her INR falls to less than 3 I think she can be safely started on warfarin either 1 mg every other day or warfarin 0.5 mg daily. She received 30 mg of prednisone on the day of discharge. I would continue this with 25 mg on 07/15/17 and reduce it by 5 mg daily until she reaches 5 mg at which point, I would maintain her on 5 mg daily as she has been in the past for polymyalgia rheumatica. This treatment can be reviewed at some point as an outpatient by shear helper, which I would recommend she see. I would stop the colchicine after 2 weeks if she is not having any symptoms of synovitis at that time. The cephalexin 500 mg t.i.d. should be continued indefinitely as recommended by Dr. MacQueen as suppressive therapy. FINAL DIAGNOSES: 1. Bilateral wrist synovitis. 2. Polymyalgia rheumatica. 3. Atrial fibrillation. 4. Hypothyroidism. 5. Status post pacemaker placement. DISCHARGE MEDICATIONS: 1. Albuterol 2.5 mg by nebulizer every 2 hours p.r.n. 2. Colchicine 0.6 mg every 48 hours. 3. Prednisone 25 mg on 07/15/17 taper to 5 mg and continue at 5 mg thereafter. 4. Polyethylene glycol 17 g daily. 5. Levothyroxine 75 mcg daily. 6. Latanoprost 0.005% right eye at bedtime 1 drop. 7. Acetaminophen 650 mg t.i.d. p.r.n. 8. Digoxin 0.125 mg daily. 9. Aspirin 81 mg daily. 10. Atorvastatin 5 mg daily. 11. Potassium chloride 20 mEq daily. 12. Diltiazem CD 240 mg daily. 13. Calcium 2 tabs daily. 14. Vitamin D 1000 units daily. 15. Cephalexin 500 mg t.i.d. 16. Brimonidine 0.15% 1 drop right eye b.i.d. 17. Diltiazem CD 120 mg at bedtime. [id number]/[facility] #: [id number] [facility]
[2017-07-14] MEDS ORDERED: predniSONE TAB* 10 MG PO SCH (09:00)
[2017-07-14] MEDS: Lactobacillus Acidophilu (GG)* 1 CAP CAP PO SCH (09:30)
[2017-07-14] MEDS: Senna TAB PO SCH (09:30)
[2017-07-14] MEDS: Digoxin TAB* 0.125 MG PO SCH (09:30)
[2017-07-14] MEDS: Diltiazem CD CAP* 240 MG PO SCH (09:30)
[2017-07-14] MEDS: Cephalexin CAP* 500 MG PO SCH (09:30)
[2017-07-14] MEDS: PTO: Brimonidine P 0.15%(NF) OPH SOL 5 ML BTL RIGHT EYE SCH (09:31)
[2017-07-14] MEDS: Potassium Chlor TAB* 20 MEQ TAB.ER PO SCH (09:31)
[2017-07-14] MEDS: Aspirin EC Low Dose* 81 MG TAB.EC PO SCH (09:31)
== END 2017-07-14 10:35 | DRG 557 ==
LOC: ED 09:59 → MEDTELE 12:48 → MED 07-11 16:59
PROVIDERS: ADMIT Internal Medicine; ATTEND Internal Medicine
PROC: 0R9N3ZX Drainage of Right Wrist Joint, Percutaneous Approach, Diagnostic (ICD-10-PCS; principal; 2017-07-09)
DX: M65.9 Synovitis and tenosynovitis, unspecified (principal); I50.23 Acute on chronic systolic (congestive) heart failure; D69.6 Thrombocytopenia, unspecified; D58.9 Hereditary hemolytic anemia, unspecified; I38 Endocarditis, valve unspecified; G62.9 Polyneuropathy, unspecified; I48.91 Unspecified atrial fibrillation; I51.81 Takotsubo syndrome; B95.2 Enterococcus as the cause of diseases classified elsewhere; E03.9 Hypothyroidism, unspecified; I11.0 Hypertensive heart disease with heart failure; Z66 Do not resuscitate; I25.10 Atherosclerotic heart disease of native coronary artery without angina pectoris; I73.9 Peripheral vascular disease, unspecified; E78.5 Hyperlipidemia, unspecified; Z96.642 Presence of left artificial hip joint; M19.90 Unspecified osteoarthritis, unspecified site; M10.9 Gout, unspecified; R82.71 Bacteriuria; H40.9 Unspecified glaucoma; F32.9 Major depressive disorder, single episode, unspecified; R40.2412 Glasgow coma scale score 13-15, at arrival to emergency department; J44.9 Chronic obstructive pulmonary disease, unspecified; M11.231 Other chondrocalcinosis, right wrist; M35.3 Polymyalgia rheumatica; R79.1 Abnormal coagulation profile; Z95.0 Presence of cardiac pacemaker; Z87.440 Personal history of urinary (tract) infections; Z79.52 Long term (current) use of systemic steroids; Z79.82 Long term (current) use of aspirin; Z87.01 Personal history of pneumonia (recurrent); Z86.73 Personal history of transient ischemic attack (TIA), and cerebral infarction without residual deficits; Z95.3 Presence of xenogenic heart valve; Z90.49 Acquired absence of other specified parts of digestive tract; Z95.1 Presence of aortocoronary bypass graft; Z88.1 Allergy status to other antibiotic agents; Z88.5 Allergy status to narcotic agent; Z88.8 Allergy status to other drugs, medicaments and biological substances; Z82.49 Family history of ischemic heart disease and other diseases of the circulatory system; Z87.891 Personal history of nicotine dependence; Z90.710 Acquired absence of both cervix and uterus; Z98.42 Cataract extraction status, left eye; Z98.41 Cataract extraction status, right eye; Z90.81 Acquired absence of spleen
CPT/HCPCS: 36415; 71010; 80048; 80053; 80076; 80162; 81003; 81015; 82550; 82553; 83516; 83605; 83690; 83721; 83735; 83880; 84443; 84484; 84550; 85025; 85060; 85379; 85610; 85652; 85730; 86038; 86140; 86200; 86225; 86235; 86431; 87040; 87070; 87077; 87086; 87186; 87205; 87502; 87640; 87641; 89051; 89060; 93005; 93306; 94640; 94760; 99212; A9270-GY; G0463; J0360; J0692; J1170; J1940; J2270; J2920; J3475; J7512